=== PATIENT | female | born 1940 | race Caucasian/White ===

== ENCOUNTER 2017-10-21 17:52 | Inpatient (IN) | payer OTHER, SELFPAY ==
[2017-10-21 17:52] VITALS: BP 115/54; PULSE 63; RESP 18; TEMP 36.6; O2SAT 97; BMI 22.6
--- NOTE | 2017-10-21 18:05 | RAD_ITS ---
STUDY: X-RAY CHEST REASON FOR EXAM: Female, 77 years old. COUGH TECHNIQUE: Single frontal view of the chest. COMPARISON: Aug 10, 2017 FINDINGS: Chronic appearing increased interstitial lung markings. There is no demonstrated pleural abnormality. Normal heart size. Normal mediastinum and gabriela. Normal visualized pulmonary arteries. There is atherosclerotic calcification of the aortic arch with tortuosity. There are diffuse degenerative changes of the visualized thoracic spine. There is degenerative osteoarthritis of the bilateral shoulders. There is no demonstrated abnormality of the visualized soft tissue structures of the upper abdomen. RAD/Chest 1 View (Portable) IMPRESSION: There are no acute findings. Electronically Signed: Hamilton Hughes MD at 19:20 EST , Service support ,
--- NOTE | 2017-10-21 18:05 | EKG12_ITS ---
Test Reason : ABNORMAL LABS Blood Pressure : / mmHG Vent. Rate : 062 BPM Atrial Rate : 063 BPM P-R Int : 000 ms QRS Dur : 074 ms QT Int : 386 ms P-R-T Axes : 000 141 149 degrees QTc Int : 391 ms Normal sinus rhythm Old AWMI Anterolateral infarct (cited on or before 10-AUG-2017) Abnormal ECG Confirmed by ROSA PLATT ([id number]), graphics editor JOI RAHMAN ([id number]) on 10/25/2017 3:45:07 PM Referred By: MATTHEW Confirmed By:ROSA PLATT
--- NOTE | 2017-10-21 18:10 | ED.VISSUMM ---
- ER Visit Summary Date of Service: 10/21/17 Chief Complaint: Abnormal labs History of Present Illness: The patient is a 77 F history of pulmonary hypertension and recent and STEMI presents to the emergency department abnormal labs. Patient states that she has had flu. She states that she had vomiting over the past 3 days. She had outpatient labs done which demonstrated acute kidney injury. Patient states that she has been compliant with her medication. She was on Coumadin, but states she has not taken it since Tuesday because she was told not to. She has had no abdominal pain. She denies any fevers or chills. She still making urine. She has had no chest pain or dyspnea. She denies any recent travel. She denies any diarrhea. Physical Examination: Vital signs reviewed General: Well-nourished, well-developed, mucous membranes dry Head: Normocephalic, atraumatic Eyes: Pupils equal and reactive, extraocular muscles intact Neck, supple, no lymphadenopathy Heart: Regular rate and rhythm Respiratory: No distress, clear bilaterally Abdomen: Soft, nontender, nondistended, no peritoneal signs Back: Nontender Extremities: Nontender, no edema, no cords Skin: Normal color no rash Neuro: Alert and oriented, no focal or lateralizing deficits Test Results: EKG demonstrates sinus rhythm with intermittent PVCs. It was read as junctional, but does appear to be sinus with artifact. Chest x-ray unremarkable. Screening labs demonstrate acute kidney injury with a BUN of almost 150. Potassium is low at 2.6. Lipase mildly elevated at 911. Emergency Department Course and Treatment: IV was established. The patient was given a 500 cc bolus. She still had no urine output. Labs do confirm acute kidney injury. I do feel that this is likely all prerenal it is made worse with some of her nephrotoxic medication. She is given another small bolus. Based on the patient's significant kidney injury and dehydration she will need admitted. She does have an indeterminate troponin, but in light of her significant coronary vascular disease and acute kidney injury, I do not feel that this is cardiac in nature. The patient's potassium will be replaced gently. She will be gently hydrated and her urine output will be monitored. She will be admitted at this time. Treatment Plan: [] Disposition: Admission Impression: 1. Supratherapeutic INR 2. Acute kidney injury 3. Hypokalemia 4. Dehydration This note was generated with Dragon dictation software. It may contain incorrect words, spelling, and punctuation that were not noted in review of the chart prior to signing ED Disposition - Plan for ED Patient: Chief Complaint: Abn Labs
[2017-10-21 19:02] LABS: Absolute Lymphocyte Count 1.22 X10^3/ul (0.83-4.51); Absolute Neutrophil Count 6.8 X10^3/uL (2.0-7.7); Basophil# 0.02 X10^3/uL; Basophil% 0.2 % (0-1); Eosinophil# 0.18 X10^3/uL; Hematocrit 35.5 % (37-47); Hemoglobin 12.5 g/dl (12.0-15.0); Lymphocyte # 1.22 X10^3/ul (4.0); Lymphocyte % 13.7 % (19-41); Mean Corp Hgb Conc 35.2 g/gl (32-36); Mean Corpuscular Hgb 29.9 pg (27.0-32.0); Mean Corpuscular Volume 84.9 fL (81-99); Mean Platelet Vol. 12.1 fl (6.2-12.0); Monocyte# 0.69 X10^3/uL; Monocyte% 7.8 % (0-10); Neutrophil # 6.78 X10^3/uL (2.7-7.7); Neutrophil % 76.2 % (47-70); Platelet Count 124 K/mm3 (150-450); RBC Distribution Width CV 12.6 % (11.6-14.6); RBC Distribution Width SD 38.8 fl (35.1-43.9); Red Blood Count 4.18 M/mm3 (4.2-5.4); White Blood Count 8.9 K/mm3 (4.4-11.0)
[2017-10-21 19:08] LABS: POSITIVE COUNT NO; POSITIVE DIFFERENTIAL NO; POSITIVE MORPHOLOGY NO
[2017-10-21 19:13] LABS: Prothrombin Time (Protime)PT. 55.3 SECONDS (11.7-14.9)
[2017-10-21 19:14] LABS: International Normalized Ratio 6.6
--- NOTE | 2017-10-21 19:16 | ED.RN ---
inr 6.6 called from the lab. jordy sharpe aware
[2017-10-21 19:45] LABS: Lactic Acid 1.5 mmol/L (0.4-2.0)
[2017-10-21 19:56] LABS: ALB/GLOB Ratio 0.8 RATIO (0.9-2.4); AST(SGOT) 58 U/L (15-37); Alanine Aminotransfer ALT/SGPT 30 U/L (12-78); Albumin, Serum 3.5 g/dL (3.4-5.0); Alkaline Phosphatase 66 U/L (45-117); Anion Gap 15 (5-15); BUN 148 mg/dL (7-18); BUN/Creat Ratio 26.5 RATIO (10-20); Calcium,Total 8.9 mg/dL (8.5-10.1); Chloride 96 mmol/L (98-107); Creatinine, Serum 5.59 mg/dL (0.55-1.02); EST Glomerular Filtration Rate 8 mL/min (>60); Est Glom Filt Rate - Afr Amer 10 mL/min (>60); Estimated Creatinine Clearance 6.36 ml/min; Globulin 4.2 g/dL (2.2-4.2); Glucose 126 mg/dL (70-110); Lipase 911 U/L (73-393); Potassium 2.6 mmol/L (3.5-5.1); Protein, Total 7.7 g/dL (6.4-8.2); Sodium Level 137 mmol/L (136-145)
--- NOTE | 2017-10-21 19:56 | ED.RN ---
Dr. Machuca aware of critical labs K 2.6 and BUN 148.
--- NOTE | 2017-10-21 20:15 | ED.RN ---
PCU ABBY IMDEBRA
[2017-10-21 20:28] LABS: Mucous, Urine 0 SEEN /hpf (<or=2+); Red Blood Cells-Urine 0 SEEN /hpf (0-5); Squamous Epithelial Cells - UA 0 SEEN /hpf (5-10)
[2017-10-21 20:31] VITALS: BP 122/69; PULSE 62; PULSE 65; RESP 11; RESP 17; O2SAT 94; O2SAT 97
[2017-10-21 20:35] LABS: Color, Urine Yellow (Yellow); Glucose, Dipstick Normal (Normal); Ketone-Dipstick Negative (Negative); Leukocyte Esterase-Dipstick 500 /ul (Negative); Nitrite-Dipstick Negative (Negative); Occult Blood-Urine 250 /ul (Negative); Protein-Dipstick 30 mg/dl (Negative); Urine Bilirubin Dipstick Negative (Negative); Urine Clarity Cloudy (Clear); Urine Urobilinogen Normal (Normal)
[2017-10-21 21:17] VITALS: BMI 24.6
[2017-10-21 21:18] VITALS: BP 134/60; PULSE 65; RESP 18; TEMP 36.7; O2SAT 95
[2017-10-21 21:20] LABS: Coarse Granular Cast 0-5 SEEN /lpf (0-5 /lpf)
[2017-10-21 21:21] LABS: Fine Granular Cast- Urine 0-5 SEEN /lpf (0-5)
[2017-10-21 21:24] LABS: Hyaline Cast 0-5 SEEN /lpf (0-5); Waxy Cast-Urine 0-5 SEEN /lpf (None Seen)
[2017-10-21 21:26] LABS: Bacteria 1+ /hpf (None Seen); Renal Epithelial Cells 0-5 SEEN /hpf (0-5); White Blood Cells >100 SEEN /hpf (0-5)
[2017-10-21 21:27] LABS: Transitional Epithelial - Ur 0-5 SEEN /hpf (0-5)
--- NOTE | 2017-10-21 21:27 | PCM.HP.STD ---
Problem List (1) ABBY (acute kidney injury) Status: Acute (2) Hypokalemia Status: Acute (3) Warfarin-induced coagulopathy Status: Acute (4) Ischemic cardiomyopathy Status: Chronic (5) Arteriosclerotic heart disease (ASHD) Status: Chronic (6) custodial (current) use of anticoagulants Status: Chronic History of Present Illness Date of Admission: 10/21/17 Chief Complaint: Abnormal lab results. Patient is a 77 years old female who was sent to ED after she had abnormal lab results. She was feeling fair, but had flu for past few days with non-specific complains of malaise, some cough, and nausea and vomiting. She had NSTEMI in August 2017, there was addition of furosemide for severe systolic dysfunction. Her creatinine was 5.59, with BUN 148. Potassium was 2.6. INR was 6.6, but she has no symptoms of bleeding. She was urinating normally until this morning. Furosemide was stopped yesterday for dehydration. In ED, IVF bolus given. She was not voiding initially, but had some urine output later. Past Medical History Past Medical History (Chronic Problems): Chronic Problems (Last Updated 10/21/17 @ 08:56 by Mars Rayo) Ischemic cardiomyopathy (Chronic) Arteriosclerotic heart disease (ASHD) (Chronic) CVA (cerebral vascular accident) (Chronic) Peripheral vascular disease (Chronic) Renal artery stenosis (Chronic) custodial (current) use of anticoagulants (Chronic) Cerebrovascular disease (Chronic) Dyslipidemia (Chronic) HTN (hypertension) (Chronic) Noncompliance with medication regimen (Chronic) PVD (peripheral vascular disease) (Chronic) Abdominal aortic artery stent (Chronic) Non-STEMI (Chronic) Hypertensive urgency (Chronic) Allergies No Known Allergies Allergy (Verified 10/21/17 17:55) Home Medications: Ambulatory Orders Medication Instructions Recorded Aspirin [Aspirin, Baby] 81 mg PO DAILY@0800 10/21/17 Carvedilol [Coreg] 12.5 mg PO BID 10/21/17 Losartan Potassium [Cozaar] 25 mg PO DAILY 10/21/17 Potassium Chloride [Klor-Con M10] 20 meq PO DAILY 10/21/17 Rosuvastatin Calcium [Crestor] 40 mg PO DAILY 10/21/17 Smoking Status: Never smoker - *Family History Paternal Family History: Family History (Last Updated 10/21/17 @ 08:53 by Mars Rayo) Brother Hypertension History Items: No pertinent history Review of Systems Comment: ROS: In general: Malaise. No fever, chills. Decreased apptetite. HEENT: Unremarkable. Patient denied of any dizziness, chronic headache, blurred vision, double vision, dry mouth, or nasal congestion. CV/respiratory: There is no exertional shortness of breath, chest pain, palpitation, wheezing, cough, claudication, cold feet, or peripheral edema. GI: Nausea and vomiting. No hematemesis or melena. No abdominal pain. : Patient denied any significant urinary symptoms. Neurology: Unremarkable. There is no history of seizure as an adult. Psychological: Unremarkable. ?. Endocrine: Unremarkable. Musculoskeletal: Unremarkable. VTE Information - Inpt Only VTE Present on Admission: No VTE Mechan Device Prophylaxis: SCD's VTE Pharm Prophylaxis ordered?: No Reason prophylaxis not ordered:: Medical Contraindication - Supratherapeutic INR Patient Problems: Active and Suspected Problems (Last Updated 10/21/17 @ 08:56 by Mars Rayo) ABBY (acute kidney injury) (Acute) Hypokalemia (Acute) Warfarin-induced coagulopathy (Acute) Objective: In general, patient is a well-nourished and developed adult. HEENT: Head is atraumatic, and normocephalic. Pupils are equal, round, and reactive to light and accommodations. Neck is supple. There is no lymphadenopathy, or thyromegaly. Oral mucosa is pink, and moist. There are no lesions. Heart: Auscultation is normal with regular rhythm and rate. There is no extra heart sounds, or murmurs. S1 and S2 are present. Point of maximal impulse is not displaced. Lungs: Lungs are clear to auscultation bilaterally. There is no wheezing, or crackles. Abdomen: Abdominal wall is non-tender, and non-distended. There is no palpable mass or organomegaly. Normoactive bowel sounds are present. Extremities: There is no cyanosis or clubbing. Peripheral pulses are palpable. There is no edema. Skin: There are no any skin discoloration or lesions. Neurological: CN II - XII are intact. Sensory and motor functions are grossly normal with no obvious deficit. Cerebellar functions are within normal range. Gait was not tested. - Physical Exam Vital Signs Temp Pulse Resp BP Pulse Ox 98.1 F 65 18 134/60 H 95 10/21/17 21:18 10/21/17 21:18 10/21/17 21:18 10/21/17 21:18 10/21/17 21:18 Oxygen Delivery Method Room Air Weight: 130 lb 4.691 oz Body Mass Index (BMI) 24.6 Laboratory Tests Past 24 Hrs 10/21/17 20:20 Urine Color Yellow Urine Clarity Cloudy Urine pH 5.0 Ur Specific Dawson 1.010 Urine Protein 30 H Urine Glucose (UA) Normal Urine Ketones Negative Urine Occult Blood 250 H Urine Nitrite Negative Urine Bilirubin Negative Urine Urobilinogen Normal Ur Leukocyte Esterase 500 H Urine RBC Pending Urine WBC Pending Ur Squamous Epith Cells Pending Urine Bacteria Pending Urine Mucus Pending Diagnostic Data Chest X-Ray 10/21/17 18:05 IMPRESSION: There are no acute findings. Electronically Signed: Hamilton Hughes MD at 19:20 EST , Service support , Assessment/Plan Active and Suspected Problems (Last Updated 10/21/17 @ 08:56 by Mars Rayo) ABBY (acute kidney injury) (Acute) Hypokalemia (Acute) Warfarin-induced coagulopathy (Acute) Patient is a 77 years old female who was sent to ED after she had abnormal lab results. She was feeling fair, but had flu for past few days with non-specific complains of malaise, some cough, and nausea and vomiting. She had NSTEMI in August 2017, there was addition of furosemide for severe systolic dysfunction. Her creatinine was 5.59, with BUN 148. Potassium was 2.6. INR was 6.6, but she has no symptoms of bleeding. She was urinating normally until this morning. Furosemide was stopped yesterday for dehydration. In ED, IVF bolus given. She was not voiding initially, but had some urine output later. #1 ABBY. Likely due to dehydration from diuretics. Hold Lasix and HCTZ. Gentle hydration with IVF, 100 ml/hr. Monitor BMP. Consider renal consult if renal function does not improve with fluid. #2 Supratherapeutic INR. Hold warfarin. INR daily. #3 CHF with systolic dysfunction, chronic. EF 15-20% per cardiology note. IVF as above. Losartan, K-CL, and diuretics on hold. #4 Coronary artery disease. With recent NSTEMI in 08/2017. #5 Hypokalemia. KCL IVPB 20 meq x 1 given. Repeat BMP in AM. VTE prophylaxis: INR supratherapeutic. GI prophylaxis: ppi po. Patient is full code. Disposition: Home in 3 to 4 days. PT/OT evaluation. Code Visit Inpatient E&M: 22715 Init Hosp L3
--- NOTE | 2017-10-21 21:40 | HP.PCM_ITS ---
Problem List (1) ABBY (acute kidney injury) Status: Acute (2) Hypokalemia Status: Acute (3) Warfarin-induced coagulopathy Status: Acute (4) Ischemic cardiomyopathy Status: Chronic (5) Arteriosclerotic heart disease (ASHD) Status: Chronic (6) FPC (current) use of anticoagulants Status: Chronic History of Present Illness Date of Admission: 10/21/17 Chief Complaint: Abnormal lab results. Patient is a 77 years old female who was sent to ED after she had abnormal lab results. She was feeling fair, but had ?flu? for past few days with non-specific complains of malaise, some cough, and nausea and vomiting. She had NSTEMI in August 2017, there was addition of furosemide for severe systolic dysfunction. Her creatinine was 5.59, with BUN 148. Potassium was 2.6. INR was 6.6, but she has no symptoms of bleeding. She was urinating normally until this morning. Furosemide was stopped yesterday for dehydration. In ED, IVF bolus given. She was not voiding initially, but had some urine output later. Past Medical History Past Medical History (Chronic Problems): Chronic Problems (Last Updated 10/21/17 @ 08:56 by Mars Rayo) Ischemic cardiomyopathy (Chronic) Arteriosclerotic heart disease (ASHD) (Chronic) CVA (cerebral vascular accident) (Chronic) Peripheral vascular disease (Chronic) Renal artery stenosis (Chronic) FPC (current) use of anticoagulants (Chronic) Cerebrovascular disease (Chronic) Dyslipidemia (Chronic) HTN (hypertension) (Chronic) Noncompliance with medication regimen (Chronic) PVD (peripheral vascular disease) (Chronic) Abdominal aortic artery stent (Chronic) Non-STEMI (Chronic) Hypertensive urgency (Chronic) Allergies No Known Allergies Allergy (Verified 10/21/17 17:55) Home Medications: Ambulatory Orders Medication Instructions Recorded Aspirin [Aspirin, Baby] 81 mg PO DAILY@0800 10/21/17 Carvedilol [Coreg] 12.5 mg PO BID 10/21/17 Losartan Potassium [Cozaar] 25 mg PO DAILY 10/21/17 Potassium Chloride [Klor-Con M10] 20 meq PO DAILY 10/21/17 Rosuvastatin Calcium [Crestor] 40 mg PO DAILY 10/21/17 Smoking Status: Never smoker - *Family History Paternal Family History: Family History (Last Updated 10/21/17 @ 08:53 by Mars Rayo) Brother Hypertension History Items: No pertinent history Review of Systems Comment: ROS: In general: Malaise. No fever, chills. Decreased apptetite. HEENT: Unremarkable. Patient denied of any dizziness, chronic headache, blurred vision, double vision, dry mouth, or nasal congestion. CV/respiratory: There is no exertional shortness of breath, chest pain, palpitation, wheezing, cough, claudication, cold feet, or peripheral edema. GI: Nausea and vomiting. No hematemesis or melena. No abdominal pain. : Patient denied any significant urinary symptoms. Neurology: Unremarkable. There is no history of seizure as an adult. Psychological: Unremarkable. ?. Endocrine: Unremarkable. Musculoskeletal: Unremarkable. VTE Information - Inpt Only VTE Present on Admission: No VTE Mechan Device Prophylaxis: SCD's VTE Pharm Prophylaxis ordered?: No Reason prophylaxis not ordered:: Medical Contraindication - Supratherapeutic INR Patient Problems: Active and Suspected Problems (Last Updated 10/21/17 @ 08:56 by Mars Rayo) ABBY (acute kidney injury) (Acute) Hypokalemia (Acute) Warfarin-induced coagulopathy (Acute) Objective: In general, patient is a well-nourished and developed adult. HEENT: Head is atraumatic, and normocephalic. Pupils are equal, round, and reactive to light and accommodations. Neck is supple. There is no lymphadenopathy, or thyromegaly. Oral mucosa is pink, and moist. There are no lesions. Heart: Auscultation is normal with regular rhythm and rate. There is no extra heart sounds, or murmurs. S1 and S2 are present. Point of maximal impulse is not displaced. Lungs: Lungs are clear to auscultation bilaterally. There is no wheezing, or crackles. Abdomen: Abdominal wall is non-tender, and non-distended. There is no palpable mass or organomegaly. Normoactive bowel sounds are present. Extremities: There is no cyanosis or clubbing. Peripheral pulses are palpable. There is no edema. Skin: There are no any skin discoloration or lesions. Neurological: CN II - XII are intact. Sensory and motor functions are grossly normal with no obvious deficit. Cerebellar functions are within normal range. Gait was not tested. - Physical Exam Vital Signs Temp Pulse Resp BP Pulse Ox 98.1 F 65 18 134/60 H 95 10/21/17 21:18 10/21/17 21:18 10/21/17 21:18 10/21/17 21:18 10/21/17 21:18 Oxygen Delivery Method Room Air Weight: 130 lb 4.691 oz Body Mass Index (BMI) 24.6 Laboratory Tests Past 24 Hrs 10/21/17 20:20 Urine Color Yellow Urine Clarity Cloudy Urine pH 5.0 Ur Specific [place] 1.010 Urine Protein 30 H Urine Glucose (UA) Normal Urine Ketones Negative Urine Occult Blood 250 H Urine Nitrite Negative Urine Bilirubin Negative Urine Urobilinogen Normal Ur Leukocyte Esterase 500 H Urine RBC Pending Urine WBC Pending Ur Squamous Epith Cells Pending Urine Bacteria Pending Urine Mucus Pending Diagnostic Data Chest X-Ray 10/21/17 18:05 IMPRESSION: There are no acute findings. Electronically Signed: Hamilton Hughes MD at 19:20 EST , Service support , Assessment/Plan Active and Suspected Problems (Last Updated 10/21/17 @ 08:56 by Mars Rayo) ABBY (acute kidney injury) (Acute) Hypokalemia (Acute) Warfarin-induced coagulopathy (Acute) Patient is a 77 years old female who was sent to ED after she had abnormal lab results. She was feeling fair, but had ?flu? for past few days with non-specific complains of malaise, some cough, and nausea and vomiting. She had NSTEMI in August 2017, there was addition of furosemide for severe systolic dysfunction. Her creatinine was 5.59, with BUN 148. Potassium was 2.6. INR was 6.6, but she has no symptoms of bleeding. She was urinating normally until this morning. Furosemide was stopped yesterday for dehydration. In ED, IVF bolus given. She was not voiding initially, but had some urine output later. #1 ABBY. Likely due to dehydration from diuretics. Hold Lasix and HCTZ. Gentle hydration with IVF, 100 ml/hr. Monitor BMP. Consider renal consult if renal function does not improve with fluid. #2 Supratherapeutic INR. Hold warfarin. INR daily. #3 CHF with systolic dysfunction, chronic. EF 15-20% per cardiology note. IVF as above. Losartan, K-CL, and diuretics on hold. #4 Coronary artery disease. With recent NSTEMI in 08/2017. #5 Hypokalemia. KCL IVPB 20 meq x 1 given. Repeat BMP in AM. VTE prophylaxis: INR supratherapeutic. GI prophylaxis: ppi po. Patient is full code. Disposition: Home in 3 to 4 days. PT/OT evaluation. Code Visit Inpatient E&M: 49034 Init Hosp L3
[2017-10-21 21:46] VITALS: PULSE 101
[2017-10-21 23:15] VITALS: PULSE 126
[2017-10-21] MEDS: Carvedilol 12.5 MG Tablet PO (23:49)
[2017-10-21] MEDS: Atorvastatin Calcium 80 MG Tablet PO (23:49)
[2017-10-22] VITALS (11 sets, daily range): BP systolic 82–98; BP diastolic 43–62; PULSE 69–118; RESP 16–18; TEMP 36.4–37; O2SAT 95–97
[2017-10-22] MEDS: 0.9% Normal Saline 1,000 ML 100 ML IV ×2 (00:23→10:03)
--- NOTE | 2017-10-22 02:18 | ECHOCS_ITS ---
Reason For Study: Arrhythmia Procedure This was a 2D Doppler, Color Flow transthoracic echocardiogram. Patient would not maintain proper positioning for testing. The study was technically difficult. Contrast injection was performed. Exam performed portable in patient room. Left Ventricle Normal LV size. Sigmoid septum. Severe segmental systolic dysfunction (see wall motion). The estimated ejection fraction is 15 %. Mid-Anterior : Akinetic. Mid-Lateral : Hypokinetic. Mid- Posterior: Hypokinetic. Mid-Inferior: Hypokinetic. Mid-inferoseptal : Akinetic. Mid-anteroseptal : Akinetic. Randolph : Akinetic. Right Ventricle Normal RV size. Normal systolic function. Atria The left atrium is severely enlarged. Normal right atrium. No doppler evidence for ASD. Mitral Valve There is moderate to severe mitral annular calcification. Extension of the mitral annular calcicification onto the posterior mitral valve leaflet. Mild focal mitral valve calcification of the anterior leaflet. Mild (1+) mitral valve insufficiency. Tricuspid Valve Normal tricuspid valve. Moderate (2+) tricuspid valve insufficiency. Right ventricular systolic pressure estimated to be 46 mmHg. Aortic Valve Trisinus/trileaflet aortic valve. Normal aortic valve. Pulmonic Valve The pulmonic valve is not well visualized. Great Vessels Normal sized aortic root. Pericardium/Pleural No pericardial effusion. Medication Diluted definity 5ml given slow IV push to enhance endocardial definition. MMode/2D Measurements & Calculations LVIDd: 3.5 cm IVSd: 1.6 cm Ao root diam: 2.6 cm RVDd: 2.7 cm LVPWd: 1.0 cm LAV(MOD-sp4): 72.3 ml LA A4 area: 22.8 cm2 RA A4 area: 12.3 cm2 Time Measurements MV dec time: 0.15 sec Doppler Measurements & Calculations MV E max suresh: 135.8 cm/sec Ao V2 max: 89.1 cm/sec LV V1 max: 61.7 cm/sec MV A max suresh: 58.1 cm/sec Ao max P.2 mmHg LV V1 max P.5 mmHg MV E/A: 2.3 Ao V2 mean: 50.2 cm/sec LV V1 mean P.72 mmHg Ao mean P.2 mmHg LV V1 mean: 38.9 cm/sec Ao V2 VTI: 10.8 cm LV V1 VTI: 10.5 cm PA V2 max: 87.6 cm/sec TR max suresh: 326.6 cm/sec TR max P.7 mmHg Interpretation Summary The study was technically difficult. Contrast injection was performed. Severe segmental systolic dysfunction (see wall motion). The estimated ejection fraction is 15 %. Sigmoid septum. The left atrium is severely enlarged. There is moderate to severe mitral annular calcification. Extension of the mitral annular calcicification onto the posterior mitral valve leaflet. Mild focal mitral valve calcification of the anterior leaflet. Mild (1+) mitral valve insufficiency. Moderate (2+) tricuspid valve insufficiency. Right ventricular systolic pressure estimated to be 46 mmHg. Transmitral diastolic flow velocities suggest diastolic dysfunction (pseudonormal pattern). Ordering Physician: Marci Garzon Referring Physician: Chon Solis Performed By: Víctor Massey RCS
[2017-10-22 02:36] LABS: Magnesium 1.8 mg/dL (1.6-2.6)
[2017-10-22 05:29] LABS: Hematocrit 32.8 % (37-47); Hemoglobin 11.7 g/dl (12.0-15.0); Mean Corp Hgb Conc 35.7 g/gl (32-36); Mean Corpuscular Hgb 30.1 pg (27.0-32.0); Mean Corpuscular Volume 84.3 fL (81-99); Mean Platelet Vol. 12.2 fl (6.2-12.0); Platelet Count 114 K/mm3 (150-450); RBC Distribution Width CV 12.2 % (11.6-14.6); RBC Distribution Width SD 36.7 fl (35.1-43.9); Red Blood Count 3.89 M/mm3 (4.2-5.4); White Blood Count 8.1 K/mm3 (4.4-11.0)
[2017-10-22 05:37] LABS: Scan Indicated on CBC? Y/N NO
[2017-10-22 05:40] LABS: Prothrombin Time (Protime)PT. 58.6 SECONDS (11.7-14.9)
[2017-10-22 05:43] LABS: International Normalized Ratio 7.1
[2017-10-22 05:51] LABS: Anion Gap 13 (5-15); BUN 114 mg/dL (7-18); BUN/Creat Ratio 28.1 RATIO (10-20); Calcium,Total 7.9 mg/dL (8.5-10.1); Chloride 106 mmol/L (98-107); Creatinine, Serum 4.06 mg/dL (0.55-1.02); EST Glomerular Filtration Rate 11 mL/min (>60); Est Glom Filt Rate - Afr Amer 14 mL/min (>60); Estimated Creatinine Clearance 8.76 ml/min; Glucose 118 mg/dL (70-110); Sodium Level 144 mmol/L (136-145)
--- NOTE | 2017-10-22 05:55 | EKG12_ITS ---
Test Reason : AM EKG Blood Pressure : / mmHG Vent. Rate : 103 BPM Atrial Rate : 079 BPM P-R Int : 000 ms QRS Dur : 080 ms QT Int : 350 ms P-R-T Axes : 000 090 110 degrees QTc Int : 458 ms Atrial fibrillation Anterolateral infarct , age undetermined Abnormal ECG When compared with ECG of 21-OCT-2017 18:15, MANUAL COMPARISON REQUIRED, DATA IS UNCONFIRMED Confirmed by ROSA PLATT ([id number]), news editor JOI RAHMAN ([id number]) on 10/27/2017 1:52:14 PM Referred By: Confirmed By:ROSA PLATT
[2017-10-22 06:05] LABS: Cholesterol 90 mg/dL (200); High Density Lipoprotein 31 mg/dL; Triglycerides 169 mg/dL; Very Low Density Lipoprotein 34 mg/dL (5-40)
[2017-10-22] MEDS: Phytonadione (Vit K) 10 MG/ML Ampul 5 MG PO (07:25)
[2017-10-22] MEDS: Aspirin 81 MG TAB.CHEW PO (08:09)
[2017-10-22] MEDS: Pantoprazole Sodium 20 MG Tablet PO (10:03)
--- NOTE | 2017-10-22 10:51 | PCM.PROGNOTE ---
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 She denied any blood in her stool. Outpatient labs revealed acute kidney injury. Vital signs at presentation to the emergency room are temperature 98, pulse rate 63, blood pressure 115/54, respiratory rate 18 and she was 95-97% saturated on room air. Admitting labs showed a normal hemoglobin at 12.5, normal WBC at 8.9 and an unremarkable differential. Platelets were low at 124,000. INR was high at 6.6. Potassium was low at 2.6 and the BUN was 148 with a creatinine of 5.59. Lactic acid was normal. Troponin was elevated at 0.18. Urine had greater than 100 WBCs and was nitrite negative. There was no urine sent for culture. Chest x-ray showed blunting of the right costophrenic angle and some hyperinflation. She has been on an ARB and Lasix as an outpatient. Her medications also include warfarin, carvedilol, potassium and Crestor. She was admitted to the hospital with a diagnosis of acute kidney injury and started on normal saline at 100 cc/h. She was given vitamin K 5 mg p.o. Potassium was supplemented with 40 mEq p.o. ?1 and 20 mEq IV. Echocardiogram done in August 2017 showed an ejection fraction of 15-20% with stage I diastolic dysfunction. Left atrium was severely enlarged and the right ventricular systolic pressure was 45. Heart catheterization in August showed double vessel coronary artery disease. She had PCI to the mid and distal OM1 which was successful. Troponin is continuing to increase and today is 4.32. White blood cell count remains normal at 8.1. Platelets are 114,000. Rate is currently 87 bpm. Telemetry shows atrial fibrillation with rapid ventricular response, PVCs and one single run of 4 beats of nonsustained V. tach. Heart rate is improving and is less than 100 now. She denies lightheadedness currently sitting in a chair. She also denies chest pain, shortness of breath and states her legs have not been swollen. EKG shows Q waves in all precordial leads consistent with old anterolateral OK. There are nonspecific ST and T-wave changes with no evidence of ST segment elevation or significant depression. - Physical Exam General: Alert, Cooperative, No apparent distress HEENT: Atraumatic, PERRLA, EOMI, - - Palpebral conjunctiva is pale. Oral: No Gingival or Mucosal Lesions/ Ulcerations, Dry Mucosa Neck: Supple, No JVD, Trachea Midline Lungs: Clear to auscultation, No rhonchi, No wheeze, No rales Cardiovascular: Normal S1, Normal S2, Irregular Rate, No rub noted, No Gallop, - - Heart sounds are distant but no murmur appreciated. Abdomen: Bowel Sounds Present, Soft, Non Tender, Non-Distended Extremities: No cyanosis, No edema, No Calf Tenderness, Cool - Hands and feet Skin: No rashes, No breakdown Neurological: Cranial nerves II-XII grossly intact, Neuro grossly intact Psych/Mental Status: Normal Affect, Appropriate Vital Signs Temp Pulse Resp BP Pulse Ox 97.6 F L 87 18 96/62 97 10/22/17 09:15 10/22/17 09:15 10/22/17 09:15 10/22/17 09:15 10/22/17 09:15 Oxygen Delivery Method Room Air Weight: 130 lb 4.691 oz Body Mass Index (BMI) 24.6 Intake and Output for Last 24 Hours 10/20/17 10/21/17 10/22/17 23:59 23:59 23:59 Intake Total 482 / 482 480 / 480 Output Total 200 / 200 Balance 482 / 482 280 / 280 Laboratory Tests Past 24 Hrs 10/21/17 10/22/17 10/22/17 20:20 01:05 01:05 WBC RBC Hgb Hct MCV MCH MCHC RDW RDW Differential Plt Count MPV PT INR Sodium Potassium Chloride Carbon Dioxide Anion Gap BUN Creatinine Estim Creat Clear Calc Est GFR (MDRD) Af Amer Est GFR (MDRD) Non-Af BUN/Creatinine Ratio Glucose Calcium Magnesium 1.8 Troponin I 0.83 H* Triglycerides Cholesterol LDL Cholesterol VLDL Cholesterol HDL Cholesterol Urine Color Yellow Urine Clarity Cloudy Urine pH 5.0 Ur Specific [place] 1.010 Urine Protein 30 H Urine Glucose (UA) Normal Urine Ketones Negative Urine Occult Blood 250 H Urine Nitrite Negative Urine Bilirubin Negative Urine Urobilinogen Normal Ur Leukocyte Esterase 500 H Urine RBC 0 SEEN Urine WBC >100 SEEN Ur Squamous Epith Cells 0 SEEN Ur Transition Epith Cell 0-5 SEEN Ur Renal Epithelial Cell 0-5 SEEN Urine Bacteria 1+ Hyaline Casts 0-5 SEEN Fine Granular Casts 0-5 SEEN Coarse Granular Casts 0-5 SEEN Waxy Casts 0-5 SEEN H Urine Mucus 0 SEEN 10/22/17 10/22/17 10/22/17 05:13 05:13 05:13 WBC 8.1 RBC 3.89 L Hgb 11.7 L Hct 32.8 L MCV 84.3 MCH 30.1 MCHC 35.7 RDW 12.2 RDW Differential 36.7 Plt Count 114 L MPV 12.2 H PT 58.6 H INR 7.1 H* Sodium 144 Potassium 3.0 L Chloride 106 Carbon Dioxide 25.0 Anion Gap 13 BUN 114 H* Creatinine 4.06 H Estim Creat Clear Calc 8.76 Est GFR (MDRD) Af Amer 14 L Est GFR (MDRD) Non-Af 11 L BUN/Creatinine Ratio 28.1 H Glucose 118 H Calcium 7.9 L Magnesium Troponin I 2.66 H* Triglycerides Cholesterol LDL Cholesterol VLDL Cholesterol HDL Cholesterol Urine Color Urine Clarity Urine pH Ur Specific [place] Urine Protein Urine Glucose (UA) Urine Ketones Urine Occult Blood Urine Nitrite Urine Bilirubin Urine Urobilinogen Ur Leukocyte Esterase Urine RBC Urine WBC Ur Squamous Epith Cells Ur Transition Epith Cell Ur Renal Epithelial Cell Urine Bacteria Hyaline Casts Fine Granular Casts Coarse Granular Casts Waxy Casts Urine Mucus 10/22/17 10/22/17 05:13 09:27 WBC RBC Hgb Hct MCV MCH MCHC RDW RDW Differential Plt Count MPV PT INR Sodium Potassium Chloride Carbon Dioxide Anion Gap BUN Creatinine Estim Creat Clear Calc Est GFR (MDRD) Af Amer Est GFR (MDRD) Non-Af BUN/Creatinine Ratio Glucose Calcium Magnesium Troponin I 4.32 H* Triglycerides 169 Cholesterol 90 LDL Cholesterol 25 VLDL Cholesterol 34 HDL Cholesterol 31 L Urine Color Urine Clarity Urine pH Ur Specific [place] Urine Protein Urine Glucose (UA) Urine Ketones Urine Occult Blood Urine Nitrite Urine Bilirubin Urine Urobilinogen Ur Leukocyte Esterase Urine RBC Urine WBC Ur Squamous Epith Cells Ur Transition Epith Cell Ur Renal Epithelial Cell Urine Bacteria Hyaline Casts Fine Granular Casts Coarse Granular Casts Waxy Casts Urine Mucus Assessment/Plan Active and Suspected Problems (Last Updated 10/21/17 @ 08:56 by Mars Rayo) ABBY (acute kidney injury) (Acute) Hypokalemia (Acute) Warfarin-induced coagulopathy (Acute) Impressions 1. ABBY on CRF stage III due to severe dehydration 2. Elevated troponin at 4.23 - pt is asymptomatic - suspect due to demand ischemia/NSTEMI type II due to severe dehydration with poor coronary blood flow and AF with RVR. 3. supratherapeutic INR 4. Chronic anticoagulation with Coumadin 5. Thrombocytopenia-acute 6. Normochromic normocytic anemia with a hemoglobin of 11.7 today. Suspect this is falsely elevated due to hemoconcentration related to severe dehydration. 7. Severe dehydration 8. Hypokalemia 9. PVCs and one episode of nonsustained ventricular tachycardia 10. Coronary artery disease 11. Ischemic cardiomyopathy with 15-20% ejection fraction in August 2017 12. Pulmonary hypertension-moderate 13. Peripheral vascular disease 14. 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 [id number] 16. Hypertension 17. History of abdominal aortic artery stent Continue to gently hydrate and very close monitoring for any sign CHF Type and screen for PRBC's Vitamin K today Recheck the lab in the AM Consult Dr. Howard due to increased Tropo - cath at this point is not advisable due to the ABBY. Would only do if emergent due to severe CP, ST elevation. Hold antihypertensives for now due to low BP Hold all diuretics Daily weights accurate I&O Continue Protonix for GI prophylaxis Potassium was supplemented by the night hospitalist. Will repeat a BMP at 1600 and magnesium. 2 GM Mag IV today Code Visit Inpatient E&M: 69105 Subs Hosp L3
[2017-10-22] MEDS: 0.9% Normal Saline 1,000 ML 80 ML IV (12:49)
--- NOTE | 2017-10-22 13:08 | CASEMGMT ---
Face to Face with patient for initial transition planning/care coordination assessment. RN MIREILLE introduced self and role at [facility], pt voices understanding and consents to assessment at this time. Care providers, pharmacy, and demographics verified. See attached link. Advised pt to ask for CM if questions/concerns/needs arise, voices understanding. PLAN: Patient states she would like to return home, with her spouse, upon discharge from the hospital. CM notes that PT eval documents patient stating she has not walked since August. Patient did inform me that her uses a wheelchair to help her get to/from the bathroom. Patient states she has a walker, but does not use it. Patient states she has never used home health services. CM will followup with any home-going needs that may arise. Eduardo POLLOCK, RN MIREILLE
[2017-10-22] MEDS: Carvedilol 3.125 MG TABLET PO (13:32)
[2017-10-22] MEDS: Phytonadione (Vit K) 10 MG/ML Ampul SC (13:33)
[2017-10-22 16:19] LABS: Hematocrit 32.1 % (37-47); Hemoglobin 11.2 g/dl (12.0-15.0)
--- NOTE | 2017-10-22 16:25 | PCM.CONS.C ---
Problem List (1) Non-STEMI Status: Chronic (2) Arteriosclerotic heart disease (ASHD) Status: Chronic (3) Ischemic cardiomyopathy Status: Chronic (4) Systolic CHF, chronic Status: Chronic (5) Atrial fibrillation Status: Chronic (6) Peripheral vascular disease Status: Chronic (7) Dyslipidemia Status: Chronic (8) HTN (hypertension) Status: Chronic Qualifiers: Hypertension type: essential hypertension Qualified Code(s): I10 - Essential (primary) hypertension (9) ABBY (acute kidney injury) Status: Acute (10) Noncompliance with medication regimen Status: Chronic Reason for Consult Date of Consultation: 10/22/17 History of Present Illness: The patient is a 77 year old white female with a complex cardiovascular history which is included underlying CAD, ischemic mediated cardiomyopathy, chronic systolic CHF, atrial fibrillation, superimposed upon a history of hyperlipidemia, hypertension, peripheral vascular disease (with a report of renal artery stenosis and an abdominal aortic stent), now with concerns of acute renal insufficiency and medication noncompliance. The patient has undergone extensive cardiovascular evaluation in the past both noninvasively and invasively. She has been followed as an outpatient. She presented for outpatient cardiovascular follow-up yesterday based upon concerns, since the end of September 2017 and beginning of October 2017, of not feeling well, decreased appetite, decreased oral intake, dizziness and off-balance sensation upon standing, fatigue and lethargy, and feeling weak. There is also been reports of nausea and emesis. She denies any diarrhea type events. She has denied ongoing fevers, chills, or night sweats. There has been no report of acute orthopnea or PND or worsening peripheral pitting edema. She has denied syncope. There has been a question as to whether or not she has been taking her medication appropriately at home. She was evaluated in the outpatient setting and found to have on laboratory follow-up laboratory abnormalities which demonstrated increased INR levels and increased BUN and creatinine levels. She was recommended to present to the hospital for further evaluation and care. She was evaluated in the [facility] emergency department. She was subsequently placed in the PCU for further evaluation and care. It appears there were concerns of dehydration and thus she has been receiving gentle IV fluids. She is been noted to have improvement in her creatinine level. She has also remained without her anticoagulant therapy. Her INR has remained elevated. She has been noted to have abnormal bone and eye levels. They have increased. Her ECG demonstrated atrial fibrillation with PVCs with low voltage QRS especially in the limb leads with an anterolateral OR pattern of indeterminate age and nonspecific ST and T-wave changes. She has undergone evaluation with a transthoracic echocardiogram. Her left ventricle noted left ventricular regional wall motion abnormalities with an estimated LVEF of 15% which is similar to her previous echocardiographic findings. She did undergo evaluation with a diagnostic cardiac catheterization on 08/10/2017. At that time according the report the left ventricle was noted to have an LVEF of 15-20%, the left main coronary artery was normal, the LAD had proximal 85% stenosis and was subsequently occluded, the LCx OM1 was occluded, the RCA had mild luminal irregularities, an attempt was made to perform PCI on the OM system however this was unsuccessful secondary to not being able to cross the lesion with the guidewire. [] Past Medical History Allergies/Adverse Reactions: Allergies No Known Allergies Allergy (Verified 10/21/17 17:55) Home Medications: Ambulatory Orders Medication Instructions Recorded Aspirin [Aspirin, Baby] 81 mg PO DAILY@0800 10/21/17 Carvedilol [Coreg] 12.5 mg PO BID 10/21/17 Escitalopram Oxalate [Lexapro] 10 mg PO DAILY 10/21/17 Furosemide [Lasix] 40 mg PO DAILY 10/21/17 Losartan Potassium [Cozaar] 25 mg PO DAILY 10/21/17 Potassium Chloride [Klor-Con M10] 20 meq PO DAILY 10/21/17 Rosuvastatin Calcium [Crestor] 40 mg PO DAILY 10/21/17 Warfarin [Coumadin (PBKC)] 2 mg PO DAILY 10/21/17 Past Medical History (Chronic Problems): Chronic Problems (Last Updated 10/21/17 @ 08:56 by Mars Rayo) Systolic CHF, chronic (Chronic) Atrial fibrillation (Chronic) Ischemic cardiomyopathy (Chronic) Arteriosclerotic heart disease (ASHD) (Chronic) CVA (cerebral vascular accident) (Chronic) Peripheral vascular disease (Chronic) Renal artery stenosis (Chronic) 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 (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) Cerebrovascular disease (Chronic) Dyslipidemia (Chronic) HTN (hypertension) (Chronic) Noncompliance with medication regimen (Chronic) PVD (peripheral vascular disease) (Chronic) Abdominal aortic artery stent (Chronic) Non-STEMI (Chronic) Hypertensive urgency (Chronic) - *Family History Paternal Family History: Family History (Last Updated 10/21/17 @ 08:53 by Mars Rayo) Brother Hypertension History Items: No pertinent history Lives: Spouse/ Significant Other Smoking Status: Never smoker Alcohol: None Drugs: None Review of Systems - Review of Systems General: Reports: Fatigue, Weakness, Decreased Appetite. Denies: Fever, Night Sweats Cardiovascular: Reports: Shortness of Breath, Shortness of Breath with Exertion, Lightheadedness, Orthostatic Symptoms. Denies: Chest Discomfort, Orthopnea, PND, Peripheral Edema, Palpitations, Dizziness, Near Syncope, Syncope Respiratory: Reports: Shortness of Breath. Denies: Cough, Sputum Production, Hemoptysis Gastrointestinal: Reports: Nausea, Emesis. Denies: Hematemesis, Hematochezia, Melena Genitourinary: Denies: Dysuria, Hematuria Skin: Denies: Rash Subjectve: Is a 77-year-old frail-appearing white female who appears to be resting comfortably in bed at this time in no acute distress. Objective: Vital Signs Temp Pulse Resp BP Pulse Ox 97.9 F 82 18 82/46 L 97 10/22/17 15:15 10/22/17 15:15 10/22/17 15:15 10/22/17 15:15 10/22/17 15:15 Oxygen Delivery Method Room Air Weight: 130 lb 4.691 oz Body Mass Index (BMI) 24.6 Intake and Output for Last 24 Hours 10/20/17 10/21/17 10/22/17 23:59 23:59 23:59 Intake Total 482 / 482 1504 / 1504 Output Total 200 / 200 Balance 482 / 482 1304 / 1304 General: Awake, Alert, Oriented x 3, Cooperative, No Acute Distress, Ill Appearing Neck: No JVD Lungs: Clear to auscultation Cardiovascular: Irregular Rhythm, Normal S1, Normal S2 Vascular: No Carotid Bruits Abdomen: Bowel Sounds Present, Soft, Non Tender Extremities: No edema 10/21/17 20:20: Urine Color Yellow, Urine Clarity Cloudy, Urine pH 5.0, Ur Specific [place] 1.010, Urine Protein 30 H, Urine Glucose (UA) Normal, Urine Ketones Negative, Urine Occult Blood 250 H, Urine Nitrite Negative, Urine Bilirubin Negative, Urine Urobilinogen Normal, Ur Leukocyte Esterase 500 H, Urine RBC 0 SEEN, Urine WBC >100 SEEN 10/22/17 01:05: Troponin I 0.83 H* 10/22/17 01:05: Magnesium 1.8 10/22/17 05:13: WBC 8.1, RBC 3.89 L, Hgb 11.7 L, Hct 32.8 L, MCV 84.3, MCH 30.1, MCHC 35.7, RDW 12.2, RDW Differential 36.7, Plt Count 114 L, MPV 12.2 H 10/22/17 05:13: PT 58.6 H, INR 7.1 H* 10/22/17 05:13: Sodium 144, Potassium 3.0 L, Chloride 106, Carbon Dioxide 25.0, Anion Gap 13, BUN 114 H*, Creatinine 4.06 H, Est GFR (MDRD) Af Amer 14 L, Est GFR (MDRD) Non-Af 11 L, BUN/Creatinine Ratio 28.1 H, Glucose 118 H, Calcium 7.9 L, Troponin I 2.66 H* 10/22/17 05:13: Triglycerides 169, Cholesterol 90, LDL Cholesterol 25, VLDL Cholesterol 34, HDL Cholesterol 31 L 10/22/17 09:27: Troponin I 4.32 H* 10/22/17 16:00: Hgb 11.2 L, Hct 32.1 L Rhythm: Atrial fibrillation EKG: As noted above ECHO: As noted above Cardiac Cath: As noted above CXR: Preliminary evaluation: Chronic atherosclerotic changes of the thoracic aorta; no acute cardiopulmonary disease process appreciated; please see official report Assessment/Plan 1. Non-ST segment elevation OR The patient does have abnormal cardiac enzymes. It is unclear as to whether this represents a primary acute coronary syndrome event versus a type II event secondary to supply demand mismatch brought out by her noncardiovascular issues. There may also be contribution from her marked renal insufficiency. At the present time she is being monitored. She will continue to have laboratory studies and ECG follow-up as deemed appropriate. Her echocardiogram has already been performed. She has undergone invasive evaluation as noted above with unsuccessful attempt at PCI to the LCx/OM system. She will continue medical management. This includes a combination of aspirin, nitrates as needed, beta-blockers, lipid-lowering agents, and antiplatelet/anticoagulant agents as deemed appropriate. However, her medications are being adjusted at this time secondary to her vital sign findings, laboratory findings, etc. She does not appear to be an ideal candidate, at this time, for further invasive evaluation or care. 2. CAD Patient does have a history of CAD as previously described above. Again it is unclear whether her current cardiac enzymes represent a new acute type I event versus a type II event. In the interim she will continue to be followed. She will continue medical management as tolerated. There is no immediate plans for further invasive evaluation at this time. 3. Ischemic mediated cardiomyopathy The patient has significantly diminished LV systolic function/LVEF. This appears relatively unchanged from her previous noninvasive and invasive studies. At the moment she does not appear to demonstrate evidence of volume overload. There is concern she may be somewhat volume depleted. Thus she is receiving IV fluids. This will need to be performed gently and she will need to be monitored for any obvious evidence of volume overload that could bring out CHF/pulmonary edema. When she is able with respect to her vital signs, laboratory studies, etc. her medications should be adjusted as needed to include additional agents, which she has been on in the past, of her nitrates, diuretics, afterload reducing agents, etc. 4. Chronic systolic CHF At the moment she is without acute systolic CHF. She will need to continue medical therapy when she is able based on vital signs and renal function. In the meantime she will need to be monitored as she receives IV fluids for any evidence of acute on chronic CHF symptoms. 5. Atrial fibrillation She appears to be remaining in atrial fibrillation at this time. She can continue rate control therapy. She has been on anticoagulant therapy. Her INR is markedly elevated at this time. Thus her anticoagulant therapy is being held and her INR is being monitored. 6. Peripheral vascular disease She does have a history of peripheral vascular disease with concerns of reports of renal artery stenosis and abdominal aortic stent. She will need to be reassessed for this as needed. 7. Hyperlipidemia She can continue risk factor evaluation care as deemed appropriate. 8. Hypertension She reportedly has a history of hypertension. However at the present time she is noted to have low blood pressures. This may be secondary to her diminished intravascular volume. Thus her volume status and medications are being adjusted. Her blood pressure will need to be followed. 9. Acute renal insufficiency There is concern that she has developed acute renal insufficiency. Is unclear whether this is related to her underlying primary cardiovascular disease and a cardiorenal syndrome versus a separate underlying renal related event being brought out by decreased intravascular volume. At the present time she is being treated with gentle IV hydration. Her renal function has improved somewhat with respect to her creatinine level. She will continue this course of action with follow-up. 10. Medication noncompliance There appears to be some concern as to whether or not she has been noncompliant with medication. This is the case this may be contributing to her current situation. Comment: The above was discussed with the patient, her family members present, and . This note was generated with [employer] Dictation software. Every effort was made to ensure accuracy, however, computerized solderer assembly repair mistakes may persist.
--- NOTE | 2017-10-22 16:36 | CON.PCM_ITS ---
Problem List (1) Non-STEMI Status: Chronic (2) Arteriosclerotic heart disease (ASHD) Status: Chronic (3) Ischemic cardiomyopathy Status: Chronic (4) Systolic CHF, chronic Status: Chronic (5) Atrial fibrillation Status: Chronic (6) Peripheral vascular disease Status: Chronic (7) Dyslipidemia Status: Chronic (8) HTN (hypertension) Status: Chronic Qualifiers: Hypertension type: essential hypertension Qualified Code(s): I10 - Essential (primary) hypertension (9) ABBY (acute kidney injury) Status: Acute (10) Noncompliance with medication regimen Status: Chronic Reason for Consult Date of Consultation: 10/22/17 History of Present Illness: The patient is a 77 year old white female with a complex cardiovascular history which is included underlying CAD, ischemic mediated cardiomyopathy, chronic systolic CHF, atrial fibrillation, superimposed upon a history of hyperlipidemia , hypertension, peripheral vascular disease (with a report of renal artery stenosis and an abdominal aortic stent), now with concerns of acute renal insufficiency and medication noncompliance. The patient has undergone extensive cardiovascular evaluation in the past both noninvasively and invasively. She has been followed as an outpatient. She presented for outpatient cardiovascular follow-up yesterday based upon concerns, since the end of September 2017 and beginning of October 2017, of not feeling well, decreased appetite, decreased oral intake, dizziness and off-balance sensation upon standing, fatigue and lethargy, and feeling weak. There is also been reports of nausea and emesis. She denies any diarrhea type events. She has denied ongoing fevers, chills, or night sweats. There has been no report of acute orthopnea or PND or worsening peripheral pitting edema. She has denied syncope. There has been a question as to whether or not she has been taking her medication appropriately at home. She was evaluated in the outpatient setting and found to have on laboratory follow-up laboratory abnormalities which demonstrated increased INR levels and increased BUN and creatinine levels. She was recommended to present to the hospital for further evaluation and care. She was evaluated in the [facility] emergency department. She was subsequently placed in the PCU for further evaluation and care. It appears there were concerns of dehydration and thus she has been receiving gentle IV fluids. She is been noted to have improvement in her creatinine level. She has also remained without her anticoagulant therapy. Her INR has remained elevated. She has been noted to have abnormal bone and eye levels. They have increased. Her ECG demonstrated atrial fibrillation with PVCs with low voltage QRS especially in the limb leads with an anterolateral WI pattern of indeterminate age and nonspecific ST and T-wave changes. She has undergone evaluation with a transthoracic echocardiogram. Her left ventricle noted left ventricular regional wall motion abnormalities with an estimated LVEF of 15% which is similar to her previous echocardiographic findings. She did undergo evaluation with a diagnostic cardiac catheterization on 2016. At that time according the report the left ventricle was noted to have an LVEF of 15-20%, the left main coronary artery was normal, the LAD had proximal 85% stenosis and was subsequently occluded, the LCx OM1 was occluded, the RCA had mild luminal irregularities, an attempt was made to perform PCI on the OM system however this was unsuccessful secondary to not being able to cross the lesion with the guidewire. [] Past Medical History Allergies/Adverse Reactions: Allergies No Known Allergies Allergy (Verified 10/21/17 17:55) Home Medications: Ambulatory Orders Medication Instructions Recorded Aspirin [Aspirin, Baby] 81 mg PO DAILY@0800 10/21/17 Carvedilol [Coreg] 12.5 mg PO BID 10/21/17 Escitalopram Oxalate [Lexapro] 10 mg PO DAILY 10/21/17 Furosemide [Lasix] 40 mg PO DAILY 10/21/17 Losartan Potassium [Cozaar] 25 mg PO DAILY 10/21/17 Potassium Chloride [Klor-Con M10] 20 meq PO DAILY 10/21/17 Rosuvastatin Calcium [Crestor] 40 mg PO DAILY 10/21/17 Warfarin [Coumadin (PBKC)] 2 mg PO DAILY 10/21/17 Past Medical History (Chronic Problems): Chronic Problems (Last Updated 10/21/17 @ 08:56 by Mars Rayo) Systolic CHF, chronic (Chronic) Atrial fibrillation (Chronic) Ischemic cardiomyopathy (Chronic) Arteriosclerotic heart disease (ASHD) (Chronic) CVA (cerebral vascular accident) (Chronic) Peripheral vascular disease (Chronic) Renal artery stenosis (Chronic) retirement (current) use of anticoagulants (Chronic) Cerebrovascular disease (Chronic) Dyslipidemia (Chronic) HTN (hypertension) (Chronic) Noncompliance with medication regimen (Chronic) PVD (peripheral vascular disease) (Chronic) Abdominal aortic artery stent (Chronic) Non-STEMI (Chronic) Hypertensive urgency (Chronic) - *Family History Paternal Family History: Family History (Last Updated 10/21/17 @ 08:53 by Mars Rayo) Brother Hypertension History Items: No pertinent history Lives: Spouse/ Significant Other Smoking Status: Never smoker Alcohol: None Drugs: None Review of Systems - Review of Systems General: Reports: Fatigue, Weakness, Decreased Appetite. Denies: Fever, Night Sweats Cardiovascular: Reports: Shortness of Breath, Shortness of Breath with Exertion , Lightheadedness, Orthostatic Symptoms. Denies: Chest Discomfort, Orthopnea, PND, Peripheral Edema, Palpitations, Dizziness, Near Syncope, Syncope Respiratory: Reports: Shortness of Breath. Denies: Cough, Sputum Production, Hemoptysis Gastrointestinal: Reports: Nausea, Emesis. Denies: Hematemesis, Hematochezia, Melena Genitourinary: Denies: Dysuria, Hematuria Skin: Denies: Rash Subjectve: Is a 77-year-old frail-appearing white female who appears to be resting comfortably in bed at this time in no acute distress. Objective: Vital Signs Temp Pulse Resp BP Pulse Ox 97.9 F 82 18 82/46 L 97 10/22/17 15:15 10/22/17 15:15 10/22/17 15:15 10/22/17 15:15 10/22/17 15:15 Oxygen Delivery Method Room Air Weight: 130 lb 4.691 oz Body Mass Index (BMI) 24.6 Intake and Output for Last 24 Hours 10/20/17 10/21/17 10/22/17 23:59 23:59 23:59 Intake Total 482 / 482 1504 / 1504 Output Total 200 / 200 Balance 482 / 482 1304 / 1304 General: Awake, Alert, Oriented x 3, Cooperative, No Acute Distress, Ill Appearing Neck: No JVD Lungs: Clear to auscultation Cardiovascular: Irregular Rhythm, Normal S1, Normal S2 Vascular: No Carotid Bruits Abdomen: Bowel Sounds Present, Soft, Non Tender Extremities: No edema 10/21/17 20:20: Urine Color Yellow, Urine Clarity Cloudy, Urine pH 5.0, Ur Specific Gary 1.010, Urine Protein 30 H, Urine Glucose (UA) Normal, Urine Ketones Negative, Urine Occult Blood 250 H, Urine Nitrite Negative, Urine Bilirubin Negative, Urine Urobilinogen Normal, Ur Leukocyte Esterase 500 H, Urine RBC 0 SEEN, Urine WBC >100 SEEN 10/22/17 01:05: Troponin I 0.83 H* 10/22/17 01:05: Magnesium 1.8 10/22/17 05:13: WBC 8.1, RBC 3.89 L, Hgb 11.7 L, Hct 32.8 L, MCV 84.3, MCH 30.1 , MCHC 35.7, RDW 12.2, RDW Differential 36.7, Plt Count 114 L, MPV 12.2 H 10/22/17 05:13: PT 58.6 H, INR 7.1 H* 10/22/17 05:13: Sodium 144, Potassium 3.0 L, Chloride 106, Carbon Dioxide 25.0, Anion Gap 13, BUN 114 H*, Creatinine 4.06 H, Est GFR (MDRD) Af Amer 14 L, Est GFR (MDRD) Non-Af 11 L, BUN/Creatinine Ratio 28.1 H, Glucose 118 H, Calcium 7.9 L, Troponin I 2.66 H* 10/22/17 05:13: Triglycerides 169, Cholesterol 90, LDL Cholesterol 25, VLDL Cholesterol 34, HDL Cholesterol 31 L 10/22/17 09:27: Troponin I 4.32 H* 10/22/17 16:00: Hgb 11.2 L, Hct 32.1 L Rhythm: Atrial fibrillation EKG: As noted above ECHO: As noted above Cardiac Cath: As noted above CXR: Preliminary evaluation: Chronic atherosclerotic changes of the thoracic aorta; no acute cardiopulmonary disease process appreciated; please see official report Assessment/Plan 1. Non-ST segment elevation WI The patient does have abnormal cardiac enzymes. It is unclear as to whether this represents a primary acute coronary syndrome event versus a type II event secondary to supply demand mismatch brought out by her noncardiovascular issues. There may also be contribution from her marked renal insufficiency. At the present time she is being monitored. She will continue to have laboratory studies and ECG follow-up as deemed appropriate. Her echocardiogram has already been performed. She has undergone invasive evaluation as noted above with unsuccessful attempt at PCI to the LCx/OM system. She will continue medical management. This includes a combination of aspirin, nitrates as needed, beta-blockers, lipid-lowering agents, and antiplatelet/ anticoagulant agents as deemed appropriate. However, her medications are being adjusted at this time secondary to her vital sign findings, laboratory findings , etc. She does not appear to be an ideal candidate, at this time, for further invasive evaluation or care. 2. CAD Patient does have a history of CAD as previously described above. Again it is unclear whether her current cardiac enzymes represent a new acute type I event versus a type II event. In the interim she will continue to be followed. She will continue medical management as tolerated. There is no immediate plans for further invasive evaluation at this time. 3. Ischemic mediated cardiomyopathy The patient has significantly diminished LV systolic function/LVEF. This appears relatively unchanged from her previous noninvasive and invasive studies. At the moment she does not appear to demonstrate evidence of volume overload. There is concern she may be somewhat volume depleted. Thus she is receiving IV fluids. This will need to be performed gently and she will need to be monitored for any obvious evidence of volume overload that could bring out CHF/ pulmonary edema. When she is able with respect to her vital signs, laboratory studies, etc. her medications should be adjusted as needed to include additional agents, which she has been on in the past, of her nitrates, diuretics, afterload reducing agents, etc. 4. Chronic systolic CHF At the moment she is without acute systolic CHF. She will need to continue medical therapy when she is able based on vital signs and renal function. In the meantime she will need to be monitored as she receives IV fluids for any evidence of acute on chronic CHF symptoms. 5. Atrial fibrillation She appears to be remaining in atrial fibrillation at this time. She can continue rate control therapy. She has been on anticoagulant therapy. Her INR is markedly elevated at this time. Thus her anticoagulant therapy is being held and her INR is being monitored. 6. Peripheral vascular disease She does have a history of peripheral vascular disease with concerns of reports of renal artery stenosis and abdominal aortic stent. She will need to be reassessed for this as needed. 7. Hyperlipidemia She can continue risk factor evaluation care as deemed appropriate. 8. Hypertension She reportedly has a history of hypertension. However at the present time she is noted to have low blood pressures. This may be secondary to her diminished intravascular volume. Thus her volume status and medications are being adjusted. Her blood pressure will need to be followed. 9. Acute renal insufficiency There is concern that she has developed acute renal insufficiency. Is unclear whether this is related to her underlying primary cardiovascular disease and a cardiorenal syndrome versus a separate underlying renal related event being brought out by decreased intravascular volume. At the present time she is being treated with gentle IV hydration. Her renal function has improved somewhat with respect to her creatinine level. She will continue this course of action with follow-up. 10. Medication noncompliance There appears to be some concern as to whether or not she has been noncompliant with medication. This is the case this may be contributing to her current situation. Comment: The above was discussed with the patient, her family members present, and . This note was generated with [employer] Dictation software. Every effort was made to ensure accuracy, however, computerized contract serviceman mistakes may persist.
[2017-10-22 16:56] LABS: Anion Gap 10 (5-15); BUN 102 mg/dL (7-18); BUN/Creat Ratio 28.5 RATIO (10-20); Calcium,Total 8.1 mg/dL (8.5-10.1); Chloride 110 mmol/L (98-107); Creatinine, Serum 3.58 mg/dL (0.55-1.02); EST Glomerular Filtration Rate 13 mL/min (>60); Est Glom Filt Rate - Afr Amer 16 mL/min (>60); Estimated Creatinine Clearance 9.93 ml/min; Glucose 281 mg/dL (70-110); Magnesium 3.4 mg/dL (1.6-2.6); Potassium 3.1 mmol/L (3.5-5.1); Sodium Level 144 mmol/L (136-145)
[2017-10-22] MEDS: Atorvastatin Calcium 80 MG Tablet PO (22:41)
[2017-10-23] VITALS (12 sets, daily range): BP systolic 94–122; BP diastolic 49–58; PULSE 71–140; RESP 16–18; TEMP 36.3–36.9; O2SAT 97–99
[2017-10-23] MEDS: 0.9% Normal Saline 1,000 ML 60 ML IV (01:04)
--- NOTE | 2017-10-23 05:55 | EKG12_ITS ---
Test Reason : AM EKG Blood Pressure : / mmHG Vent. Rate : 083 BPM Atrial Rate : 277 BPM P-R Int : 000 ms QRS Dur : 098 ms QT Int : 384 ms P-R-T Axes : 000 063 087 degrees QTc Int : 451 ms Atrial fibrillation Anterolateral infarct , age undetermined Abnormal ECG When compared with ECG of 22-OCT-2017 05:22, MANUAL COMPARISON REQUIRED, DATA IS UNCONFIRMED Confirmed by ROSA PLATT ([id number]), offline editor JOI RAHMAN ([id number]) on 10/27/2017 1:56:00 PM Referred By: SERENA Confirmed By:ROSA PLATT
[2017-10-23 06:32] LABS: Hemoglobin 11.4 g/dl (12.0-15.0); Mean Corp Hgb Conc 35.6 g/gl (32-36); Mean Corpuscular Hgb 30.8 pg (27.0-32.0); Mean Corpuscular Volume 86.5 fL (81-99); Mean Platelet Vol. 12.5 fl (6.2-12.0); Platelet Count 113 K/mm3 (150-450); RBC Distribution Width CV 12.6 % (11.6-14.6); RBC Distribution Width SD 38.6 fl (35.1-43.9); Scan Indicated on CBC? Y/N NO; White Blood Count 6.6 K/mm3 (4.4-11.0)
[2017-10-23 06:47] LABS: International Normalized Ratio 1.9; Prothrombin Time (Protime)PT. 20.6 SECONDS (11.7-14.9)
[2017-10-23 07:32] LABS: Anion Gap 11 (5-15); BUN 85 mg/dL (7-18); BUN/Creat Ratio 29.5 RATIO (10-20); Calcium,Total 8.1 mg/dL (8.5-10.1); Chloride 110 mmol/L (98-107); Creatinine, Serum 2.88 mg/dL (0.55-1.02); EST Glomerular Filtration Rate 17 mL/min (>60); Est Glom Filt Rate - Afr Amer 20 mL/min (>60); Estimated Creatinine Clearance 12.34 ml/min; Glucose 124 mg/dL (70-110); Potassium 2.9 mmol/L (3.5-5.1); Sodium Level 145 mmol/L (136-145)
[2017-10-23] MEDS: Aspirin 81 MG TAB.CHEW PO (07:50)
[2017-10-23] MEDS: Pantoprazole Sodium 20 MG Tablet PO (10:13)
--- NOTE | 2017-10-23 13:17 | PN_ITS ---
Patient Problems: Active and Suspected Problems (Last Updated 10/21/17 @ 08:56 by Mars Rayo) ABBY (acute kidney injury) (Acute) Hypokalemia (Acute) Warfarin-induced coagulopathy (Acute) Subjective: 77 year old [place] female with a PMH of severe ischemic CM with a 15-20% EF on chronic diuretic therapy admitted to the hospital with ABBY on CRF stage III and a supratherapeutic INR of 6.6. Has received 15 mng of vitamin K and the INR on 10/23 was 1.9. Troponin was 0.83 at admission and peaked at 4.32. she is being followed by Dr. Howard. She is being gently hydrated. Denied CP or SOB. She is afebrile. Tachycardia has resolved. Current blood pressure is 94/49. She is 99% saturated on room air. She denies lightheadedness, chest pain, shortness of breath, swelling in her legs. Hemoglobin is stable at 11.4. Platelets are 113,000. White blood cell count is within normal limits. Sodium is 145 and the potassium is 2.9 today. BUN is 85, down from 148 at admission. Creatinine is 2.88, down from 5.59 at admission. Creatinine at discharge from the hospital in August 2017 was 1.35. - Physical Exam General: Alert, Oriented x3, Cooperative, No apparent distress HEENT: Atraumatic, PERRLA, EOMI Oral: Dry Mucosa - but more moist than yesterday Neck: Supple, Trachea Midline Lungs: Clear to auscultation, Normal air movement, No rhonchi, No wheeze, No rales Cardiovascular: Normal S1, Normal S2, Irregular Rate, - - distant heart sounds. Telemetry shows AF with controlled VR. No sifnidicant pauses and occasional PVC 's. Abdomen: Bowel Sounds Present, Soft, Non Tender, Non-Distended Extremities: Edema Neurological: Cranial nerves II-XII grossly intact, Neuro grossly intact Vital Signs Temp Pulse Resp BP Pulse Ox 98.1 F 84 18 94/49 L 99 10/23/17 10:10 10/23/17 11:12 10/23/17 10:10 10/23/17 10:10 10/23/17 10:10 Oxygen Delivery Method Room Air Weight: 134 lb 11.239 oz Body Mass Index (BMI) 24.6 Intake and Output for Last 24 Hours 10/21/17 10/22/17 10/23/17 23:59 23:59 23:59 Intake Total 482 / 482 2565 / 2565 528 / 528 Output Total 200 / 200 Balance 482 / 482 2365 / 2365 528 / 528 Laboratory Tests Past 24 Hrs 10/22/17 10/22/17 10/22/17 12:15 16:00 16:00 WBC RBC Hgb 11.2 L Hct 32.1 L MCV MCH MCHC RDW RDW Differential Plt Count MPV PT INR Sodium 144 Potassium 3.1 L Chloride 110 H Carbon Dioxide 24.0 Anion Gap 10 BUN 102 H* Creatinine 3.58 H Estim Creat Clear Calc 9.93 Est GFR (MDRD) Af Amer 16 L Est GFR (MDRD) Non-Af 13 L BUN/Creatinine Ratio 28.5 H Glucose 281 H Calcium 8.1 L Magnesium 3.4 H Troponin I 4.14 H* Blood Type A POSITIVE Antibody Screen NEGATIVE 10/23/17 10/23/17 10/23/17 05:20 05:20 05:20 WBC 6.6 RBC 3.70 L Hgb 11.4 L Hct 32.0 L MCV 86.5 MCH 30.8 MCHC 35.6 RDW 12.6 RDW Differential 38.6 Plt Count 113 L MPV 12.5 H PT 20.6 H INR 1.9 Sodium 145 Potassium 2.9 L Chloride 110 H Carbon Dioxide 24.0 Anion Gap 11 BUN 85 H Creatinine 2.88 H Estim Creat Clear Calc 12.34 Est GFR (MDRD) Af Amer 20 L Est GFR (MDRD) Non-Af 17 L BUN/Creatinine Ratio 29.5 H Glucose 124 H Calcium 8.1 L Magnesium Troponin I Blood Type Antibody Screen Assessment/Plan Active and Suspected Problems (Last Updated 10/21/17 @ 08:56 by Mars Rayo) ABBY (acute kidney injury) (Acute) Hypokalemia (Acute) Warfarin-induced coagulopathy (Acute) Impressions 1. ABBY on CRF stage III due to severe dehydration 2. Elevated troponin at 4.23 - pt is asymptomatic - suspect due to demand ischemia/NSTEMI type II due to severe dehydration with poor coronary blood flow and AF with RVR. 3. supratherapeutic INR 4. Chronic anticoagulation with Coumadin 5. Thrombocytopenia-acute 6. Normochromic normocytic anemia with a hemoglobin of 11.7 today. Suspect this is falsely elevated due to hemoconcentration related to severe dehydration. 7. Severe dehydration 8. Hypokalemia 9. PVCs and one episode of nonsustained ventricular tachycardia 10. Coronary artery disease 11. Ischemic cardiomyopathy with 15-20% ejection fraction in August 2017 12. Pulmonary hypertension-moderate 13. Peripheral vascular disease 14. 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 [id number] 16. Hypertension 17. History of abdominal aortic artery stent Continue to gently hydrate with very close monitoring for any sign CHF Change the IV fluid to 0.45% saline since the sodium is climbing Recheck the lab in the AM Continue to hold the diuretics. I think she would be safer on Eliquis and I discussed this with her son and dtr- in-law. they would like to talk to SW tomorrow to find out the cost of Eliquis 2.5 mg BID and if the [employer] fund would help cover the cost of this medication discussed with Dr. Howard Although the troponin is increased she is not a candidate for repeat cardiac cath at this time due to the ABBY. The dye used for cath may put her into ESRD and with an EF of 15% she would not be able to tolerate HD. Code Visit Inpatient E&M: 15620 Subs Hosp L2
[2017-10-23] MEDS: 0.45% Normal Saline 1,000 ML 60 ML IV (14:27)
--- NOTE | 2017-10-23 14:44 | PCM.PN.CARD ---
Subjectve: The patient seems to be somewhat more awake and alert today. She is not complaining of chest discomfort or difficulty breathing. She does state that she feels weak. Objective: Vital Signs Temp Pulse Resp BP Pulse Ox 98.1 F 84 18 94/49 L 99 10/23/17 10:10 10/23/17 11:12 10/23/17 10:10 10/23/17 10:10 10/23/17 10:10 Oxygen Delivery Method Room Air Weight: 134 lb 11.239 oz Body Mass Index (BMI) 24.6 Intake and Output for Last 24 Hours 10/21/17 10/22/17 10/23/17 23:59 23:59 23:59 Intake Total 482 / 482 2565 / 2565 1176 / 1176 Output Total 200 / 200 Balance 482 / 482 2365 / 2365 1176 / 1176 General: Awake, Alert, Oriented x 3, Cooperative, No Acute Distress Neck: No JVD Lungs: Clear to auscultation Cardiovascular: Regular Rhythm, Normal S1, Normal S2 Abdomen: Bowel Sounds Present, Soft, Non Tender Extremities: No edema 10/22/17 16:00: Sodium 144, Potassium 3.1 L, Chloride 110 H, Carbon Dioxide 24.0, Anion Gap 10, BUN 102 H*, Creatinine 3.58 H, Est GFR (MDRD) Af Amer 16 L, Est GFR (MDRD) Non-Af 13 L, BUN/Creatinine Ratio 28.5 H, Glucose 281 H, Calcium 8.1 L, Magnesium 3.4 H, Troponin I 4.14 H* 10/22/17 16:00: Hgb 11.2 L, Hct 32.1 L 10/23/17 05:20: WBC 6.6, RBC 3.70 L, Hgb 11.4 L, Hct 32.0 L, MCV 86.5, MCH 30.8, MCHC 35.6, RDW 12.6, RDW Differential 38.6, Plt Count 113 L, MPV 12.5 H 10/23/17 05:20: Sodium 145, Potassium 2.9 L, Chloride 110 H, Carbon Dioxide 24.0, Anion Gap 11, BUN 85 H, Creatinine 2.88 H, Est GFR (MDRD) Af Amer 20 L, Est GFR (MDRD) Non-Af 17 L, BUN/Creatinine Ratio 29.5 H, Glucose 124 H, Calcium 8.1 L 10/23/17 05:20: PT 20.6 H, INR 1.9 Rhythm: Atrial fibrillation Assessment/Plan 1. Non-ST segment elevation [place] The patient does have abnormal cardiac enzymes. It is unclear as to whether this represents a primary acute coronary syndrome event versus a type II event secondary to supply demand mismatch brought out by her noncardiovascular issues. There may also be contribution from her marked renal insufficiency. At the present time she is being monitored. She will continue to have laboratory studies and ECG follow-up as deemed appropriate. Her echocardiogram has already been performed. Her estimated LVF remains low at approximately 15%. She has undergone invasive evaluation as noted above with unsuccessful attempt at PCI to the LCx/OM system. She will continue medical management. This includes a combination of aspirin, nitrates as needed, beta-blockers, lipid-lowering agents, and antiplatelet/anticoagulant agents as deemed appropriate. However, her medications are being adjusted at this time secondary to her vital sign findings, laboratory findings, etc. She does not appear to be an ideal candidate, at this time, for further invasive evaluation or care. 2. CAD Patient does have a history of CAD as previously described above. Again it is unclear whether her current cardiac enzymes represent a new acute type I event versus a type II event. Her troponin I levels are decreasing. In the interim she will continue to be followed. She will continue medical management as tolerated. There is no immediate plans for further invasive evaluation at this time. 3. Ischemic mediated cardiomyopathy The patient has significantly diminished LV systolic function/LVEF. This appears relatively unchanged from her previous noninvasive and invasive studies. At the moment she does not appear to demonstrate evidence of volume overload. There is concern she may be somewhat volume depleted. Thus she is receiving IV fluids. Her IV fluid rate has been decreased. She is being monitored for any obvious evidence of volume overload.. When she is able with respect to her vital signs, laboratory studies, etc. her medications should be adjusted as needed to include additional agents, which she has been on in the past, of her nitrates, diuretics, afterload reducing agents, etc. 4. Chronic systolic CHF At the moment she is without acute systolic CHF. She will need to continue medical therapy when she is able based on vital signs and renal function. In the meantime she will need to be monitored as she receives IV fluids for any evidence of acute on chronic CHF symptoms. 5. Atrial fibrillation She appears to be remaining in atrial fibrillation at this time. She can continue rate control therapy. She has been on anticoagulant therapy. Her INR is markedly elevated at this time. Her INR level has now decreased. Over time she will need to be considered for being a candidate or no longer a candidate for anticoagulant therapy. 6. Peripheral vascular disease She does have a history of peripheral vascular disease with concerns of reports of renal artery stenosis and abdominal aortic stent. She will need to be reassessed for this as needed. 7. Hyperlipidemia She can continue risk factor evaluation care as deemed appropriate. 8. Hypertension She reportedly has a history of hypertension. However at the present time she is noted to have low blood pressures. This may be secondary to her diminished intravascular volume. Thus her volume status and medications are being adjusted. Her blood pressure will need to be followed. 9. Acute renal insufficiency There is concern that she has developed acute renal insufficiency. Is unclear whether this is related to her underlying primary cardiovascular disease and a cardiorenal syndrome versus a separate underlying renal related event being brought out by decreased intravascular volume. At the present time she is being treated with gentle IV hydration. Her renal function does appear to be improved. It will be followed. 10. Medication noncompliance There appears to be some concern as to whether or not she has been noncompliant with medication. This is the case this may be contributing to her current situation. Comment: The above was discussed with the patient, her family members present, and . This note was generated with [employer]ict[employer] software. Every effort was made to ensure accuracy, however, computerized director staffing mistakes may persist.
--- NOTE | 2017-10-23 14:48 | PN.CARD_ITS ---
Subjectve: The patient seems to be somewhat more awake and alert today. She is not complaining of chest discomfort or difficulty breathing. She does state that she feels weak. Objective: Vital Signs Temp Pulse Resp BP Pulse Ox 98.1 F 84 18 94/49 L 99 10/23/17 10:10 10/23/17 11:12 10/23/17 10:10 10/23/17 10:10 10/23/17 10:10 Oxygen Delivery Method Room Air Weight: 134 lb 11.239 oz Body Mass Index (BMI) 24.6 Intake and Output for Last 24 Hours 10/21/17 10/22/17 10/23/17 23:59 23:59 23:59 Intake Total 482 / 482 2565 / 2565 1176 / 1176 Output Total 200 / 200 Balance 482 / 482 2365 / 2365 1176 / 1176 General: Awake, Alert, Oriented x 3, Cooperative, No Acute Distress Neck: No JVD Lungs: Clear to auscultation Cardiovascular: Regular Rhythm, Normal S1, Normal S2 Abdomen: Bowel Sounds Present, Soft, Non Tender Extremities: No edema 10/22/17 16:00: Sodium 144, Potassium 3.1 L, Chloride 110 H, Carbon Dioxide 24.0 , Anion Gap 10, BUN 102 H*, Creatinine 3.58 H, Est GFR (MDRD) Af Amer 16 L, Est GFR (MDRD) Non-Af 13 L, BUN/Creatinine Ratio 28.5 H, Glucose 281 H, Calcium 8.1 L, Magnesium 3.4 H, Troponin I 4.14 H* 10/22/17 16:00: Hgb 11.2 L, Hct 32.1 L 10/23/17 05:20: WBC 6.6, RBC 3.70 L, Hgb 11.4 L, Hct 32.0 L, MCV 86.5, MCH 30.8 , MCHC 35.6, RDW 12.6, RDW Differential 38.6, Plt Count 113 L, MPV 12.5 H 10/23/17 05:20: Sodium 145, Potassium 2.9 L, Chloride 110 H, Carbon Dioxide 24.0 , Anion Gap 11, BUN 85 H, Creatinine 2.88 H, Est GFR (MDRD) Af Amer 20 L, Est GFR (MDRD) Non-Af 17 L, BUN/Creatinine Ratio 29.5 H, Glucose 124 H, Calcium 8.1 L 10/23/17 05:20: PT 20.6 H, INR 1.9 Rhythm: Atrial fibrillation Assessment/Plan 1. Non-ST segment elevation IN The patient does have abnormal cardiac enzymes. It is unclear as to whether this represents a primary acute coronary syndrome event versus a type II event secondary to supply demand mismatch brought out by her noncardiovascular issues. There may also be contribution from her marked renal insufficiency. At the present time she is being monitored. She will continue to have laboratory studies and ECG follow-up as deemed appropriate. Her echocardiogram has already been performed. Her estimated LVF remains low at approximately 15% . She has undergone invasive evaluation as noted above with unsuccessful attempt at PCI to the LCx/OM system. She will continue medical management. This includes a combination of aspirin, nitrates as needed, beta-blockers, lipid-lowering agents, and antiplatelet/ anticoagulant agents as deemed appropriate. However, her medications are being adjusted at this time secondary to her vital sign findings, laboratory findings , etc. She does not appear to be an ideal candidate, at this time, for further invasive evaluation or care. 2. CAD Patient does have a history of CAD as previously described above. Again it is unclear whether her current cardiac enzymes represent a new acute type I event versus a type II event. Her troponin I levels are decreasing. In the interim she will continue to be followed. She will continue medical management as tolerated. There is no immediate plans for further invasive evaluation at this time. 3. Ischemic mediated cardiomyopathy The patient has significantly diminished LV systolic function/LVEF. This appears relatively unchanged from her previous noninvasive and invasive studies. At the moment she does not appear to demonstrate evidence of volume overload. There is concern she may be somewhat volume depleted. Thus she is receiving IV fluids. Her IV fluid rate has been decreased. She is being monitored for any obvious evidence of volume overload.. When she is able with respect to her vital signs, laboratory studies, etc. her medications should be adjusted as needed to include additional agents, which she has been on in the past, of her nitrates, diuretics, afterload reducing agents, etc. 4. Chronic systolic CHF At the moment she is without acute systolic CHF. She will need to continue medical therapy when she is able based on vital signs and renal function. In the meantime she will need to be monitored as she receives IV fluids for any evidence of acute on chronic CHF symptoms. 5. Atrial fibrillation She appears to be remaining in atrial fibrillation at this time. She can continue rate control therapy. She has been on anticoagulant therapy. Her INR is markedly elevated at this time. Her INR level has now decreased. Over time she will need to be considered for being a candidate or no longer a candidate for anticoagulant therapy. 6. Peripheral vascular disease She does have a history of peripheral vascular disease with concerns of reports of renal artery stenosis and abdominal aortic stent. She will need to be reassessed for this as needed. 7. Hyperlipidemia She can continue risk factor evaluation care as deemed appropriate. 8. Hypertension She reportedly has a history of hypertension. However at the present time she is noted to have low blood pressures. This may be secondary to her diminished intravascular volume. Thus her volume status and medications are being adjusted. Her blood pressure will need to be followed. 9. Acute renal insufficiency There is concern that she has developed acute renal insufficiency. Is unclear whether this is related to her underlying primary cardiovascular disease and a cardiorenal syndrome versus a separate underlying renal related event being brought out by decreased intravascular volume. At the present time she is being treated with gentle IV hydration. Her renal function does appear to be improved. It will be followed. 10. Medication noncompliance There appears to be some concern as to whether or not she has been noncompliant with medication. This is the case this may be contributing to her current situation. Comment: The above was discussed with the patient, her family members present, and . This note was generated with [employer] software. Every effort was made to ensure accuracy, however, computerized emergency management coordinator mistakes may persist.
[2017-10-23 21:37] LABS: Potassium 3.5 mmol/L (3.5-5.1)
[2017-10-23] MEDS: Atorvastatin Calcium 80 MG Tablet PO (22:12)
[2017-10-23] MEDS: 0.9% NaCl Peripheral Flush Adult/Peds IV (22:17)
[2017-10-24] VITALS (13 sets, daily range): BP systolic 96–135; BP diastolic 57–88; PULSE 64–128; RESP 16; TEMP 36.5–36.7; O2SAT 97–98
[2017-10-24 06:16] LABS: Hematocrit 32.4 % (37-47); Hemoglobin 10.8 g/dl (12.0-15.0); Mean Corp Hgb Conc 33.3 g/gl (32-36); Mean Corpuscular Hgb 29.4 pg (27.0-32.0); Mean Corpuscular Volume 88.3 fL (81-99); Platelet Count 117 K/mm3 (150-450); RBC Distribution Width CV 13.1 % (11.6-14.6); RBC Distribution Width SD 42.3 fl (35.1-43.9); Red Blood Count 3.67 M/mm3 (4.2-5.4); White Blood Count 5.8 K/mm3 (4.4-11.0)
[2017-10-24 06:18] LABS: International Normalized Ratio 1.4; Prothrombin Time (Protime)PT. 16.9 SECONDS (11.7-14.9)
[2017-10-24 06:25] LABS: Scan Indicated on CBC? Y/N NO
[2017-10-24 06:37] LABS: Anion Gap 8 (5-15); BUN 63 mg/dL (7-18); BUN/Creat Ratio 25.9 RATIO (10-20); Calcium,Total 7.6 mg/dL (8.5-10.1); Chloride 114 mmol/L (98-107); Creatinine, Serum 2.43 mg/dL (0.55-1.02); EST Glomerular Filtration Rate 21 mL/min (>60); Est Glom Filt Rate - Afr Amer 25 mL/min (>60); Estimated Creatinine Clearance 14.63 ml/min; Glucose 134 mg/dL (70-110); Magnesium 1.7 mg/dL (1.6-2.6); Potassium 3.4 mmol/L (3.5-5.1); Sodium Level 146 mmol/L (136-145)
[2017-10-24] MEDS: Aspirin 81 MG TAB.CHEW PO (08:57)
[2017-10-24] MEDS: Pantoprazole Sodium 20 MG Tablet PO (08:57)
[2017-10-24] MEDS: 0.45% Normal Saline 1,000 ML 60 ML IV (11:20)
--- NOTE | 2017-10-24 11:29 | PN.CARD_ITS ---
Subjectve: Patient continues to slowly improve. Denies any chest pain. Telemetry showed atrial fibrillation with controlled ventricular response and a 7 beat run of nonsustained ventricular tachycardia. Family at bedside states the patient really has not walked since around August and began feeling poorly around September 2017. Patient was given vitamin K to reverse her INR, and patient's mobility is home is essentially limited with a walker if that. Baseline creatinine is around 1.3-1.5. Creatinine slowly improving. Objective: Vital Signs Temp Pulse Resp BP Pulse Ox 97.9 F 100 16 98/63 97 10/24/17 09:00 10/24/17 09:00 10/24/17 09:00 10/24/17 09:00 10/24/17 09:00 Oxygen Delivery Method Room Air Weight: 138 lb 10.732 oz Body Mass Index (BMI) 24.6 Intake and Output for Last 24 Hours 10/22/17 10/23/17 10/24/17 23:59 23:59 23:59 Intake Total 2565 / 2565 1927 / 192 761 / 761 Output Total 200 / 200 Balance 2365 / 2365 192 / 192 761 / 761 General: Awake, Alert, Oriented x 3 HEENT: PERRL, EOMI, Sclera Non Icteric Neck: Supple, Good ROM, No Lymph Node Enlargement Lungs: Clear to auscultation Cardiovascular: Irregular Rhythm, Normal S1, Normal S2, No Murmurs, No Rubs, No Gallops Vascular: No Carotid Bruits, Normal Femoral Pulses, Normal Radial Pulses, Normal Dorsalis Pedal Pulse, Normal Posterior Tibial Pulses Abdomen: Bowel Sounds Present, Soft, Non Tender, No HSM, No Organomegaly Extremities: No Cyanosis, No Clubbing, No edema Neurological: No Focal Motor or Sensory Deficit 10/23/17 21:15: Potassium 3.5 10/24/17 05:40: Sodium 146 H, Potassium 3.4 L, Chloride 114 H, Carbon Dioxide 24.0, Anion Gap 8, BUN 63 H, Creatinine 2.43 H, Est GFR (MDRD) Af Amer 25 L, Est GFR (MDRD) Non-Af 21 L, BUN/Creatinine Ratio 25.9 H, Glucose 134 H, Calcium 7.6 L 10/24/17 05:40: WBC 5.8, RBC 3.67 L, Hgb 10.8 L, Hct 32.4 L, MCV 88.3, MCH 29.4 , MCHC 33.3, RDW 13.1, RDW Differential 42.3, Plt Count 117 L, MPV 12.0 10/24/17 05:40: PT 16.9 H, INR 1.4 10/24/17 05:40: Magnesium 1.7 Rhythm: EKG: ECHO: Stress Test: Cardiac Cath: PCI: CT Surgery: Holter monitor: EPS: PPM: CXR: Chest CT Scan: Assessment/Plan 1. Ischemic cardiomyopathy: The patient had a small troponin release most likely a result of a combination of acute on chronic renal failure as well as known severe LV dysfunction with 2 vessel coronary artery disease. No anginal symptoms. The patient did have a 7 beat run of nonsustained ventricular tachycardia but may be a result of lack of beta-vidal therapy. At this point I would not recommend repeat stress test or catheterization at this time. Repeat echocardiogram confirms severe LV dysfunction. At this point she is a poor candidate for an AICD as well. I recommend discontinuation of her hydrochlorothiazide and would recommend holding her Lasix for 2-3 more days until she has reached her dry weight and her creatinine has normalized into the 1.3-1.5 range. At that time I would restart her Lasix at 40 mg p.o. daily. In addition I would discontinue her losartan as she has had acute on chronic renal failure. She was on Imdur 30 mg p.o. daily and I would resume this as well once her blood pressure has stabilized. Patient would benefit from hydralazine 10 mg p.o. 3 times daily for afterload reduction however given her already severe LV dysfunction and hypotension, I would hold off on adding that at this time. At this point I would recommend obtaining orthostatic blood pressures to determine if she has symptomatic hypotension as the family had complained the patient has had gradual episodes of lightheadedness and dizziness while standing at home. I recommend using the alpha blocking agent of the Coreg as afterload reducing in place of losartan and Imdur/hydralazine. If the patient is not orthostatic, recommend starting her on Coreg 6.25 mg p.o. twice daily, and titrating up from there. 2. Hyperlipidemia: Continue rosuvastatin. 3. Atrial fibrillation: The patient was admitted with toxic INR as a result of nausea vomiting and poor p.o. intake. Given her renal insufficiency and difficulty obtaining INR is at home, recommend the patient be switched from Coumadin to Eliquis 2.5 mg p.o. twice daily. I have explained to the patient and her family that Eliquis and Xarelto do not have reversing agents, and they have reiterated the patient has had no significant falls over the last 12 months at home. Patient and family agreed to try Eliquis at this time. 4. Discussed with Dr. Aguero. Would recommend holding the patient 1 more day and to evaluate her orthostatic blood pressures and to slowly restart her antihypertensive and afterload reducing medications. Code Visit Inpatient E&M: 98567 Subs Hosp L2
--- NOTE | 2017-10-24 14:31 | CASEMGMT ---
FIDEL KENDRICK was notified by Dr. Aguero, attending for patient, that she would need assistance obtaining Eliquis. Patient is self-pay with [facility] for inpatient admission. FIDEL KENDRICK provided patient with Eliquis Free Trial card, and application for assistance through the [employer] to be completed by PCP or car changer outpatient. Per patient's spouse and DIL, Dr. Corley has given them a choice of Eliquis or Coumadin, and they need to think about it. Resources left at bedside. FIDEL KENDRICK then spoke with Dr. Aguero who reports patient has agreed to Eliquis. No further needs identified.
--- NOTE | 2017-10-24 16:25 | PCM.PROGNOTE ---
Patient Problems: Active and Suspected Problems (Last Updated 10/21/17 @ 08:56 by Mars Rayo) ABBY (acute kidney injury) (Acute) Hypokalemia (Acute) Warfarin-induced coagulopathy (Acute) Subjective: Patient was seen and examined today, her labs were reviewed, I talked with her and her [id number] as well as cardiology about her medical care. Patient's creatinine has dropped to 2.43 today. I have ordered orthostatic blood pressures on the patient and she is not orthostatic at this time, cardiology has recommended her Coreg be restarted and has recommended that she not be on an FABIAN inhibitor or an arm due to her renal artery stenosis. I talked with the family at length about the use of Eliquis and they have agreed that it is probably the best course of action as her INR was hard to keep therapeutic. I started the patient on Eliquis 2.5 mg twice daily, she will receive a card for 30 days and there was an application given to the patient's to fill out so that she may get the medication for a reduced rate or free from the drug company due to the fact he has no prescription insurance. - Physical Exam General: Alert, Oriented x3, Cooperative, No apparent distress, Well developed, Well nourished HEENT: Atraumatic, PERRLA, EOMI, Normocephalic Oral: Moist Mucosa Neck: Supple, No JVD, Negative Carotid Bruits, Trachea Midline, Thyroid Normal Size and Texture Lungs: Clear to auscultation, Normal air movement, No rhonchi, No wheeze, No rales Cardiovascular: No murmurs, PMI Normal, Irregular Rate, No rub noted Abdomen: Bowel Sounds Present, Soft, Non Tender, Non-Distended, No hernias noted Extremities: No clubbing, No cyanosis, No edema, Capillary Refill Less than 3 Seconds Skin: No rashes, No breakdown Musculoskeletal: No Tenderness to Palpation of Joints or Extremities Neurological: Cranial nerves II-XII grossly intact, Neuro grossly intact Psych/Mental Status: Appropriate, Flat Affect Vital Signs Temp Pulse Resp BP Pulse Ox 97.7 F L 64 16 105/69 97 10/24/17 15:00 10/24/17 15:00 10/24/17 15:00 10/24/17 15:00 10/24/17 15:00 Oxygen Delivery Method Room Air Weight: 62.9 kg Body Mass Index (BMI) 24.6 Orthostatic Vital Signs Start: 10/24/17 15:50 Freq: Q4H Status: Active Protocol: Activity Type Activity Date Activity User E-Sign Co-Sign Detail Recorded Client Recorded Date Recorded By Document 10/24/17 14:00 CHAD [id number] 10/24/17 15:52 ANG 10/24/17 14:00 Orthostatic Vitals Standing -Blood Pressure (90/60-120/80 mm Hg) 100/59 L -Extremity Use Right Arm -Pulse Rate (60-100 beats/min) 87 Sitting -Blood Pressure (90/60-120/80 mm Hg) 110/68 -Extremity Use Right Arm -Pulse Rate (60-100 beats/min) 85 Lying -Blood Pressure (90/60-120/80 mm Hg) 106/69 -Extremity Use Right Arm -Pulse Rate (60-100 beats/min) 64 Intake and Output for Last 24 Hours 10/22/17 10/23/17 10/24/17 23:59 23:59 23:59 Intake Total 2565 / 2565 192 / 192 1121 / 1121 Output Total 200 / 200 200 / 200 Balance 2365 / 2365 1927 / 1927 921 / 921 Laboratory Tests Past 24 Hrs 10/23/17 10/24/17 10/24/17 21:15 05:40 05:40 WBC 5.8 RBC 3.67 L Hgb 10.8 L Hct 32.4 L MCV 88.3 MCH 29.4 MCHC 33.3 RDW 13.1 RDW Differential 42.3 Plt Count 117 L MPV 12.0 PT INR Sodium 146 H Potassium 3.5 3.4 L Chloride 114 H Carbon Dioxide 24.0 Anion Gap 8 BUN 63 H Creatinine 2.43 H Estim Creat Clear Calc 14.63 Est GFR (MDRD) Af Amer 25 L Est GFR (MDRD) Non-Af 21 L BUN/Creatinine Ratio 25.9 H Glucose 134 H Calcium 7.6 L Magnesium 10/24/17 10/24/17 05:40 05:40 WBC RBC Hgb Hct MCV MCH MCHC RDW RDW Differential Plt Count MPV PT 16.9 H INR 1.4 Sodium Potassium Chloride Carbon Dioxide Anion Gap BUN Creatinine Estim Creat Clear Calc Est GFR (MDRD) Af Amer Est GFR (MDRD) Non-Af BUN/Creatinine Ratio Glucose Calcium Magnesium 1.7 Assessment/Plan Active and Suspected Problems (Last Updated 10/21/17 @ 08:56 by Masr Rayo) ABBY (acute kidney injury) (Acute) Hypokalemia (Acute) Warfarin-induced coagulopathy (Acute) #1 acute kidney injury secondary to diuretic usage-diuretics will continue to be held at this time, cardiology recommends that the diuretics be held for 48 hours after she goes home and her labs be rechecked later this week. I will continue IV fluids at a low rate #2 ischemic cardiomyopathy-EF 15%-Coreg will be restarted #3 [id number] treatment only #4 cerebrovascular disease #5 atrial fibrillation-patient is now on Eliquis #6 hypokalemia-not significant #7 supratherapeutic INR-now corrected #8 General debility-secondary to multiple medical causes, patient walks very little at home and uses a walker when she does walk, the plan is for the patient to return home after her hospitalization here Code Visit Inpatient E&M: 19830 Subs Hosp L3
[2017-10-24] MEDS: Atorvastatin Calcium 80 MG Tablet PO (22:01)
[2017-10-24] MEDS: Carvedilol 6.25 MG Tablet PO (22:01)
[2017-10-24] MEDS: APIXABAN 2.5 MG TABLET PO (22:02)
[2017-10-25] VITALS (7 sets, daily range): BP systolic 80–125; BP diastolic 49–92; PULSE 85–116; RESP 16–18; TEMP 36.6–36.8; O2SAT 96–99
[2017-10-25] MEDS: 0.45% Normal Saline 1,000 ML 60 ML IV (03:54)
[2017-10-25 06:36] LABS: Anion Gap 9 (5-15); BUN 42 mg/dL (7-18); BUN/Creat Ratio 22.7 RATIO (10-20); Calcium,Total 7.6 mg/dL (8.5-10.1); Chloride 111 mmol/L (98-107); Creatinine, Serum 1.85 mg/dL (0.55-1.02); EST Glomerular Filtration Rate 28 mL/min (>60); Est Glom Filt Rate - Afr Amer 34 mL/min (>60); Estimated Creatinine Clearance 19.22 ml/min; Glucose 120 mg/dL (70-110); Potassium 3.3 mmol/L (3.5-5.1); Sodium Level 146 mmol/L (136-145)
[2017-10-25] MEDS: Carvedilol 6.25 MG Tablet PO (09:26)
[2017-10-25] MEDS: Pantoprazole Sodium 20 MG Tablet PO (09:26)
[2017-10-25] MEDS: Aspirin 81 MG TAB.CHEW PO (09:26)
[2017-10-25] MEDS: APIXABAN 2.5 MG TABLET PO (09:26)
--- NOTE | 2017-10-25 09:46 | PCM.PN.CARD ---
Subjectve: Patient continues to improve clinically. Creatinine is normalizing and now 1.85. Patient denies any nausea, vomiting, diarrhea or chest pain. Imagery negative. Orthostatics negative. Objective: Vital Signs Temp Pulse Resp BP Pulse Ox 98.2 F 89 18 118/68 99 10/25/17 07:45 10/25/17 07:45 10/25/17 07:45 10/25/17 07:45 10/25/17 07:45 Oxygen Delivery Method Room Air Weight: 138 lb 0.15 oz Body Mass Index (BMI) 24.6 Orthostatic Vital Signs Start: 10/24/17 15:50 Freq: 4X/DAY Status: Active Protocol: Activity Type Activity Date Activity User E-Sign Co-Sign Detail Recorded Client Recorded Date Recorded By Document 10/25/17 07:45 AML [id number] 10/25/17 08:13 AML 10/25/17 07:45 Orthostatic Vitals Standing -Blood Pressure (90/60-120/80) 125/56 H -Extremity Use Right Arm -Pulse Rate (60-100) 106 H Sitting -Blood Pressure (90/60-120/80) 110/67 -Extremity Use Right Arm -Pulse Rate (60-100) 98 Lying -Blood Pressure (90/60-120/80) 118/68 -Extremity Use Right Arm -Pulse Rate (60-100) 89 Intake and Output for Last 24 Hours 10/23/17 10/24/17 10/25/17 23:59 23:59 23:59 Intake Total 1926 / 1926 2546 / 2546 327 / 327 Output Total 725 / 725 Balance 1926 1821 / 1821 327 / 327 General: Awake, Alert, Oriented x 3 HEENT: PERRL, EOMI, Sclera Non Icteric Neck: Supple, Good ROM, No Lymph Node Enlargement Lungs: Clear to auscultation Cardiovascular: Regular Rhythm, Normal S1, Normal S2, No Murmurs, No Rubs, No Gallops Vascular: No Carotid Bruits, Normal Femoral Pulses, Normal Radial Pulses, Normal Dorsalis Pedal Pulse, Normal Posterior Tibial Pulses Abdomen: Bowel Sounds Present, Soft, Non Tender, No HSM, No Organomegaly Extremities: No Cyanosis, No Clubbing, No edema Neurological: No Focal Motor or Sensory Deficit 10/25/17 05:40: Sodium 146 H, Potassium 3.3 L, Chloride 111 H, Carbon Dioxide 26.0, Anion Gap 9, BUN 42 H, Creatinine 1.85 H, Est GFR (MDRD) Af Amer 34 L, Est GFR (MDRD) Non-Af 28 L, BUN/Creatinine Ratio 22.7 H, Glucose 120 H, Calcium 7.6 L Rhythm: EKG: ECHO: Stress Test: Cardiac Cath: PCI: CT Surgery: Holter monitor: EPS: PPM: CXR: Chest CT Scan: Assessment/Plan 1. Ischemic cardiomyopathy: The patient had a small troponin release most likely a result of a combination of acute on chronic renal failure as well as known severe LV dysfunction with 2 vessel coronary artery disease. No anginal symptoms. The patient did have a 7 beat run of nonsustained ventricular tachycardia 2 nights ago, but may be a result of lack of beta-vidal therapy. At this point I would not recommend repeat stress test or catheterization at this time. Repeat echocardiogram confirms severe LV dysfunction. At this point she is a poor candidate for an AICD as well. I recommend discontinuation of her hydrochlorothiazide and would recommend holding her Lasix until , and once she has reached her dry weight and her creatinine has normalized into the 1.3-1.5 range. At that time I would restart her Lasix at 40 mg p.o. daily. In addition I would discontinue her losartan as she has had acute on chronic renal failure. She was on Imdur 30 mg p.o. daily and I would resume this as well once her blood pressure has stabilized. Patient would benefit from hydralazine 10 mg p.o. 3 times daily for afterload reduction however given her already severe LV dysfunction and hypotension, I would hold off on adding that at this time. Her orthostatics are negative, except for some mild increase in her heart rate. Recommend resuming Coreg at half dose as she was at home until her fluid balance stabilizes, at which time we can increase it back to 12.5 mg p.o. twice daily. She will follow-up in our office in 2 weeks time with 1 of our advanced practice nurses Sriram or Veronica. 2. Hyperlipidemia: Continue rosuvastatin. 3. Atrial fibrillation: The patient was admitted with toxic INR as a result of nausea vomiting and poor p.o. intake. Given her renal insufficiency and difficulty obtaining INR is at home, recommend the patient be switched from Coumadin to Eliquis 2.5 mg p.o. twice daily. I have explained to the patient and her family that Eliquis and Xarelto do not have reversing agents, and they have reiterated the patient has had no significant falls over the last 12 months at home. Patient and family agreed to try Eliquis at this time. 4. Discuss[address] with Dr. Aguero. Patient may be discharged home today if clinically appropriate. Code Visit Inpatient E&M: 48874 Subs Hosp L2
--- NOTE | 2017-10-25 10:42 | PCM.DC ---
- Discharge Diagnoses Current Active Problems: Current Active and Chronic Problems (Last Updated 10/21/17 @ 08:56 by Mars Rayo) ABBY (acute kidney injury) (Acute) Hypokalemia (Acute) Warfarin-induced coagulopathy (Acute) Systolic CHF, chronic (Chronic) Atrial fibrillation (Chronic) You will use the following diet at home:: No restrictions Your food should be the consistency of: Regular Your liquids should be the consistency of: Regular/Thin Discharge Activity: Return to Normal Activity Weight Bearing Status: Weight bearing as tolerated Allergies/Adverse Reactions: Allergies No Known Allergies Allergy (Verified 10/21/17 17:55) Medications to take at Discharge Aspirin [Aspirin, Baby] 81 mg PO DAILY@0800 10/21/17 Carvedilol [Coreg] 12.5 mg PO BID 10/21/17 Escitalopram Oxalate [Lexapro] 10 mg PO DAILY 10/21/17 Furosemide [Lasix] 40 mg PO DAILY 10/21/17 Potassium Chloride [Klor-Con M10] 20 meq PO DAILY 10/21/17 Rosuvastatin Calcium [Crestor] 40 mg PO DAILY 10/21/17 Apixaban [Eliquis] 2.5 mg PO BID #60 tab 10/25/17 The following prescriptions were given: Apixaban [Eliquis] 2.5 mg PO BID #60 tab Primary Care Physician: Chon Solis DO [Primary Care Provider] - Please follow up with your Primary Care Physician in: next week=you will need a BMP drawn Please Follow Up With: Aleksander Corley MD When: at next appointment
--- NOTE | 2017-10-27 21:23 | DS.PCM_ITS ---
Discharge Date and Diagnosis Date of Admission: 10/21/17 Date of Discharge: 10/25/17 - Primary Discharge Diagnosis #1 acute kidney injury secondary to diuretic usage #2 ischemic cardiomyopathy with EF of 15% #3 acute non-STEMI #4 supratherapeutic INR #5 hypokalemia #6 chronic atrial fibrillation #7 cerebrovascular disease #8 General debility - Secondary Discharge Diagnosis Chronic Problems (Last Updated 10/21/17 @ 08:56 by Mars Rayo) Systolic CHF, chronic (Chronic) Atrial fibrillation (Chronic) Ischemic cardiomyopathy (Chronic) Arteriosclerotic heart disease (ASHD) (Chronic) CVA (cerebral vascular accident) (Chronic) Peripheral vascular disease (Chronic) Renal artery stenosis (Chronic) retirement (current) use of anticoagulants (Chronic) Cerebrovascular disease (Chronic) Dyslipidemia (Chronic) HTN (hypertension) (Chronic) Noncompliance with medication regimen (Chronic) PVD (peripheral vascular disease) (Chronic) Abdominal aortic artery stent (Chronic) Non-STEMI (Chronic) Hypertensive urgency (Chronic) Hospital Course and Treatment Operations: None Procedures: 2-D Echocardiogram Summary of Care Provided: The patient is a 77 year old F was seen in the emergency room at [facility] after being started to go to the emergency room due to abnormal outpatient labs. Patient states that she had some vomiting and flulike symptoms over 3 days prior to this. Workup in the emergency room included an EKG which demonstrated atrial fibrillation, potassium was 2.6, BUN was 148, creatinine was 5.59, INR was 6.6, troponin was elevated at 0.18, lipase was elevated at 911, and chest x-ray showed no acute process. It was noted that the patient was taking Lasix as well as hydrochlorothiazide at home. Patient was given IV fluids in the emergency room, hospitalist service was called for admission to PCU and the patient's labs were monitored, her troponin continued to elevate and she was seen by cardiology who felt that the patient sustained a non-STEMI. Patient's electrolytes were normalized and with fluid administration, her BUN and creatinine improved. Cardiology did not feel that the patient should be subjected to a cardiac catheterization, echocardiogram was obtained and showed a severely reduced ejection fraction of 15% which was similar to previous echocardiograms. Due to the fact the patient's INR was severely elevated on admission, discussions were carried out the patient's family and it was decided the patient would be changed to [facility] for anticoagulation. Patient was seen by PT and OT, it was the patient's desire and the patient's family's desire that she be discharged to home when stable. On 10/25/17, patient was seen and examined and felt to be in stable condition for discharge home. Discharge Activity: Return to Normal Activity Weight Bearing Status: Weight bearing as tolerated Home Medications: Medications to take at Discharge Aspirin [Aspirin, Baby] 81 mg PO DAILY@0800 10/21/17 Carvedilol [Coreg] 12.5 mg PO BID 10/21/17 Escitalopram Oxalate [Lexapro] 10 mg PO DAILY 10/21/17 Furosemide [Lasix] 40 mg PO DAILY 10/21/17 Potassium Chloride [Klor-Con M10] 20 meq PO DAILY 10/21/17 Rosuvastatin Calcium [Crestor] 40 mg PO DAILY 10/21/17 Apixaban [Eliquis] 2.5 mg PO BID #60 tab 10/25/17 Following Prescrptions Were Given to Patient: Apixaban [Eliquis] 2.5 mg PO BID #60 tab Primary Care Physician: Chon Solis DO [Primary Care Provider] - Please follow up with your Primary Care Physician in: next week=you will need a BMP drawn Please Follow Up With: Aleksander Corley MD When: at next appointment Please Follow Up With: Chon Solis DO When: NEXT WEEK Disposition: Home Minutes spent on discharge:: 36 Patient Condition:: Stable Meaningful Use Info Meaningful Use Diagnoses (Choose all that apply): AMI - AMI Aspirin given w/in 24hrs of arrival?: Yes ASA at discharge?: Yes Statins at discharge?: Yes Juan/ARB at discharge?: No Reason Juan/ARB not ordered:: Drug Interaction - Patient was admitted for acute kidney failure Beta Queenie at discharge?: Yes Done w/ Acute KS measure.: Yes Code Visit Inpatient E&M: 45999 Disch Hosp
== END 2017-10-25 12:16 | disposition home or self-care (01) | DRG 682 ==
LOC: ED 20:19 → PCU 20:50
PROVIDERS: Family Medicine; Internal Medicine; Admitting Provider Hospitalist; Emergency Provider Emergency Medicine; Family Provider Student in an Organized Health Care Education/Training Program; PCP Student in an Organized Health Care Education/Training Program; Visit Provider Internal Medicine
DX: N17.9 Acute kidney failure, unspecified (principal); I21.4 Non-ST elevation (NSTEMI) myocardial infarction; I48.2 Chronic atrial fibrillation; I50.22 Chronic systolic (congestive) heart failure; I25.2 Old myocardial infarction; E87.6 Hypokalemia; I25.10 Atherosclerotic heart disease of native coronary artery without angina pectoris; I25.5 Ischemic cardiomyopathy; I67.9 Cerebrovascular disease, unspecified; Z79.01 Long term (current) use of anticoagulants; I73.9 Peripheral vascular disease, unspecified; T50.2X5A Adverse effect of carbonic-anhydrase inhibitors, benzothiadiazides and other diuretics, initial encounter; E78.5 Hyperlipidemia, unspecified; I11.0 Hypertensive heart disease with heart failure
CPT/HCPCS: 36415; 71045; 80048; 80053; 80061; 81001; 83605; 83690; 83735; 84132; 84484; 85014; 85018; 85025; 85027; 85610; 86850; 86900; 93005; 93306; 97110; 97166; 97530; 97535; 97802; 99285; J7030; J7040; J7050; P9612; Q9957; A4216; C8929

== ENCOUNTER → 2017-11-08 09:18 | Outpatient (CLI) | payer OTHER, SELFPAY ==
[2017-11-08 12:35] LABS: ALB/GLOB Ratio 0.8 RATIO (0.9-2.4); AST(SGOT) 50 U/L (15-37); Alanine Aminotransfer ALT/SGPT 71 U/L (13-56); Albumin, Serum 2.6 g/dL (3.2-5.0); Alkaline Phosphatase 65 U/L (45-117); Anion Gap 7 (5-15); BUN 32 mg/dL (7-18); BUN/Creat Ratio 21.5 RATIO (10-20); Calcium,Total 7.9 mg/dL (8.5-10.1); Chloride 101 mmol/L (98-107); Creatinine, Serum 1.49 mg/dL (0.55-1.02); EST Glomerular Filtration Rate 36 mL/min (>60); Est Glom Filt Rate - Afr Amer 44 mL/min (>60); Globulin 3.4 g/dL (2.2-4.2); Glucose 168 mg/dL (74-106); Potassium 2.8 mmol/L (3.5-5.1); Sodium Level 141 mmol/L (136-145)
[2017-11-09 05:07] LABS: HEPATITIS B SURFACE AG Negative (Negative); Hepatitis A IgM Antibody Negative (Negative); Hepatitis B Core AB IgM Negative (Negative)
[2017-11-09 14:56] LABS: Hep C Antibodies <0.1 s/co ratio (0.0-0.9)
== END ==
PROVIDERS: Family Provider Student in an Organized Health Care Education/Training Program; PCP Student in an Organized Health Care Education/Training Program; Visit Provider Nurse Practitioner Adult Health
DX: E87.6 Hypokalemia (principal); R74.8 Abnormal levels of other serum enzymes
CPT/HCPCS: 36415; 80053; 80074

== ENCOUNTER 2017-11-08 19:08 | Inpatient (IN) | payer OTHER, SELFPAY ==
[2017-11-08] VITALS (7 sets, daily range): BP systolic 145–161; BP diastolic 54–80; PULSE 68–89; RESP 16–26; TEMP 36.6–36.8; O2SAT 95–98; BMI 25.4; BMI 24.3; BMI 24.4
--- NOTE | 2017-11-08 19:32 | EKG12_ITS ---
Test Reason : ABNORMAL LABS Blood Pressure : / mmHG Vent. Rate : 067 BPM Atrial Rate : 067 BPM P-R Int : 182 ms QRS Dur : 092 ms QT Int : 430 ms P-R-T Axes : 062 044 109 degrees QTc Int : 454 ms Sinus rhythm with frequent Premature ventricular complexes Anteroseptal infarct , age undetermined T wave abnormality, consider lateral ischemia Abnormal ECG Confirmed by CHRISTO LOZANO, SHAJI ([id number]), manager editorial JOI RAMHAN ([id number]) on 11/11/2017 1:48:48 PM Referred By: BRITNEY GILLILAND Confirmed By:SHAJI VILLAFUERTE MD
--- NOTE | 2017-11-08 19:33 | CT_ITS ---
STUDY: CT ABDOMEN AND PELVIS WITH CONTRAST REASON FOR EXAM: Female, 77 years old. Pain, nausea and vomiting RADIATION DOSAGE (If Supplied By Facility): CTDIvol = ( 17.48 ) mGy, DLP = ( 548.79 ) mGycm TECHNIQUE: Transaxial images were obtained from the dome of the diaphragm to the symphysis pubis without oral contrast. 100 ml of Isovue 300 contrast was administered. Sagittal and coronal images were reconstructed. Individualized dose optimization techniques were used for this CT. COMPARISON: None. FINDINGS: Small right effusion. Heart size is mildly enlarged. Small hypodensity in the liver, otherwise within normal limits. Prominent distention of the gallbladder with questionable pericholecystic inflammation. No discrete stones. Normal spleen. Normal pancreas. Normal bilateral adrenal glands. Nonenhancing right lower pole renal cyst. Otherwise, unremarkable right kidney. Normal left kidney. There is a small hiatal hernia. Normal small intestine. There are multiple colonic diverticula consistent with diverticulosis. There is non-visualization of the appendix. There is diffuse atherosclerotic calcification of the abdominal aorta, without a demonstrated aneurysm. Normal inferior vena cava. Normal retroperitoneum. Normal urinary bladder. There is atrophy of the uterus. Normal abdominal wall. There are diffuse degenerative changes of the visualized lumbar spine. CT/Abdomen/Pelvis W IV Cont ONLY IMPRESSION: Prominent distention of the gallbladder with questionable pericholecystic inflammation. No discrete stones noted on CT. Recommend right upper quadrant ultrasound to further evaluate. Otherwise, chronic diverticulosis without evidence of acute diverticulitis. Small to moderate hiatal hernia. Electronically Signed: Hakan Johnson DO at 20:28 EST Tel , Service support ,
--- NOTE | 2017-11-08 19:33 | ED.VISSUMM ---
- ER Visit Summary Date of Service: 11/08/17 Chief Complaint: Low potassium History of Present Illness: The patient is a 77 F who presents for low potassium. Patient was hospitalized for hypokalemia a few weeks ago when she had the stomach flu. She has been having her potassium monitored since then and is now on potassium supplements. Today her lab work showed a low potassium. This afternoon she also developed nausea, vomiting and abdominal pain. She had associated mild shortness of breath. No diarrhea, no fever, no chest pain. She feels general malaise and weakness. History of myocardial infarction and stroke. She was sent in by her primary care doctor for further treatment of hypokalemia. Physical Examination: Vital signs: afebrile, hemodynamically stable, no hypoxia on room air General: well nourished, well developed, in no distress Skin: warm, dry, no rash, no pallor HEENT: normocephalic and atraumatic; PERRL, EOMI, moist mucous membranes Cardiovascular: regular rate and rhythm without murmurs, no peripheral edema, 2+ pulses all distal extremities Respiratory: No increased work of breathing, lungs are clear to auscultation bilaterally, no rales, rhonchi or wheezing Abdominal: Abdomen is soft, nontender with normoactive bowel sounds, no guarding or rebound, no masses MSK: Moves all extremities, no deformities, normal strength Neuro: Awake and alert, oriented ?4. No facial droop, sensation and motor function intact and symmetric Test Results: Abnormal Lab Results 11/08/17 11/08/17 11/08/17 18:35 18:35 20:20 WBC 9.3 RBC 3.95 L Hgb 11.9 L Hct 35.2 L MCV 89.1 MCH 30.1 MCHC 33.8 RDW 14.9 H RDW Differential 46.7 H Plt Count 209 MPV 11.0 Immature Gran % (Auto) 0.100 Neut % (Auto) 82.0 H Lymph % (Auto) 10.5 L Churchill % (Auto) 5.9 Eos % (Auto) 1.3 Baso % (Auto) 0.2 Absolute Neuts (auto) 7.6 Absolute Lymphs (auto) 0.97 Total Counted Not Reportable Sodium 141 Potassium 2.9 L Chloride 103 Carbon Dioxide 29.0 Anion Gap 9 BUN 30 H Creatinine 1.47 H Estim Creat Clear Calc 24.18 Est GFR (MDRD) Af Amer 44 L Est GFR (MDRD) Non-Af 37 L BUN/Creatinine Ratio 20.4 H Glucose 152 H Calcium 8.3 L Total Bilirubin 1.10 H AST 48 H ALT 75 H Alkaline Phosphatase 72 Troponin I 0.10 H Total Protein 6.7 Albumin 2.8 L Globulin 3.9 Albumin/Globulin Ratio 0.7 L Lipase 591 H Urine Color Yellow Urine Clarity Sl. Cloudy Urine pH 7.0 Ur Specific [place] 1.005 Urine Protein 30 H Urine Glucose (UA) Normal Urine Ketones Negative Urine Occult Blood 250 H Urine Nitrite Negative Urine Bilirubin Negative Urine Urobilinogen 1 H Ur Leukocyte Esterase Negative Urine RBC 0-5 SEEN Urine WBC 0-5 SEEN Ur Squamous Epith Cells 0 SEEN Ur Transition Epith Cell 0-5 SEEN Urine Bacteria 0 SEEN Hyaline Casts 0-5 SEEN Fine Granular Casts 0-5 SEEN Urine Mucus 0 SEEN Emergency Department Course and Treatment: Patient presents hypokalemic but is currently complaining of abdominal discomfort, nausea and episode of vomiting. She states she just does not feel well. Given her history, her age and gender, this is concerning as well for possible atypical ACS addition to abdominal pathology. Her initial EKG showed T-wave inversion and subtle ST depression in 1 and aVL. The T-wave inversion was present on an old EKG but the subtle ST depression was not. A repeat EKG 20 minutes later showed no change. Both also had ectopy. Patient was given hydration and IV potassium. She was given Zofran for nausea. Lab work showed a potassium of 2.9. She had mild transaminitis and chart review shows that she is currently receiving a workup for hepatitis. Urine negative for infection. Creatinine at baseline. Troponin elevated at 0.1, and chart review shows patient had an elevated troponin after a myocardial infarction in October. Unclear whether this is a new elevation or if this is a trending down from her prior MD. Because of patient's nausea, vomiting and abdominal pain, a CT of the abdomen and pelvis was performed and showed questionable gallbladder pathology. Right upper quadrant ultrasound was then performed that showed no convincing signs of cholecystitis. She was complaining of abdominal pain and received some IV morphine. One more EKG was repeated now without any PVCs. There is no significant ST segment and T-wave morphology from her prior EKGs. Patient will be admitted for IV repletion of her hypokalemia as well as further workup for her nausea, vomiting and abdominal discomfort, with atypical ACS on the differential. Patient discussed with Dr. Colunga. Treatment Plan: [] Disposition: admit to tele Impression: Hypokalemia, nausea and vomiting, abdominal discomfort, history of cardiomyopathy and myocardial infarction This note was generated with [employer] dictation software. It may contain incorrect words, spelling, and punctuation that were not noted in review of the chart prior to signing ED Disposition - Plan for ED Patient: Chief Complaint: Abn Labs Referrals: Chon Solis DO [Primary Care Provider] -
[2017-11-08] MEDS: Ondansetron 4 MG/2 ML Vial IV (19:49)
[2017-11-08] MEDS: 0.9% Normal Saline 1,000 ML 500 ML IV (19:49)
[2017-11-08 19:52] LABS: Absolute Lymphocyte Count 0.97 X10^3/ul (0.83-4.51); Absolute Neutrophil Count 7.6 X10^3/uL (2.0-7.7); Basophil# 0.02 X10^3/uL; Basophil% 0.2 % (0-1); Eosinophil# 0.12 X10^3/uL; Eosinophils% 1.3 % (0-5); Hematocrit 35.2 % (37-47); Hemoglobin 11.9 g/dl (12.0-15.0); Lymphocyte # 0.97 X10^3/ul (4.0); Lymphocyte % 10.5 % (19-41); Mean Corp Hgb Conc 33.8 g/gl (32-36); Mean Corpuscular Hgb 30.1 pg (27.0-32.0); Mean Corpuscular Volume 89.1 fL (81-99); Monocyte# 0.55 X10^3/uL; Monocyte% 5.9 % (0-10); Neutrophil # 7.61 X10^3/uL (2.7-7.7); POSITIVE COUNT NO; POSITIVE DIFFERENTIAL NO; POSITIVE MORPHOLOGY NO; Platelet Count 209 K/mm3 (150-450); RBC Distribution Width CV 14.9 % (11.6-14.6); RBC Distribution Width SD 46.7 fl (35.1-43.9); Red Blood Count 3.95 M/mm3 (4.2-5.4); White Blood Count 9.3 K/mm3 (4.4-11.0)
--- NOTE | 2017-11-08 20:01 | EKG12_ITS ---
Test Reason : REPEAT Blood Pressure : / mmHG Vent. Rate : 079 BPM Atrial Rate : 079 BPM P-R Int : 182 ms QRS Dur : 088 ms QT Int : 406 ms P-R-T Axes : 063 042 104 degrees QTc Int : 465 ms Sinus rhythm with Fusion complexes Eren Septal infarct , age undetermined T wave abnormality, consider lateral ischemia Abnormal ECG Confirmed by CHRISTO LOZANO, SHAJI ([id number]), multimedia editor JOI RAHMAN ([id number]) on 11/11/2017 1:49:20 PM Referred By: DARSHANA Confirmed By:SHAJI VILLAFUERTE MD
[2017-11-08 20:13] LABS: ALB/GLOB Ratio 0.7 RATIO (0.9-2.4); AST(SGOT) 48 U/L (15-37); Alanine Aminotransfer ALT/SGPT 75 U/L (13-56); Albumin, Serum 2.8 g/dL (3.2-5.0); Alkaline Phosphatase 72 U/L (45-117); Anion Gap 9 (5-15); BUN 30 mg/dL (7-18); BUN/Creat Ratio 20.4 RATIO (10-20); Calcium,Total 8.3 mg/dL (8.5-10.1); Chloride 103 mmol/L (98-107); Creatinine, Serum 1.47 mg/dL (0.55-1.02); EST Glomerular Filtration Rate 37 mL/min (>60); Est Glom Filt Rate - Afr Amer 44 mL/min (>60); Estimated Creatinine Clearance 24.18 ml/min; Globulin 3.9 g/dL (2.2-4.2); Glucose 152 mg/dL (74-106); Lipase 591 U/L (73-393); Potassium 2.9 mmol/L (3.5-5.1); Protein, Total 6.7 g/dL (6.4-8.2); Sodium Level 141 mmol/L (136-145)
[2017-11-08 20:28] LABS: Bacteria 0 SEEN /hpf (None Seen); Color, Urine Yellow (Yellow); Glucose, Dipstick Normal (Normal); Ketone-Dipstick Negative (Negative); Leukocyte Esterase-Dipstick Negative /ul (Negative); Mucous, Urine 0 SEEN /hpf (<or=2+); Nitrite-Dipstick Negative (Negative); Occult Blood-Urine 250 /ul (Negative); Protein-Dipstick 30 mg/dl (Negative); Specific Gravity, Urine 1.005 (1.002-1.030); Squamous Epithelial Cells - UA 0 SEEN /hpf (5-10); Urine Bilirubin Dipstick Negative (Negative); Urine Clarity Sl. Cloudy (Clear); Urine Urobilinogen 1 mg/dl (Normal)
--- NOTE | 2017-11-08 20:32 | US_ITS ---
STUDY: ABDOMINAL ULTRASOUND - RIGHT UPPER QUADRANT REASON FOR VISIT: Female, 77 years old. Right upper quadrant pain TECHNIQUE: Ultrasound evaluation of the right upper quadrant was performed with real-time and static anthony-scale imaging. TECHNICAL QUALITY: Limited. Examination limited by bowel gas. COMPARISON: CT abdomen and pelvis November 08, 2017 FINDINGS: Liver: The liver measures 14.2 cm. Small cyst of the dome of the liver noted. There is normal echogenicity of the liver. The bile ducts are within normal limits. There is hepatic color flow. The direction of portal flow is hepatopetal. There is no demonstrated mass lesion. Gallbladder: Normal distended gallbladder. The gallbladder wall measures 2 mm. There is a negative sonographic Santillan's sign. There appears trace pericholecystic fluid There is biliary sludge dependent within the gallbladder. Common Bile Duct (C.B.D.): The common bile duct measures 5 mm. Pancreas: Normal size of the head of the pancreas. The remainder of the pancreas was obscured due to bowel gas. Right Kidney: Normal size of the right kidney. The right kidney measures 10.1 x 4.3 x 4 cm. Normal renal cortex. The right cortex measures 1.4 cm. There is no demonstrated renal mass or cyst. There is no right hydronephrosis. US/Gallbladder IMPRESSION: Gallbladder sludge and trace pericholecystic fluid. No evidence of biliary ductal obstruction. Of the pancreas cannot be fully evaluated due to bowel gas. The visualized head of the pancreas was unremarkable. See above. Electronically Signed: Jodi Oshea MD at 22:29 EST Tel , Service support ,
[2017-11-08 20:44] LABS: Hyaline Cast 0-5 SEEN /lpf (0-5)
[2017-11-08 20:46] LABS: Fine Granular Cast- Urine 0-5 SEEN /lpf (0-5); White Blood Cells 0-5 SEEN /hpf (0-5)
[2017-11-08 20:48] LABS: Red Blood Cells-Urine 0-5 SEEN /hpf (0-5)
[2017-11-08 20:49] LABS: Transitional Epithelial - Ur 0-5 SEEN /hpf (0-5)
--- NOTE | 2017-11-08 22:43 | EKG12_ITS ---
Test Reason : HIGH TROPONINS Blood Pressure : / mmHG Vent. Rate : 081 BPM Atrial Rate : 081 BPM P-R Int : 176 ms QRS Dur : 088 ms QT Int : 396 ms P-R-T Axes : 063 043 103 degrees QTc Int : 460 ms Normal sinus rhythm with sinus arrhythmia Anteroseptal infarct , age undetermined Abnormal ECG Confirmed by CHRISTO LOZANO, SHAJI ([id number]), photographic editor JOI RAHMAN ([id number]) on 11/11/2017 1:49:37 PM Referred By: DARSHANA Confirmed By:SHAJI VILLAFUERTE MD
--- NOTE | 2017-11-08 23:17 | PCM.HP.STD ---
Problem List (1) Hypokalemia Status: Acute (2) Elevated troponin Status: Acute (3) CKD (chronic kidney disease), stage III Status: Chronic (4) Hypokalemia Status: Chronic (5) Abdominal aortic artery stent Status: Chronic (6) Atrial fibrillation Status: Chronic (7) CVA (cerebral vascular accident) Status: Chronic Qualifiers: (8) Dyslipidemia Status: Chronic (9) HTN (hypertension) Status: Chronic Qualifiers: (10) Ischemic cardiomyopathy Status: Chronic (11) Peripheral vascular disease Status: Chronic (12) Renal artery stenosis Status: Chronic (13) Systolic CHF, chronic Status: Chronic History of Present Illness Date of Admission: 11/08/17 Chief Complaint: nausea vomiting. hypokalemia. The patient is a 77 year old F presents with a one-day history of an terrible nausea and vomiting. Patient saw her primary care doctor earlier today and had lab work that showed a potassium of 2.8. Patient was directed to the emergency room. Emergency room patient again had a potassium of 2.9 and was ordered potassium replacement with 10 mEq of potassium chloride. Patient was having some abdominal pain so patient did undergo a CAT scan of her abdomen pelvis CAT scan showed prominent distention of the gallbladder with questionable jocelin-cholestatic inflammation. With those results and ultrasound was performed that showed sludge and trace pericholecystic fluid. No evidence of biliary ductal obstruction. Patient did have a troponin that was 2.1. Patient was admitted in October and had hypokalemia at that time and did had elevated lipase though higher than today. Patient was also with a non-STEMI with troponins greater than 4. Patient was seen by cardiology and given the fact that they were not able to cannulate and perform percutaneous coronary intervention to the mid distal obtuse marginal #1 in August patient was treated medically and no intervention was performed last month. She did state that she was having abdominal pain as well as left-sided chest pain today. Her abdominal pain is better and she is chest pain-free at this time. 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) Cerebrovascular disease (Chronic) Dyslipidemia (Chronic) HTN (hypertension) (Chronic) Noncompliance with medication regimen (Chronic) PVD (peripheral vascular disease) (Chronic) Abdominal aortic artery stent (Chronic) Non-STEMI (Chronic) Hypertensive urgency (Chronic) Allergies No Known Allergies Allergy (Verified 11/08/17 19:10) Home Medications: Ambulatory Orders Medication Instructions Recorded Aspirin [Aspirin, Baby] 81 mg PO DAILY@0800 10/21/17 Carvedilol [Coreg] 12.5 mg PO BID 10/21/17 Escitalopram Oxalate [Lexapro] 10 mg PO DAILY 10/21/17 Furosemide [Lasix] 20 mg PO DAILY 10/21/17 Potassium Chloride [Klor-Con M10] 20 meq PO DAILY 10/21/17 Rosuvastatin Calcium [Crestor] 40 mg PO DAILY 10/21/17 Apixaban [Eliquis] 2.5 mg PO BID #60 tab 10/25/17 Psychiatric History: No pertinent psych hx Lives: Spouse/ Significant Other Smoking Status: Never smoker Tobacco Use: Non-smoker Alcohol: None Drugs: None - *Family History Paternal History Items: No pertinent history Sibling History Items: Heart Disease - In her brother Review of Systems Constitutional: Denies: Chills, Fever, Weight Change Eyes: Denies: Blurred vision, Double vision HEENT: Denies: Head Aches, Sinus Congestion, Sinus Drainage Cardiovascular: Reports: Chest Pain. Denies: Edema Respiratory: Denies: Cough, Shortness of breath at rest, Sputum production Gastrointestinal: Reports: Abdominal Pain, Nausea, Vomiting. Denies: Diarrhea Genitourinary: Denies: Dysuria Musculoskeletal: Denies: Joint Pain, Joint Tenderness Skin: Denies: Rash, Wounds Neurological: Denies: Numbness, Tingling, Focal weakness Psychiatric: Denies: Anxiety, Depression Endocrine: Denies: Change in Body Habitus, Heat/ Cold Intolerance Hematologic/ Lymphatic: Denies: Easy Bruising, Easy Bleeding, Hx of blood clot VTE Information - Inpt Only VTE Present on Admission: No VTE Pharm Prophylaxis ordered?: Yes Patient Problems: Active and Suspected Problems (Last Updated 10/21/17 @ 08:56 by Mars Rayo) Hypokalemia (Acute) Elevated troponin (Acute) - Physical Exam General: Alert, Cooperative, No apparent distress HEENT: Atraumatic, PERRLA, Normocephalic, - - No icterus Oral: Moist Mucosa, No Gingival or Mucosal Lesions/ Ulcerations Neck: No Nodes, Thyroid Normal Size and Texture Lungs: Clear to auscultation, Normal air movement, No rhonchi, No wheeze Cardiovascular: Regular rate, Regular Rhythm, Normal S1, Normal S2, No murmurs Abdomen: Bowel Sounds Present, Soft, Tender - epiGastric Extremities: No edema, No Calf Tenderness Skin: No rashes, No breakdown Musculoskeletal: No Tenderness to Palpation of Joints or Extremities, No Muscle Wasting Neurological: Deep Tendon Reflexes 2+/4 and Symmetrical, Neuro grossly intact, Muscle tone normal, Sensory exam intact to light touch and pain Psych/Mental Status: Normal Affect, Appropriate Vital Signs Temp Pulse Resp BP Pulse Ox 36.8 C 82 22 H 153/72 H 96 11/08/17 22:48 11/08/17 22:48 11/08/17 22:48 11/08/17 22:48 11/08/17 22:48 Oxygen Flow Rate 2 Oxygen Delivery Method Nasal Cannula Weight: 61.235 kg Body Mass Index (BMI) 25.4 Laboratory Tests Past 24 Hrs 11/08/17 11/08/17 11/08/17 18:35 18:35 20:20 WBC 9.3 RBC 3.95 L Hgb 11.9 L Hct 35.2 L MCV 89.1 MCH 30.1 MCHC 33.8 RDW 14.9 H RDW Differential 46.7 H Plt Count 209 MPV 11.0 Immature Gran % (Auto) 0.100 Neut % (Auto) 82.0 H Lymph % (Auto) 10.5 L [place] % (Auto) 5.9 Eos % (Auto) 1.3 Baso % (Auto) 0.2 Absolute Neuts (auto) 7.6 Absolute Lymphs (auto) 0.97 Total Counted Not Reportable Sodium 141 Potassium 2.9 L Chloride 103 Carbon Dioxide 29.0 Anion Gap 9 BUN 30 H Creatinine 1.47 H Estim Creat Clear Calc 24.18 Est GFR (MDRD) Af Amer 44 L Est GFR (MDRD) Non-Af 37 L BUN/Creatinine Ratio 20.4 H Glucose 152 H Calcium 8.3 L Total Bilirubin 1.10 H AST 48 H ALT 75 H Alkaline Phosphatase 72 Troponin I 0.10 H Total Protein 6.7 Albumin 2.8 L Globulin 3.9 Albumin/Globulin Ratio 0.7 L Lipase 591 H Urine Color Yellow Urine Clarity Sl. Cloudy Urine pH 7.0 Ur Specific [place] 1.005 Urine Protein 30 H Urine Glucose (UA) Normal Urine Ketones Negative Urine Occult Blood 250 H Urine Nitrite Negative Urine Bilirubin Negative Urine Urobilinogen 1 H Ur Leukocyte Esterase Negative Urine RBC 0-5 SEEN Urine WBC 0-5 SEEN Ur Squamous Epith Cells 0 SEEN Ur Transition Epith Cell 0-5 SEEN Urine Bacteria 0 SEEN Hyaline Casts 0-5 SEEN Fine Granular Casts 0-5 SEEN Urine Mucus 0 SEEN Clinical Impression(s) from Imaging Studies Abdomen/Pelvis CT 11/08/17 19:33 IMPRESSION: Prominent distention of the gallbladder with questionable pericholecystic inflammation. No discrete stones noted on CT. Recommend right upper quadrant ultrasound to further evaluate. Otherwise, chronic diverticulosis without evidence of acute diverticulitis. Small to moderate hiatal hernia. Electronically Signed: Hakan Johnson DO at 20:28 EST Tel , Service support , Gallbladder Ultrasound 11/08/17 20:32 IMPRESSION: Gallbladder sludge and trace pericholecystic fluid. No evidence of biliary ductal obstruction. Of the pancreas cannot be fully evaluated due to bowel gas. The visualized head of the pancreas was unremarkable. See above. Electronically Signed: Jodi Oshea MD at 22:29 EST Tel , Service support , EKG reviewed and showed normal sinus rhythm without any acute changes. Assessment/Plan Active and Suspected Problems (Last Updated 10/21/17 @ 08:56 by Mars Rayo) Hypokalemia (Acute) Elevated troponin (Acute) 1. Hypokalemia Likely multifactorial, due to the patient's nausea and vomiting but also her concomitant use of Lasix. Patient receiving small amount of potassium replacement in the emergency room. Patient be placed on half-normal saline with 40 mg once of potassium on the floor as well as 40 mEq of K Dur. Patient will continue with her home dosing of 20 mEq daily. Check a magnesium level as well. And replace if low. 2. Elevated troponin Patient did have some chest pain. Unclear significance of this level in individual with chronic kidney disease The patient does have known history of ischemic cardiomyopathy and a known lesion that has unable to to have successful PCI with the mid/distal obtuse marginal #1. Cycle troponins. Based on the results of the troponin series trigger if they go up, may consider consulting cardiology. 3. Elevated lipase Note is lower than it was just 1 month ago. Follow-up IV fluids 4. Chronic kidney disease stage III Appears at baseline. Continue with medical management. 5. Heart failure with reduced ejection fraction Ejection fraction of 15% from echocardiogram from October 22 Is due to an ischemic cardiomyopathy Patient's Lasix is currently being held to help replete potassium Patient is on carvedilol. Oh hold off on initiating any FABIAN inhibitor or angiotensin receptor vidal at this time given the patient's chronic kidney disease. This is a known entity based on prior documentation. Patient was to follow-up with cardiology later on this month and this can certainly be addressed at that time. 6. Atrial fibrillation, paroxysmal Currently normal sinus Continue with Coreg as well as Eliquis 7. DVT prophylaxis: Patient is currently anticoagulated 8. CODE STATUS: Addressed with the patient as well as with family. Patient wishes to be DNR Comfort Care arrest. I did advise patient and her family that this could certainly be changed at a later time if felt appropriate by them. Code Visit OBSV E&M: 73364 Initial observation care L3
--- NOTE | 2017-11-08 23:29 | HP.PCM_ITS ---
Problem List (1) Hypokalemia Status: Acute (2) Elevated troponin Status: Acute (3) CKD (chronic kidney disease), stage III Status: Chronic (4) Hypokalemia Status: Chronic (5) Abdominal aortic artery stent Status: Chronic (6) Atrial fibrillation Status: Chronic (7) CVA (cerebral vascular accident) Status: Chronic Qualifiers: (8) Dyslipidemia Status: Chronic (9) HTN (hypertension) Status: Chronic Qualifiers: (10) Ischemic cardiomyopathy Status: Chronic (11) Peripheral vascular disease Status: Chronic (12) Renal artery stenosis Status: Chronic (13) Systolic CHF, chronic Status: Chronic History of Present Illness Date of Admission: 11/08/17 Chief Complaint: nausea vomiting. hypokalemia. The patient is a 77 year old F presents with a one-day history of an terrible nausea and vomiting. Patient saw her primary care doctor earlier today and had lab work that showed a potassium of 2.8. Patient was directed to the emergency room. Emergency room patient again had a potassium of 2.9 and was ordered potassium replacement with 10 mEq of potassium chloride. Patient was having some abdominal pain so patient did undergo a CAT scan of her abdomen pelvis CAT scan showed prominent distention of the gallbladder with questionable jocelin- cholestatic inflammation. With those results and ultrasound was performed that showed sludge and trace pericholecystic fluid. No evidence of biliary ductal obstruction. Patient did have a troponin that was 2.1. Patient was admitted in October and had hypokalemia at that time and did had elevated lipase though higher than today. Patient was also with a non-STEMI with troponins greater than 4. Patient was seen by cardiology and given the fact that they were not able to cannulate and perform percutaneous coronary intervention to the mid distal obtuse marginal #1 in August patient was treated medically and no intervention was performed last month. She did state that she was having abdominal pain as well as left-sided chest pain today. Her abdominal pain is better and she is chest pain-free at this time. [] Past Medical History Past Medical History (Chronic Problems): Chronic Problems (Last Updated 10/21/17 @ 08:56 by Mars Rayo) CKD (chronic kidney disease), stage III (Chronic) Atrial fibrillation (Chronic) Systolic CHF, chronic (Chronic) Hypokalemia (Chronic) Ischemic cardiomyopathy (Chronic) Arteriosclerotic heart disease (ASHD) (Chronic) CVA (cerebral vascular accident) (Chronic) Peripheral vascular disease (Chronic) Renal artery stenosis (Chronic) intermediate (current) use of anticoagulants (Chronic) Cerebrovascular disease (Chronic) Dyslipidemia (Chronic) HTN (hypertension) (Chronic) Noncompliance with medication regimen (Chronic) PVD (peripheral vascular disease) (Chronic) Abdominal aortic artery stent (Chronic) Non-STEMI (Chronic) Hypertensive urgency (Chronic) Allergies No Known Allergies Allergy (Verified 11/08/17 19:10) Home Medications: Ambulatory Orders Medication Instructions Recorded Aspirin [Aspirin, Baby] 81 mg PO DAILY@0800 10/21/17 Carvedilol [Coreg] 12.5 mg PO BID 10/21/17 Escitalopram Oxalate [Lexapro] 10 mg PO DAILY 10/21/17 Furosemide [Lasix] 20 mg PO DAILY 10/21/17 Potassium Chloride [Klor-Con M10] 20 meq PO DAILY 10/21/17 Rosuvastatin Calcium [Crestor] 40 mg PO DAILY 10/21/17 Apixaban [Eliquis] 2.5 mg PO BID #60 tab 10/25/17 Psychiatric History: No pertinent psych hx Lives: Spouse/ Significant Other Smoking Status: Never smoker Tobacco Use: Non-smoker Alcohol: None Drugs: None - *Family History Paternal History Items: No pertinent history Sibling History Items: Heart Disease - In her brother Review of Systems Constitutional: Denies: Chills, Fever, Weight Change Eyes: Denies: Blurred vision, Double vision HEENT: Denies: Head Aches, Sinus Congestion, Sinus Drainage Cardiovascular: Reports: Chest Pain. Denies: Edema Respiratory: Denies: Cough, Shortness of breath at rest, Sputum production Gastrointestinal: Reports: Abdominal Pain, Nausea, Vomiting. Denies: Diarrhea Genitourinary: Denies: Dysuria Musculoskeletal: Denies: Joint Pain, Joint Tenderness Skin: Denies: Rash, Wounds Neurological: Denies: Numbness, Tingling, Focal weakness Psychiatric: Denies: Anxiety, Depression Endocrine: Denies: Change in Body Habitus, Heat/ Cold Intolerance Hematologic/ Lymphatic: Denies: Easy Bruising, Easy Bleeding, Hx of blood clot VTE Information - Inpt Only VTE Present on Admission: No VTE Pharm Prophylaxis ordered?: Yes Patient Problems: Active and Suspected Problems (Last Updated 10/21/17 @ 08:56 by Mars Rayo) Hypokalemia (Acute) Elevated troponin (Acute) - Physical Exam General: Alert, Cooperative, No apparent distress HEENT: Atraumatic, PERRLA, Normocephalic, - - No icterus Oral: Moist Mucosa, No Gingival or Mucosal Lesions/ Ulcerations Neck: No Nodes, Thyroid Normal Size and Texture Lungs: Clear to auscultation, Normal air movement, No rhonchi, No wheeze Cardiovascular: Regular rate, Regular Rhythm, Normal S1, Normal S2, No murmurs Abdomen: Bowel Sounds Present, Soft, Tender - epiGastric Extremities: No edema, No Calf Tenderness Skin: No rashes, No breakdown Musculoskeletal: No Tenderness to Palpation of Joints or Extremities, No Muscle Wasting Neurological: Deep Tendon Reflexes 2+/4 and Symmetrical, Neuro grossly intact, Muscle tone normal, Sensory exam intact to light touch and pain Psych/Mental Status: Normal Affect, Appropriate Vital Signs Temp Pulse Resp BP Pulse Ox 36.8 C 82 22 H 153/72 H 96 11/08/17 22:48 11/08/17 22:48 11/08/17 22:48 11/08/17 22:48 11/08/17 22:48 Oxygen Flow Rate 2 Oxygen Delivery Method Nasal Cannula Weight: 61.235 kg Body Mass Index (BMI) 25.4 Laboratory Tests Past 24 Hrs 11/08/17 11/08/17 11/08/17 18:35 18:35 20:20 WBC 9.3 RBC 3.95 L Hgb 11.9 L Hct 35.2 L MCV 89.1 MCH 30.1 MCHC 33.8 RDW 14.9 H RDW Differential 46.7 H Plt Count 209 MPV 11.0 Immature Gran % (Auto) 0.100 Neut % (Auto) 82.0 H Lymph % (Auto) 10.5 L [place] % (Auto) 5.9 Eos % (Auto) 1.3 Baso % (Auto) 0.2 Absolute Neuts (auto) 7.6 Absolute Lymphs (auto) 0.97 Total Counted Not Reportable Sodium 141 Potassium 2.9 L Chloride 103 Carbon Dioxide 29.0 Anion Gap 9 BUN 30 H Creatinine 1.47 H Estim Creat Clear Calc 24.18 Est GFR (MDRD) Af Amer 44 L Est GFR (MDRD) Non-Af 37 L BUN/Creatinine Ratio 20.4 H Glucose 152 H Calcium 8.3 L Total Bilirubin 1.10 H AST 48 H ALT 75 H Alkaline Phosphatase 72 Troponin I 0.10 H Total Protein 6.7 Albumin 2.8 L Globulin 3.9 Albumin/Globulin Ratio 0.7 L Lipase 591 H Urine Color Yellow Urine Clarity Sl. Cloudy Urine pH 7.0 Ur Specific [place] 1.005 Urine Protein 30 H Urine Glucose (UA) Normal Urine Ketones Negative Urine Occult Blood 250 H Urine Nitrite Negative Urine Bilirubin Negative Urine Urobilinogen 1 H Ur Leukocyte Esterase Negative Urine RBC 0-5 SEEN Urine WBC 0-5 SEEN Ur Squamous Epith Cells 0 SEEN Ur Transition Epith Cell 0-5 SEEN Urine Bacteria 0 SEEN Hyaline Casts 0-5 SEEN Fine Granular Casts 0-5 SEEN Urine Mucus 0 SEEN Clinical Impression(s) from Imaging Studies Abdomen/Pelvis CT 11/08/17 19:33 IMPRESSION: Prominent distention of the gallbladder with questionable pericholecystic inflammation. No discrete stones noted on CT. Recommend right upper quadrant ultrasound to further evaluate. Otherwise, chronic diverticulosis without evidence of acute diverticulitis. Small to moderate hiatal hernia. Electronically Signed: Hakan Johnson DO at 20:28 EST Tel , Service support , Gallbladder Ultrasound 11/08/17 20:32 IMPRESSION: Gallbladder sludge and trace pericholecystic fluid. No evidence of biliary ductal obstruction. Of the pancreas cannot be fully evaluated due to bowel gas. The visualized head of the pancreas was unremarkable. See above. Electronically Signed: Jodi Oshea MD at 22:29 EST Tel , Service support , EKG reviewed and showed normal sinus rhythm without any acute changes. Assessment/Plan Active and Suspected Problems (Last Updated 10/21/17 @ 08:56 by Mars Rayo) Hypokalemia (Acute) Elevated troponin (Acute) 1. Hypokalemia * Likely multifactorial, due to the patient's nausea and vomiting but also her concomitant use of Lasix. * Patient receiving small amount of potassium replacement in the emergency room. Patient be placed on half-normal saline with 40 mg once of potassium on the floor as well as 40 mEq of K Dur. Patient will continue with her home dosing of 20 mEq daily. * Check a magnesium level as well. And replace if low. 2. Elevated troponin * Patient did have some chest pain. * Unclear significance of this level in individual with chronic kidney disease * The patient does have known history of ischemic cardiomyopathy and a known lesion that has unable to to have successful PCI with the mid/distal obtuse marginal #1. * Cycle troponins. Based on the results of the troponin series trigger if they go up, may consider consulting cardiology. 3. Elevated lipase * Note is lower than it was just 1 month ago. * Follow-up * IV fluids 4. Chronic kidney disease stage III * Appears at baseline. * Continue with medical management. 5. Heart failure with reduced ejection fraction * Ejection fraction of 15% from echocardiogram from October 22 * Is due to an ischemic cardiomyopathy * Patient's Lasix is currently being held to help replete potassium * Patient is on carvedilol. * Oh hold off on initiating any FABIAN inhibitor or angiotensin receptor vidal at this time given the patient's chronic kidney disease. This is a known entity based on prior documentation. Patient was to follow-up with cardiology later on this month and this can certainly be addressed at that time. 6. Atrial fibrillation, paroxysmal * Currently normal sinus * Continue with Coreg as well as Eliquis 7. DVT prophylaxis: Patient is currently anticoagulated 8. CODE STATUS: Addressed with the patient as well as with family. Patient wishes to be DNR Comfort Care arrest. I did advise patient and her family that this could certainly be changed at a later time if felt appropriate by them. Code Visit OBSV E&M: 15545 Initial observation care L3
[2017-11-09] VITALS (12 sets, daily range): BP systolic 104–122; BP diastolic 47–60; PULSE 76–105; RESP 14–18; TEMP 36.8–37.3; O2SAT 92–98
[2017-11-09] MEDS: Potassium Chloride 40 MEQ in 0.45% Normal Saline 1,000 ML 100 MEQ IV (00:49)
[2017-11-09 05:20] LABS: ALB/GLOB Ratio 0.7 RATIO (0.9-2.4); AST(SGOT) 318 U/L (15-37); Alanine Aminotransfer ALT/SGPT 235 U/L (13-56); Albumin, Serum 2.5 g/dL (3.2-5.0); Alkaline Phosphatase 119 U/L (45-117); Anion Gap 10 (5-15); BUN 27 mg/dL (7-18); Calcium,Total 7.8 mg/dL (8.5-10.1); Chloride 104 mmol/L (98-107); Creatinine, Serum 1.35 mg/dL (0.55-1.02); EST Glomerular Filtration Rate 40 mL/min (>60); Est Glom Filt Rate - Afr Amer 49 mL/min (>60); Globulin 3.4 g/dL (2.2-4.2); Glucose 148 mg/dL (74-106); Lipase 301 U/L (73-393); Magnesium 1.4 mg/dL (1.6-2.6); Potassium 3.9 mmol/L (3.5-5.1); Protein, Total 5.9 g/dL (6.4-8.2); Sodium Level 139 mmol/L (136-145)
[2017-11-09 08:50] LABS: Vitamin D,25 Hydroxy 12.5 ng/mL (19.95-100.01)
[2017-11-09] MEDS: Aspirin 81 MG TAB.CHEW PO (10:11)
[2017-11-09] MEDS: Carvedilol 12.5 MG Tablet PO ×2 (10:11→21:43)
[2017-11-09] MEDS: APIXABAN 2.5 MG TABLET PO ×2 (10:12→21:43)
[2017-11-09] MEDS: Escitalopram Oxalate 10 MG Tablet PO (10:12)
--- NOTE | 2017-11-09 13:08 | PN_ITS ---
Patient Problems: Active and Suspected Problems (Last Updated 10/21/17 @ 08:56 by Mars Rayo) Hypokalemia (Acute) Elevated troponin (Acute) Subjective: CC: Nausea and vomiting , low potassium. Presented to the emergency room with nausea and vomiting her potassium was found to be low. She now denies nausea or vomiting and is able to keep food down. Vitals/I&O's: Vital Signs Temp Pulse Resp BP Pulse Ox 98.3 F 78 14 109/60 97 11/09/17 09:57 11/09/17 12:15 11/09/17 09:57 11/09/17 09:57 11/09/17 09:57 Oxygen Flow Rate 2 Oxygen Delivery Method Nasal Cannula Weight: 60.4 kg Body Mass Index (BMI) 24.3 Intake and Output for Last 24 Hours 11/07/17 11/08/17 11/09/17 23:59 23:59 23:59 Intake Total 1784 / 1784 Balance 1784 / 1784 General: Alert, Oriented x3 HEENT: Atraumatic, EOMI Oral: Moist Mucosa Neck: Supple, No JVD Lungs: Clear to auscultation Cardiovascular: Regular rate, Normal S1 Abdomen: Bowel Sounds Present, Soft, Non Tender Extremities: No clubbing, No edema Laboratory Results 11/09/17 00:10: Troponin I 0.17 H 11/09/17 03:50: Troponin I 0.22 H 11/09/17 03:50: Sodium 139, Potassium 3.9, Chloride 104, Carbon Dioxide 25.0, Anion Gap 10, BUN 27 H, Creatinine 1.35 H, Estim Creat Clear Calc 27.60, Est GFR (MDRD) Af Amer 49 L, Est GFR (MDRD) Non-Af 40 L, BUN/Creatinine Ratio 20.0, Glucose 148 H, Calcium 7.8 L, Magnesium 1.4 L, Total Bilirubin 1.10 H, AST 318 H , ALT 235 H, Alkaline Phosphatase 119 H, Total Protein 5.9 L, Albumin 2.5 L, Globulin 3.4, Albumin/Globulin Ratio 0.7 L, Lipase 301 11/09/17 03:50: Vitamin D 25-Hydroxy 12.5 L Current Medications Acetaminophen (Tylenol) 650 mg PO Q6H PRN PRN PRN Reason: Mild Pain (1-3)/Temp > 100.7 F Apixaban (Eliquis) 2.5 mg PO BID [facility] Last Admin: 11/09/17 10:12 Dose: 2.5 mg Aspirin (Aspirin, Baby) 81 mg PO DAILY@0800 [facility] Last Admin: 11/09/17 10:11 Dose: 81 mg Atorvastatin Calcium (Lipitor) 80 mg PO QHS [facility] Carvedilol (Coreg) 12.5 mg PO BID [facility] Last Admin: 11/09/17 10:11 Dose: 12.5 mg Escitalopram Oxalate (Lexapro) 10 mg PO DAILY [facility] Last Admin: 11/09/17 10:12 Dose: 10 mg Magnesium Hydroxide (Milk Of Magnesia) 30 ml PO DAILY PRN PRN Reason: Constipation Ondansetron HCl (Zofran) 4 mg IV Q8H PRN PRN PRN Reason: NAUSEA Potassium Chloride (K-Dur) 20 meq PO DAILY [facility] Last Admin: 11/09/17 10:12 Dose: 20 meq Sodium Chloride () 5 - 30 ml IV UD PRN PRN Reason: SALINE FLUSH Assessment/Plan Active and Suspected Problems (Last Updated 10/21/17 @ 08:56 by Mars Rayo) Hypokalemia (Acute) Elevated troponin (Acute) 1. Hypokalemia; this will be replaced with KCl. 2. Hypomagnesemia; the patient was given magnesium sulfate IV, will maintain on magnesium oxide p.o. 3. Elevated troponin this represents type II NSTEMI to represent acute coronary syndrome. 4. CAD with a known obtuse marginal lesion unnameable to PCI. We will continue her cardioprotective medications. 5. Elevated lipase;this has normalized. Denies any nausea or vomiting. 6. Chronic kidney disease stage III; would avoid potential nephrotoxic medications. 7. Atrial fibrillation, paroxysmal; we will continue her Coreg and Eliquis 8. Ischemic cardiomyopathy with ejection fraction of 15%, and appropriate medical therapy but will need to follow up with cardiology to evaluate for ICD placement. 9. Debility; PT/OT. Code Visit Inpatient E&M: [id number] Subs Hosp L2
[2017-11-09] MEDS: Atorvastatin Calcium 80 MG Tablet PO (21:43)
[2017-11-10] VITALS (10 sets, daily range): BP systolic 96–125; BP diastolic 41–60; PULSE 65–77; RESP 16–18; TEMP 36.1–37.3; O2SAT 94–98
[2017-11-10] MEDS: APIXABAN 2.5 MG TABLET PO ×2 (09:14→21:49)
[2017-11-10] MEDS: Aspirin 81 MG TAB.CHEW PO (09:14)
[2017-11-10] MEDS: Carvedilol 12.5 MG Tablet PO ×2 (09:14→21:49)
[2017-11-10] MEDS: Magnesium Oxide 400 MG Tablet PO ×2 (09:14→17:19)
[2017-11-10] MEDS: Escitalopram Oxalate 10 MG Tablet PO (09:15)
--- NOTE | 2017-11-10 10:43 | PCM.PN.HOSP ---
Patient Problems: Active and Suspected Problems (Last Updated 10/21/17 @ 08:56 by Mars Rayo) Hypokalemia (Acute) Elevated troponin (Acute) Subjective: C: Nausea and vomiting , low potassium. He presented to the emergency room with nausea and vomiting her potassium was found to be low. She now denies nausea or vomiting and is able to keep food down as diminished appetite, denies any abdominal pain no chest pain shortness of breath or palpitations. Vitals/I&O's: Vital Signs Temp Pulse Resp BP Pulse Ox 97.7 F L 75 16 117/58 L 94 11/10/17 09:09 11/10/17 09:09 11/10/17 09:09 11/10/17 09:09 11/10/17 09:09 Oxygen Flow Rate 2 Oxygen Delivery Method Nasal Cannula Weight: 60.4 kg Body Mass Index (BMI) 24.3 Intake and Output for Last 24 Hours 11/08/17 11/09/17 11/10/17 23:59 23:59 23:59 Intake Total 2103 60 / 60 Output Total 400 / 400 Balance 2103 -340 / -340 General: Alert, Oriented x3 Oral: Moist Mucosa Neck: Supple, No JVD Lungs: Clear to auscultation Cardiovascular: Regular rate, Normal S1, Normal S2 Abdomen: Bowel Sounds Present, Soft Current Medications Acetaminophen (Tylenol) 650 mg PO Q6H PRN PRN PRN Reason: Mild Pain (1-3)/Temp > 100.7 F Apixaban (Eliquis) 2.5 mg PO BID [facility] Last Admin: 11/10/17 09:14 Dose: 2.5 mg Aspirin (Aspirin, Baby) 81 mg PO DAILY@0800 [facility] Last Admin: 11/10/17 09:14 Dose: 81 mg Atorvastatin Calcium (Lipitor) 80 mg PO QHS [facility] Last Admin: 11/09/17 21:43 Dose: 80 mg Carvedilol (Coreg) 12.5 mg PO BID [facility] Last Admin: 11/10/17 09:14 Dose: 12.5 mg Escitalopram Oxalate (Lexapro) 10 mg PO DAILY [facility] Last Admin: 11/10/17 09:15 Dose: 10 mg Sodium Chloride () 1,000 mls @ 50 mls/hr IV .Q20H [facility] Magnesium Hydroxide (Milk Of Magnesia) 30 ml PO DAILY PRN PRN Reason: Constipation Magnesium Oxide (Mag-Ox 400) 400 mg PO BIDCM [facility] Last Admin: 11/10/17 09:14 Dose: 400 mg Ondansetron HCl (Zofran) 4 mg IV Q8H PRN PRN PRN Reason: NAUSEA Potassium Chloride (K-Dur) 20 meq PO DAILY [facility] Last Admin: 11/10/17 09:14 Dose: 20 meq Sodium Chloride () 5 - 30 ml IV UD PRN PRN Reason: SALINE FLUSH Assessment/Plan Active and Suspected Problems (Last Updated 10/21/17 @ 08:56 by Mars Rayo) Hypokalemia (Acute) Elevated troponin (Acute) 1. Hypokalemia; this will be replaced with KCl. 2. Hypomagnesemia; the patient was given magnesium sulfate IV, will maintain on magnesium oxide p.o. magnesium level today. 3. Elevated troponin this represents type II NSTEMI and not aute coronary syndrome. 4. CAD with a known obtuse marginal lesion unnameable to PCI. We will continue her cardioprotective medications. 5. Elevated lipase;this has normalized. 6. Chronic kidney disease stage III; would avoid potential nephrotoxic medications. 7. Atrial fibrillation, paroxysmal; we will continue her Coreg and Eliquis 8. Ischemic cardiomyopathy with ejection fraction of 15%, and appropriate medical therapy but will need to follow up with cardiology to evaluate for ICD placement. 9. Malnutrition; will consult medical nutrition is. 10. Debility; PT/OT, will evaluate for ECF placement.
--- NOTE | 2017-11-10 10:48 | PN_ITS ---
Patient Problems: Active and Suspected Problems (Last Updated 10/21/17 @ 08:56 by Mars Rayo) Hypokalemia (Acute) Elevated troponin (Acute) Subjective: C: Nausea and vomiting , low potassium. He presented to the emergency room with nausea and vomiting her potassium was found to be low. She now denies nausea or vomiting and is able to keep food down as diminished appetite, denies any abdominal pain no chest pain shortness of breath or palpitations. Vitals/I&O's: Vital Signs Temp Pulse Resp BP Pulse Ox 97.7 F L 75 16 117/58 L 94 11/10/17 09:09 11/10/17 09:09 11/10/17 09:09 11/10/17 09:09 11/10/17 09:09 Oxygen Flow Rate 2 Oxygen Delivery Method Nasal Cannula Weight: 60.4 kg Body Mass Index (BMI) 24.3 Intake and Output for Last 24 Hours 11/08/17 11/09/17 11/10/17 23:59 23:59 23:59 Intake Total 2103 60 / 60 Output Total 400 / 400 Balance 2103 -340 / -340 General: Alert, Oriented x3 Oral: Moist Mucosa Neck: Supple, No JVD Lungs: Clear to auscultation Cardiovascular: Regular rate, Normal S1, Normal S2 Abdomen: Bowel Sounds Present, Soft Current Medications Acetaminophen (Tylenol) 650 mg PO Q6H PRN PRN PRN Reason: Mild Pain (1-3)/Temp > 100.7 F Apixaban (Eliquis) 2.5 mg PO BID [facility] Last Admin: 11/10/17 09:14 Dose: 2.5 mg Aspirin (Aspirin, Baby) 81 mg PO DAILY@0800 [facility] Last Admin: 11/10/17 09:14 Dose: 81 mg Atorvastatin Calcium (Lipitor) 80 mg PO QHS [facility] Last Admin: 11/09/17 21:43 Dose: 80 mg Carvedilol (Coreg) 12.5 mg PO BID [facility] Last Admin: 11/10/17 09:14 Dose: 12.5 mg Escitalopram Oxalate (Lexapro) 10 mg PO DAILY [facility] Last Admin: 11/10/17 09:15 Dose: 10 mg Sodium Chloride () 1,000 mls @ 50 mls/hr IV .Q20H [facility] Magnesium Hydroxide (Milk Of Magnesia) 30 ml PO DAILY PRN PRN Reason: Constipation Magnesium Oxide (Mag-Ox 400) 400 mg PO BIDCM [facility] Last Admin: 11/10/17 09:14 Dose: 400 mg Ondansetron HCl (Zofran) 4 mg IV Q8H PRN PRN PRN Reason: NAUSEA Potassium Chloride (K-Dur) 20 meq PO DAILY [facility] Last Admin: 11/10/17 09:14 Dose: 20 meq Sodium Chloride () 5 - 30 ml IV UD PRN PRN Reason: SALINE FLUSH Assessment/Plan Active and Suspected Problems (Last Updated 10/21/17 @ 08:56 by Mars Rayo) Hypokalemia (Acute) Elevated troponin (Acute) 1. Hypokalemia; this will be replaced with KCl. 2. Hypomagnesemia; the patient was given magnesium sulfate IV, will maintain on magnesium oxide p.o. magnesium level today. 3. Elevated troponin this represents type II NSTEMI and not aute coronary syndrome. 4. CAD with a known obtuse marginal lesion unnameable to PCI. We will continue her cardioprotective medications. 5. Elevated lipase;this has normalized. 6. Chronic kidney disease stage III; would avoid potential nephrotoxic medications. 7. Atrial fibrillation, paroxysmal; we will continue her Coreg and Eliquis 8. Ischemic cardiomyopathy with ejection fraction of 15%, and appropriate medical therapy but will need to follow up with cardiology to evaluate for ICD placement. 9. Malnutrition; will consult medical nutrition is. 10. Debility; PT/OT, will evaluate for ECF placement.
--- NOTE | 2017-11-10 10:50 | CASEMGMT ---
Face to Face with patient for initial transition planning/care coordination assessment. RN CM introduced self and role at [facility], pt voices understanding and consents to assessment at this time. Pt sitting up in bed in no distress at this time. Pt A/O x4 at this time and answers all questions appropriately at this time. Care providers, pharmacy, and demographics verified. See attached link. Pt voices no further concerns/needs at this time. Advised pt to ask for CM if any further questions/concerns/needs arise, voices understanding. CM to follow for any further discharge planning/needs. PLAN: TBD [facility] RN [place]
[2017-11-10] MEDS: 0.9% Normal Saline 1,000 ML 50 ML IV (11:47)
[2017-11-10] MEDS: 0.9% NaCl Peripheral Flush Adult/Peds IV (11:51)
[2017-11-10 12:09] LABS: Anion Gap 9 (5-15); BUN 21 mg/dL (7-18); BUN/Creat Ratio 15.8 RATIO (10-20); Calcium,Total 7.8 mg/dL (8.5-10.1); Chloride 107 mmol/L (98-107); Creatinine, Serum 1.33 mg/dL (0.55-1.02); EST Glomerular Filtration Rate 41 mL/min (>60); Est Glom Filt Rate - Afr Amer 50 mL/min (>60); Estimated Creatinine Clearance 28.02 ml/min; Glucose 150 mg/dL (74-106); Magnesium 1.6 mg/dL (1.6-2.6); Potassium 4.3 mmol/L (3.5-5.1); Sodium Level 141 mmol/L (136-145)
[2017-11-10] MEDS: Atorvastatin Calcium 80 MG Tablet PO (21:49)
[2017-11-11 01:55] VITALS: BP 101/44; PULSE 70; RESP 16; TEMP 36.9; O2SAT 94
[2017-11-11 03:13] VITALS: PULSE 70
[2017-11-11 07:12] VITALS: PULSE 67
[2017-11-11 07:54] VITALS: BP 120/52; PULSE 70; RESP 17; TEMP 36.1; O2SAT 93
[2017-11-11] MEDS: Magnesium Oxide 400 MG Tablet PO (08:04)
[2017-11-11] MEDS: Aspirin 81 MG TAB.CHEW PO (08:04)
[2017-11-11] MEDS: 0.9% Normal Saline 1,000 ML 50 ML IV (08:04)
[2017-11-11] MEDS: Escitalopram Oxalate 10 MG Tablet PO (10:22)
[2017-11-11] MEDS: Carvedilol 12.5 MG Tablet PO (10:23)
[2017-11-11] MEDS: APIXABAN 2.5 MG TABLET PO (10:23)
[2017-11-11 10:59] VITALS: PULSE 69
--- NOTE | 2017-11-11 12:27 | PCM.DC ---
- Discharge Diagnoses Current Active Problems: Current Active and Chronic Problems (Last Updated 10/21/17 @ 08:56 by Mars Rayo) Hypokalemia (Acute) Elevated troponin (Acute) CKD (chronic kidney disease), stage III (Chronic) You will use the following diet at home:: Regular Discharge Activity: Return to Normal Activity Allergies/Adverse Reactions: Allergies No Known Allergies Allergy (Verified 11/08/17 19:10) Medications to take at Discharge Aspirin [Aspirin, Baby] 81 mg PO DAILY@0800 10/21/17 Carvedilol [Coreg] 12.5 mg PO BID 10/21/17 Escitalopram Oxalate [Lexapro] 10 mg PO DAILY 10/21/17 Furosemide [Lasix] 20 mg PO DAILY 10/21/17 Potassium Chloride [Klor-Con M10] 20 meq PO DAILY 10/21/17 Rosuvastatin Calcium [Crestor] 40 mg PO DAILY 10/21/17 Apixaban [Eliquis] 2.5 mg PO BID #60 tab 10/25/17 Magnesium Oxide [Mag-Ox 400] 400 mg PO BIDCM #60 tab 11/11/17 The following prescriptions were given: Magnesium Oxide [Mag-Ox 400] 400 mg PO BIDCM #60 tab Primary Care Physician: Chon Solis DO [Primary Care Provider] - Within 2 Weeks Proposed Discharge Date: 11/11/17
--- NOTE | 2017-11-11 12:49 | CASEMGMT ---
Pt's at bedside. This RN CM to bedside to speak with pt and in regards to HHC at this time. After discussion with pt and , does agree to HHC at this time and per , pt has had [facility] in past and is agreeable to them at this time. Call placed to Veronica at [facility] and referral given at this time, voices understanding and states she is en route to see pt at this time prior to discharge. Lawanda PARRA aware of all at this time, voices understanding. Order placed in [facility] for RN/PT/OT at this time. Gordon PARRA CM
[2017-11-11 14:15] VITALS: BP 97/49; PULSE 69; RESP 18; TEMP 36.7; O2SAT 97
--- NOTE | 2017-11-11 15:00 | DS.PCM_ITS ---
Discharge Date and Diagnosis - Problem List Patient Problems: Active and Suspected Problems (Last Updated 10/21/17 @ 08:56 by Mars Rayo) Hypokalemia (Acute) Elevated troponin (Acute) Date of Admission: 11/08/17 Date of Discharge: 11/11/17 - Primary Discharge Diagnosis Active and Suspected Problems (Last Updated 10/21/17 @ 08:56 by Mars Ryao) Hypokalemia (Acute) Elevated troponin (Acute) - Secondary Discharge Diagnosis Chronic Problems (Last Updated 10/21/17 @ 08:56 by Mars Rayo) CKD (chronic kidney disease), stage III (Chronic) Atrial fibrillation (Chronic) Systolic CHF, chronic (Chronic) Hypokalemia (Chronic) Ischemic cardiomyopathy (Chronic) Arteriosclerotic heart disease (ASHD) (Chronic) CVA (cerebral vascular accident) (Chronic) Peripheral vascular disease (Chronic) Renal artery stenosis (Chronic) penitentiary (current) use of anticoagulants (Chronic) Cerebrovascular disease (Chronic) Dyslipidemia (Chronic) HTN (hypertension) (Chronic) Noncompliance with medication regimen (Chronic) PVD (peripheral vascular disease) (Chronic) Abdominal aortic artery stent (Chronic) Non-STEMI (Chronic) Hypertensive urgency (Chronic) Hospital Course and Treatment Operations: None Summary of Care Provided: This is a 77 year old F who presented with nausea and vomiting. Patient saw her primary care doctor earlier on the DOA and had labs work done and it showed a potassium of 2.8. Patient was directed to the emergency room. She was found to be dehydrated, she was started on IV fluids and electrolyte replacement and admitted to the hospital. There went physical therapy and occupational therapy for weakness and deconditioning. The patient has now improved and is being discharged home with physical therapy. 1. Hypokalemia; this was IV KCl, we would maintain on oral KCl. 2. Hypomagnesemia; the patient was given magnesium sulfate IV, will maintain on magnesium oxide p.o. 3. Elevated troponin due to type II NSTEMI t, it does not represent acute coronary syndrome. 4. CAD with a known obtuse marginal lesion unnameable to PCI. We will continue her cardioprotective medications. 5. Elevated lipase;this has normalized. She denies any nausea or vomiting. 6. Chronic kidney disease stage III; would avoid potential nephrotoxic medications. 7. Atrial fibrillation, paroxysmal; we will continue her Coreg and Eliquis 8. Ischemic cardiomyopathy with ejection fraction of 15%, , she is on appropriate medical therapy but will need to follow up with cardiology to evaluate for ICD placement. 9. Debility; PT/OT. Physical exam at the time of discharge; vital signs were stable. He was alert and oriented to time place and person. He did not appear to be any form of distress. S1 and S2 heard no murmur or gallop Lung exam was clear to auscultation with no adventitious sounds. Abdomen was soft nontender with normal bowel sounds. extremity exam did not reveal any edema, palpable pulses bilaterally. Neurologic exam was grossly intact. Discharge Diet: No Restrictions Discharge Activity: Return to Normal Activity Home Medications: Medications to take at Discharge Aspirin [Aspirin, Baby] 81 mg PO DAILY@0800 10/21/17 Carvedilol [Coreg] 12.5 mg PO BID 10/21/17 Escitalopram Oxalate [Lexapro] 10 mg PO DAILY 10/21/17 Furosemide [Lasix] 20 mg PO DAILY 10/21/17 Potassium Chloride [Klor-Con M10] 20 meq PO DAILY 10/21/17 Rosuvastatin Calcium [Crestor] 40 mg PO DAILY 10/21/17 Apixaban [Eliquis] 2.5 mg PO BID #60 tab 10/25/17 Magnesium Oxide [Mag-Ox 400] 400 mg PO BIDCM #60 tab 11/11/17 Following Prescrptions Were Given to Patient: Magnesium Oxide [Mag-Ox 400] 400 mg PO BIDCM #60 tab Primary Care Physician: Chno Solis DO [Primary Care Provider] - Within 2 Weeks Please Follow Up With: Lawanda Zhou NP-C Meaningful Use Info Meaningful Use Diagnoses (Choose all that apply): None applicable Code Visit Inpatient E&M: 77628 Disch Hosp
== END 2017-11-11 15:19 | disposition home health service (06) | DRG 640 ==
LOC: ED 20:00 → PCU 23:44
PROVIDERS: Emergency Provider Emergency Medicine; Family Provider Student in an Organized Health Care Education/Training Program; PCP Student in an Organized Health Care Education/Training Program; Visit Provider Internal Medicine
DX: E87.6 Hypokalemia (principal); I21.A1 Myocardial infarction type 2; E86.0 Dehydration; I48.0 Paroxysmal atrial fibrillation; E46 Unspecified protein-calorie malnutrition; I13.0 Hypertensive heart and chronic kidney disease with heart failure and stage 1 through stage 4 chronic kidney disease, or unspecified chronic kidney disease; I50.22 Chronic systolic (congestive) heart failure; E83.42 Hypomagnesemia; I70.1 Atherosclerosis of renal artery; E78.5 Hyperlipidemia, unspecified; I25.2 Old myocardial infarction; N18.3 Chronic kidney disease, stage 3 (moderate); Z66 Do not resuscitate; I25.5 Ischemic cardiomyopathy; I25.10 Atherosclerotic heart disease of native coronary artery without angina pectoris; I73.9 Peripheral vascular disease, unspecified; I67.9 Cerebrovascular disease, unspecified; Z79.01 Long term (current) use of anticoagulants; Z79.899 Other long term (current) drug therapy
CPT/HCPCS: 36415; 74176; 76705; 80048; 80053; 81001; 82306; 83690; 83735; 84484; 85025; 93005; 97110; 97162; 97165; 97530; 99282; J7030; Q9967; A4216; J2405

== ENCOUNTER 2018-03-20 12:14 | Emergency (ER) | payer OTHER, SELFPAY ==
[2018-03-20 12:16] VITALS: BP 155/77; PULSE 60; RESP 17; TEMP 37; O2SAT 95; BMI 26.0
--- NOTE | 2018-03-20 12:45 | EKG12_ITS ---
Test Reason : ABN LABS Blood Pressure : / mmHG Vent. Rate : 060 BPM Atrial Rate : 060 BPM P-R Int : 182 ms QRS Dur : 074 ms QT Int : 410 ms P-R-T Axes : -24 -09 107 degrees QTc Int : 410 ms Sinus rhythm with marked sinus arrhythmia with Premature ventricular complexes or Fusion complexes Anterolateral infarct , age undetermined Abnormal ECG Confirmed by KIRTI LOZANO, CELSO ([id number]), associate editor JOI RAHMAN ([id number]) on 03/22/2018 3:28:49 PM Referred By: BRITNEY Confirmed By:CELSO COTTO MD
--- NOTE | 2018-03-20 12:48 | RAD_ITS ---
STUDY: X-RAY CHEST REASON FOR EXAM: Female, 77 years old. Cough. CHF. TECHNIQUE: Single AP portable view of the chest. COMPARISON: Comparison is made with prior study dated October 21, 2017. FINDINGS: Patchy bibasilar infiltrates. Small left pleural effusion. Normal size heart. Normal mediastinum and gabriela. Normal visualized pulmonary arteries. There is atherosclerotic tortuosity of the aortic arch and descending thoracic aorta. There are diffuse degenerative changes of the visualized thoracic spine. Normal visualized ribs, clavicles, and shoulders. There is no demonstrated abnormality of the visualized soft tissue structures of the upper abdomen. RAD/Chest 1 View (Portable) IMPRESSION: Patchy bibasilar infiltrates left greater than right with small left pleural effusion. Electronically Signed: Ruddy Welsh MD at 13:19 EDT Tel [phone], Service support ,
[2018-03-20 13:03] LABS: Absolute Lymphocyte Count 1.35 X10^3/ul (0.83-4.51); Absolute Neutrophil Count 3.1 X10^3/uL (2.0-7.7); Basophil# 0.02 X10^3/uL; Basophil% 0.4 % (0-1); Eosinophil# 0.09 X10^3/uL; Eosinophils% 1.7 % (0-5); Hematocrit 36.7 % (37-47); Hemoglobin 12.3 g/dl (12.0-15.0); Lymphocyte # 1.35 X10^3/ul (4.0); Lymphocyte % 25.9 % (19-41); Mean Corp Hgb Conc 33.5 g/gl (32-36); Mean Corpuscular Hgb 29.1 pg (27.0-32.0); Mean Platelet Vol. 10.6 fl (6.2-12.0); Monocyte# 0.63 X10^3/uL; Monocyte% 12.1 % (0-10); Neutrophil # 3.12 X10^3/uL (2.7-7.7); Neutrophil % 59.9 % (47-70); Platelet Count 179 K/mm3 (150-450); RBC Distribution Width CV 14.5 % (11.6-14.6); RBC Distribution Width SD 45.1 fl (35.1-43.9); Red Blood Count 4.22 M/mm3 (4.2-5.4); White Blood Count 5.2 K/mm3 (4.4-11.0)
[2018-03-20 13:04] LABS: POSITIVE COUNT NO; POSITIVE DIFFERENTIAL NO; POSITIVE MORPHOLOGY NO
[2018-03-20 13:20] VITALS: BP 162/81; PULSE 61; RESP 15; O2SAT 94
[2018-03-20 13:23] LABS: Anion Gap 6 (5-15); BUN 20 mg/dL (7-18); BUN/Creat Ratio 17.2 RATIO (10-20); Calcium,Total 8.7 mg/dL (8.5-10.1); Chloride 107 mmol/L (98-107); Creatinine, Serum 1.16 mg/dL (0.55-1.02); EST Glomerular Filtration Rate 48 mL/min (>60); Est Glom Filt Rate - Afr Amer 58 mL/min (>60); Estimated Creatinine Clearance 30.65 ml/min; Glucose 97 mg/dL (74-106); Potassium 3.7 mmol/L (3.5-5.1); Sodium Level 139 mmol/L (136-145)
[2018-03-20 13:28] LABS: BNP,B-Type NATRIURETIC PEPTIDE 926.4 pg/mL (0-100)
--- NOTE | 2018-03-20 13:55 | ED.VISSUMM ---
- ER Visit Summary Date of Service: 03/20/18 Chief Complaint: Abnormal labs History of Present Illness: The patient is a [address] Solis and Dr. Corley. She reports that she went to her primary care physician and was seen by physician's respiratory care assistant 3 days ago for shortness of breath. Patient reports that she felt as though she was having wheezing in my throat. She denied any chest pain at that time. She reports that she has not had any shortness of breath since then. She has had a nonproductive cough for the past 2 weeks. States that she has had subjective fever and chills. She denies any other complaints. Patient reports that she was contacted by their office and sent to the emergency department because she had an elevated PT INDUSTRIAL X RAY OPERATOR at that time. Review of systems: Cardiovascular: No chest pain, palpitations. Respiratory: No dyspnea on exertion. Gastrointestinal: No abdominal pain, nausea, vomiting, diarrhea, melena, or hematochezia. Genitourinary: No dysuria, frequency, hematuria. Skin: No rash. Neuro: No headache, numbness, weakness. Physical Examination: Vitals: Stable. Afebrile. General: Well-nourished and well-developed. Head: Normocephalic atraumatic. Neck: Supple, no lymphadenopathy. No JVD. Nontender. Cardiovascular: Regular rate and rhythm. 2 out of 6 systolic murmur. Respiratory: No respiratory distress. Clear to auscultation bilaterally. No crackles. Abdominal: Soft, nontender, nondistended, normal bowel sounds. No guarding, rebound, or peritoneal signs. Back: Nontender. Extremities: Nontender, no edema. Skin: Normal color, no rash. Neurologic: Alert and oriented ?3. Cranial nerves II through XII are intact. Normal strength and sensation. Psych: Normal affect. Test Results: EKG is sinus arrhythmia at 60 with PVCs. This is unchanged from November of this year. CBC is marked for hematocrit of 36.7 monocytes 12. Chem-7 is more for BUN of 20 and creatinine 1.16. PT INDUSTRIAL X RAY OPERATOR is 926.4. Of note this was 764.8 last August. Troponin 0 0.017. Chest x-ray shows cardiomegaly and rotation. Emergency Department Course and Treatment: Patient is not hypoxic and denies any shortness of breath at this time. She is resting comfortably. Treatment Plan: Patient was discussed with Dr. Mesa. She is instructed to continue her current regimen of Lasix. Follow-up Dr. Corley in 1-2 weeks if not improving. Return to the emergency department for any worsening symptoms. Disposition: To home in improved and stable condition. Impression: 1. History of CHF. 2. Ejection fraction of approximately 15%. This note was generated with [employer] dictation software. It may contain incorrect words, spelling, and punctuation that were not noted in review of the chart prior to signing ED Disposition - Plan for ED Patient: Disposition: Home or Assisted Living Chief Complaint: Abn Labs Instructions: Discharge Instructions for Heart Failure Referrals: Aleksander Corley MD [STAFF PHYSICIAN] - 1-2 Weeks
[2018-03-20 14:07] VITALS: BP 153/69; PULSE 62; RESP 16; O2SAT 93
== END 2018-03-20 14:17 | disposition home or self-care (01) ==
LOC: ED 13:17
PROVIDERS: Emergency Provider Emergency Medicine; Family Provider Student in an Organized Health Care Education/Training Program; PCP Student in an Organized Health Care Education/Training Program
DX: I11.0 Hypertensive heart disease with heart failure (principal); I50.9 Heart failure, unspecified; I25.10 Atherosclerotic heart disease of native coronary artery without angina pectoris; E11.9 Type 2 diabetes mellitus without complications; E78.00 Pure hypercholesterolemia, unspecified; Z86.73 Personal history of transient ischemic attack (TIA), and cerebral infarction without residual deficits; Z79.01 Long term (current) use of anticoagulants; Z79.82 Long term (current) use of aspirin; Z79.899 Other long term (current) drug therapy
CPT/HCPCS: 71045; 80048; 83880; 84484; 85025; 93005; 99284; A4216

== ENCOUNTER 2018-04-07 07:45 | Inpatient (IN) | payer OTHER, SELFPAY ==
[2018-04-07] VITALS (17 sets, daily range): BP systolic 136–176; BP diastolic 68–86; PULSE 62–133; RESP 16–29; TEMP 36.6–36.9; O2SAT 91–95; BMI 25.1; BMI 24.8
--- NOTE | 2018-04-07 08:00 | EKG12_ITS ---
Test Reason : SOB Blood Pressure : / mmHG Vent. Rate : 069 BPM Atrial Rate : 069 BPM P-R Int : 162 ms QRS Dur : 076 ms QT Int : 428 ms P-R-T Axes : 022 055 062 degrees QTc Int : 458 ms Sinus rhythm with occasional Premature ventricular complexes Anteroseptal infarct , age undetermined Abnormal ECG Confirmed by KIRTI LOZANO, CELSO ([id number]), index editor JOI RAHMAN ([id number]) on 04/10/2018 3:00:37 PM Referred By: LIZETTE Confirmed By:CELSO COTTO MD
[2018-04-07] MEDS: Nitroglycerin Oint 1 INCH PACKET TRANSDERM. ×3 (08:06→17:27)
[2018-04-07 08:11] LABS: Absolute Lymphocyte Count 1.32 X10^3/ul (0.83-4.51); Absolute Neutrophil Count 5.7 X10^3/uL (2.0-7.7); Basophil# 0.04 X10^3/uL; Basophil% 0.5 % (0-1); Eosinophils% 1.3 % (0-5); Hematocrit 36.3 % (37-47); Hemoglobin 12.5 g/dl (12.0-15.0); Lymphocyte # 1.32 X10^3/ul (4.0); Lymphocyte % 17.2 % (19-41); Mean Corp Hgb Conc 34.4 g/gl (32-36); Mean Corpuscular Volume 87.3 fL (81-99); Mean Platelet Vol. 11.1 fl (6.2-12.0); Monocyte# 0.47 X10^3/uL; Monocyte% 6.1 % (0-10); Neutrophil # 5.73 X10^3/uL (2.7-7.7); Neutrophil % 74.8 % (47-70); POSITIVE COUNT NO; POSITIVE DIFFERENTIAL NO; POSITIVE MORPHOLOGY NO; Platelet Count 178 K/mm3 (150-450); RBC Distribution Width CV 14.2 % (11.6-14.6); RBC Distribution Width SD 44.3 fl (35.1-43.9); Red Blood Count 4.16 M/mm3 (4.2-5.4); White Blood Count 7.7 K/mm3 (4.4-11.0)
--- NOTE | 2018-04-07 08:15 | RAD_ITS ---
STUDY: X-RAY CHEST REASON FOR EXAM: Female, 78 years old. Shortness of breath. Difficulty breathing and chest pain. TECHNIQUE: Single AP portable view of the chest. COMPARISON: Comparison is made with prior study dated March 20, 2018. FINDINGS: EKG electrodes are seen. Mild degree of basilar congestion and the CHF. Increased markings at the lung bases slightly worse on the left side. This may represent superimposed bibasilar atelectasis. Blunting of the left costophrenic angle. There is mild cardiac enlargement. Normal mediastinum and gabriela. Normal visualized pulmonary arteries. Normal visualized aortic arch and descending thoracic aorta. Normal visualized thoracic spine. Normal visualized ribs, clavicles, and shoulders. There is no demonstrated abnormality of the visualized soft tissue structures of the upper abdomen. RAD/Chest 1 View (Portable) IMPRESSION: Findings suggestive mild degree of CHF with bibasilar atelectasis worse on the left side and blunting of the left costophrenic angle. Electronically Signed: Ruddy Welsh MD at 8:39 EDT Tel [phone], Service support ,
--- NOTE | 2018-04-07 08:26 | ED.VISSUMM ---
- ER Visit Summary Date of Service: 04/07/18 Chief Complaint: Acute shortness of breath with diaphoresis and throat tightness History of Present Illness: The patient is a 78 F who presents because of acute shortness of breath with diaphoresis and throat tightness while getting dressed this morning. She denies any chest discomfort. She denies any leg pain, swelling discoloration. She denies orthopnea PND. She denies fever, chills night sweats. She denies hematemesis, melena hematochezia. She denies any abdominal or back pain. She has no other complaints please read written document. Past medical history of CVA, paroxysmal atrial fibrillation, peripheral vascular disease, pulmonary hypertension and anticoagulant, Eliquis. There is a past history of coronary disease with non-STEMI August 2017. Patient has severe ischemic cardiomyopathy with an ejection fraction of 15-20%. There was a lesion of the LAD that was noted. The vessel was tortuous and unable to stent. There is also a history of hypertension hypercholesterolemia. Patient is status post carotid endarterectomy and stenting of her abdominal aorta. She states her termination clerk is Dr. Corley. Physical Examination: Patient appears pale tachypnic and diaphoretic. Patient's pulse ox on 4 L is 91%. Blood pressure is 166/83 and respiratory rate is 29. Head is atraumatic normocephalic. Pupils are equal round reactive. Extraocular muscles are intact. TMs are pearly white with landmarks noted. Nares patent with no drainage. Posterior pharynx without erythema or exudate. Uvula is midline. There is no dysphonia or dysphasia. Trachea is midline. There is no stridor with auscultation of the neck. Heart is regular without murmur, gallop or rub. Bilateral rales noted. There is no retractions. Abdomen is soft and nontender. There is no asymmetry, swelling, discoloration, leg vein distention, palpable cords or tenderness along the distribution of the deep venous system. She is alert oriented with a nonfocal neurologic exam Test Results: EKG reveals a sinus rhythm rate of 69 with premature ventricular beats. Decreased anterior force consistent with a prior anterior WA. There is no acute ischemic changes noted. Portable chest x-ray interpreted by ca reveals cephalization and hilar fluffiness consistent with mild CHF. Cardiac silhouette is normal. There are no abnormalities of the osseous structures noted. CBC is unremarkable. First troponin is normal, less than 0.015. Threatening is slightly elevated, 1.24. Emergency Department Course and Treatment: With abrupt onset of shortness of breath and throat tightness concerned this represents cardiac ischemia. One also needs to entertain possibility of pneumothorax, pulmonary embolus/pulmonary edema. Workup included EKG, chest x-ray and appropriate blood work. Patient received 4 aspirin by paramedics and one albuterol treatment. Since clinically patient is in heart failure and no longer experiencing throat tightness 1 inch of Nitropaste was applied. After viewing chest x-ray and confirming evidence of CHF patient was given dose of Lasix. She is presently on 40 mg of Lasix a day. Treatment Plan: Once all tests are back we will discuss case with hospitalist and termination clerk for admission and rule out myocardial infarction. Disposition: Admit PCU Impression: 1. Respiratory failure with hypoxia, acute 2. Acute exacerbation of congestive heart failure 3. Throat tightness rule out anginal equivalent 4. History of coronary disease 5. History of hypertension 6. History of dyslipidemia This note was generated with [employer] dictation software. It may contain incorrect words, spelling, and punctuation that were not noted in review of the chart prior to signing ED Disposition - Plan for ED Patient: Chief Complaint: Shortness of Breath Referrals: Chon Solis DO [Primary Care Provider] -
[2018-04-07 08:28] LABS: Anion Gap 11 (5-15); BUN 22 mg/dL (7-18); BUN/Creat Ratio 17.7 RATIO (10-20); Calcium,Total 8.2 mg/dL (8.5-10.1); Chloride 108 mmol/L (98-107); Creatinine, Serum 1.24 mg/dL (0.55-1.02); EST Glomerular Filtration Rate 45 mL/min (>60); Est Glom Filt Rate - Afr Amer 54 mL/min (>60); Estimated Creatinine Clearance 29.57 ml/min; Glucose 203 mg/dL (74-106); Potassium 4.2 mmol/L (3.5-5.1); Sodium Level 141 mmol/L (136-145)
--- NOTE | 2018-04-07 08:31 | ED.DCSUM_ITS ---
- ER Visit Summary Date of Service: 04/07/18 Chief Complaint: Acute shortness of breath with diaphoresis and throat tightness History of Present Illness: The patient is a 78 F who presents because of acute shortness of breath with diaphoresis and throat tightness while getting dressed this morning. She denies any chest discomfort. She denies any leg pain, swelling discoloration. She denies orthopnea PND. She denies fever, chills night sweats. She denies hematemesis, melena hematochezia. She denies any abdominal or back pain. She has no other complaints please read written document. Past medical history of CVA, paroxysmal atrial fibrillation, peripheral vascular disease, pulmonary hypertension and anticoagulant, Eliquis. There is a past history of coronary disease with non-STEMI August 2017. Patient has severe ischemic cardiomyopathy with an ejection fraction of 15-20%. There was a lesion of the LAD that was noted. The vessel was tortuous and unable to stent. There is also a history of hypertension hypercholesterolemia. Patient is status post carotid endarterectomy and stenting of her abdominal aorta. She states her partridge farmer is Dr. Corley. Physical Examination: Patient appears pale tachypnic and diaphoretic. Patient' s pulse ox on 4 L is 91%. Blood pressure is 166/83 and respiratory rate is 29. Head is atraumatic normocephalic. Pupils are equal round reactive. Extraocular muscles are intact. TMs are pearly white with landmarks noted. Nares patent with no drainage. Posterior pharynx without erythema or exudate. Uvula is midline. There is no dysphonia or dysphasia. Trachea is midline. There is no stridor with auscultation of the neck. Heart is regular without murmur, gallop or rub. Bilateral rales noted. There is no retractions. Abdomen is soft and nontender. There is no asymmetry, swelling, discoloration, leg vein distention, palpable cords or tenderness along the distribution of the deep venous system. She is alert oriented with a nonfocal neurologic exam Test Results: EKG reveals a sinus rhythm rate of 69 with premature ventricular beats. Decreased anterior force consistent with a prior anterior FL. There is no acute ischemic changes noted. Portable chest x-ray interpreted by pa reveals cephalization and hilar fluffiness consistent with mild CHF. Cardiac silhouette is normal. There are no abnormalities of the osseous structures noted. CBC is unremarkable. First troponin is normal, less than 0.015. Threatening is slightly elevated, 1.24. Emergency Department Course and Treatment: With abrupt onset of shortness of breath and throat tightness concerned this represents cardiac ischemia. One also needs to entertain possibility of pneumothorax, pulmonary embolus/ pulmonary edema. Workup included EKG, chest x-ray and appropriate blood work. Patient received 4 aspirin by paramedics and one albuterol treatment. Since clinically patient is in heart failure and no longer experiencing throat tightness 1 inch of Nitropaste was applied. After viewing chest x-ray and confirming evidence of CHF patient was given dose of Lasix. She is presently on 40 mg of Lasix a day. Treatment Plan: Once all tests are back we will discuss case with hospitalist and partridge farmer for admission and rule out myocardial infarction. Disposition: Admit PCU Impression: 1. Respiratory failure with hypoxia, acute 2. Acute exacerbation of congestive heart failure 3. Throat tightness rule out anginal equivalent 4. History of coronary disease 5. History of hypertension 6. History of dyslipidemia This note was generated with [employer] dictation software. It may contain incorrect words, spelling, and punctuation that were not noted in review of the chart prior to signing ED Disposition - Plan for ED Patient: Chief Complaint: Shortness of Breath Referrals: Chon Solis DO [Primary Care Provider] -
--- NOTE | 2018-04-07 08:45 | NURSING ---
DR HUSTON FOR DR LIZETTE COTTO FOR DR BAUER
--- NOTE | 2018-04-07 08:47 | HP.PCM_ITS ---
Problem List (1) Acute on chronic combined systolic and diastolic ACC/AHA stage C congestive heart failure Status: Acute (2) Anginal equivalent Status: Acute (3) Old myocardial infarction Status: Chronic (4) Chronic systolic (congestive) heart failure Status: Chronic (5) Paroxysmal atrial fibrillation Status: Chronic (6) History of left heart catheterization Status: Chronic Comment: 08/10/17: attempted but unsuccessful PCI: right to left collaterals in LAD, unable to cross OM 1 with wire (7) Atherosclerotic heart disease of [place] coronary artery without angina pectoris Status: Chronic Comment: Occluded LAD with right to left collaterals per cath and PCI 08/10/2017 ; unable to cross OM1 with wire (8) Hyperlipidemia Status: Chronic (9) History of repair of aneurysm of abdominal aorta using endovascular stent graft Status: Chronic (10) CKD (chronic kidney disease), stage III Status: Chronic (11) HTN (hypertension) Status: Chronic (12) Ischemic cardiomyopathy Status: Chronic (13) CVA (cerebral vascular accident) Status: Chronic Qualifiers: (14) Peripheral vascular disease Status: Chronic (15) Renal artery stenosis Status: Chronic (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 She felt that she could not breathe, tightness of her throat/pain but denies dizziness, lightheadedness or near fainting or syncope. She denies any abnormal sensation of dysrhythmia. Denies fever chills or URI symptoms. She had cardiac cath in August 2017 which shows two-vessel coronary artery disease with high/critical possible acute thrombosis occlusion of mid OM1 at bifurcation which was not amenable to PCI because of calcified lesion and anatomical reason. Old occlusion of LAD with [id number] collateral. LV gram EF 15-20% with severe LV dysfunction of anterior wall, anterior apical and inferior apical wall. Patient had echo in October 2017 which reported as EF 15% with diastolic dysfunction and wall motion abnormality. Severe LA enlargement normal right atrium. 2+ TR, RVSP 46 mmHg. [] In ED, patient pulse ox was 91% 4 L of oxygen although she is not on home oxygen. She was tachypneic respiratory rate 29/min and blood pressure was elevated 176/86. Currently, she does not feel short of breath and feels better. Chest x-ray suggestive of mild degree of CHF with bibasilar atelectasis worse on left side and blunting of left CP angle. EKG shows normal sinus rhythm with occasional PVCs. Past Medical History Past Medical History (Chronic Problems): Chronic Problems (Last Reviewed 02/21/18 @ 13:16 by Neeta Burns) Old myocardial infarction (Chronic) Chronic systolic (congestive) heart failure (Chronic) Paroxysmal atrial fibrillation (Chronic) History of left heart catheterization (Chronic 08/2017) 08/10/17: attempted but unsuccessful PCI: right to left collaterals in LAD, unable to cross OM 1 with wire Atherosclerotic heart disease of [place] coronary artery without angina pectoris (Chronic) Occluded LAD with right to left collaterals per cath and PCI 08/10/2017 ; unable to cross OM1 with wire Hyperlipidemia (Chronic) History of repair of aneurysm of abdominal aorta using endovascular stent graft (Chronic) CKD (chronic kidney disease), stage III (Chronic) HTN (hypertension) (Chronic) Ischemic cardiomyopathy (Chronic) CVA (cerebral vascular accident) (Chronic) Peripheral vascular disease (Chronic) Renal artery stenosis (Chronic) longterm (current) use of anticoagulants (Chronic) Dyslipidemia (Chronic) PVD (peripheral vascular disease) (Chronic) Medical History: Medical History (Last Reviewed 02/21/18 @ 13:16 by Neeta Burns) Old myocardial infarction (Chronic) I25.2 Chronic systolic (congestive) heart failure (Chronic) I50.22 Paroxysmal atrial fibrillation (Chronic) I48.0 History of left heart catheterization (Chronic) Onset Date: 08/2017 Z98.890 08/10/17: attempted but unsuccessful PCI: right to left collaterals in LAD, unable to cross OM 1 with wire Atherosclerotic heart disease of [place] coronary artery without angina pectoris (Chronic) I25.10 Occluded LAD with right to left collaterals per cath and PCI 08/10/2017 ; unable to cross OM1 with wire Hyperlipidemia (Chronic) E78.5 CKD (chronic kidney disease), stage III (Chronic) N18.3 HTN (hypertension) (Chronic) I10 Ischemic cardiomyopathy (Chronic) I25.5 CVA (cerebral vascular accident) (Chronic) I63.9 Peripheral vascular disease (Chronic) I73.9 Renal artery stenosis (Chronic) I70.1 Dyslipidemia (Chronic) E78.5 PVD (peripheral vascular disease) (Chronic) I73.9 Allergies No Known Allergies Allergy (Verified 04/07/18 07:50) Home Medications: Ambulatory Orders Medication Instructions Recorded Aspirin [Aspirin, Baby] 81 mg PO DAILY@0800 10/21/17 Carvedilol [Coreg] 12.5 mg PO BID 10/21/17 Escitalopram Oxalate [Lexapro] 10 mg PO DAILY 10/21/17 Rosuvastatin Calcium [Crestor] 40 mg PO DAILY 10/21/17 magnesium oxide 400 mg tablet 400 mg PO BID tab 02/20/18 furosemide 40 mg tablet 40 mg PO DAILY tab 02/21/18 potassium chloride ER 20 mEq 20 meq PO DAILY 02/21/18 tablet,extended release Apixaban [Eliquis] 2.5 mg PO BID 04/07/18 Surgical History: Surgical History (Last Reviewed 02/21/18 @ 13:16 by Neeta Burns) History of repair of aneurysm of abdominal aorta using endovascular stent graft (Chronic) Z95.828 Psychiatric History: No pertinent psych hx Smoking Status: Never smoker - *Family History Paternal Family History: Family History (Last Reviewed 02/21/18 @ 13:16 by Neeta Burns) Brother Hypertension History Items: No pertinent history Sibling Family History: Family History (Last Reviewed 02/21/18 @ 13:16 by Neeta Burns) Brother Hypertension History Items: Heart Disease - In her brother Review of Systems Constitutional: Denies: Chills, Fever, Weight Change HEENT: Denies: Head Aches, Sinus Congestion, Sinus Drainage Cardiovascular: Denies: Chest Pain, Palpitations Respiratory: Reports: Shortness of Breath, Shortness of breath at rest. Denies : Cough, Sputum production Gastrointestinal: Denies: Abdominal Pain, Nausea, Vomiting Genitourinary: Denies: Dysuria Musculoskeletal: Denies: Joint Pain, Joint Tenderness Skin: Denies: Rash, Wounds Neurological: Denies: Numbness, Tingling, Focal weakness Psychiatric: Denies: Anxiety, Depression, Homicidal Ideations, Suicidal Ideations Hematologic/ Lymphatic: Denies: Easy Bruising, Easy Bleeding VTE Information - Inpt Only VTE Present on Admission: No VTE Mechan Device Prophylaxis: None VTE Pharm Prophylaxis ordered?: Yes Reason prophylaxis not ordered:: Procedure Not Indicated - on eliquis Patient Problems: Active and Suspected Problems (Last Reviewed 02/21/18 @ 13:16 by Neeta Burns) Acute on chronic combined systolic and diastolic ACC/AHA stage C congestive heart failure (Acute) Anginal equivalent (Acute) - Physical Exam General: Alert, Oriented x3, Cooperative HEENT: Atraumatic, PERRLA, EOMI, Normocephalic Neck: Supple, No JVD, Negative Carotid Bruits Lungs: No rhonchi, No wheeze, No rales, Diminished - In bilateral lung bases Cardiovascular: Regular rate, Regular Rhythm, Normal S1, Normal S2, No murmurs, - - PVCs Abdomen: Bowel Sounds Present, Soft, Non Tender, Non-Distended Extremities: No edema, Capillary Refill Less than 3 Seconds Skin: No rashes, No breakdown Musculoskeletal: No Tenderness to Palpation of Joints or Extremities, Arthritic Changes Neurological: Cranial nerves II-XII grossly intact, Neuro grossly intact Psych/Mental Status: Normal Affect, Appropriate Vital Signs Temp Pulse Resp BP Pulse Ox 98.2 F 69 29 H 166/83 H 91 04/07/18 07:49 04/07/18 08:06 04/07/18 07:49 04/07/18 08:06 04/07/18 08:01 Oxygen Flow Rate (L/min) 4 Oxygen Delivery Method Room Air Weight: 137 lb 9.095 oz Body Mass Index (BMI) 25.1 Laboratory Tests Past 24 Hrs 04/07/18 04/07/18 07:55 07:55 WBC 7.7 RBC 4.16 L Hgb 12.5 Hct 36.3 L MCV 87.3 MCH 30.0 MCHC 34.4 RDW 14.2 RDW Differential 44.3 H Plt Count 178 MPV 11.1 Immature Gran % (Auto) 0.100 Neut % (Auto) 74.8 H Lymph % (Auto) 17.2 L [place] % (Auto) 6.1 Eos % (Auto) 1.3 Baso % (Auto) 0.5 Absolute Neuts (auto) 5.7 Absolute Lymphs (auto) 1.32 Total Counted Not Reportable Sodium 141 Potassium 4.2 Chloride 108 H Carbon Dioxide 22.0 Anion Gap 11 BUN 22 H Creatinine 1.24 H Estim Creat Clear Calc 29.57 Est GFR (MDRD) Af Amer 54 L Est GFR (MDRD) Non-Af 45 L BUN/Creatinine Ratio 17.7 Glucose 203 H Calcium 8.2 L Troponin I < 0.015 Assessment/Plan All Active Problems (Last Reviewed 02/21/18 @ 13:16 by Neeta Burns) Acute on chronic combined systolic and diastolic ACC/AHA stage C congestive heart failure (Acute) Anginal equivalent (Acute) ABBY (acute kidney injury) (Resolved) Elevated troponin (Resolved) Hypertensive urgency (Resolved) Hypokalemia (Resolved) Hypokalemia (Resolved) Warfarin-induced coagulopathy (Resolved) The patient is a 78 year old F with history of severe combined systolic and diastolic heart failure secondary to ischemic cardiomyopathy, EF 15% on last echo in October 2017 came to ER with sudden onset of shortness of breath and wheezing when she was trying to dress up to start her day. She felt that she could not breathe, tightness of her throat/pain but denies dizziness, lightheadedness or near fainting or syncope. She denies any abnormal sensation of dysrhythmia. Denies fever chills or URI symptoms. She had cardiac cath in August 2017 which shows two-vessel coronary artery disease with high/critical possible acute thrombosis occlusion of mid OM1 at bifurcation which was not amenable to PCI because of calcified lesion and anatomical reason. Old occlusion of LAD with [id number] collateral. LV gram EF 15-20% with severe LV dysfunction of anterior wall, anterior apical and inferior apical wall. Patient had echo in October 2017 which reported as EF 15% with diastolic dysfunction and wall motion abnormality. Severe LA enlargement normal right atrium. 2+ TR, RVSP 46 mmHg. [] In ED, patient pulse ox was 91% 4 L of oxygen although she is not on home oxygen. She was tachypneic respiratory rate 29/min and blood pressure was elevated 176/86. Currently, she does not feel short of breath and feels better. Chest x-ray suggestive of mild degree of CHF with bibasilar atelectasis worse on left side and blunting of left CP angle. EKG shows normal sinus rhythm with occasional PVCs. 1. Acute hypoxic respiratory failure secondary to acute on chronic combined systolic and diastolic heart failure: The patient is being admitted in PCU. Started on IV Lasix 40 mg twice daily, monitor I's and O's, electrolytes and kidney function, daily weight change and fluid restriction. Recent cardiac cath and echo as mentioned above. Discussed with Dr. cody and he is going to see the patient. Oxygen therapy. Incentive spirometry. Bronchodilator as needed for shortness of breath/wheezing. Patient denies history of smoking or COPD. 2. Acute on chronic combined systolic and diastolic heart failure: As mentioned above. Serial cardiac enzymes. On nitroglycerin patch to lower preload and blood pressure. Later on continues to oral nitrate. Patient is not on FABIAN/ARB , reason not clear. Consider tomorrow if her kidney function stabilizes 3. Throat tightness possible angina equivalent 4. Paroxysmal A. fib, coronary artery disease, old CA and hypertension: Patient is on Eliquis. On oral hydralazine and IV hydralazine as needed if systolic blood pressure more than 180 mmHg 5. CKD stage III: Creatinine is at baseline 1.24. Her baseline generally between 1.16-1.35. Other comorbidities include dyslipidemia, old CVA, peripheral arterial disease, renal artery stenosis: Home medication reconciliation done. DVT prophylaxis: Patient is on Eliquis. This note was generated with [employer] dictation software. Every effort was made to ensure accuracy, however computerized transcription coordinator mistakes may persist. Laboratory Results 04/07/18 07:55: WBC 7.7, RBC 4.16 L, Hgb 12.5, Hct 36.3 L, MCV 87.3, MCH 30.0, MCHC 34.4, RDW 14.2, RDW Differential 44.3 H, Plt Count 178, MPV 11.1, Immature Gran % (Auto) 0.100, Neut % (Auto) 74.8 H, Lymph % (Auto) 17.2 L, [place] % (Auto) 6.1, Eos % (Auto) 1.3, Baso % (Auto) 0.5, Absolute Neuts (auto) 5.7, Absolute Lymphs (auto) 1.32, Total Counted Not Reportable 04/07/18 07:55: Sodium 141, Potassium 4.2, Chloride 108 H, Carbon Dioxide 22.0, Anion Gap 11, BUN 22 H, Creatinine 1.24 H, Estim Creat Clear Calc 29.57, Est GFR (MDRD) Af Amer 54 L, Est GFR (MDRD) Non-Af 45 L, BUN/Creatinine Ratio 17.7, Glucose 203 H, Calcium 8.2 L, Troponin I < 0.015 Clinical Impression(s) from Imaging Studies Chest X-Ray 04/07/18 08:15 IMPRESSION: Findings suggestive mild degree of CHF with bibasilar atelectasis worse on the left side and blunting of the left costophrenic angle. Code Visit Inpatient E&M: 90072 Init Hosp L3
--- NOTE | 2018-04-07 08:47 | NURSING ---
PCU STEP DOWN ROBEL ALEXANDER FAILURE WITH HYPOXIA, CHF, THROUAT TIGHTNESS ANGINAL EQUIVALENT LIZETTE
--- NOTE | 2018-04-07 08:49 | NURSING ---
PCU CHF EXAC, ATYPICAL ANGINA ROBEL
--- NOTE | 2018-04-07 09:00 | NURSING ---
Pepper notified patient may transfer to PCU.
[2018-04-07] MEDS: Furosemide 20 MG/2 ML VIAL IV (09:06)
[2018-04-07 11:09] LABS: Magnesium 2.2 mg/dL (1.6-2.6)
[2018-04-07 12:47] LABS: BNP,B-Type NATRIURETIC PEPTIDE 1379.2 pg/mL (0-100)
[2018-04-07] MEDS: hydrALAZINE 25 MG Tablet PO ×2 (13:40→21:04)
--- NOTE | 2018-04-07 17:15 | CON.PCM_ITS ---
Reason for Consult Date of Consultation: 04/07/18 Reason for Consultation: Chest pain. 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 She felt that she could not breathe, tightness of her throat/pain but denies dizziness, lightheadedness or near fainting or syncope. She denies any abnormal sensation of dysrhythmia. Denies fever chills or URI symptoms. I was called by the emergency room physician to help evaluate her. She had cardiac cath in August 2017 which shows two-vessel coronary artery disease with high/critical possible acute thrombosis occlusion of mid OM1 at bifurcation which was not amenable to PCI because of calcified lesion and anatomical reason. Old occlusion of LAD with [id number] collateral. LV gram EF 15-20% with severe LV dysfunction of anterior wall, anterior apical and inferior apical wall. 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 Medical therapy was recommended after her last catheterization. Since then she apparently has been fairly stable. Previous noninvasive evaluation are as follows: Echocardiogram from August 2017 show an estimate ejection fraction of 15-20%, stage I diastolic dysfunction, regional wall motion abnormalities as specified, severely enlarged left atrium, mild tricuspid valve insufficiency, RVSP of 45 mmHg, and moderate pulmonary hypertension. Previous echocardiogram in August 2012 showed an estimated ejection fraction of 65%. Renal duplex ultrasound from August 2012 showed bilateral 0-59% renal stenosis , mild aortic irregularity distally, aortic diameter of 1.5 x 1.4 cm proximally , and elevated renal resistivity indices bilaterally suggested of intrinsic renal parenchymal disease. Repeat echocardiogram dated 10/22/17 confirmed severe LV dysfunction with an EF around 15%, and RVSP of 46 mmHg, 1+ mitral regurgitation, 2+ tricuspid regurgitation On evaluation by the emergency room physician she was thought to be in congestive heart failure and she was admitted for further management. Past Medical History Allergies/Adverse Reactions: Allergies No Known Allergies Allergy (Verified 04/07/18 07:50) Home Medications: Ambulatory Orders Medication Instructions Recorded Aspirin [Aspirin, Baby] 81 mg PO DAILY@0800 10/21/17 Carvedilol [Coreg] 12.5 mg PO BID 10/21/17 Escitalopram Oxalate [Lexapro] 10 mg PO DAILY 10/21/17 Rosuvastatin Calcium [Crestor] 40 mg PO DAILY 10/21/17 magnesium oxide 400 mg tablet 400 mg PO BID tab 02/20/18 furosemide 40 mg tablet 40 mg PO DAILY tab 02/21/18 potassium chloride ER 20 mEq 20 meq PO DAILY 02/21/18 tablet,extended release Apixaban [Eliquis] 2.5 mg PO BID 04/07/18 Past Medical History (Chronic Problems): Chronic Problems (Last Reviewed 02/21/18 @ 13:16 by Neeta Burns) Old myocardial infarction (Chronic) Chronic systolic (congestive) heart failure (Chronic) Paroxysmal atrial fibrillation (Chronic) History of left heart catheterization (Chronic 08/2017) 08/10/17: attempted but unsuccessful PCI: right to left collaterals in LAD, unable to cross OM 1 with wire Atherosclerotic heart disease of [place] coronary artery without angina pectoris (Chronic) Occluded LAD with right to left collaterals per cath and PCI 08/10/2017 ; unable to cross OM1 with wire Hyperlipidemia (Chronic) History of repair of aneurysm of abdominal aorta using endovascular stent graft (Chronic) CKD (chronic kidney disease), stage III (Chronic) HTN (hypertension) (Chronic) Ischemic cardiomyopathy (Chronic) CVA (cerebral vascular accident) (Chronic) Peripheral vascular disease (Chronic) Renal artery 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 (Chronic) 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) Dyslipidemia (Chronic) PVD (peripheral vascular disease) (Chronic) Psychiatric History: No pertinent psych hx - *Family History Paternal Family History: Family History (Last Reviewed 02/21/18 @ 13:16 by Neeta Burns) Brother Hypertension History Items: No pertinent history Sibling Family History: Family History (Last Reviewed 02/21/18 @ 13:16 by Neeta Burns) Brother Hypertension History Items: Heart Disease - In her brother Smoking Status: Never smoker Alcohol: None Drugs: None Review of Systems - Review of Systems General: Denies: Fever, Night Sweats, Fatigue Cardiovascular: Reports: Shortness of Breath, Shortness of Breath at Rest, Shortness of Breath with Exertion. Denies: Chest Discomfort, Orthopnea, PND, Peripheral Edema, Palpitations, Lightheadedness, Dizziness, Near Syncope, Syncope Respiratory: Denies: Cough, Sputum Production, Hemoptysis Gastrointestinal: Denies: Hematemesis, Hematochezia, Melena Genitourinary: Denies: Dysuria, Hematuria Skin: Denies: Rash Subjectve: Pleasant lady sitting in bed eating Objective: Vital Signs Temp Pulse Resp BP Pulse Ox 97.9 F 66 16 142/75 H 94 04/07/18 13:21 04/07/18 13:41 04/07/18 13:21 04/07/18 13:41 04/07/18 13:21 Oxygen Flow Rate (L/min) 2 Oxygen Delivery Method Nasal Cannula Weight: 134 lb 14.766 oz Body Mass Index (BMI) 24.8 Intake and Output for Last 24 Hours 04/05/18 04/06/18 04/07/18 23:59 23:59 23:59 Intake Total 240 / 240 Output Total 450 / 450 Balance -210 / -210 General: Awake, Alert, Oriented x 3 HEENT: PERRL, EOMI, Sclera Non Icteric Neck: Supple, Good ROM, No Lymph Node Enlargement Lungs: Clear to auscultation Cardiovascular: Regular Rhythm, Normal S1, Normal S2, No Murmurs, No Rubs, No Gallops Vascular: No Carotid Bruits, Normal Femoral Pulses, Normal Radial Pulses, Normal Dorsalis Pedal Pulse, Normal Posterior Tibial Pulses Abdomen: Bowel Sounds Present, Soft, Non Tender, No HSM, No Organomegaly Extremities: No Cyanosis, No Clubbing, No edema Neurological: No Focal Motor or Sensory Deficit 04/07/18 10:30: Magnesium 2.2 04/07/18 10:30: B-Natriuretic Peptide 1379.2 H 04/07/18 10:30: Troponin I 0.037 04/07/18 13:48: Troponin I 0.046 H Rhythm: EKG: Normal sinus rhythm with no acute changes. ECHO: Estimated ejection fraction of 15% plus minus Assessment/Plan 1. Acute congestive heart failure-systolic Patient presents with shortness of breath and noted to have signs and symptoms of congestive heart failure with an elevated natruretic peptide and chest x-ray findings consistent with the above. My recommendation would be as follows * IV Lasix * Resume beta-vidal and increased dosage * Start FABIAN inhibitor in a.m. * The etiology is likely secondary to uncontrolled hypertension. * I do not think there is a reason to repeat an echocardiogram at this particular time. * 2. Coronary artery disease * Patient has known coronary artery disease which was not amenable to revascularization as noted in the HPI. * Aggressive medical therapy should be continued. I would also recommend the addition of isosorbide to her regimen. 3. Hypertension * Her blood pressure appears to be suboptimally controlled and I suspect this may be contributing to her symptoms. I would recommend the increase in her beta -vidal and aggressive lowering of her blood pressure. Renal function should be monitored carefully. * * Thank you for allowing me to participate in the care of your patient. Please don't hesitate to call if any issues arise
[2018-04-07] MEDS: Furosemide 40 MG/4 ML Vial IV (17:27)
[2018-04-07] MEDS: APIXABAN 2.5 MG TABLET PO (21:04)
[2018-04-07] MEDS: Magnesium Oxide 400 MG Tablet PO (21:04)
[2018-04-07] MEDS: Carvedilol 25 MG Tablet PO (21:04)
[2018-04-07] MEDS: Atorvastatin Calcium 80 MG Tablet PO (21:04)
[2018-04-08] VITALS (12 sets, daily range): BP systolic 104–146; BP diastolic 47–81; PULSE 60–84; RESP 16; TEMP 36.5–36.8; O2SAT 93–95
[2018-04-08] MEDS: hydrALAZINE 25 MG Tablet PO ×2 (05:28→21:27)
[2018-04-08 08:24] LABS: Absolute Lymphocyte Count 1.22 X10^3/ul (0.83-4.51); Absolute Neutrophil Count 4.8 X10^3/uL (2.0-7.7); Basophil# 0.02 X10^3/uL; Basophil% 0.3 % (0-1); Eosinophil# 0.05 X10^3/uL; Eosinophils% 0.8 % (0-5); Hematocrit 36.7 % (37-47); Hemoglobin 12.1 g/dl (12.0-15.0); Lymphocyte # 1.22 X10^3/ul (4.0); Lymphocyte % 18.6 % (19-41); Mean Corpuscular Hgb 28.7 pg (27.0-32.0); Mean Corpuscular Volume 87.2 fL (81-99); Mean Platelet Vol. 10.7 fl (6.2-12.0); Monocyte# 0.42 X10^3/uL; Monocyte% 6.4 % (0-10); Neutrophil # 4.84 X10^3/uL (2.7-7.7); Neutrophil % 73.7 % (47-70); Platelet Count 177 K/mm3 (150-450); RBC Distribution Width CV 14.3 % (11.6-14.6); RBC Distribution Width SD 45.3 fl (35.1-43.9); Red Blood Count 4.21 M/mm3 (4.2-5.4); White Blood Count 6.6 K/mm3 (4.4-11.0)
[2018-04-08 08:26] LABS: POSITIVE COUNT NO; POSITIVE DIFFERENTIAL NO; POSITIVE MORPHOLOGY NO
--- NOTE | 2018-04-08 08:45 | RAD_ITS ---
STUDY: X-RAY CHEST REASON FOR EXAM: Female, 78 years old. Heart failure TECHNIQUE: Frontal and lateral views of the chest. COMPARISON: 04/07/2018. FINDINGS: EKG lines overlying the chest. The lungs are expanded. Left lower lung opacity. There is no demonstrated pleural abnormality. Normal size heart. Normal mediastinum and gabriela. Normal visualized pulmonary arteries. Normal visualized aortic arch and descending thoracic aorta. Normal visualized thoracic spine. Normal visualized ribs, clavicles, and shoulders. There is no demonstrated abnormality of the visualized soft tissue structures of the upper abdomen. RAD/Chest PA and Lateral IMPRESSION: Left effusion. Left lower lung atelectasis/infiltrate. Electronically Signed: Luke Logan DO at 9:23 EDT , Service support ,
[2018-04-08 08:47] LABS: Anion Gap 9 (5-15); BUN 20 mg/dL (7-18); BUN/Creat Ratio 16.3 RATIO (10-20); Calcium,Total 8.4 mg/dL (8.5-10.1); Chloride 105 mmol/L (98-107); Cholesterol 97 mg/dL (200); Creatinine, Serum 1.23 mg/dL (0.55-1.02); EST Glomerular Filtration Rate 45 mL/min (>60); Est Glom Filt Rate - Afr Amer 54 mL/min (>60); Estimated Creatinine Clearance 28.44 ml/min; Glucose 158 mg/dL (74-106); High Density Lipoprotein 37 mg/dL; Potassium 3.1 mmol/L (3.5-5.1); Sodium Level 142 mmol/L (136-145); Thyroid Stim Hormone (TSH) 1.93 uIU/mL (0.358-3.74); Triglycerides 159 mg/dL; Very Low Density Lipoprotein 32 mg/dL (5-40)
[2018-04-08] MEDS: Aspirin 81 MG TAB.CHEW PO (09:40)
[2018-04-08] MEDS: Escitalopram Oxalate 10 MG Tablet PO (09:40)
[2018-04-08] MEDS: APIXABAN 2.5 MG TABLET PO ×2 (09:40→21:28)
[2018-04-08] MEDS: Magnesium Oxide 400 MG Tablet PO ×2 (09:40→21:28)
--- NOTE | 2018-04-08 12:36 | PN.CARD_ITS ---
Subjectve: No complaints. No chest pain or shortness of breath. No orthopnea Objective: Vital Signs Temp Pulse Resp BP Pulse Ox 97.7 F L 62 16 104/47 L 93 04/08/18 09:35 04/08/18 11:03 04/08/18 09:35 04/08/18 09:35 04/08/18 09:35 Oxygen Flow Rate (L/min) 2 Oxygen Delivery Method Room Air Weight: 61.2 kg Body Mass Index (BMI) 24.8 Intake and Output for Last 24 Hours 04/06/18 04/07/18 04/08/18 23:59 23:59 23:59 Intake Total 480 / 480 60 / 60 Output Total 1000 / 1000 300 / 300 Balance -520 / -520 -240 / -240 General: Healthy Appearing, Awake, Alert, Oriented x 3, No Acute Distress HEENT: Atraumatic, Normocephalic Neck: Supple, No JVD Lungs: Clear to auscultation Cardiovascular: Regular Rhythm, Normal S1, Normal S2 Abdomen: Bowel Sounds Present, Soft Extremities: No edema 04/07/18 10:30: B-Natriuretic Peptide 1379.2 H 04/07/18 13:48: Troponin I 0.046 H 04/08/18 08:05: WBC 6.6, RBC 4.21, Hgb 12.1, Hct 36.7 L, MCV 87.2, MCH 28.7, MCHC 33.0, RDW 14.3, RDW Differential 45.3 H, Plt Count 177, MPV 10.7, Immature Gran % (Auto) 0.200, Neut % (Auto) 73.7 H, Lymph % (Auto) 18.6 L, [place] % (Auto) 6.4, Eos % (Auto) 0.8, Baso % (Auto) 0.3, Absolute Neuts (auto) 4.8, Total Counted Not Reportable 04/08/18 08:05: Sodium 142, Potassium 3.1 L, Chloride 105, Carbon Dioxide 28.0, Anion Gap 9, BUN 20 H, Creatinine 1.23 H, Est GFR (MDRD) Af Amer 54 L, Est GFR ( MDRD) Non-Af 45 L, BUN/Creatinine Ratio 16.3, Glucose 158 H, Calcium 8.4 L, Triglycerides 159, Cholesterol 97, LDL Cholesterol 28, VLDL Cholesterol 32, HDL Cholesterol 37 L Rhythm: EKG: ECHO: Stress Test: Cardiac Cath: PCI: CT Surgery: Holter monitor: EPS: PPM: CXR: Chest CT Scan: Medical Necessity - Tobacco Use Smoking Status: Never smoker Assessment/Plan 1. Congestive heart failure. History of severe LV systolic dysfunction. Clinically improved. Change Lasix to p.o. Start on low-dose FABIAN inhibitor. Monitor creatinine and potassium 2. History of coronary artery disease. Continue medical management 3. History of paroxysmal atrial fibrillation. On apixaban 4. Hypertension 5. Renal insufficiency
--- NOTE | 2018-04-08 13:06 | PCM.PN.HOSP ---
Patient Problems: Active and Suspected Problems (Last Reviewed 02/21/18 @ 13:16 by Neeta Burns) Acute on chronic combined systolic and diastolic ACC/AHA stage C congestive heart failure (Acute) Anginal equivalent (Acute) Subjective: Patient seen and examined. Feels very well. She has no complaints and was heading down for an xray. She denies any fever, chills, cough, chest pain, SOB, abdominal pain, diarrhea, vomiting. REview of systems is otherwise negative. Vitals/I&O's: Vital Signs Temp Pulse Resp BP Pulse Ox 97.7 F L 62 16 104/47 L 93 04/08/18 09:35 04/08/18 11:03 04/08/18 09:35 04/08/18 09:35 04/08/18 09:35 Oxygen Flow Rate (L/min) 2 Oxygen Delivery Method Room Air Weight: 134 lb 14.766 oz Body Mass Index (BMI) 24.8 Intake and Output for Last 24 Hours 04/06/18 04/07/18 04/08/18 23:59 23:59 23:59 Intake Total 480 / 480 300 / 300 Output Total 1000 / 1000 300 / 300 Balance -520 / -520 0 / 0 General: Alert, Oriented x3, Cooperative HEENT: Atraumatic Oral: Moist Mucosa Neck: Supple, No JVD, Negative Carotid Bruits Lungs: Clear to auscultation, Normal air movement, No rhonchi, No wheeze, No rales Cardiovascular: Regular rate, Regular Rhythm, Normal S1, Normal S2, No murmurs Abdomen: Bowel Sounds Present, Soft, Non Tender, Non-Distended, No Hepato-splenomegaly Extremities: No clubbing, No cyanosis, No edema, Capillary Refill Less than 3 Seconds Skin: No rashes, No breakdown Musculoskeletal: No Tenderness to Palpation of Joints or Extremities Lymphatic: No Cervical, Supraclavicular, or Inguinal Adenopathy Neurological: Cranial nerves II-XII grossly intact Psych/Mental Status: Normal Affect, Appropriate, Alert and oriented to time, place, person, mood and affect Laboratory Results 04/07/18 13:48: Troponin I 0.046 H 04/08/18 08:05: WBC 6.6, RBC 4.21, Hgb 12.1, Hct 36.7 L, MCV 87.2, MCH 28.7, MCHC 33.0, RDW 14.3, RDW Differential 45.3 H, Plt Count 177, MPV 10.7, Immature Gran % (Auto) 0.200, Neut % (Auto) 73.7 H, Lymph % (Auto) 18.6 L, [place] % (Auto) 6.4, Eos % (Auto) 0.8, Baso % (Auto) 0.3, Absolute Neuts (auto) 4.8, Absolute Lymphs (auto) 1.22, Total Counted Not Reportable 04/08/18 08:05: Sodium 142, Potassium 3.1 L, Chloride 105, Carbon Dioxide 28.0, Anion Gap 9, BUN 20 H, Creatinine 1.23 H, Estim Creat Clear Calc 28.44, Est GFR (MDRD) Af Amer 54 L, Est GFR (MDRD) Non-Af 45 L, BUN/Creatinine Ratio 16.3, Glucose 158 H, Calcium 8.4 L, Triglycerides 159, Cholesterol 97, LDL Cholesterol 28, VLDL Cholesterol 32, HDL Cholesterol 37 L, TSH 1.93 Current Medications Acetaminophen (Tylenol) 650 mg PO Q6H PRN PRN PRN Reason: Mild Pain (scale 0-3)/T>100.7 Al Hydroxide/Mg Hydroxide (Mylanta Ii) 30 ml PO Q6H PRN PRN PRN Reason: Gastric Burning Apixaban (Eliquis) 2.5 mg PO BID [facility] Last Admin: 04/08/18 09:40 Dose: 2.5 mg Aspirin (Aspirin, Baby) 81 mg PO DAILY@0800 [facility] Last Admin: 04/08/18 09:40 Dose: 81 mg Atorvastatin Calcium (Lipitor) 80 mg PO QHS [facility] Last Admin: 04/07/18 21:04 Dose: 80 mg Bisacodyl (Dulcolax) 10 mg RECTAL DAILY PRN PRN PRN Reason: Constipation Carvedilol (Coreg) 25 mg PO BID [facility] Last Admin: 04/07/18 21:04 Dose: 25 mg Docusate Sodium (Colace) 200 mg PO BID PRN PRN PRN Reason: Constipation Escitalopram Oxalate (Lexapro) 10 mg PO DAILY [facility] Last Admin: 04/08/18 09:40 Dose: 10 mg Furosemide (Lasix) 40 mg PO DAILY [facility] Hydralazine HCl (Apresoline) 25 mg PO TID [facility] Last Admin: 04/08/18 05:28 Dose: 25 mg Hydralazine HCl (Apresoline Iv) 10 mg IV Q4H PRN PRN PRN Reason: SBP more than 180 mmHg Isosorbide Mononitrate (Imdur) 30 mg PO DAILY [facility] Lisinopril (Zestril) 2.5 mg PO DAILY [facility] Magnesium Oxide (Mag-Ox 400) 400 mg PO BID [facility] Last Admin: 04/08/18 09:40 Dose: 400 mg Morphine Sulfate () 1 - 2 mg IV Q4H PRN PRN PRN Reason: SEVERE PAIN (6-10/10) Ondansetron HCl (Zofran) 4 mg IV Q8H PRN PRN PRN Reason: Nausea Oxycodone HCl (Oxyir) 5 mg PO Q4H PRN PRN PRN Reason: Moderate Pain (pain scale 4-5) Sodium Chloride () 5 - 30 ml IV UD PRN PRN Reason: SALINE FLUSH Sodium Chloride () 5 - 30 ml IV UD PRN PRN Reason: SALINE FLUSH Zolpidem Tartrate (Ambien (Generic)) 5 mg PO QHS PRN PRN PRN Reason: INSOMNIA Medical Necessity - Tobacco Use Smoking Status: Never smoker Assessment/Plan All Active Problems (Last Reviewed 02/21/18 @ 13:16 by Neeta Burns) Acute on chronic combined systolic and diastolic ACC/AHA stage C congestive heart failure (Acute) Anginal equivalent (Acute) ABBY (acute kidney injury) (Resolved) Elevated troponin (Resolved) Hypertensive urgency (Resolved) Hypokalemia (Resolved) Hypokalemia (Resolved) Warfarin-induced coagulopathy (Resolved) 78 y/o female with a history of severe combined systolic and diastolic heart failure due to ischemic cardiomyopathy with EF of 15 per last echo in April 2018. Admitted with a complaint of sudden onset shortness of breath and wheezing. She was admitted and is being managed for CHF exacerbation. 1. Acute CHF exacerbation doing well. Denied any shortness of breath today Past 1 L of urine yesterday and is in negative balance by 520 mils of the last 24 hours. was on IV Lasix 40 mg twice daily; now on p.o. Lasix 40 mg daily. Chest x-ray done today showed left pleural effusion with left lower lung atelectasis versus infiltrate. On carvedilol 25 mg twice daily; also on Imdur and hydralazine She had cardiac cath in August 2017 which shows two-vessel coronary artery disease with high/critical possible acute thrombosis occlusion of mid OM1 at bifurcation which was not amenable to PCI because of calcified lesion and anatomical reason. Old occlusion of LAD with [id number] collateral. LV gram EF 15-20% with severe LV dysfunction of anterior wall, anterior apical and inferior apical wall. Patient had echo in October 2017 which reported as EF 15% with diastolic dysfunction and wall motion abnormality. Severe LA enlargement normal right atrium. 2+ TR, RVSP 46 mmHg. Cardiology on board advocate medical management for now. Started on low-dose of FABIAN inhibitor. 2. Acute hypoxic respiratory failure due to CHF exacerbation on adMission, she was saturating at 91% on 4 L of oxygen though she does have a history of home oxygen use. Is now off oxygen and saturating 93% on room air. Will monitor. 4. Paroxysmal Afib: on eliquis. 5. CKD 3: Cr is 1.2 toay, which is around her baseline of 1.16-1.35 6. Hypertension: stable. On carvedilol, and hydralazine. Started on low dose lisinopril 2.5mg today. 7. Hyperlipidemia:on atorvastatin DVT prophylaxis: heparin This note was generated with [employer] dictation software. It may contain incorrect words, spelling, and punctuation that were not noted in checking the note before signing. T Code Visit Inpatient E&M: 62878 [facility] L[facility]
--- NOTE | 2018-04-08 13:13 | PN_ITS ---
Patient Problems: Active and Suspected Problems (Last Reviewed 02/21/18 @ 13:16 by Neeat Burns) Acute on chronic combined systolic and diastolic ACC/AHA stage C congestive heart failure (Acute) Anginal equivalent (Acute) Subjective: Patient seen and examined. Feels very well. She has no complaints and was heading down for an xray. She denies any fever, chills, cough, chest pain, SOB, abdominal pain, diarrhea, vomiting. REview of systems is otherwise negative. Vitals/I&O's: Vital Signs Temp Pulse Resp BP Pulse Ox 97.7 F L 62 16 104/47 L 93 04/08/18 09:35 04/08/18 11:03 04/08/18 09:35 04/08/18 09:35 04/08/18 09:35 Oxygen Flow Rate (L/min) 2 Oxygen Delivery Method Room Air Weight: 134 lb 14.766 oz Body Mass Index (BMI) 24.8 Intake and Output for Last 24 Hours 04/06/18 04/07/18 04/08/18 23:59 23:59 23:59 Intake Total 480 / 480 300 / 300 Output Total 1000 / 1000 300 / 300 Balance -520 / -520 0 / 0 General: Alert, Oriented x3, Cooperative HEENT: Atraumatic Oral: Moist Mucosa Neck: Supple, No JVD, Negative Carotid Bruits Lungs: Clear to auscultation, Normal air movement, No rhonchi, No wheeze, No rales Cardiovascular: Regular rate, Regular Rhythm, Normal S1, Normal S2, No murmurs Abdomen: Bowel Sounds Present, Soft, Non Tender, Non-Distended, No Hepato- splenomegaly Extremities: No clubbing, No cyanosis, No edema, Capillary Refill Less than 3 Seconds Skin: No rashes, No breakdown Musculoskeletal: No Tenderness to Palpation of Joints or Extremities Lymphatic: No Cervical, Supraclavicular, or Inguinal Adenopathy Neurological: Cranial nerves II-XII grossly intact Psych/Mental Status: Normal Affect, Appropriate, Alert and oriented to time, place, person, mood and affect Laboratory Results 04/07/18 13:48: Troponin I 0.046 H 04/08/18 08:05: WBC 6.6, RBC 4.21, Hgb 12.1, Hct 36.7 L, MCV 87.2, MCH 28.7, MCHC 33.0, RDW 14.3, RDW Differential 45.3 H, Plt Count 177, MPV 10.7, Immature Gran % (Auto) 0.200, Neut % (Auto) 73.7 H, Lymph % (Auto) 18.6 L, [place] % (Auto) 6.4, Eos % (Auto) 0.8, Baso % (Auto) 0.3, Absolute Neuts (auto) 4.8, Absolute Lymphs (auto) 1.22, Total Counted Not Reportable 04/08/18 08:05: Sodium 142, Potassium 3.1 L, Chloride 105, Carbon Dioxide 28.0, Anion Gap 9, BUN 20 H, Creatinine 1.23 H, Estim Creat Clear Calc 28.44, Est GFR (MDRD) Af Amer 54 L, Est GFR (MDRD) Non-Af 45 L, BUN/Creatinine Ratio 16.3, Glucose 158 H, Calcium 8.4 L, Triglycerides 159, Cholesterol 97, LDL Cholesterol 28, VLDL Cholesterol 32, HDL Cholesterol 37 L, TSH 1.93 Current Medications Acetaminophen (Tylenol) 650 mg PO Q6H PRN PRN PRN Reason: Mild Pain (scale 0-3)/T>100.7 Al Hydroxide/Mg Hydroxide (Mylanta Ii) 30 ml PO Q6H PRN PRN PRN Reason: Gastric Burning Apixaban (Eliquis) 2.5 mg PO BID [facility] Last Admin: 04/08/18 09:40 Dose: 2.5 mg Aspirin (Aspirin, Baby) 81 mg PO DAILY@0800 [facility] Last Admin: 04/08/18 09:40 Dose: 81 mg Atorvastatin Calcium (Lipitor) 80 mg PO QHS [facility] Last Admin: 04/07/18 21:04 Dose: 80 mg Bisacodyl (Dulcolax) 10 mg RECTAL DAILY PRN PRN PRN Reason: Constipation Carvedilol (Coreg) 25 mg PO BID [facility] Last Admin: 04/07/18 21:04 Dose: 25 mg Docusate Sodium (Colace) 200 mg PO BID PRN PRN PRN Reason: Constipation Escitalopram Oxalate (Lexapro) 10 mg PO DAILY [facility] Last Admin: 04/08/18 09:40 Dose: 10 mg Furosemide (Lasix) 40 mg PO DAILY [facility] Hydralazine HCl (Apresoline) 25 mg PO TID [facility] Last Admin: 04/08/18 05:28 Dose: 25 mg Hydralazine HCl (Apresoline Iv) 10 mg IV Q4H PRN PRN PRN Reason: SBP more than 180 mmHg Isosorbide Mononitrate (Imdur) 30 mg PO DAILY [facility] Lisinopril (Zestril) 2.5 mg PO DAILY [facility] Magnesium Oxide (Mag-Ox 400) 400 mg PO BID [facility] Last Admin: 04/08/18 09:40 Dose: 400 mg Morphine Sulfate () 1 - 2 mg IV Q4H PRN PRN PRN Reason: SEVERE PAIN (6-10/10) Ondansetron HCl (Zofran) 4 mg IV Q8H PRN PRN PRN Reason: Nausea Oxycodone HCl (Oxyir) 5 mg PO Q4H PRN PRN PRN Reason: Moderate Pain (pain scale 4-5) Sodium Chloride () 5 - 30 ml IV UD PRN PRN Reason: SALINE FLUSH Sodium Chloride () 5 - 30 ml IV UD PRN PRN Reason: SALINE FLUSH Zolpidem Tartrate (Ambien (Generic)) 5 mg PO QHS PRN PRN PRN Reason: INSOMNIA Medical Necessity - Tobacco Use Smoking Status: Never smoker Assessment/Plan All Active Problems (Last Reviewed 02/21/18 @ 13:16 by Neeta Burns) Acute on chronic combined systolic and diastolic ACC/AHA stage C congestive heart failure (Acute) Anginal equivalent (Acute) ABBY (acute kidney injury) (Resolved) Elevated troponin (Resolved) Hypertensive urgency (Resolved) Hypokalemia (Resolved) Hypokalemia (Resolved) Warfarin-induced coagulopathy (Resolved) 78 y/o female with a history of severe combined systolic and diastolic heart failure due to ischemic cardiomyopathy with EF of 15 per last echo in April 2018. Admitted with a complaint of sudden onset shortness of breath and wheezing. She was admitted and is being managed for CHF exacerbation. 1. Acute CHF exacerbation * doing well. Denied any shortness of breath today * Past 1 L of urine yesterday and is in negative balance by 520 mils of the last 24 hours. * was on IV Lasix 40 mg twice daily; now on p.o. Lasix 40 mg daily. * Chest x-ray done today showed left pleural effusion with left lower lung atelectasis versus infiltrate. * On carvedilol 25 mg twice daily; also on Imdur and hydralazine * She had cardiac cath in August 2017 which shows two-vessel coronary artery disease with high/critical possible acute thrombosis occlusion of mid OM1 at bifurcation which was not amenable to PCI because of calcified lesion and anatomical reason. Old occlusion of LAD with [id number] collateral. LV gram EF 15-20% with severe LV dysfunction of anterior wall, anterior apical and inferior apical wall. * Patient had echo in October 2017 which reported as EF 15% with diastolic dysfunction and wall motion abnormality. Severe LA enlargement normal right atrium. 2+ TR, RVSP 46 mmHg. * Cardiology on board [facility] medical management for now. * Started on low-dose of FABIAN inhibitor. * 2. Acute hypoxic respiratory failure due to CHF exacerbation * on adMission, she was saturating at 91% on 4 L of oxygen though she does have a history of home oxygen use. * Is now off oxygen and saturating 93% on room air. * Will monitor. * 4. Paroxysmal Afib: on eliquis. 5. CKD 3: Cr is 1.2 toay, which is around her baseline of 1.16-1.35 6. Hypertension: stable. On carvedilol, and hydralazine. Started on low dose lisinopril 2.5mg today. 7. Hyperlipidemia:on atorvastatin DVT prophylaxis: heparin This note was generated with [employer] dictation software. It may contain incorrect words, spelling, and punctuation that were not noted in checking the note before signing. T Code Visit Inpatient E&M: 77236 [facility] Hosp L3
--- NOTE | 2018-04-08 14:49 | CM.UR ---
Met face to face with patient. Patient has hx of heart disease and stroke. In November the patient was unable to ambulate and was lifting as needed. The patient states she is now able to walk short diseases. States she walks to bathroom and does most self care however needs frequent rest periods. Anticipating no needs upon discharge. Retail Worker: Ofori. Shivani Murillo RN, CCM.
[2018-04-08] MEDS: Lisinopril 2.5 MG Tablet PO (14:59)
[2018-04-08] MEDS: Carvedilol 25 MG Tablet PO (21:27)
[2018-04-08] MEDS: Atorvastatin Calcium 80 MG Tablet PO (21:28)
[2018-04-09 03:00] VITALS: PULSE 61
[2018-04-09 03:25] VITALS: BP 131/55; PULSE 65; RESP 16; TEMP 36.6; O2SAT 95
[2018-04-09 04:35] VITALS: BP 131/55; PULSE 73
[2018-04-09] MEDS: hydrALAZINE 25 MG Tablet PO (04:35)
[2018-04-09 05:50] LABS: Absolute Lymphocyte Count 1.44 X10^3/ul (0.83-4.51); Absolute Neutrophil Count 3.6 X10^3/uL (2.0-7.7); Basophil# 0.02 X10^3/uL; Basophil% 0.3 % (0-1); Eosinophil# 0.11 X10^3/uL; Eosinophils% 1.9 % (0-5); Hematocrit 33.1 % (37-47); Hemoglobin 11.3 g/dl (12.0-15.0); Lymphocyte # 1.44 X10^3/ul (4.0); Lymphocyte % 24.4 % (19-41); Mean Corp Hgb Conc 34.1 g/gl (32-36); Mean Corpuscular Hgb 29.9 pg (27.0-32.0); Mean Corpuscular Volume 87.6 fL (81-99); Mean Platelet Vol. 11.4 fl (6.2-12.0); Monocyte% 11.9 % (0-10); Neutrophil # 3.61 X10^3/uL (2.7-7.7); Neutrophil % 61.3 % (47-70); POSITIVE COUNT NO; POSITIVE DIFFERENTIAL NO; POSITIVE MORPHOLOGY NO; Platelet Count 166 K/mm3 (150-450); RBC Distribution Width CV 14.3 % (11.6-14.6); Red Blood Count 3.78 M/mm3 (4.2-5.4); White Blood Count 5.9 K/mm3 (4.4-11.0)
[2018-04-09 06:11] LABS: Anion Gap 9 (5-15); BUN 27 mg/dL (7-18); BUN/Creat Ratio 22.7 RATIO (10-20); Calcium,Total 8.2 mg/dL (8.5-10.1); Chloride 107 mmol/L (98-107); Creatinine, Serum 1.19 mg/dL (0.55-1.02); EST Glomerular Filtration Rate 47 mL/min (>60); Est Glom Filt Rate - Afr Amer 56 mL/min (>60); Glucose 103 mg/dL (74-106); Potassium 3.2 mmol/L (3.5-5.1); Sodium Level 143 mmol/L (136-145)
[2018-04-09 06:53] VITALS: PULSE 61
[2018-04-09 09:25] VITALS: BP 103/55; PULSE 67; RESP 16; TEMP 36.9; O2SAT 95
[2018-04-09] MEDS: Escitalopram Oxalate 10 MG Tablet PO (09:51)
[2018-04-09] MEDS: Furosemide 40 MG Tablet PO (09:51)
[2018-04-09] MEDS: Aspirin 81 MG TAB.CHEW PO (09:51)
[2018-04-09] MEDS: Magnesium Oxide 400 MG Tablet PO (09:51)
[2018-04-09] MEDS: APIXABAN 2.5 MG TABLET PO (09:51)
[2018-04-09] MEDS: Lisinopril 2.5 MG Tablet PO (10:02)
[2018-04-09] MEDS: Isosorbide Mononitrate 30 MG Tablet PO (10:02)
[2018-04-09 11:05] VITALS: PULSE 73
--- NOTE | 2018-04-09 11:56 | DCINST_ITS ---
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 failure (Acute) Anginal equivalent (Acute) You will use the following diet at home:: Cardiac Your food should be the consistency of: Regular Your liquids should be the consistency of: Regular/Thin Discharge Activity: Return to Normal Activity Weight Bearing Status: Weight bearing as tolerated Call your doctor if you observe: Shortness of breath, Swelling in the ankles Allergies/Adverse Reactions: Allergies No Known Allergies Allergy (Verified 04/07/18 07:50) Medications to take at Discharge Aspirin [Aspirin, Baby] 81 mg PO DAILY@0800 10/21/17 Carvedilol [Coreg] 12.5 mg PO BID 10/21/17 Escitalopram Oxalate [Lexapro] 10 mg PO DAILY 10/21/17 Rosuvastatin Calcium [Crestor] 40 mg PO DAILY 10/21/17 magnesium oxide 400 mg tablet 400 mg PO BID tab 02/20/18 furosemide 40 mg tablet 40 mg PO DAILY tab 02/21/18 Apixaban [Eliquis] 2.5 mg PO BID 04/07/18 Lisinopril [Zestril] 2.5 mg PO DAILY #30 tab 04/09/18 Potassium Chloride [K-Tab ER] 20 meq PO DAILY #30 tablet.er 04/09/18 The following prescriptions were given: Lisinopril [Zestril] 2.5 mg PO DAILY #30 tab Potassium Chloride [K-Tab ER] 20 meq PO DAILY #30 tablet.er Primary Care Physician: Chon Solis DO [Primary Care Provider] - Please follow up with your Primary Care Physician in: one week Test Results: Test results from this visit will be discussed in further detail at your follow- up appointment, if applicable. Please Follow Up With: Jhonatan Mesa MD When: one week Proposed Discharge Date: 04/09/18 Cardiac Rehab Referral Please Follow Up with Cardiac Rehabilitation:: 2 Weeks Cardiac Rehabilitation was informed of this Referral:: Yes - Notifies Card Rehab
--- NOTE | 2018-04-09 11:59 | PCM.DC.SUM ---
Discharge Date and Diagnosis - Problem List Patient Problems: Active and Suspected Problems (Last Reviewed 02/21/18 @ 13:16 by Neeta Burns) Acute on chronic combined systolic and diastolic ACC/AHA stage C congestive heart failure (Acute) Anginal equivalent (Acute) Date of Admission: 04/07/18 Date of Discharge: 04/09/18 - Primary Discharge Diagnosis Active and Suspected Problems (Last Reviewed 02/21/18 @ 13:16 by Neeta Burns) Acute on chronic combined systolic and diastolic ACC/AHA stage C congestive heart failure (Acute) Anginal equivalent (Acute) - Secondary Discharge Diagnosis Chronic Problems (Last Reviewed 02/21/18 @ 13:16 by Neeta Burns) Old myocardial infarction (Chronic) Chronic systolic (congestive) heart failure (Chronic) Paroxysmal atrial fibrillation (Chronic) History of left heart catheterization (Chronic 08/2017) 08/10/17: attempted but unsuccessful PCI: right to left collaterals in LAD, unable to cross OM 1 with wire Atherosclerotic heart disease of [place] coronary artery without angina pectoris (Chronic) Occluded LAD with right to left collaterals per cath and PCI 08/10/2017 ; unable to cross OM1 with wire Hyperlipidemia (Chronic) History of repair of aneurysm of abdominal aorta using endovascular stent graft (Chronic) CKD (chronic kidney disease), stage III (Chronic) HTN (hypertension) (Chronic) Ischemic cardiomyopathy (Chronic) CVA (cerebral vascular accident) (Chronic) Peripheral vascular disease (Chronic) Renal artery stenosis (Chronic) 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 Patient was admitted on 04/07/2018 with a complaint of sudden onset shortness of breath was was trying to dress up at the start of her day. She denied any dizziness, lightheadedness, near fainting or syncope. She also denied any abnormal sensation or dysrhythmia. On admission in the ED pulse was 91% on 4 L of oxygen though she is not on home oxygen and she was tachypneic with respiratory rate of 29 [place] [id number]. Chest x-ray suggestive of mild CHF with bibasilar atelectasis worse on the left side and blunting of the costophrenic angle. EKG showed normal sinus rhythm with occasional PVCs. Beta natruretic peptide was elevated at around 1300. She was admitted and managed for acute CHF exacerbation and hypoxic respiratory failure due to CHF exacerbation. She was diuresed with IV Lasix. Patient seen and examined today. She had no complaints and felt very well. Shortness of breath had resolved. She denies any fever or chills, any shortness of breath, any chest pain, any abdominal pain, any diarrhea vomiting. Patient states she is ready to go home. Review of systems otherwise negative. Also labs reviewed. In negative balance about 200 mils today. O/E; elderly woman, pleasant, AO x 3 HEENT: EOMI, PERRLA, not pale or jaundiced Neck: supple, good ROM, no lymph node enlargement. Lungs: clear to auscultation. no wheezes or crackles; treating at 95% on room air. CVS: heart rate slightly irregular, rate controlled. Normal S1 and S2 with no murmurs Abdomen: Soft nontender no organomegaly Extremities: no edema, no tenderness or swelling Neuro: CN II -XII intact, normal power and tone in all extremities MSK: no tenderness or swelling Skin: no rash or ulcerations Patient being discharged to be managed for CHF exacerbation. Was started on low-dose FABIAN inhibitor 2.5 mg of lisinopril daily; will continue and give a prescription for that. Also started on Imdur 30 mg daily. Will continue give a prescription for that. Continue Coreg 12.5 mg twice daily. Continue p.o. Lasix 40 mg daily. 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 Discharge Diet: - - cardiac diet Discharge Activity: Return to Normal Activity Weight Bearing Status: Weight bearing as tolerated Call your doctor if you observe: Shortness of breath, Swelling in the ankles Home Medications: Medications to take at Discharge Aspirin [Aspirin, Baby] 81 mg PO DAILY@0800 10/21/17 Carvedilol [Coreg] 12.5 mg PO BID 10/21/17 Escitalopram Oxalate [Lexapro] 10 mg PO DAILY 10/21/17 Rosuvastatin Calcium [Crestor] 40 mg PO DAILY 10/21/17 magnesium oxide 400 mg tablet 400 mg PO BID tab 02/20/18 furosemide 40 mg tablet 40 mg PO DAILY tab 02/21/18 Apixaban [Eliquis] 2.5 mg PO BID 04/07/18 Lisinopril [Zestril] 2.5 mg PO DAILY #30 tab 04/09/18 Potassium Chloride [K-Tab ER] 20 meq PO DAILY #30 tablet.er 04/09/18 Following Prescrptions Were Given to Patient: Lisinopril [Zestril] 2.5 mg PO DAILY #30 tab Potassium Chloride [K-Tab ER] 20 meq PO DAILY #30 tablet.er Primary Care Physician: Chon Solis DO [Primary Care Provider] - Please follow up with your Primary Care Physician in: one week Please Follow Up With: Jhonatan Mesa MD When: one week Disposition: Home Minutes spent on discharge:: 40 Patient Condition:: Good Medical Necessity - Tobacco Use Smoking Status: Never smoker Meaningful Use Info Meaningful Use Diagnoses (Choose all that apply): CHF - CHF FABIAN/ARB ordered at discharge?: Yes Documented LVEF (%): 15 Code Visit Inpatient E&M: 66317 [facility] Hosp
--- NOTE | 2018-04-13 16:18 | CASEMGMT ---
FIDEL KENDRICK Discharge Follow-up Phone Call: VIRGILIO: Marianne Strata: 4 Call Date: 04/13/2018 Discharge Date: 04/09/2018 Time of Call: 1613 Duration: 5 minutes ~ Admitting Diagnosis: Acute on chronic systolic CHF FIDEL KENDRICK spoke with Soraya Grimes re: post-discharge. Pt reports feeling real good and denied any difficulty with breathing. Pt report she obtained her prescriptions without difficulty. She has obtained a scale and has been weighing herself. Pt denies any weight gain since discharge. Pt has a follow-up appointment scheduled with Sriram Taylor NP (cardiology) for Tuesday, April 19. Pt denies any questions regarding her discharge instructions or concerns since returning home. Jaswant Quintana RN
== END 2018-04-09 15:52 | disposition home or self-care (01) | DRG 291 ==
LOC: ED 08:14 → PCU 09:01
PROVIDERS: Admitting Provider Internal Medicine; Emergency Provider Emergency Medicine; Family Provider Student in an Organized Health Care Education/Training Program; PCP Student in an Organized Health Care Education/Training Program; Visit Provider Student in an Organized Health Care Education/Training Program
DX: I13.0 Hypertensive heart and chronic kidney disease with heart failure and stage 1 through stage 4 chronic kidney disease, or unspecified chronic kidney disease (principal); I50.43 Acute on chronic combined systolic (congestive) and diastolic (congestive) heart failure; J96.01 Acute respiratory failure with hypoxia; N18.3 Chronic kidney disease, stage 3 (moderate); I48.0 Paroxysmal atrial fibrillation; I25.5 Ischemic cardiomyopathy; I73.9 Peripheral vascular disease, unspecified; Z79.01 Long term (current) use of anticoagulants; I25.118 Atherosclerotic heart disease of native coronary artery with other forms of angina pectoris; I25.2 Old myocardial infarction; E78.5 Hyperlipidemia, unspecified; Z86.73 Personal history of transient ischemic attack (TIA), and cerebral infarction without residual deficits; I70.1 Atherosclerosis of renal artery
CPT/HCPCS: 36415; 71045; 71046; 80048; 80061; 83735; 83880; 84443; 84484; 85025; 93005; 99283; A4216; J1940

== ENCOUNTER 2019-04-02 11:21 | Inpatient (IN) | payer OTHER, SELFPAY ==
[2018-10-10 10:51] VITALS: BMI 25.4
[2019-04-02] VITALS (10 sets, daily range): BP systolic 119–140; BP diastolic 62–96; PULSE 70–109; RESP 16–20; TEMP 35.9–36.6; O2SAT 88–95; BMI 26.4; BMI 26.0
--- NOTE | 2019-04-02 11:32 | EKG12_ITS ---
Test Reason : SOB Blood Pressure : / mmHG Vent. Rate : 107 BPM Atrial Rate : 326 BPM P-R Int : 000 ms QRS Dur : 068 ms QT Int : 364 ms P-R-T Axes : 000 059 090 degrees QTc Int : 485 ms Atrial fibrillation with rapid ventricular response with premature ventricular or aberrantly conducte d complexes Cannot rule out Anteroseptal infarct (cited on or before 10-AUG-2017) Abnormal ECG Confirmed by CHRISTO LOZANO, SHAJI ([id number]), slot editor TAY MALIK ([id number]) on 04/04/2019 12:09:40 PM Referred By: [facility] Confirmed By:SHAJI VILLAFUERTE MD
--- NOTE | 2019-04-02 11:35 | RAD_ITS ---
STUDY: X-RAY CHEST REASON FOR EXAM: Female, 78 years old. Chest pain. TECHNIQUE: Single AP portable view of the chest. COMPARISON: Comparison is made with prior study dated April 08, 2018. FINDINGS: EKG electrodes are seen. Atelectasis and/or infiltrates in the lower lobes slightly more prominent on the right side. Blunting of both costophrenic angles. Normal size heart. Normal mediastinum and gabriela. Normal visualized pulmonary arteries. There is atherosclerotic calcification of the aortic arch with tortuosity. Normal visualized thoracic spine. Normal visualized ribs, clavicles, and shoulders. There is no demonstrated abnormality of the visualized soft tissue structures of the upper abdomen. RAD/Chest 1 View (Portable) IMPRESSION: Bibasilar atelectasis and/or infiltrates with small bilateral effusions. Follow-up is recommended. Electronically Signed: Ruddy Welsh, at 12:32 EDT , Service support ,
[2019-04-02 11:46] LABS: Absolute Lymphocyte Count 1.01 X10^3/ul (0.83-4.51); Absolute Neutrophil Count 7.4 X10^3/uL (2.0-7.7); Basophil# 0.01 X10^3/uL; Basophil% 0.1 % (0-1); Eosinophil# 0.02 X10^3/uL; Eosinophils% 0.2 % (0-5); Hematocrit 41.9 % (37-47); Hemoglobin 14.3 g/dl (12.0-15.0); Lymphocyte # 1.01 X10^3/ul (4.0); Lymphocyte % 11.2 % (19-41); Mean Corp Hgb Conc 34.1 g/gl (32-36); Mean Corpuscular Hgb 30.7 pg (27.0-32.0); Mean Corpuscular Volume 89.9 fL (81-99); Mean Platelet Vol. 11.4 fl (6.2-12.0); Monocyte# 0.54 X10^3/uL; Neutrophil % 82.4 % (47-70); POSITIVE COUNT NO; POSITIVE DIFFERENTIAL NO; POSITIVE MORPHOLOGY NO; Platelet Count 181 K/mm3 (150-450); RBC Distribution Width SD 48.6 fl (35.1-43.9); Red Blood Count 4.66 M/mm3 (4.2-5.4)
[2019-04-02] MEDS: Aspirin 81 MG TAB.CHEW 324 MG PO (11:48)
--- NOTE | 2019-04-02 11:53 | ED.DCSUM_ITS ---
- ER Visit Summary Date of Service: 04/02/19 Chief Complaint: Shortness of breath History of Present Illness: The patient is a 78 F presents to the emergency department with rather sudden onset shortness of breath. Patient states she was in her normal state of health. States this morning, she was trying to get dressed. She states that she became acutely dyspneic and felt like she could not breathe. She felt that she was wheezing. She denies any chest pain. Patient does have a history of cardiomyopathy and prior NSTEMI. She does not think that she had stents. She does follow with Dr. Corley. They had called Dr. Corley's office because she is actually scheduled to be seen tomorrow just in follow-up. He was referred into the emergency department. Physical Examination: Vital signs reviewed General: Well-nourished, well-developed Head: Normocephalic, atraumatic Eyes: Pupils equal and reactive, extraocular muscles intact Neck, supple, no lymphadenopathy Heart: Regular rate and rhythm Respiratory: No distress, diminished in the bases, left greater than right Abdomen: Soft, nontender, nondistended, no peritoneal signs Back: Nontender Extremities: Nontender, no edema, no cords Skin: Normal color no rash Neuro: Alert and oriented, no focal or lateralizing deficits Test Results: [] Emergency Department Course and Treatment: EKG was obtained patient arrival. Demonstrated atrial fibrillation at a rate of 107. The patient does have a history of paroxysmal A. fib and is anticoagulated. She does have crackles in the bases. X-ray shows atelectasis and small effusions. There is no focal infiltrative process. Screening labs are relatively unremarkable. Patient was requiring supplemental oxygen. My suspicion is that based on her significant cardiomyopathy, She had atrial fibrillation with rapid ventricular response and then went in acute heart failure. she is now more comfortable. I did discuss the patient with Dr. Corley. She is going to be started on amiodarone orally. She will be admitted for diuresis and rhythm control. Treatment Plan: [] Disposition: Admission Impression: 1. A. fib with RVR 2. Acute CHF exacerbation 3. Dyspnea This note was generated with [employer] software. It may contain incorrect words, spelling, and punctuation that were not noted in review of the chart prior to signing ED Disposition - Plan for ED Patient: Referrals: Chon Solis, DO [Primary Care Provider] -
[2019-04-02 12:02] LABS: Anion Gap 7 (5-15); BUN 21 mg/dL (7-18); Calcium,Total 8.7 mg/dL (8.5-10.1); Chloride 105 mmol/L (98-107); EST Glomerular Filtration Rate 36 mL/min (>60); Est Glom Filt Rate - Afr Amer 43 mL/min (>60); Estimated Creatinine Clearance 23.32 ml/min; Glucose 136 mg/dL (74-106); Potassium 4.2 mmol/L (3.5-5.1); Sodium Level 136 mmol/L (136-145)
[2019-04-02 12:12] LABS: BNP,B-Type NATRIURETIC PEPTIDE 685.2 pg/mL (0-100)
--- NOTE | 2019-04-02 13:12 | NURSING ---
107 sementi afib rvr
[2019-04-02] MEDS: Furosemide 40 MG/4 ML Vial IV ×2 (13:16→18:38)
[2019-04-02] MEDS: Amiodarone 200 MG Tablet 400 MG PO (13:23)
--- NOTE | 2019-04-02 13:23 | PCM.HP.STD ---
Problem List (1) Acute CHF (congestive heart failure) Status: Acute (2) Atrial fibrillation with RVR Status: Acute (3) Chronic systolic (congestive) heart failure Status: Chronic (4) Paroxysmal atrial fibrillation Status: Chronic (5) Hyperlipidemia Status: Chronic (6) History of repair of aneurysm of abdominal aorta using endovascular stent graft Status: Chronic (7) CKD (chronic kidney disease), stage III Status: Chronic (8) HTN (hypertension) Status: Chronic Qualifiers: (9) Ischemic cardiomyopathy Status: Chronic (10) CVA (cerebral vascular accident) Status: Chronic Qualifiers: (11) Peripheral vascular disease Status: Chronic (12) Renal artery stenosis Status: Chronic (13) Dyslipidemia Status: Chronic (14) PVD (peripheral vascular disease) Status: Chronic History of Present Illness Date of Admission: 04/02/19 Chief Complaint: SOB The patient is a 78 year old F with pmhx of paroxysmal afib, pt of Dr. Corley, on eliquis, ischemic CM, systolic CHF EF 15%, CAD with prior unsuccessful stent attempt, BL renal artery stenosis, hx CVA with residual left sided weakness, CKDIII, PAD, HTN, HLD, who presents to the ER with SOB. The patient states that she was in her normal state of health until this morning. She was trying to put clothes on and became SOB. She continued to have SOB with mild exertion in the house, relieved at rest. She denies orthopnea and PND. She has no LE edema. She has no CP, dizziness, LH, palpitations, pressure/tightness. She came to the ER and found to have EKG with Afib and tachycardia, CXR c/w CHF, elevated BNP, and mildly elevated Cr. Dr. Corley was called who would like consultation and recommends starting 400 mg Oral amio in the ER. [] Past Medical History Past Medical History (Chronic Problems): Chronic Problems (Last Reviewed 03/28/19 @ 14:52 by Denisse Banerjee) Old myocardial infarction (Chronic) Chronic systolic (congestive) heart failure (Chronic) Paroxysmal atrial fibrillation (Chronic) History of left heart catheterization (Chronic 08/2017) 08/10/17: attempted but unsuccessful PCI: right to left collaterals in LAD, unable to cross OM 1 with wire Atherosclerotic heart disease of [place] coronary artery without angina pectoris (Chronic) Occluded LAD with right to left collaterals per cath and PCI 08/10/2017 ; unable to cross OM1 with wire Hyperlipidemia (Chronic) History of repair of aneurysm of abdominal aorta using endovascular stent graft (Chronic) CKD (chronic kidney disease), stage III (Chronic) HTN (hypertension) (Chronic) Ischemic cardiomyopathy (Chronic) CVA (cerebral vascular accident) (Chronic) Peripheral vascular disease (Chronic) 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 artery stenosis (Chronic) 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) Dyslipidemia (Chronic) PVD (peripheral vascular disease) (Chronic) Medical History: Medical History (Last Reviewed 03/28/19 @ 14:52 by Denisse Banerjee) Old myocardial infarction (Chronic) I25.2 Chronic systolic (congestive) heart failure (Chronic) I50.22 Paroxysmal atrial fibrillation (Chronic) I48.0 History of left heart catheterization (Chronic) Onset Date: 08/2017 Z98.890 08/10/17: attempted but unsuccessful PCI: right to left collaterals in LAD, unable to cross OM 1 with wire Atherosclerotic heart disease of [place] coronary artery without angina pectoris (Chronic) I25.10 Occluded LAD with right to left collaterals per cath and PCI 08/10/2017 ; unable to cross OM1 with wire Hyperlipidemia (Chronic) E78.5 CKD (chronic kidney disease), stage III (Chronic) N18.3 HTN (hypertension) (Chronic) I10 Ischemic cardiomyopathy (Chronic) I25.5 CVA (cerebral vascular accident) (Chronic) I63.9 Peripheral vascular disease (Chronic) I73.9 Renal artery stenosis (Chronic) I70.1 Dyslipidemia (Chronic) E78.5 PVD (peripheral vascular disease) (Chronic) I73.9 Allergies No Known Allergies Allergy (Verified 04/02/19 11:26) Home Medications: Ambulatory Orders Medication Instructions Recorded Aspirin [Aspirin, Baby] 81 mg PO DAILY@0800 10/21/17 Carvedilol [Coreg] 12.5 mg PO BID 10/21/17 Escitalopram Oxalate [Lexapro] 10 mg PO DAILY 10/21/17 Rosuvastatin Calcium [Crestor] 40 mg PO DAILY 10/21/17 magnesium oxide 400 mg (241.3 mg 400 mg PO BID tab 02/20/18 magnesium) tablet furosemide 40 mg tablet 40 mg PO DAILY tab 02/21/18 Apixaban [Eliquis] 2.5 mg PO BID 04/07/18 Isosorbide Mononitrate [Imdur] 30 mg PO DAILY #30 tab 04/09/18 potassium chloride ER 10 mEq 20 meq PO DAILY tab 10/10/18 tablet,extended release Surgical History: Surgical History (Last Reviewed 03/28/19 @ 14:52 by Denisse Banerjee) History of repair of aneurysm of abdominal aorta using endovascular stent graft (Chronic) Z95.828 Surgical History: - - carotid surgery, kidney stents Psychiatric History: No pertinent psych hx 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 Lives: With Family Smoking Status: Never smoker Alcohol: None Drugs: None - *Family History Paternal Family History: Family History (Last Reviewed 03/28/19 @ 14:52 by Denisse Banerjee) Brother Hypertension History Items: Heart Disease Sibling Family History: Family History (Last Reviewed 03/28/19 @ 14:52 by Denisse Banerjee) Brother Hypertension History Items: Heart Disease - In her brother Maternal Family History: Family History (Last Reviewed 03/28/19 @ 14:52 by Denisse Banerjee) Brother Hypertension History Items: Hypertension, Stroke Review of Systems Constitutional: Denies: Chills, Fever, Weight Change HEENT: Denies: Head Aches, Sinus Congestion, Sinus Drainage Cardiovascular: Denies: Chest Pain, Palpitations Respiratory: Reports: Shortness of Breath, Shortness of breath upon exertion. Denies: Cough, Shortness of breath at rest, Sputum production Gastrointestinal: Denies: Abdominal Pain, Nausea, Vomiting Genitourinary: Denies: Dysuria Musculoskeletal: Denies: Joint Pain, Joint Tenderness Skin: Denies: Rash, Wounds Neurological: Denies: Numbness, Tingling, Focal weakness Psychiatric: Denies: Anxiety, Depression, Homicidal Ideations, Suicidal Ideations Hematologic/ Lymphatic: Denies: Easy Bruising, Easy Bleeding VTE Information - Inpt Only VTE Present on Admission: No VTE Mechan Device Prophylaxis: None VTE Pharm Prophylaxis ordered?: Yes Patient Problems: Active and Suspected Problems (Last Reviewed 03/28/19 @ 14:52 by Denisse Banerjee) Atrial fibrillation with RVR (Acute) Acute CHF (congestive heart failure) (Acute) - Physical Exam General: Alert, Oriented x3, Cooperative HEENT: Atraumatic, PERRLA, EOMI, Normocephalic Neck: Supple, No JVD, Negative Carotid Bruits Lungs: Normal air movement, Rales - BL lower cha. Cardiovascular: No murmurs, Irregular Rate, Tachycardic Abdomen: Bowel Sounds Present, Soft, Non Tender Extremities: No edema, Capillary Refill Less than 3 Seconds Skin: No rashes, No breakdown Musculoskeletal: No Tenderness to Palpation of Joints or Extremities Neurological: Cranial nerves II-XII grossly intact Psych/Mental Status: Normal Affect, Appropriate, Alert and oriented to time, place, person, mood and affect Vital Signs Temp Pulse Resp BP Pulse Ox 96.6 F L 95 20 H 136/91 H 93 04/02/19 11:23 04/02/19 13:18 04/02/19 13:18 04/02/19 13:18 04/02/19 13:18 Oxygen Flow Rate (L/min) 2 Oxygen Delivery Method Room Air Weight: 140 lb Body Mass Index (BMI) 26.4 Laboratory Tests Past 24 Hrs 04/02/19 04/02/19 04/02/19 11:36 11:36 11:36 WBC 9.0 RBC 4.66 Hgb 14.3 Hct 41.9 MCV 89.9 MCH 30.7 MCHC 34.1 RDW 15.0 H RDW Differential 48.6 H Plt Count 181 MPV 11.4 Immature Gran % (Auto) 0.100 Neut % (Auto) 82.4 H Lymph % (Auto) 11.2 L [place] % (Auto) 6.0 Eos % (Auto) 0.2 Baso % (Auto) 0.1 Absolute Neuts (auto) 7.4 Absolute Lymphs (auto) 1.01 Total Counted Not Reportable Sodium 136 Potassium 4.2 Chloride 105 Carbon Dioxide 24.0 Anion Gap 7 BUN 21 H Creatinine 1.50 H Estim Creat Clear Calc 23.32 Est GFR (MDRD) Af Amer 43 L Est GFR (MDRD) Non-Af 36 L BUN/Creatinine Ratio 14.0 Glucose 136 H Calcium 8.7 Troponin I < 0.015 B-Natriuretic Peptide 685.2 H Assessment/Plan All Active Problems (Last Reviewed 03/28/19 @ 14:52 by Denisse Banerjee) Acute 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 Acute systolic CHF exacerbation, ischemic CM - start IV lasix, strict I/O, fluid and sodium restriction. Repeat echo - last Oct 2017 with EF 15%. Possibly triggered by going into Afib/Rvr. Trop neg. 2. PAfib with RVR - No palp. pulse up to 120s during my exam - started amio in ER, continue coreg, eliquis. Cardiology consult. 3. CAD with failed stent attempt in aug 2017. On aspirin, beta vidal, imdur, statin 4. CKDIII with hx BL SENG - trend with diuretics. hx renal artery stents. 5. Hx CVA - residual left sided weakness 6. Hx abdominal aortic aneurysm - hx of surgical repair 7. HTN/HLD - home meds. DVT ppx: [place] This patient was seen by Jaden Ley PA-C under the supervision of Dr. Shepherd.
--- NOTE | 2019-04-02 13:41 | CASEMGMT ---
Addendum entered by Kayley Villela 04/02/19 17:16: Also has a ramp to enter home. Original Note: RN CM Assessment Introduced role of RN CM to patient and patient family at bedside.? Patient is alert, oriented and able?to participate in RN CM Assessment. ?Care providers, pharmacy, and demographics verified. Presentation: SOB with exertion with audible wheezing Admit Dx: CHF Eacerbation, Afib RVR Re-Admit: No Barriers/Issues: None PCP: Chon Solis Specialists: Cardio- Dr Corley Preferred Pharmacy: [facility] Insurance: [employer] Rx Benefit:?Through [employer] LNOK: Atif Grimes LW/HPOA: Yes both on file with [facility], [place]- Atif Grimes Living Arrangements:?Lives with her in a 2 story home, Bedroom is on the upper ne. 3 steps to enter. 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 Denies questions or concerns, aware CM remains available for any emerging needs. DC PLAN: Home with possible Home O2. RAFITA Zhao
--- NOTE | 2019-04-02 14:27 | ECHOCS_ITS ---
Reason For Study: CHF Procedure This was a 2D Doppler, Color Flow transthoracic echocardiogram. The study was technically difficult. Contrast injection was performed. Exam performed portable in patient room. Left Ventricle Normal LV size. Mild concentric left ventricular hypertrophy. Severe segmental systolic dysfunction (see wall motion). The estimated ejection fraction is 20 %. Cinebar : Akinetic. Mid-anteroseptal : Akinetic. Anterio-Basal: Hypokinetic. Lateral-Basal: Normal. Posterior-Basal: Normal. Basal inferoseptal: Normal. The rest of the wall segments are hypokinetic. Right Ventricle Normal RV size. Normal systolic function. Atria The left atrium is moderately enlarged. Normal right atrium. Mitral Valve There is mild mitral annular calcification. Mild (1+) eccentric mitral valve insufficiency. Tricuspid Valve Normal tricuspid valve. Moderate (2+) tricuspid valve insufficiency. Pulmonary artery systolic pressure is 50 mmHg. Moderate pulmonary hypertension. Pulmonic Valve Normal pulmonic valve. Great Vessels Normal aortic root. Pericardium/Pleural No pericardial effusion. Medication Diluted definity 4ml given slow IV push to enhance endocardial definition. MMode/2D Measurements & Calculations LVIDd: 4.8 cm IVSd: 1.2 cm LAV(MOD-bp): 86.5 ml LVIDs: 4.3 cm LVPWd: 1.2 cm LAV(MOD-bp) Indexed: 53.4 ml/m2 FS: 12.2 % LAV(MOD-sp2): 61.8 ml LAV(MOD-sp4): 97.0 ml SV(MOD-sp4): 16.3 ml SV(sp4-el): 17.8 ml LVAd ap4: 31.8 cm2 EDV(MOD-sp4): 104.2 ml EDV(sp4-el): 108.7 ml LVAs ap4: 28.3 cm2 ESV(MOD-sp4): 87.9 ml ESV(sp4-el): 91.0 ml EF(MOD-sp4): 15.6 % EF(sp4-el): 16.3 % LA A4 area: 28.5 cm2 RA A4 area: 16.7 cm2 Doppler Measurements & Calculations MV E max suresh: 138.4 cm/sec Ao V2 max: 57.3 cm/sec LV V1 max: 55.6 cm/sec Ao max P.3 mmHg LV V1 max P.2 mmHg MR max suresh: 496.1 cm/sec PA V2 max: 45.1 cm/sec TR max suresh: 335.8 cm/sec MR max P.4 mmHg TR max P.1 mmHg MR mean suresh: 353.9 cm/sec MR mean P.0 mmHg MR VTI: 164.7 cm Interpretation Summary Normal LV size. Mild concentric left ventricular hypertrophy. Severe segmental systolic dysfunction (see wall motion). The estimated ejection fraction is 20 %. Pulmonary artery systolic pressure is 50 mmHg. Moderate pulmonary hypertension. Contrast injection was performed. Compared to prior study, there is no significant change. Ordering Physician: Jaden Ley Referring Physician: Chon Arboleda Performed By: Brodwolf, Víctor, RCS
--- NOTE | 2019-04-02 14:29 | CASEMGMT ---
Patient has a Healthcare POA and Healthcare LW on file at [facility]. Aniya FLORES SENIOR ENGINEERING TEAM LEADER
[2019-04-02 15:05] LABS: Magnesium 2.3 mg/dL (1.6-2.6); Thyroid Stim Hormone (TSH) 3.42 uIU/mL (0.358-3.74)
--- NOTE | 2019-04-02 15:49 | CON.PCM_ITS ---
Problem List (1) Acute on chronic combined systolic and diastolic ACC/AHA stage C congestive heart failure Status: Acute (2) Acute CHF (congestive heart failure) Status: Acute (3) Old myocardial infarction Status: Chronic (4) Paroxysmal atrial fibrillation Status: Chronic Reason for Consult Date of Consultation: 04/02/19 Reason for Consultation: Ischemic heart myopathy, paroxysmal atrial fibrillation, congestive heart failure, History of Present Illness: This is a 78-year-old female well-known to me with a history of hypertension, ischemic cardiomyopathy with an EF around 15%, paroxysmal atrial fibrillation, hypertension.. 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 Patient underwent heart catheterization in August 2017 which showed double vessel coronary artery disease of the old occluded LAD with right to left collaterals and possible acute occlusion of mid/distal OM #1. PCI to mid/distal OM1 was unsuccessful. Based on her history of previous CVA and decreased LV function at 15-20%,and PAF, long-term anticoagulation was recommended. Echocardiogram from August 2017 show an estimate ejection fraction of 15-20%, stage I diastolic dysfunction, regional wall motion abnormalities as specified, severely enlarged left atrium, mild tricuspid valve insufficiency, RVSP of 45 mmHg, and moderate pulmonary hypertension. Previous echocardiogram in August 2012 showed an estimated ejection fraction of 65%. Renal duplex ultrasound from August 2012 showed bilateral 0-59% renal stenosis, mild aortic irregularity distally, aortic diameter of 1.5 x 1.4 cm proximally, and elevated renal resistivity indices bilaterally suggested of intrinsic renal parenchymal disease. Repeat echocardiogram dated 10/22/17 confirmed severe LV dysfunction with an EF around 15%, and RVSP of 46 mmHg, 1+ mitral regurgitation, 2+ tricuspid regurgitation. Patient was recently admitted in April 2018 with CHF exacerbation. She was given IV Lasix, medicines were adjusted, and she was discharged home. Patient was doing well up until this past Tuesday when she noted new onset shortness of breath, and is uncertain whether she had palpitations or not. Her symptoms appeared to resolve, and then returned again this morning, this time not improving. She sought medical attention at [facility] in mid afternoon today, and was found to be in atrial flutter with rapid ventricular response, no acute changes. Her previous EKG in April 2018 showed normal sinus rhythm. Her initial troponin was negative. The patient was treated with IV Lasix, and was started on amiodarone 400 mg p.o. twice daily. Prior to this she denies any exertional chest pain, angina, presyncope or syncope. Chest x-ray on admission today demonstrates what appears to be a small right pleural effusion, not previously seen on recent chest x-rays. First troponin negative. Patient is on chronic Eliquis therapy. Past Medical History Allergies/Adverse Reactions: Allergies No Known Allergies Allergy (Verified 04/02/19 11:26) Home Medications: Ambulatory Orders Medication Instructions Recorded Aspirin [Aspirin, Baby] 81 mg PO DAILY@0800 10/21/17 Carvedilol [Coreg] 12.5 mg PO BID 10/21/17 Escitalopram Oxalate [Lexapro] 10 mg PO DAILY 10/21/17 Rosuvastatin Calcium [Crestor] 40 mg PO DAILY 10/21/17 magnesium oxide 400 mg (241.3 mg 400 mg PO BID tab 02/20/18 magnesium) tablet furosemide 40 mg tablet 40 mg PO DAILY tab 02/21/18 Apixaban [Eliquis] 2.5 mg PO BID 04/07/18 Isosorbide Mononitrate [Imdur] 30 mg PO DAILY #30 tab 04/09/18 potassium chloride ER 10 mEq 20 meq PO DAILY tab 10/10/18 tablet,extended release Past Medical History (Chronic Problems): Chronic Problems (Last Reviewed 03/28/19 @ 14:52 by Denisse Banerjee) Old myocardial infarction (Chronic) Chronic systolic (congestive) heart failure (Chronic) Paroxysmal atrial fibrillation (Chronic) History of left heart catheterization (Chronic 08/2017) 08/10/17: attempted but unsuccessful PCI: right to left collaterals in LAD, unable to cross OM 1 with wire Atherosclerotic heart disease of [place] coronary artery without angina pectoris (Chronic) Occluded LAD with right to left collaterals per cath and PCI 08/10/2017 ; unable to cross OM1 with wire Hyperlipidemia (Chronic) History of repair of aneurysm of abdominal aorta using endovascular stent graft (Chronic) CKD (chronic kidney disease), stage III (Chronic) HTN (hypertension) (Chronic) Ischemic cardiomyopathy (Chronic) CVA (cerebral vascular accident) (Chronic) Peripheral vascular disease (Chronic) Renal artery stenosis (Chronic) 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) Dyslipidemia (Chronic) PVD (peripheral vascular disease) (Chronic) Surgical History: - - carotid surgery, kidney stents Psychiatric History: No pertinent psych hx HELPDESK ADMINISTRATOR History: No pertinent HELPDESK ADMINISTRATOR history - *Family History Paternal Family History: Family History (Last Reviewed 03/28/19 @ 14:52 by Denisse Banerjee) Brother Hypertension History Items: Heart Disease Sibling Family History: Family History (Last Reviewed 03/28/19 @ 14:52 by Denisse Banerjee) Brother Hypertension History Items: Heart Disease - In her brother Maternal Family History: Family History (Last Reviewed 03/28/19 @ 14:52 by Denisse Banerjee) Brother Hypertension History Items: Hypertension, Stroke Lives: With Family Smoking Status: Never smoker Alcohol: None Drugs: None Review of Systems - Review of Systems General: Denies: Fever, Night Sweats, Fatigue Cardiovascular: Reports: Shortness of Breath, Shortness of Breath at Rest, Peripheral Edema, Palpitations. Denies: Chest Discomfort, Orthopnea, PND, Lightheadedness, Dizziness, Near Syncope, Syncope Respiratory: Denies: Cough, Sputum Production, Hemoptysis Gastrointestinal: Denies: Hematemesis, Hematochezia, Melena Genitourinary: Denies: Dysuria, Hematuria Skin: Denies: Rash Subjectve: Patient laying in bed, no acute distress, very minimal conversational dyspnea. Objective: Vital Signs Temp Pulse Resp BP Pulse Ox 97.8 F 96 16 140/96 H 94 04/02/19 14:14 04/02/19 14:14 04/02/19 14:14 04/02/19 14:14 04/02/19 14:14 Oxygen Flow Rate (L/min) 2 Oxygen Delivery Method Nasal Cannula Weight: 139 lb 15.896 oz Body Mass Index (BMI) 26.0 General: Awake, Alert, Oriented x 3 HEENT: PERRL, EOMI, Sclera Non Icteric Neck: Supple, Good ROM, No Lymph Node Enlargement Lungs: Clear to auscultation, Rales - Right Base Cardiovascular: Irregular Rhythm, Normal S1, Normal S2, No Rubs, No Gallops Murmur Murmur: Grade 2/6, Holosystolic Vascular: No Carotid Bruits, Normal Femoral Pulses, Normal Radial Pulses, Normal Dorsalis Pedal Pulse, Normal Posterior Tibial Pulses Abdomen: Bowel Sounds Present, Soft, Non Tender, No HSM, No Organomegaly Extremities: No Cyanosis, No Clubbing, No edema Neurological: No Focal Motor or Sensory Deficit 04/02/19 11:36: WBC 9.0, RBC 4.66, Hgb 14.3, Hct 41.9, MCV 89.9, MCH 30.7, MCHC 34.1, RDW 15.0 H, RDW Differential 48.6 H, Plt Count 181, MPV 11.4, Immature Gran % (Auto) 0.100, Neut % (Auto) 82.4 H, Lymph % (Auto) 11.2 L, [place] % (Auto) 6.0, Eos % (Auto) 0.2, Baso % (Auto) 0.1, Absolute Neuts (auto) 7.4, Total Counted Not Reportable 04/02/19 11:36: Sodium 136, Potassium 4.2, Chloride 105, Carbon Dioxide 24.0, Anion Gap 7, BUN 21 H, Creatinine 1.50 H, Est GFR (MDRD) Af Amer 43 L, Est GFR (MDRD) Non-Af 36 L, BUN/Creatinine Ratio 14.0, Glucose 136 H, Calcium 8.7, Troponin I < 0.015 04/02/19 11:36: B-Natriuretic Peptide 685.2 H 04/02/19 11:36: Magnesium 2.3 Rhythm: EKG: ECHO: Stress Test: Cardiac Cath: PCI: CT Surgery: Holter monitor: EPS: PPM: CXR: Chest CT Scan: Assessment/Plan 1. Ischemic cardia myopathy: The patient appears to have lost retrocardiac superimposed upon severe LV dysfunction with an EF around 15%. I recommended that we do a 1500 cc fluid restriction, IV Lasix 40 mg twice daily until she has reached her dry weight. She has no overt edema. Recommended also that she continue her anticoagulation therapy with Eliquis for both her LV dysfunction and paroxysmal atrial fibrillation. When she is achieved her dry weight, we will switch her back to p.o. Lasix which may be adjusted upward. 2. Atrial flutter: Patient has a known history of paroxysmal atrial flutter, and I recommended starting her on amiodarone 400 mg p.o. twice daily for 5 days followed by 200 mg a day for at least 3 weeks time. If she is still in atrial flutter after 3 weeks of amiodarone therapy, we will then consider DC cardioversion. Continue Eliquis therapy. Continue Coreg therapy. 3. Hyperlipidemia: Continue diabetes therapy. 4. Thank you very much for the opportunity to participate in the cardiac care of your patient. Tonsil consultation time took place between 330 and 4 PM. Code Visit Inpatient E&M: [id number] Init Hosp L2
[2019-04-02] MEDS: Carvedilol 12.5 MG Tablet PO (22:53)
[2019-04-02] MEDS: Magnesium Oxide 400 MG Tablet PO (22:53)
[2019-04-02] MEDS: Atorvastatin Calcium 80 MG Tablet PO (22:53)
[2019-04-02] MEDS: APIXABAN 2.5 MG TABLET PO (22:54)
[2019-04-03] VITALS (12 sets, daily range): BP systolic 67–128; BP diastolic 36–69; PULSE 65–96; RESP 14–18; TEMP 36.4–36.9; O2SAT 95–100
--- NOTE | 2019-04-03 05:55 | EKG12_ITS ---
Test Reason : AM EKG Blood Pressure : / mmHG Vent. Rate : 072 BPM Atrial Rate : 319 BPM P-R Int : 000 ms QRS Dur : 082 ms QT Int : 432 ms P-R-T Axes : 000 061 096 degrees QTc Int : 473 ms Atrial flutter with variable A-V block with premature ventricular or aberrantly conducted complexes Anteroseptal infarct , age undetermined Abnormal ECG Confirmed by CHRISTO LOZANO, SHAJI ([id number]), metropolitan editor TAY MALIK ([id number]) on 04/04/2019 12:31:55 PM Referred By: SERENA Confirmed By:SHAJI VILLAFUERTE MD
[2019-04-03 06:27] LABS: Anion Gap 9 (5-15); BUN 22 mg/dL (7-18); BUN/Creat Ratio 15.5 RATIO (10-20); Calcium,Total 8.6 mg/dL (8.5-10.1); Chloride 102 mmol/L (98-107); Creatinine, Serum 1.42 mg/dL (0.55-1.02); EST Glomerular Filtration Rate 38 mL/min (>60); Est Glom Filt Rate - Afr Amer 46 mL/min (>60); Estimated Creatinine Clearance 24.64 ml/min; Glucose 112 mg/dL (74-106); Potassium 3.2 mmol/L (3.5-5.1); Sodium Level 142 mmol/L (136-145)
--- NOTE | 2019-04-03 08:10 | PN.CARD_ITS ---
Subjectve: Patient doing much better today, able to lay down flat, still with some minor conversational dyspnea. Total net diuresis of around 300 cc. Telemetry atrial fibrillation with better controlled ventricular response. Objective: Vital Signs Temp Pulse Resp BP Pulse Ox 97.9 F 79 18 125/65 H 96 04/03/19 04:45 04/03/19 07:00 04/03/19 04:45 04/03/19 04:45 04/03/19 04:45 Oxygen Flow Rate (L/min) 2 Oxygen Delivery Method Nasal Cannula Weight: 136 lb 0.403 oz Body Mass Index (BMI) 26.0 Intake and Output for Last 24 Hours 04/01/19 04/02/19 04/03/19 23:59 23:59 23:59 Intake Total 220 / 220 120 / 120 Output Total 400 / 400 250 / 250 Balance -180 / -180 -130 / -130 General: Awake, Alert, Oriented x 3 HEENT: PERRL, EOMI, Sclera Non Icteric Neck: Supple, Good ROM, No Lymph Node Enlargement Lungs: Clear to auscultation, Diminished Right Base Cardiovascular: Irregular Rhythm, Normal S2, No Rubs, No Gallops Murmur Murmur: Grade 2/6, Holosystolic Vascular: No Carotid Bruits, Normal Femoral Pulses, Normal Radial Pulses, Normal Dorsalis Pedal Pulse, Normal Posterior Tibial Pulses Abdomen: Bowel Sounds Present, Soft, Non Tender, No HSM, No Organomegaly Extremities: No Cyanosis, No Clubbing, No edema Neurological: No Focal Motor or Sensory Deficit 04/02/19 11:36: WBC 9.0, RBC 4.66, Hgb 14.3, Hct 41.9, MCV 89.9, MCH 30.7, MCHC 34.1, RDW 15.0 H, RDW Differential 48.6 H, Plt Count 181, MPV 11.4, Immature Gran % (Auto) 0.100, Neut % (Auto) 82.4 H, Lymph % (Auto) 11.2 L, [place] % (Auto) 6.0, Eos % (Auto) 0.2, Baso % (Auto) 0.1, Absolute Neuts (auto) 7.4, Total Counted Not Reportable 04/02/19 11:36: Sodium 136, Potassium 4.2, Chloride 105, Carbon Dioxide 24.0, Anion Gap 7, BUN 21 H, Creatinine 1.50 H, Est GFR (MDRD) Af Amer 43 L, Est GFR (MDRD) Non-Af 36 L, BUN/Creatinine Ratio 14.0, Glucose 136 H, Calcium 8.7, Troponin I < 0.015 04/02/19 11:36: B-Natriuretic Peptide 685.2 H 04/02/19 11:36: Magnesium 2.3 04/02/19 15:35: Troponin I < 0.015 04/02/19 18:20: Troponin I < 0.015 04/03/19 05:14: Sodium 142, Potassium 3.2 L, Chloride 102, Carbon Dioxide 31.0, Anion Gap 9, BUN 22 H, Creatinine 1.42 H, Est GFR (MDRD) Af Amer 46 L, Est GFR (MDRD) Non-Af 38 L, BUN/Creatinine Ratio 15.5, Glucose 112 H, Calcium 8.6 Rhythm: EKG: ECHO: Stress Test: Cardiac Cath: PCI: CT Surgery: Holter monitor: EPS: PPM: CXR: Chest CT Scan: Medical Necessity - Tobacco Use Smoking Status: Never smoker Assessment/Plan 1. Ischemic cardiomyopathy: The patient appears to have lost her atrial kick with her paroxysmal atrial fibrillation, superimposed upon severe LV dysfunction with an EF around 15%. I recommended that we do a 1500 cc fluid restriction, IV Lasix 40 mg twice daily until she has reached her dry weight. Would recommend IV Lasix 1 more time this morning, and switching her to p.o. Lasix, but increasing it to 40 mg p.o. twice daily. She has no overt edema lower extremity edema, but chest x-ray indicates small right pleural effusion. Recommended also that she continue her anticoagulation therapy with Eliquis for both her LV dysfunction and paroxysmal atrial fibrillation. In addition she will continue her Imdur for hypertension, we will add Cozaar 25 mg p.o. daily for afterload reduction. 2. Atrial flutter: Patient has a known history of paroxysmal atrial flutter, and I recommended starting her on amiodarone 400 mg p.o. twice daily for 5 days followed by 200 mg a day for at least 3 weeks time. If she is still in atrial flutter after 3 weeks of amiodarone therapy, we will then consider DC cardioversion. Continue Eliquis therapy. Continue Coreg therapy. 3. Hyperlipidemia: Continue diabetes therapy. 4. Thank you very much for the opportunity to participate in the cardiac care of your patient. Discussed with Dr. Shepherd. Code Visit Inpatient E&M: 00884 Subs Hosp L2
--- NOTE | 2019-04-03 10:22 | CASEMGMT ---
RN CM Note: Intro role of CM to patient. Verified DME at home. Pt states she has walker, cane and wheelchair but only uses intermittently. No other needs identified. Renita MEDLEYN RN ACM
[2019-04-03] MEDS: Aspirin 81 MG TAB.CHEW PO (10:25)
[2019-04-03] MEDS: Carvedilol 12.5 MG Tablet PO ×2 (10:26→21:16)
[2019-04-03] MEDS: Isosorbide Mononitrate 30 MG Tablet PO (10:26)
[2019-04-03] MEDS: Furosemide 40 MG/4 ML Vial IV (10:26)
[2019-04-03] MEDS: Magnesium Oxide 400 MG Tablet PO ×2 (10:26→21:16)
[2019-04-03] MEDS: APIXABAN 2.5 MG TABLET PO ×2 (10:26→21:16)
[2019-04-03] MEDS: Losartan Potassium 25 MG Tablet PO (10:26)
[2019-04-03] MEDS: Escitalopram Oxalate 10 MG Tablet PO (10:26)
--- NOTE | 2019-04-03 11:43 | PN_ITS ---
Patient Problems: Active and Suspected Problems (Last Reviewed 03/28/19 @ 14:52 by Denisse Banerjee) Atrial fibrillation with RVR (Acute) Acute CHF (congestive heart failure) (Acute) Subjective: Pt has no SOB today, and no palp. No CP, pressure, heaviness, tightness. No LE edema. No cough. no fever/chills. No LH/dizziness. - Physical Exam General: Alert, Oriented x3, Cooperative HEENT: Atraumatic, PERRLA, EOMI, Normocephalic Neck: Supple, No JVD, Negative Carotid Bruits Lungs: Clear to auscultation, Normal air movement Cardiovascular: No murmurs, Irregular Rate Abdomen: Bowel Sounds Present, Soft, Non Tender Extremities: No edema, Capillary Refill Less than 3 Seconds Skin: No rashes, No breakdown Musculoskeletal: No Tenderness to Palpation of Joints or Extremities Neurological: Cranial nerves II-XII grossly intact Psych/Mental Status: Normal Affect, Appropriate, Alert and oriented to time, place, person, mood and affect Vital Signs Temp Pulse Resp BP Pulse Ox 98.4 F 82 16 128/69 H 95 04/03/19 09:31 04/03/19 09:31 04/03/19 09:31 04/03/19 09:31 04/03/19 09:31 Oxygen Flow Rate (L/min) 2 Oxygen Delivery Method Room Air Weight: 136 lb 0.403 oz Body Mass Index (BMI) 26.0 Intake and Output for Last 24 Hours 04/01/19 04/02/19 04/03/19 23:59 23:59 23:59 Intake Total 220 / 220 580 / 580 Output Total 400 / 400 250 / 250 Balance -180 / -180 330 / 330 Laboratory Tests Past 24 Hrs 04/02/19 04/02/19 04/02/19 11:36 11:36 11:36 WBC 9.0 RBC 4.66 Hgb 14.3 Hct 41.9 MCV 89.9 MCH 30.7 MCHC 34.1 RDW 15.0 H RDW Differential 48.6 H Plt Count 181 MPV 11.4 Immature Gran % (Auto) 0.100 Neut % (Auto) 82.4 H Lymph % (Auto) 11.2 L [place] % (Auto) 6.0 Eos % (Auto) 0.2 Baso % (Auto) 0.1 Absolute Neuts (auto) 7.4 Absolute Lymphs (auto) 1.01 Total Counted Not Reportable Sodium 136 Potassium 4.2 Chloride 105 Carbon Dioxide 24.0 Anion Gap 7 BUN 21 H Creatinine 1.50 H Estim Creat Clear Calc 23.32 Est GFR (MDRD) Af Amer 43 L Est GFR (MDRD) Non-Af 36 L BUN/Creatinine Ratio 14.0 Glucose 136 H Calcium 8.7 Magnesium Troponin I < 0.015 B-Natriuretic Peptide 685.2 H TSH 04/02/19 04/02/19 04/02/19 11:36 15:35 18:20 WBC RBC Hgb Hct MCV MCH MCHC RDW RDW Differential Plt Count MPV Immature Gran % (Auto) Neut % (Auto) Lymph % (Auto) [place] % (Auto) Eos % (Auto) Baso % (Auto) Absolute Neuts (auto) Absolute Lymphs (auto) Total Counted Sodium Potassium Chloride Carbon Dioxide Anion Gap BUN Creatinine Estim Creat Clear Calc Est GFR (MDRD) Af Amer Est GFR (MDRD) Non-Af BUN/Creatinine Ratio Glucose Calcium Magnesium 2.3 Troponin I < 0.015 < 0.015 B-Natriuretic Peptide TSH 3.42 04/03/19 05:14 WBC RBC Hgb Hct MCV MCH MCHC RDW RDW Differential Plt Count MPV Immature Gran % (Auto) Neut % (Auto) Lymph % (Auto) [place] % (Auto) Eos % (Auto) Baso % (Auto) Absolute Neuts (auto) Absolute Lymphs (auto) Total Counted Sodium 142 Potassium 3.2 L Chloride 102 Carbon Dioxide 31.0 Anion Gap 9 BUN 22 H Creatinine 1.42 H Estim Creat Clear Calc 24.64 Est GFR (MDRD) Af Amer 46 L Est GFR (MDRD) Non-Af 38 L BUN/Creatinine Ratio 15.5 Glucose 112 H Calcium 8.6 Magnesium Troponin I B-Natriuretic Peptide TSH Medical Necessity - Tobacco Use Smoking Status: Never smoker Assessment/Plan All Active Problems (Last Reviewed 03/28/19 @ 14:52 by Denisse Banerjee) Acute 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 Acute systolic and disatolic CHF exacerbation, ischemic CM, moderate pulmonary htn- 1 more dose IV lasix this AM, then start PO tonight. Good diuresis and good improvement in symptoms already. Replace K. Check AM BMP. - EF 20%, wall motion abnormalities, 1+ MVI, 2+ TVI, PASP 50 mmHg, severe diastolic dysfunction. 2. PAfib with RVR - no palp. Rate improved. Amio per cardiology. 3. CAD with failed stent attempt in aug 2017. On aspirin, beta vidal, imdur, statin. No CP, no EKG changes concerning for new ischemia, and no elevation in trop. 4. CKDIII with hx BL SENG - trend with diuretics. hx renal artery stents. 5. Hx CVA - residual left sided weakness 6. Hx abdominal aortic aneurysm - hx of surgical repair 7. HTN/HLD - home meds. DVT ppx: eliquis This patient was seen by Jaden Ley PA-C under the supervision of Dr. Shepherd.
--- NOTE | 2019-04-03 13:55 | CASEMGMT ---
SW spoke with patient about Palliative Care. SW explained it to her and how it could possibly help her in the future. SW left a pamphlet with her and told her if her family has questions they can always ask for SW. Aniya HERNANDEZ
[2019-04-03] MEDS: Atorvastatin Calcium 80 MG Tablet PO (21:16)
[2019-04-04] VITALS (11 sets, daily range): BP systolic 90–109; BP diastolic 42–81; PULSE 57–98; RESP 15–17; TEMP 36.3–36.7; O2SAT 93–96
[2019-04-04 05:13] LABS: Anion Gap 10 (5-15); BUN 31 mg/dL (7-18); BUN/Creat Ratio 17.2 RATIO (10-20); Calcium,Total 8.6 mg/dL (8.5-10.1); Chloride 105 mmol/L (98-107); EST Glomerular Filtration Rate 29 mL/min (>60); Est Glom Filt Rate - Afr Amer 35 mL/min (>60); Estimated Creatinine Clearance 19.44 ml/min; Glucose 117 mg/dL (74-106); Potassium 3.9 mmol/L (3.5-5.1); Sodium Level 144 mmol/L (136-145)
--- NOTE | 2019-04-04 07:54 | PN.CARD_ITS ---
Subjectve: Patient feeling better today, no 24-hour events. Telemetry showed atrial fibrillation with controlled ventricular response. Patient was up in the chair yesterday with no appreciable abnormal symptoms. She is able to lay down flat for the second day since admission. Her blood pressure was slightly low yesterday in the low 100s systolic. Her creatinine has mildly increased indicating that she is probably at her dry weight. Patient was started on losartan yesterday and had orthostatic hypotension. Objective: Vital Signs Temp Pulse Resp BP Pulse Ox 97.3 F L 89 17 106/81 H 96 04/04/19 04:00 04/04/19 07:21 04/04/19 04:00 04/04/19 04:00 04/04/19 04:00 Oxygen Flow Rate (L/min) 2 Oxygen Delivery Method Room Air Weight: 139 lb 12.369 oz Body Mass Index (BMI) 26.0 Orthostatic Vital Signs Start: 04/03/19 16:48 Freq: q24h Status: Active Protocol: Activity Type Activity Date Activity User E-Sign Co-Sign Detail Recorded Client Recorded Date Recorded By Document 04/03/19 16:48 [facility] [id number] 04/03/19 16:49 BAM 04/03/19 16:48 Orthostatic Vitals Standing -Blood Pressure (90/60-120/80 mm Hg) 77/48 L -Extremity Use Right Arm -Pulse Rate (60-100 beats/min) 93 Sitting -Blood Pressure (90/60-120/80 mm Hg) 67/46 L -Extremity Use Right Arm -Pulse Rate (60-100 beats/min) 72 Lying -Blood Pressure (90/60-120/80 mm Hg) 82/36 L -Extremity Use Right Arm -Pulse Rate (60-100 beats/min) 87 Intake and Output for Last 24 Hours 04/02/19 04/03/19 04/04/19 23:59 23:59 23:59 Intake Total 220 / 220 1060 / 1120 60 / 60 Output Total 400 / 400 250 / 250 Balance -180 / -180 810 / 870 60 / 60 General: Awake, Alert, Oriented x 3 HEENT: PERRL, EOMI, Sclera Non Icteric Neck: Supple, Good ROM, No Lymph Node Enlargement Lungs: Clear to auscultation Cardiovascular: Irregular Rhythm, Normal S1, Normal S2, No Murmurs, No Rubs, No Gallops Murmur Murmur: Grade 2/6, Holosystolic Vascular: No Carotid Bruits, Normal Femoral Pulses, Normal Radial Pulses, Normal Dorsalis Pedal Pulse, Normal Posterior Tibial Pulses Abdomen: Bowel Sounds Present, Soft, Non Tender, No HSM, No Organomegaly Extremities: No Cyanosis, No Clubbing, No edema Neurological: No Focal Motor or Sensory Deficit 04/04/19 04:50: Sodium 144, Potassium 3.9, Chloride 105, Carbon Dioxide 29.0, Anion Gap 10, BUN 31 H, Creatinine 1.80 H, Est GFR (MDRD) Af Amer 35 L, Est GFR (MDRD) Non-Af 29 L, BUN/Creatinine Ratio 17.2, Glucose 117 H, Calcium 8.6 Rhythm: EKG: ECHO: Stress Test: Cardiac Cath: PCI: CT Surgery: Holter monitor: EPS: PPM: CXR: Chest CT Scan: Medical Necessity - Tobacco Use Smoking Status: Never smoker Assessment/Plan 1. Ischemic cardiomyopathy: The patient appears to have lost her atrial kick with her paroxysmal atrial fibrillation, superimposed upon severe LV dysfunction with an EF around 15%. Patient appears to have achieved her dry weight, and symptomatic orthostatic hypotension yesterday with the addition of Cozaar. I recommend discontinuation of Cozaar as she is on Imdur, w and this combination of medicines may be too much for her given her small frame. I recommend holding her Lasix today, and attempt to equilibrate her blood pressure in order to avoid additional diuresis and worsening renal function. She has no overt edema lower extremity edema, but chest x-ray indicates small right pleural effusion. Recommended also that she continue her anticoagulation therapy with Eliquis for both her LV dysfunction and paroxysmal atrial fibrillation. In addition she will continue her Imdur for hypertension. Continue Coreg as well. 2. Atrial flutter: Patient has a known history of paroxysmal atrial flutter, and I recommended starting her on amiodarone 400 mg p.o. twice daily for 5 days followed by 200 mg a day for at least 3 weeks time. If she is still in atrial flutter after 3 weeks of amiodarone therapy, we will then consider DC cardioversion. Continue Eliquis therapy. Continue Coreg therapy. 3. Hyperlipidemia: Continue diabetes therapy. 4. Thank you very much for the opportunity to participate in the cardiac care of your patient. Would recommend keeping the patient until she demonstrates no other evidence of orthostatic hypotension. Code Visit Inpatient E&M: 23583 Subs Hosp L2
[2019-04-04] MEDS: APIXABAN 2.5 MG TABLET PO ×2 (09:28→22:00)
[2019-04-04] MEDS: Aspirin 81 MG TAB.CHEW PO (09:33)
[2019-04-04] MEDS: Escitalopram Oxalate 10 MG Tablet PO (09:33)
[2019-04-04] MEDS: Magnesium Oxide 400 MG Tablet PO ×2 (09:33→22:00)
--- NOTE | 2019-04-04 10:08 | CASEMGMT ---
Addendum entered by Mady Lockhart 04/04/19 14:06: Call received from Veronica @ [facility] and they are able to accept pt. Veronica made aware pt has received information on Palliative Care but referral has not been made. Addendum entered by Mady Lockhart 04/04/19 13:53: Spoke with in room with patient. states pt has had [facility] in the past and agreeable to having [facility] after pt is discharged. Pt is also agreeable. Discussed the possibility of pt qualifying for Home oxygen prior to discharge. is agreeable to [facility]. Call placed to Veronica @ [facility] and message left with referral. She was made aware anticipated discharge tomorrow. Order for [facility] nursing home and PT eval and treat has been received/entered. Original Note: FIDEL KENDRICK NOTE: PT/OT evals reviewed. PT is recommending further therapy. To room to talk with pt. Discussed HHC with pt and she asks for this RN MIREILLE to talk with her , stating, He is usually the one to make all of those decisions. Pt is on RA now. Will need Home oxygen qualification/walking test completed prior to discharge. Pt states she does not have electricity @ home. If pt qualifies for Home oxygen, she will need Liquid O2 tanks. [facility] provides Liquid O2 tanks. Green sheet placed on chart. Pio POLLOCK RN, CM
--- NOTE | 2019-04-04 11:01 | PCM.PN.BLA ---
Progress Note Patient is scheduled for a post hospital follow-up on May 03, 2019 at 3:00 PM with Sriram Hutchins Nurse Practitioner, at the [facility].
--- NOTE | 2019-04-04 14:58 | PCM.PROGNOTE ---
Patient Problems: Active and Suspected Problems (Last Reviewed 03/28/19 @ 14:52 by Denisse Banerjee) Atrial fibrillation with RVR (Acute) Acute CHF (congestive heart failure) (Acute) Subjective: All events of the past 24 hours of been reviewed. She is afebrile. She was started on cozaar on 04/03 and did not tolerate due to hypotension - this may have also been due to overdiuresis. Coreg was held this morning secondary to low blood pressure. Lasix has also been held. Current blood pressure is 90/45. She is sitting in a chair and she denies lightheadedness. Denies SOB and she has no leg edema. Denies nausea or diaphoresis. Telemetry shows atrial fibrillation with controlled ventricular response. Intake and output are not accurate secondary to urinary incontinence. - Physical Exam General: Alert, Oriented x3, Cooperative, No apparent distress - sitting in the bedside recliner HEENT: Atraumatic, PERRLA, EOMI Oral: Moist Mucosa Neck: Supple Lungs: Clear to auscultation, - - Not tachypneic, no accessory muscle use, no conversational dyspnea. Cardiovascular: Normal S1, Normal S2, Irregular Rate - Atrial fibrillation with controlled ventricular response, Murmur - Unchanged, No Gallop Abdomen: Bowel Sounds Present, Soft, Non Tender, Non-Distended Extremities: No edema Musculoskeletal: Arthritic Changes Neurological: Cranial nerves II-XII grossly intact, Neuro grossly intact Psych/Mental Status: Normal Affect, Appropriate Vital Signs Temp Pulse Resp BP Pulse Ox 97.9 F 78 16 92/63 96 04/04/19 13:30 04/04/19 13:30 04/04/19 13:30 04/04/19 13:30 04/04/19 13:30 Oxygen Flow Rate (L/min) 2 Oxygen Delivery Method Room Air Weight: 139 lb 12.369 oz Body Mass Index (BMI) 26.0 Orthostatic Vital Signs Start: 04/03/19 16:48 Freq: q24h Status: Active Protocol: Activity Type Activity Date Activity User E-Sign Co-Sign Detail Recorded Client Recorded Date Recorded By Document 04/03/19 16:48 BAM [id number] 04/03/19 16:49 BAM 04/03/19 16:48 Orthostatic Vitals Standing -Blood Pressure (90/60-120/80 mm Hg) 77/48 L -Extremity Use Right Arm -Pulse Rate (60-100 beats/min) 93 Sitting -Blood Pressure (90/60-120/80 mm Hg) 67/46 L -Extremity Use Right Arm -Pulse Rate (60-100 beats/min) 72 Lying -Blood Pressure (90/60-120/80 mm Hg) 82/36 L -Extremity Use Right Arm -Pulse Rate (60-100 beats/min) 87 Intake and Output for Last 24 Hours 04/02/19 04/03/19 04/04/19 23:59 23:59 23:59 Intake Total 220 / 220 1060 / 1120 560 / 560 Output Total 400 / 400 250 / 250 300 / 300 Balance -180 / -180 810 / 870 260 / 260 Laboratory Tests Past 24 Hrs 04/04/19 04:50 Sodium 144 Potassium 3.9 Chloride 105 Carbon Dioxide 29.0 Anion Gap 10 BUN 31 H Creatinine 1.80 H Estim Creat Clear Calc 19.44 Est GFR (MDRD) Af Amer 35 L Est GFR (MDRD) Non-Af 29 L BUN/Creatinine Ratio 17.2 Glucose 117 H Calcium 8.6 Medical Necessity - Tobacco Use Smoking Status: Never smoker Assessment/Plan All Active Problems (Last Reviewed 03/28/19 @ 14:52 by Denisse Banerjee) Acute on chronic combined systolic and diastolic ACC/AHA stage C congestive heart failure (Acute) Anginal equivalent (Acute) Atrial fibrillation with RVR (Acute) Acute CHF (congestive heart failure) (Acute) ABBY (acute kidney injury) (Resolved) Elevated troponin (Resolved) Hypertensive urgency (Resolved) Hypokalemia (Resolved) Hypokalemia (Resolved) Warfarin-induced coagulopathy (Resolved) Impressions 1. acute on chronic systolic CHF likely due to AF with RVR 2. severe ischemic CM with a 15% EF 3. CAD 4. Chronic renal failure stage III 5. Bilateral renal artery stenosis 6. Hypertension 7. Hyperlipidemia 8. History of repair of an abdominal aortic aneurysm using an endovascular stent 9. Peripheral vascular disease 10. Hypotension 11. Acute on chronic renal failure likely secondary to intravascular volume depletion Decrease the Coreg to 3.125 mg BID and give a dose now Hold the Lasix....she was advised to increase her water intake a bit today Recheck BMP in the a.m. Possible discharge tomorrow if the BP is stable Ambulatory pulse ox prior to discharge Code Visit Inpatient E&M: [id number] Subs Hosp L2
[2019-04-04] MEDS: Carvedilol 3.125 MG TABLET PO (17:54)
[2019-04-04] MEDS: Atorvastatin Calcium 80 MG Tablet PO (22:00)
[2019-04-05] VITALS (9 sets, daily range): BP systolic 95–133; BP diastolic 57–89; PULSE 67–88; RESP 14–17; TEMP 36.4–36.7; O2SAT 91–97
[2019-04-05] MEDS: 0.9% NaCl Peripheral Flush Adult/Peds IV (04:14)
[2019-04-05 06:57] LABS: Anion Gap 7 (5-15); BUN 32 mg/dL (7-18); BUN/Creat Ratio 19.8 RATIO (10-20); Calcium,Total 8.5 mg/dL (8.5-10.1); Chloride 107 mmol/L (98-107); Creatinine, Serum 1.62 mg/dL (0.55-1.02); EST Glomerular Filtration Rate 33 mL/min (>60); Est Glom Filt Rate - Afr Amer 39 mL/min (>60); Glucose 114 mg/dL (74-106); Magnesium 2.6 mg/dL (1.6-2.6); Potassium 4.5 mmol/L (3.5-5.1); Sodium Level 141 mmol/L (136-145)
[2019-04-05] MEDS: Aspirin 81 MG TAB.CHEW PO (08:05)
[2019-04-05] MEDS: Carvedilol 3.125 MG TABLET PO (08:05)
[2019-04-05] MEDS: APIXABAN 2.5 MG TABLET PO (09:58)
[2019-04-05] MEDS: Isosorbide Mononitrate 30 MG Tablet PO (09:58)
[2019-04-05] MEDS: Escitalopram Oxalate 10 MG Tablet PO (09:59)
[2019-04-05] MEDS: Furosemide 40 MG Tablet PO (09:59)
[2019-04-05] MEDS: Magnesium Oxide 400 MG Tablet PO (09:59)
--- NOTE | 2019-04-05 11:45 | PCM.PN.CARD ---
Subjectve: The patient is awake and alert. She states overall she is feeling much better especially with respect to her sensation of shortness of breath. She does note when she is up and ambulating that she can fatigued easily. Objective: Vital Signs Temp Pulse Resp BP Pulse Ox 97.8 F 79 16 122/57 H 95 04/05/19 09:56 04/05/19 11:00 04/05/19 09:56 04/05/19 09:56 04/05/19 09:56 Oxygen Flow Rate (L/min) 2 Oxygen Delivery Method Room Air Weight: 139 lb 12.369 oz Body Mass Index (BMI) 26.0 Orthostatic Vital Signs Start: 04/03/19 16:48 Freq: 0600 Status: Active Protocol: Activity Type Activity Date Activity User E-Sign Co-Sign Detail Recorded Client Recorded Date Recorded By Document 04/05/19 04:00 AML [id number] 04/05/19 04:37 AML 04/05/19 04:00 Orthostatic Vitals Standing -Blood Pressure (90/60-120/80 mm Hg) 105/64 -Extremity Use Right Arm -Pulse Rate (60-100 beats/min) 76 Sitting -Blood Pressure (90/60-120/80 mm Hg) 116/69 -Extremity Use Right Arm -Pulse Rate (60-100 beats/min) 88 Lying -Blood Pressure (90/60-120/80 mm Hg) 95/58 L -Extremity Use Right Arm -Pulse Rate (60-100 beats/min) 67 Intake and Output for Last 24 Hours 04/03/19 04/04/19 04/05/19 23:59 23:59 23:59 Intake Total 1060 / 1120 1135 / 1185 50 / 50 Output Total 250 / 250 300 / 300 400 / 400 Balance 810 / 870 835 / 885 -350 / -350 General: Awake, Alert, Oriented x 3, Cooperative, No Acute Distress HEENT: Atraumatic, Normocephalic Neck: Supple, Good ROM, No JVD Lungs: Clear to auscultation Cardiovascular: Irregular Rhythm, Normal S1, Normal S2 Abdomen: Bowel Sounds Present, Soft, Non Tender Extremities: No edema Psych/Mental Status: Appropriate 04/05/19 05:35: Sodium 141, Potassium 4.5, Chloride 107, Carbon Dioxide 27.0, Anion Gap 7, BUN 32 H, Creatinine 1.62 H, Est GFR (MDRD) Af Amer 39 L, Est GFR (MDRD) Non-Af 33 L, BUN/Creatinine Ratio 19.8, Glucose 114 H, Calcium 8.5, Magnesium 2.6 Rhythm: Atrial flutter; PVCs Echocardiogram: Interpretation Summary Normal LV size. Mild concentric left ventricular hypertrophy. Severe segmental systolic dysfunction (see wall motion). The estimated ejection fraction is 20 %. Pulmonary artery systolic pressure is 50 mmHg. Moderate pulmonary hypertension. Contrast injection was performed. Compared to prior study, there is no significant change. Medical Necessity - Tobacco Use Smoking Status: Never smoker Assessment/Plan 1. Atrial fibrillation/flutter At the present time she continues rate control therapy and anticoagulant therapy. 2. CAD She does have a history of CAD. She is without acute symptoms at this time. She will continue medical management. 3. Ischemic mediated cardiomyopathy She has diminished LV systolic function with diminished LVEF. She is continuing medical management. 4. Congestive heart failure: Chronic systolic She states she is symptomatically improved especially with respect to her breathing. She will continue medical management and follow-up. 5. Hyperlipidemia She will continue medical management with adjustment as needed. At the present time she is continuing conservative medical management. She will need future outpatient cardiovascular follow-up. Comment: The patient's case was discussed and reviewed with the patient and Dr. Shepherd. This note was generated using a voice recognition system and there may be incorrect words, spelling or punctuation that were not noted when reviewing the office note prior to saving.
--- NOTE | 2019-04-05 13:01 | DCINST_ITS ---
- Discharge Diagnoses Current Active Problems: Current Active and Chronic Problems (Last Reviewed 03/28/19 @ 14:52 by Denisse Banerjee) Atrial fibrillation with RVR (Acute) Acute CHF (congestive heart failure) (Acute) You will use the following diet at home:: Cardiac - Low-salt, low-fat Your food should be the consistency of: Regular Your liquids should be the consistency of: Regular/Thin Discharge Activity: Return to Normal Activity Lifting Restrictions: No more than 10 pounds Call your doctor if you observe: Fever of 101 or Higher, Shortness of breath, Dizziness, Fainting spells, Swelling in the ankles, Chest pain Instructions: What Is Atrial Flutter/Atrial Fibrillation?, Cardioversion Additional Instructions: 1. I had to decrease the dose of the Carvedilol (Coreg) from 12.5 mg twice a day to 6.5 mg twice a day because the blood pressures were low. I gave you a prescription for the 6.5 mg tablet BUT you can break the 12.5 mg tablets in 1/2 if you want and take 1/2 tab twice a day. 2. You should see Dr. Corley in 3 weeks. If your heart is still in atrial fibrillation he may want to try shocking the heart back into a regular r hythm.....you get sedated for that and probably will not even remember it. Pending Tests on Discharge: None Allergies/Adverse Reactions: Allergies No Known Allergies Allergy (Verified 04/02/19 11:26) Medications to take at Discharge Aspirin [Aspirin, Baby] 81 mg PO DAILY@0800 10/21/17 Escitalopram Oxalate [Lexapro] 10 mg PO DAILY 10/21/17 Rosuvastatin Calcium [Crestor] 40 mg PO DAILY 10/21/17 magnesium oxide 400 mg (241.3 mg magnesium) tablet 400 mg PO BID tab 02/20/18 Apixaban [Eliquis] 2.5 mg PO BID 04/07/18 Isosorbide Mononitrate [Imdur] 30 mg PO DAILY #30 tab 04/09/18 potassium chloride ER 10 mEq tablet,extended release 20 meq PO DAILY tab 10/10/18 Carvedilol 6.25 mg PO BID #60 tab 04/05/19 Furosemide [Lasix] 40 mg PO BID@1000,1800 tab 04/05/19 The following prescriptions were given: Carvedilol 6.25 mg PO BID #60 tab Prescription Printed Primary Care Physician: Chon Solis DO [Primary Care Provider] - Please follow up with your Primary Care Physician in: 5-7 days Test Results: Test results from this visit will be discussed in further detail at your follow- up appointment, if applicable. Please Follow Up With: Aleksander Corley MD When: 3 weeks Proposed Discharge Date: 04/05/19
--- NOTE | 2019-04-05 13:13 | PCM.DC.SUM ---
Discharge Date and Diagnosis Date of Admission: 04/02/19 Date of Discharge: 04/05/19 - Primary Discharge Diagnosis Active and Suspected Problems (Last Reviewed 03/28/19 @ 14:52 by Denisse aBnerjee) Atrial fibrillation with RVR (Acute) Acute on chronic systolic (congestive) heart failure (Acute) Acute renal failure superimposed on stage 3 chronic kidney disease (Acute) Orthostatic hypotension (Acute) Hypokalemia (Acute) - Secondary Discharge Diagnosis Chronic Problems (Last Reviewed 03/28/19 @ 14:52 by Denisse Banerjee) Old myocardial infarction (Chronic) Chronic systolic (congestive) heart failure (Chronic) Paroxysmal atrial fibrillation (Chronic) History of left heart catheterization (Chronic 08/2017) 08/10/17: attempted but unsuccessful PCI: right to left collaterals in LAD, unable to cross OM 1 with wire Atherosclerotic heart disease of [place] coronary artery without angina pectoris (Chronic) Occluded LAD with right to left collaterals per cath and PCI 08/10/2017 ; unable to cross OM1 with wire Hyperlipidemia (Chronic) History of repair of aneurysm of abdominal aorta using endovascular stent graft (Chronic) CKD (chronic kidney disease), stage III (Chronic) HTN (hypertension) (Chronic) Ischemic cardiomyopathy (Chronic) CVA (cerebral vascular accident) (Chronic) Peripheral vascular disease (Chronic) Renal artery stenosis (Chronic) [facility] (current) use of anticoagulants (Chronic) Dyslipidemia (Chronic) PVD (peripheral vascular disease) (Chronic) Moderate pulmonary hypertension Hospital Course and Treatment Imaging Results: Clinical Impression(s) from Imaging Studies Chest X-Ray 04/02/19 11:35 IMPRESSION: Bibasilar atelectasis and/or infiltrates with small bilateral effusions. Follow-up is recommended. Electronically Signed: Ruddy Welsh, at 12:32 EDT , Service support , Laboratory Results - last 24 hr 04/05/19 05:35 Sodium 141 Potassium 4.5 Chloride 107 Carbon Dioxide 27.0 Anion Gap 7 BUN 32 H Creatinine 1.62 H Estim Creat Clear Calc 21.60 Est GFR (MDRD) Af Amer 39 L Est GFR (MDRD) Non-Af 33 L BUN/Creatinine Ratio 19.8 Glucose 114 H Calcium 8.[address] Aleksander Corley - [facility] Operations: None Procedures: 2-D Echocardiogram - Interpretation Summary Normal LV size. Mild concentric left ventricular hypertrophy. Severe segmental systolic dysfunction (see wall motion). The estimated ejection fraction is 20 %. Pulmonary artery systolic pressure is 50 mmHg. Moderate pulmonary hypertension. Contrast injection was performed. Compared to prior study, there is no significant change. Summary of Care Provided: The patient is a 78YO female with a past medical history of hypertension, hyperlipidemia, coronary artery disease, ischemic cardiomyopathy with a 15% ejection fraction, paroxysmal atrial fibrillation, chronic anticoagulation with Eliquis, CVA in 2011 and bilateral renal artery stenosis who presented to the emergency department at [facility] on 04/02/2019 complaining of shortness of breath. She denied any recent increase in weight and she gets weighed daily. She denied any ankle edema. She c/o orthopnea and PND. EKG in the ED showed AF with RVR and old anteroseptal [place]. There were no ST or T wave changes that indicated ischemia. CXR showed pulmonary edema. The BNP was 685. She was admitted to a monitored bed on PCU and was seen in consultation by Dr. Corley. She was started on Amiodarone for rate control and IV Lasix BID. She diuresed well and SOB improved. She remained in atrial fibrillation but the amiodarone was successful in controlling her heart rate. She was started on a very low dose of losartan however became hypotensive and it was discontinued. She remained hypotensive and Lasix was held for 1 day with a little improvement in the BP's. Coreg was decreased to 3.125 BID for 1 day and the BP's improved significantly. HR remained controlled. On the day of DC the BP was 122/77 and she denied lightheadedness and SOB. She had no peripheral edema. she was discharged home on 04/05/19 on Coreg 6.25 mg BID and Lasix 40 mg BID. She will continue Eliquis 2.5 mg BID and follow up in the office with Dr. Corley in 3 weeks. If she is still in AF cardioversion will be considered. PHYSICAL EXAM: GENERAL: alert, oriented X 3, Cooperative, NAD, sitting up in the bedside chair. ORAL: moist mucosa, no mucosal lesions NECK: No JVD, supple, trachea midline LUNGS: CTA, symmetric chest expansion, no rales HEART: RRR, Normal S1 and S2, no rub, no gallop ABDOMEN: soft, NT, ND, BS present, no guarding with palpation EXTREMITIES: no edema, no cyanosis, no calf tenderness SKIN: No rashes, no breakdown NEUROLOGIC: no focal neurologic deficits PSYCH: appropriate, normal affect, pleasant This note was generated with [employer] dictation software. It may contain incorrect words, spelling, and punctuation that were not noted in checking the note before signing. - Physical Exam Vital Signs Temp Pulse Resp BP Pulse Ox 97.8 F 79 16 122/57 H 95 04/05/19 09:56 04/05/19 11:00 04/05/19 09:56 04/05/19 09:56 04/05/19 09:56 Oxygen Flow Rate (L/min) 2 Oxygen Delivery Method Room Air Weight: 139 lb 12.369 oz Body Mass Index (BMI) 26.0 Orthostatic Vital Signs Start: 04/03/19 16:48 Freq: 0600 Status: Active Protocol: Activity Type Activity Date Activity User E-Sign Co-Sign Detail Recorded Client Recorded Date Recorded By Document 04/05/19 04:00 AML [id number] 04/05/19 04:37 AML 04/05/19 04:00 Orthostatic Vitals Standing -Blood Pressure (90/60-120/80 mm Hg) 105/64 -Extremity Use Right Arm -Pulse Rate (60-100 beats/min) 76 Sitting -Blood Pressure (90/60-120/80 mm Hg) 116/69 -Extremity Use Right Arm -Pulse Rate (60-100 beats/min) 88 Lying -Blood Pressure (90/60-120/80 mm Hg) 95/58 L -Extremity Use Right Arm -Pulse Rate (60-100 beats/min) 67 Intake and Output for Last 24 Hours 04/03/19 04/04/19 04/05/19 23:59 23:59 23:59 Intake Total 1060 / 1120 1135 / 1185 540 / 540 Output Total 250 / 250 300 / 300 400 / 400 Balance 810 / 870 835 / 885 140 / 140 Laboratory Tests Past 24 Hrs 04/05/19 05:35 Sodium 141 Potassium 4.5 Chloride 107 Carbon Dioxide 27.0 Anion Gap 7 BUN 32 H Creatinine 1.62 H Estim Creat Clear Calc 21.60 Est GFR (MDRD) Af Amer 39 L Est GFR (MDRD) Non-Af 33 L BUN/Creatinine Ratio 19.8 Glucose 114 H Calcium 8.5 Magnesium 2.6 Discharge Activity: Return to Normal Activity Call your doctor if you observe: Fever of 101 or Higher, Shortness of breath, Dizziness, Fainting spells, Swelling in the ankles, Chest pain Home Medications: Medications to take at Discharge Aspirin [Aspirin, Baby] 81 mg PO DAILY@0800 10/21/17 Escitalopram Oxalate [Lexapro] 10 mg PO DAILY 10/21/17 Rosuvastatin Calcium [Crestor] 40 mg PO DAILY 10/21/17 magnesium oxide 400 mg (241.3 mg magnesium) tablet 400 mg PO BID tab 02/20/18 Apixaban [Eliquis] 2.5 mg PO BID 04/07/18 Isosorbide Mononitrate [Imdur] 30 mg PO DAILY #30 tab 04/09/18 potassium chloride ER 10 mEq tablet,extended release 20 meq PO DAILY tab 10/10/18 Amiodarone HCl [Cordarone] 200 mg PO DAILY #30 tab 04/05/19 Carvedilol 6.25 mg PO BID #60 tab 04/05/19 Furosemide [Lasix] 40 mg PO BID@1000,1800 tab 04/05/19 Following Prescrptions Were Given to Patient: Carvedilol 6.25 mg PO BID #60 tab Prescription Printed Amiodarone HCl [Cordarone] 200 mg PO DAILY #30 tab Prescription Printed Primary Care Physician: hCon Solis DO [Primary Care Provider] - Please follow up with your Primary Care Physician in: 5-7 days Please Follow Up With: Aleksander Corley MD When: 3 weeks Patient Instructions: What Is Atrial Flutter/Atrial Fibrillation?, Cardioversion Disposition: Home Minutes spent on discharge:: 30 Patient Condition:: Good Medical Necessity - Tobacco Use Smoking Status: Never smoker Tobacco Use: Non-smoker Meaningful Use Info Meaningful Use Diagnoses (Choose all that apply): CHF - CHF FABIAN/ARB ordered at discharge?: No Reason FABIAN/ARB not ordered?: Hypotension Documented LVEF (%): 15 Code Visit Inpatient E&M: [id number] Disch Hosp
--- NOTE | 2019-04-06 14:44 | CASEMGMT ---
RN CM DC PHONE CALL DC DATE: DC Disposition: Home Diagnosis on Discharge: Home with [facility] LACE/STRATA: 08/06 Call deferred. Pt dc'd with [facility] to be seen today or tomorrow. Renita MEDLEYN RN ACM
== END 2019-04-05 15:14 | disposition home health service (06) | DRG 291 ==
LOC: ED 11:57 → PCU 13:06
PROVIDERS: Physician Assistant; Admitting Provider Internal Medicine; Emergency Provider Emergency Medicine; Family Provider Student in an Organized Health Care Education/Training Program; PCP Student in an Organized Health Care Education/Training Program; Visit Provider Internal Medicine
DX: I13.0 Hypertensive heart and chronic kidney disease with heart failure and stage 1 through stage 4 chronic kidney disease, or unspecified chronic kidney disease (principal); I50.23 Acute on chronic systolic (congestive) heart failure; I69.354 Hemiplegia and hemiparesis following cerebral infarction affecting left non-dominant side; I48.92 Unspecified atrial flutter; N17.9 Acute kidney failure, unspecified; I48.0 Paroxysmal atrial fibrillation; N18.3 Chronic kidney disease, stage 3 (moderate); I25.10 Atherosclerotic heart disease of native coronary artery without angina pectoris; I27.20 Pulmonary hypertension, unspecified; I25.5 Ischemic cardiomyopathy; E78.5 Hyperlipidemia, unspecified; R32 Unspecified urinary incontinence; E87.6 Hypokalemia; I73.9 Peripheral vascular disease, unspecified; I95.1 Orthostatic hypotension; Z86.79 Personal history of other diseases of the circulatory system; Z79.01 Long term (current) use of anticoagulants; I25.2 Old myocardial infarction
CPT/HCPCS: 36415; 71045; 80048; 83735; 83880; 84443; 84484; 85025; 93005; 93306; 97162; 97166; 97530; 99283; J7040; J7050; Q9957; A4216; C8929; J1940

== ENCOUNTER → 2019-05-03 15:51 | Outpatient (CLI) | payer OTHER, SELFPAY ==
[2019-05-03 14:58] VITALS: BMI 25.4
[2019-05-03 16:37] LABS: International Normalized Ratio 1.6; Prothrombin Time (Protime)PT. 18.9 SECONDS (11.7-14.9)
[2019-05-03 16:54] LABS: Anion Gap 10 (5-15); BUN 45 mg/dL (7-18); BUN/Creat Ratio 19.2 RATIO (10-20); Chloride 103 mmol/L (98-107); Creatinine, Serum 2.34 mg/dL (0.55-1.02); EST Glomerular Filtration Rate 21 mL/min (>60); Est Glom Filt Rate - Afr Amer 26 mL/min (>60); Glucose 109 mg/dL (74-106); Potassium 3.2 mmol/L (3.5-5.1); Sodium Level 141 mmol/L (136-145)
== END ==
PROVIDERS: Family Provider Student in an Organized Health Care Education/Training Program; PCP Student in an Organized Health Care Education/Training Program; Referring Provider Nurse Practitioner Family; Visit Provider Nurse Practitioner Family
DX: I25.10 Atherosclerotic heart disease of native coronary artery without angina pectoris (principal); I25.5 Ischemic cardiomyopathy; I48.0 Paroxysmal atrial fibrillation; I10 Essential (primary) hypertension
CPT/HCPCS: 36415; 80048; 85610

== ENCOUNTER 2019-05-11 10:11 | Day surgery (SDC) | payer OTHER, SELFPAY ==
[2019-05-03 14:58] VITALS: BMI 25.4
[2019-05-11 10:38] VITALS: BMI 25.9
--- NOTE | 2019-05-11 11:35 | HP.PCM_ITS ---
Problem List (1) Acute on chronic systolic (congestive) heart failure Status: Acute (2) Atrial fibrillation with RVR Status: Acute (3) Atherosclerotic heart disease of [place] coronary artery without angina pectoris Status: Chronic Qualifiers: Comment: Occluded LAD with right to left collaterals per cath and PCI 08/10/2017 ; unable to cross OM1 with wire (4) CKD (chronic kidney disease), stage III Status: Chronic (5) CVA (cerebral vascular accident) Status: Chronic Qualifiers: History and Physical Date of Admission: 05/11/19 [facility] [address] [place] [address] OFFICE VISIT Date of Service: 05/03/19 MR#:[id number] Name: JUS RAHMAN [facility] #:[id number] : 1940 Provider: ROMEO Taylor Age/Sex: 79/F Location:[facility] Status:Signed HPI HPI History of Present Illness Surgical H&P: Yes Details: This is a 79-year-old female who presents for a cardiovascular outpatient follow-up status post recent hospitalization. 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 Patient presented to the hospital in August 2017 for shortness of breath. According to EMS report initially she was hypoxic at 50% on room air. Her ECG shows sinus rhythm without any ST changes and her troponin was elevated at 0.46. Patient underwent heart catheterization which showed double vessel coronary artery disease of the old occluded LAD with right to left collaterals and possible acute occlusion of mid/distal OM #1. PCI to mid/distal OM1 was unsuccessful. Based on her history of previous CVA and decreased LV function at 15-20%,and PAF, long-term anticoagulation was recommended. Echocardiogram from August 2017 show an estimate ejection fraction of 15-20%, stage I diastolic dysfunction, regional wall motion abnormalities as specified, severely enlarged left atrium, mild tricuspid valve insufficiency, RVSP of 45 mmHg, and moderate pulmonary hypertension. Previous echocardiogram in August 2012 showed an estimated ejection fraction of 65%. Renal duplex ultrasound from August 2012 showed bilateral 0-59% renal stenosis, mild aortic irregularity distally, aortic diameter of 1.5 x 1.4 cm proximally, and elevated renal resistivity indices bilaterally suggested of intrinsic renal parenchymal disease. Repeat echocardiogram dated 10/22/17 confirmed severe LV dysfunction with an EF around 15%, and RVSP of 46 mmHg, 1+ mitral regurgitation, 2+ tricuspid re gurgitation. Patient was admitted in April 2018 with CHF exacerbation. She was given IV Lasix, medicines were adjusted, and she was discharged home. Patient was admitted and evaluated at [facility] in April 2019 for shortness of breath and atrial fibrillation with RVR. She was diuresed and discharged on Lasix 40 mg p.o. twice daily. She was started on amiodarone therapy. Her Coreg was adjusted. The general plan was that if she remained in atrial fibrillation that an outpatient cardioversion will be considered. Pt denies chest discomfort. Her exercise tolerance is stable via a walker. Pt denies symptoms of CHF, palpitations, lightheadedness, dizziness, near syncopal or syncopal episodes. Pt denies edema or claudication issues. Pt. denies orthopnea, PND, fever, chills, blood in urine, blood in stool, myalgia, or unexplainable fatigue or falls. Intake Vital Signs 05/03/19 Height 5 ft 1 in 05/03/19 Weight: 135 lb 05/03/19 Body Mass Index (BMI) 25.4 05/03/19 Blood Pressure 106/69 05/03/19 Blood Pressure Location Lt brachial 05/03/19 Blood Pressure Position Sitting 05/03/19 Respiratory Rate 18 05/03/19 Pulse Rate 85 05/03/19 Pulse Source Monitor 05/03/19 Pulse Ox 94 Intake Visit Reasons: CHF/ A-Fib Director Of Strategic Sourcing Required: No Is patient in pain?: No Allergies No Known Allergies Allergy (Verified 05/03/19 14:58) Medications Aspirin [Aspirin, Baby] 81 mg PO DAILY@0800 10/21/17 [History Confirmed 05/03/19] Escitalopram Oxalate [Lexapro] 10 mg PO DAILY 10/21/17 [History Confirmed 05/03/19] Rosuvastatin Calcium [Crestor] 40 mg PO DAILY 10/21/17 [History Confirmed 05/03/19] magnesium oxide 400 mg (241.3 mg magnesium) tablet 400 mg PO BID tab 02/20/18 [History Confirmed 05/03/19] Isosorbide Mononitrate [Imdur] 30 mg PO DAILY #30 tab 04/09/18 [Rx Confirmed 05/03/19] Carvedilol 6.25 mg PO BID #60 tab 04/05/19 [Rx Confirmed 05/03/19] amiodarone 200 mg tablet 200 mg PO DAILY #90 tab 05/03/19 [Rx Confirmed 05/03/19] apixaban 2.5 mg tablet 2.5 mg PO BID 05/03/19 [History Confirmed 05/03/19] furosemide 40 mg tablet 40 mg PO BID@1000,1800 #180 tab 05/03/19 [Rx Confirmed 05/03/19] potassium chloride ER 10 mEq tablet,extended release 20 meq PO DAILY tab 05/03/19 [History Confirmed 05/03/19] [facility] Medical History (Updated 05/04/19 @ 10:17 by Sriram Taylor NP-C) Old myocardial infarction (Chronic) Chronic systolic (congestive) heart failure (Chronic) Paroxysmal atrial fibrillation (Chronic) History of left heart catheterization (Chronic 08/2017) Atherosclerotic heart disease of [place] coronary artery without angina pectoris (Chronic) Hyperlipidemia (Chronic) CKD (chronic kidney disease), stage III (Chronic) HTN (hypertension) (Chronic) Ischemic cardiomyopathy (Chronic) CVA (cerebral vascular accident) (Chronic) Peripheral vascular disease (Chronic) Renal artery stenosis (Chronic) Dyslipidemia (Chronic) PVD (peripheral vascular disease) (Chronic) Surgical History (Updated 04/07/18 @ 17:30 by Jhonatan Mesa MD) History of repair of aneurysm of abdominal aorta using endovascular stent graft (Chronic) Family History (Updated 10/21/17 @ 08:53 by Mars Rayo) Brother Hypertension Social History (Updated 05/04/19 @ 10:23 by Sriram Taylor NP-C) Smoking Status: Never smoker alcohol intake: never substance use type: does not use caffeine: No what type of physical activity do you participate in: none seatbelt use: always do you feel safe at home: Yes ROS Const Const: Negative for fatigue, weakness, body ache, fever(s) or chills ENT ENT: Negative for dizziness Cardio Chest Pain: No Palpitations: No Edema: None Muscle aches with walking: None Resp Respiratory: Negative for SOB with activity, SOB at rest, SOB orthopnea\SOB lying down or paroxysmal nocturnal dyspnea GI GI: Negative nausea, vomiting blood/hematemesis, bright, red blood in stools or black,tarry stools : Negative for hematuria or frequent nighttime urination/ nocturia Musc Musc: Negative for muscle aches/ myalgia Skin Skin: Negative non-healing lesions or rash Neuro Neuro: Negative for dizziness, lightheadedness, near syncope, syncope, orthostatic symptoms or weakness Endo Endo: Negative for fatigue Allergy Allergy/Immunology: Negative for rash Cardiology Exam Const Appearance: cooperative, healthy appearing, no acute distress and well developed Nutritional Appearance: average body habitus and well nourished Orientation: alert, oriented x3 and oriented to person Head Head: normal to inspection, normocephalic and atraumatic Nose: external nose normal Face and Sinus: face symmetric Mouth: oral mucosae normal Eyes General: appearance normal, both eyes and all related structures Eyelids: eyelids normal Conjunctivae: conjunctivae normal Pupils: PERRL and normal by confrontation EOM: EOM intact bilaterally Neck Neck: normal visual inspection and full ROM Carotids: normal carotid upstroke Chest Chest inspection: normal inspection of the chest, symmetric chest movement and normal respiratory effort Auscultation: Bilateral: Clear to Auscultation Cardio Palpation: normal PMI Rate: regular rate Rhythm: irregular rhythm Heart sounds: S1 normal and S2 normal; negative rub, gallop or murmur GI GI: normal to inspection, no hepatosplenomegaly and bowel sounds present Neuro General: alert, awake, oriented x3, CN's II-XI intact bilaterally and moves all extremities Skin Skin: no rashes or lesions noted Extremities Pulses: Normal: Right Femoral Pulse, Left Femoral Pulse, Right Dorsalis Pedis Pulse, Left Dorsalis Pedis Pulse, Right Posterior Tibial Pulse, Left Posterior Tibial Pulse, Right Radial Pulse, Left Radial Pulse Lower Extremity Edema: None: Bilateral Psych Psychological: normal affect Assessment & Plan 1. Paroxysmal atrial fibrillation I48.0 Plan Her EKG today in office shows atrial fibrillation/flutter at a rate of 83 bpm with a QTC of 438. Her heart rate appears to be well controlled with the addition of amiodarone during her recent hospitalization. However, due to maintaining atrial fibrillation she will proceed with cardioversion. Her most recent echocardiogram from April 2019 showed ejection fraction of 20% and moderately enlarged left atrium. Hopefully the combination of antiarrhythmic and cardioversion will help maintain sinus rhythm and thus her LVEF improves. Orders Orders: 12 Lead EKG performed by [facility] 05/03/19 Cardioversion 05/03/19 Basic Metabolic Profile (BMP) 05/03/19 Prothrombin Time w/INR 05/03/19 2. Atherosclerosis of [place] coronary artery of [place] heart without angina pectoris I25.10 Occluded LAD with right to left collaterals per cath and PCI 08/10/2017 ; unable to cross OM1 with wire Plan Patient's heart catheterization showed occluded mid/distal OM1 that was unable to undergo successful PCI. She does have a right to left and left to left collateral flow. Patient denies any chest pain, arm pain, jaw pain, neck pain, shortness of breath, or fatigue suggestive of angina at this time. We will continue to monitor this. We will not make any medication regimen changes and will continue risk factor modification. Orders Orders: Cardioversion 05/03/19 Basic Metabolic Profile (BMP) 05/03/19 Prothrombin Time w/INR 05/03/19 3. Chronic systolic (congestive) heart failure I50.22 Plan Patient has meticulously taken her blood pressure, heart rate, and weight at home on a daily basis. Her weight has appeared stable. She denies any shortness of breath, lower extremity edema, or activity intolerance. It appears that her dry weight is close to 132 pounds. At this time, she will continue current medical therapy and will continue to monitor. Her recent BMP showed an increase in creatinine level and a decrease in potassium level. Because of this trend and appearing euvolemic on exam, she was asked to decrease her Lasix to 40 mg p.o. daily. 4. Ischemic cardiomyopathy I25.5 Plan Patient has been admitted multiple times for congestive heart failure. Her most recent echocardiogram showed ejection fraction of 20%. She is currently on beta-vidal and diuretic. Given her kidney function we will hold off on FABIAN inhibitor, ARB, or Entresto. Orders Orders: Cardioversion 05/03/19 Basic Metabolic Profile (BMP) 05/03/19 Prothrombin Time w/INR 05/03/19 5. Essential hypertension I10 Plan Patient's blood pressure is well-controlled. We will continue to monitor. We will not make any medication regimen changes. Orders Orders: Cardioversion 05/03/19 Basic Metabolic Profile (BMP) 05/03/19 Prothrombin Time w/INR 05/03/19 6. Dyslipidemia E78.5 Plan She will continue current statin medication. Plan Detail Other Medications Refilled: amiodarone 200 mg PO DAILY 90 tabs 3RF furosemide 40 mg PO BID@1000,1800 180 tabs 3RF Additional Comments Thank you for allowing us to participate in the patients plan of care, if you have any questions please do not hesitate to call. This note was generated using a voice recognition system and there may be incorrect words, spelling or punctuation that were not noted when reviewing the office note prior to saving. Follow Up 6 Months (DJN) Coding Level of Care Code Off vis,est,level 3 Diagnoses Paroxysmal atrial fibrillation I48.0 Atherosclerosis of [place] coronary artery of [place] heart without angina pectoris I25.10 [place] vs. transplanted heart: [place] heart Chronic systolic (congestive) heart failure I50.22 Ischemic cardiomyopathy I25.5 Essential hypertension I10 Hypertension type: essential hypertension Dyslipidemia E78.5 Coding Level of Care Code Off vis,est,level 3 Diagnoses Paroxysmal atrial fibrillation I48.0 Atherosclerosis of [place] coronary artery of [place] heart without angina pectoris I25.10 [place] vs. transplanted heart: [place] heart Chronic systolic (congestive) heart failure I50.22 Ischemic cardiomyopathy I25.5 Essential hypertension I10 Hypertension type: essential hypertension Dyslipidemia E78.5 Supplemental Info Supplemental Information Echocardiogram from 04/02/2019: Interpretation Summary Normal LV size. Mild concentric left ventricular hypertrophy. Severe segmental systolic dysfunction (see wall motion). The estimated ejection fraction is 20 %. Pulmonary artery systolic pressure is 50 mmHg. Moderate pulmonary hypertension. Contrast injection was performed. Compared to prior study, there is no significant change. Diagnostics Electrocardiogram 05/03/19 Echocardiogram 04/02/19 Chest X-Ray 04/02/19 05/04/19 1024<Electronically signed by Sriram BELLC> Date Sriram Taylor INFRASTRUCTURE TECHNICIAN-C Addendum: Patient seen and examined the Supervisor Sample Preparation holding area, and no interim changes from previous history and physical. The risks/benefits of the procedure were thoroughly explained the patient and informed consent was obtained. Patient will proceed with amiodarone and Eliquis assisted DC cardioversion. Cosigner Signature:Date (if applicable) CC: Chon Arboleda DO ~
--- NOTE | 2019-05-11 11:37 | CARDIOVERS ---
Cardioversion Cardioversion: Patient is brought to the Sales Representative [employer]ourses in the fasting state. The risks/benefits of the procedure were thoroughly explained the patient and informed consent was obtained. Baseline EKG: Baseline EKG showed atrial fibrillation with controlled ventricular response. Cardioversion: The defibrillator pads were placed in the AP position. With the assistance of Dr. Miguel Ángel Barber the patient was given a total of 4 mg of IV etomidate. Once adequate sedation was obtained, the patient received a single 200 J biphasic synchronized shock which converted her from atrial fibrillation to normal sinus rhythm. Patient had some minor vomitus at the conclusion of the procedure was placed in the left lateral decubitus position and aggressively suction. The patient spontaneously awoke, move all 4 extremities and tolerated procedure well. No respiratory distress whatsoever. Conclusions: Successful amiodarone assisted DC cardioversion. Patient received a single 200 J biphasic synchronized shock which converted from atrial fibrillation to normal sinus rhythm. Patient spontaneously awoke and moved all 4 extremities and tolerated the procedure well. No complications.
--- NOTE | 2019-05-11 12:24 | PCM.OP.PRO ---
Problem List (1) Acute on chronic systolic (congestive) heart failure Status: Acute (2) Acute renal failure superimposed on stage 3 chronic kidney disease Status: Acute (3) Atrial fibrillation with RVR Status: Acute (4) Atherosclerotic heart disease of [place] coronary artery without angina pectoris Status: Chronic Qualifiers: Comment: Occluded LAD with right to left collaterals per cath and PCI 08/10/2017 ; unable to cross OM1 with wire (5) CVA (cerebral vascular accident) Status: Chronic Qualifiers: (6) Chronic systolic (congestive) heart failure Status: Chronic (7) Dyslipidemia Status: Chronic (8) HTN (hypertension) Status: Chronic Qualifiers: Hypertension type: essential hypertension Qualified Code(s): I10 - Essential (primary) hypertension (9) Hyperlipidemia Status: Chronic (10) Ischemic cardiomyopathy Status: Chronic (11) 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 The patient reports no PO intake since midnight. The patient does not have a history of obstructive sleep apnea. The patient reports no history of smoking and COPD. The patient denies any recent constitutional symptoms such as fevers, chills, nausea or vomiting. The patient denies previous anesthetic complications. PHYSICAL EXAMINATION: VITAL SIGNS: Reviewed and were acceptable. GENERAL: The patient is a female, in no apparent distress, speaking in full sentences. HEENT: Normocephalic, atraumatic. Mucous membranes are moist and pink. Good mouth opening noted. Trachea is midline. Good neck mobility. MP I CHEST: S1, S2 irregularly irregular. No murmurs, rubs or gallops were noted. LUNGS: Clear to auscultation bilaterally without appreciable wheezes, rales or rhonchi. ABDOMEN: Soft, nontender, nondistended. Positive bowel sounds. EXTREMITIES: There is no clubbing, cyanosis or edema. ASA Class: II DESCRIPTION OF PROCEDURE: After confirmation of informed consent, the patient's anesthesia plan was reviewed in detail. Etomidate was chosen. Risks and benefits were reviewed and the patient agreed to proceed. At 10:59 AM, the patient was given 4 mg of etomidate. The patient achieved an appropriate level of sedation and received 1 attempt synchronized cardioversion, at [address] Corley at the bedside. This was successful in achieving normal sinus rhythm. The patient was monitored until 11:12 AM, at which time the patient reached their baseline mental status and function. The patient was slow to recover from sedative medication. Patient did have some mild emesis requiring manipulation into a recovery position. No significant desaturation or change in vitals were noted. COMPLICATIONS: Slow to recover. Mild emesis without obvious aspiration ESTIMATED BLOOD LOSS: None RECOMMENDATIONS: Okay to recover in usual fashion. Code Visit [id number]: Other Procedure See Report - 54553 -13 minutes conscious sedation
== END 2019-05-11 12:40 | disposition home or self-care (01) ==
PROVIDERS: Family Provider Student in an Organized Health Care Education/Training Program; PCP Student in an Organized Health Care Education/Training Program; Referring Provider Internal Medicine Cardiovascular Disease; Visit Provider Internal Medicine Cardiovascular Disease
DX: I48.0 Paroxysmal atrial fibrillation (principal); I69.354 Hemiplegia and hemiparesis following cerebral infarction affecting left non-dominant side; I69.398 Other sequelae of cerebral infarction; M21.372 Foot drop, left foot; I13.0 Hypertensive heart and chronic kidney disease with heart failure and stage 1 through stage 4 chronic kidney disease, or unspecified chronic kidney disease; I50.23 Acute on chronic systolic (congestive) heart failure; N18.3 Chronic kidney disease, stage 3 (moderate); N17.9 Acute kidney failure, unspecified; I70.1 Atherosclerosis of renal artery; I25.10 Atherosclerotic heart disease of native coronary artery without angina pectoris; I25.5 Ischemic cardiomyopathy; I73.9 Peripheral vascular disease, unspecified; I25.2 Old myocardial infarction; E78.5 Hyperlipidemia, unspecified; Z79.82 Long term (current) use of aspirin; Z79.01 Long term (current) use of anticoagulants; Z79.899 Other long term (current) drug therapy
CPT/HCPCS: 92960; 93005; J7040

== ENCOUNTER 2019-11-25 07:27 | Inpatient (IN) | payer OTHER, SELFPAY ==
[2019-11-15 09:38] VITALS: BMI 26.4
[2019-11-25] VITALS (18 sets, daily range): BP systolic 119–178; BP diastolic 49–70; PULSE 47–64; RESP 15–27; TEMP 36.4–36.7; O2SAT 90–98; BMI 29.2; BMI 26.3
--- NOTE | 2019-11-25 07:46 | EKG12_ITS ---
Test Reason : SOB Blood Pressure : / mmHG Vent. Rate : 056 BPM Atrial Rate : 056 BPM P-R Int : 208 ms QRS Dur : 082 ms QT Int : 478 ms P-R-T Axes : 000 085 080 degrees QTc Int : 461 ms Sinus bradycardia Anteroseptal infarct , age undetermined Abnormal ECG Confirmed by CHRISTO LOZANO, SHAJI ([id number]), editor producer LUIZ HENRIQUEZ ([id number]) on 11/28/2019 1:55:03 PM Referred By: Odalys Mariscal Confirmed By:SHAJI VILLAFUERTE MD
--- NOTE | 2019-11-25 07:46 | RAD_ITS ---
STUDY: X-RAY CHEST REASON FOR EXAM: Female, 79 years old. CHEST PAIN TECHNIQUE: Single AP portable view of the chest. COMPARISON: April 02, 2019, October 21, 2017 FINDINGS: There is focal linear increased density in the right midlung zone. There is increased linear density in the right lung base. There is a suggestion of tenting of the right hemidiaphragm similar to the April 02, 2019 study but new since October 21, 2017. Normal size heart. There is a prominent appearance of the right hilum. Normal visualized pulmonary arteries. Normal visualized aortic arch and descending thoracic aorta. There are diffuse degenerative changes of the visualized thoracic spine. Normal visualized ribs, clavicles, and shoulders. There is no demonstrated abnormality of the visualized soft tissue structures of the upper abdomen. RAD/Chest 1 View (Portable) IMPRESSION: Mid lung zone atelectasis and/or infiltrate. Increasing interstitial density in the right lower lobe possible trace right effusion, developing tenting of the right hemidiaphragm over time. Prominent appearance of the right hilum consider underlying mass, lymphadenopathy and/or enlargement of the pulmonary artery which could be associated pulmonary arterial hypertension. Electronically Signed: Cammie Manzanares MD at 8:37 EST Tel , Service support ,
--- NOTE | 2019-11-25 07:48 | ED.DCSUM_ITS ---
- ER Visit Summary Date of Service: 11/25/19 Chief Complaint: Shortness of breath. Per squad the patient's pulse ox was 75% on their arrival at home. History of Present Illness: The patient is a 79 F 3 of prior CVA, prior GA, CHF and A. fib. She is on the blood thinner Eliquis. According to a prior echo from last year her EF is 20%. She is normally not on home oxygen. States that she has been intermittently short of breath worse today. No fever but chills. Nonproductive cough. Denies any chest pain. No leg pain or swelling. Physical Examination: Elderly female vital signs are stable. Except her pulse ox on 2 L is 91%. Per squad it was 75 at the home without oxygen. H EENT exam unremarkable. Neck nontender no JVD. No lymphadenopathy. Lungs clear to auscultation bilaterally. Heart regular rhythm no murmur. Abdomen soft and nontender normal bowel sounds no peritoneal signs. Extremities patient moving all 4. Neurovascular intact. Calves are nontender without edema or cords. Neurologically the patient is awake alert with no focal motor deficits. Skin un remarkable. Back nontender. Test Results: Chest x-ray shows right hilar lymphadenopathy versus mass. It may be a small effusion. EKG sinus bradycardia rate of 56 no acute signs of GA or ischemia. CBC is a white count of 9. Hemoglobin 11. Chemistries unremarkable BUN 27 creatinine 1.65. Troponin less than 0.015. BNP elevated 691 consistent with CHF. Emergency Department Course and Treatment: Older female with hypoxia and shortness of breath. Reported prior history of A. fib on Eliquis. He is hypoxic at home and will need to be admitted. Treated with IV Lasix. Treatment Plan: Repeat exam at 1027 patient is doing well. Discussed with her and family. She will be started on IV Lasix. Admitted to the hospital. MRI spoken to the hospitalist about a PCU admission. Disposition: admission Impression: Acute shortness of breath with hypoxia History of CHF Anticoagulated on Eliquis This note was generated with [employer] dictation software. It may contain incorrect words, spelling, and punctuation that were not noted in review of the chart prior to signing ED Disposition - Plan for ED Patient: Referrals: Chon Solis DO [Primary Care Provider] -
[2019-11-25 07:57] LABS: Absolute Lymphocyte Count 0.96 X10^3/uL (0.83-4.51); Absolute Neutrophil Count 7.4 X10^3/uL (2.0-7.7); Basophil# 0.05 X10^3/uL; Basophil% 0.5 % (0-1); Eosinophil# 0.14 X10^3/uL; Eosinophils% 1.5 % (0-5); Hematocrit 37.1 % (37-47); Hemoglobin 11.4 g/dL (12.0-15.0); Lymphocyte # 0.96 X10^3/ul (4.0); Lymphocyte % 10.5 % (19-41); Mean Corp Hgb Conc 30.7 g/dL (32-36); Mean Corpuscular Hgb 26.5 pg (27.0-32.0); Mean Corpuscular Volume 86.1 fL (81-99); Mean Platelet Vol. 11.4 fl (6.2-12.0); Monocyte# 0.55 X10^3/uL; NRBC Flagged by Analyzer 0 % (0-5); Neutrophil % 81.3 % (47-70); Platelet Count 216 K/mm3 (150-450); RBC Distribution Width CV 15.5 % (11.6-14.6); RBC Distribution Width SD 48.4 fl (35.1-43.9); Red Blood Count 4.31 M/mm3 (4.2-5.4); White Blood Count 9.1 K/mm3 (4.4-11.0)
[2019-11-25 08:03] LABS: International Normalized Ratio 1.6; Prothrombin Time (Protime)PT. 18.5 SECONDS (11.7-14.9)
[2019-11-25 08:16] LABS: Anion Gap 8 (5-15); BUN 27 mg/dL (7-18); BUN/Creat Ratio 16.4 RATIO (10-20); Calcium,Total 8.3 mg/dL (8.5-10.1); Chloride 108 mmol/L (98-107); Creatinine, Serum 1.65 mg/dL (0.55-1.02); EST Glomerular Filtration Rate 32 mL/min (>60); Est Glom Filt Rate - Afr Amer 39 mL/min (>60); Estimated Creatinine Clearance 19.86 ml/min; Glucose 173 mg/dL (74-106); Sodium Level 141 mmol/L (136-145)
[2019-11-25 08:25] LABS: BNP,B-Type NATRIURETIC PEPTIDE 691.1 pg/mL (0-100)
--- NOTE | 2019-11-25 10:29 | PCM.HP.STD ---
Problem List (1) Acute on chronic systolic (congestive) heart failure Status: Acute (2) Ischemic cardiomyopathy Status: Chronic (3) Peripheral vascular disease Status: Chronic (4) Dyslipidemia Status: Chronic History of Present Illness Date of Admission: 11/25/19 Chief Complaint: Progressive SOB The patient is a 79 year old F past medical history of CVA with left-sided weakness, ambulates with a walker, history of hypertension, hyperlipidemia, type II DM, history of CAD status post PCI, history of ischemic cardiomyopathy with EF of 20% numbers in with progressive shortness of breath. History was taken from the patient and examined at the bedside. Patient admits to eating canned chicken noodle soup last night. She woke up this morning with progressive shortness of breath even at rest. She denied any chest pain or dizziness or palpitations or diaphoresis. Vitals on admission was temperature 97.6 F, blood pressure 169/66, respiratory 27, SPO2 was 91% on 4 L of oxygen. White cell count was 9.1, hemoglobin 11.4, platelet count 216, INR is 1.6, BMP significant for BUN of 27, creatinine 1.65, she is about her baseline. Troponins elevated at 0.015, 0.063, 0.052. Admitting BNPep is 691.1 Chest x-ray shows a mid lung zone atelectasis/infiltrate, possible trace right effusion Past Medical History Past Medical History (Chronic Problems): Chronic Problems (Last Reviewed 11/15/19 @ 09:39 by Denisse Banerjee) Old myocardial infarction (Chronic) Chronic systolic (congestive) heart failure (Chronic) Paroxysmal atrial fibrillation (Chronic) History of left heart catheterization (Chronic 08/2017) 08/10/17: attempted but unsuccessful PCI: right to left collaterals in LAD, unable to cross OM 1 with wire Atherosclerotic heart disease of [place] coronary artery without angina pectoris (Chronic) Occluded LAD with right to left collaterals per cath and PCI 08/10/2017 ; unable to cross OM1 with wire Hyperlipidemia (Chronic) History of repair of aneurysm of abdominal aorta using endovascular stent graft (Chronic) CKD (chronic kidney disease), stage III (Chronic) HTN (hypertension) (Chronic) Ischemic cardiomyopathy (Chronic) CVA (cerebral vascular accident) (Chronic) Peripheral vascular disease (Chronic) Renal artery stenosis (Chronic) 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 of anticoagulants (Chronic) Dyslipidemia (Chronic) PVD (peripheral vascular disease) (Chronic) Medical History: Medical History (Last Reviewed 11/15/19 @ 09:39 by Denisse Banerjee) History of cardioversion (Acute) Onset Date: ~05/11/19 Z98.890 Old myocardial infarction (Chronic) I25.2 Chronic systolic (congestive) heart failure (Chronic) I50.22 Paroxysmal atrial fibrillation (Chronic) I48.0 History of left heart catheterization (Chronic) Onset Date: 08/2017 Z98.890 08/10/17: attempted but unsuccessful PCI: right to left collaterals in LAD, unable to cross OM 1 with wire Atherosclerotic heart disease of [place] coronary artery without angina pectoris (Chronic) I25.10 Occluded LAD with right to left collaterals per cath and PCI 08/10/2017 ; unable to cross OM1 with wire Hyperlipidemia (Chronic) E78.5 CKD (chronic kidney disease), stage III (Chronic) N18.3 HTN (hypertension) (Chronic) I10 Ischemic cardiomyopathy (Chronic) I25.5 CVA (cerebral vascular accident) (Chronic) I63.9 Peripheral vascular disease (Chronic) I73.9 Renal artery stenosis (Chronic) I70.1 Dyslipidemia (Chronic) E78.5 PVD (peripheral vascular disease) (Chronic) I73.9 Allergies No Known Allergies Allergy (Verified 11/25/19 07:32) Home Medications: Ambulatory Orders Medication Instructions Recorded Aspirin [Aspirin, Baby] 81 mg PO DAILY@0800 10/21/17 Escitalopram Oxalate [Lexapro] 10 mg PO DAILY 10/21/17 Rosuvastatin Calcium [Crestor] 40 mg PO DAILY 10/21/17 magnesium oxide 400 mg (241.3 mg 400 mg PO BID tab 02/20/18 magnesium) tablet Isosorbide Mononitrate [Imdur] 30 mg PO DAILY #30 tab 04/09/18 Carvedilol 6.25 mg PO BID #60 tab 04/05/19 amiodarone 200 mg tablet 200 mg PO DAILY #90 tab 05/03/19 apixaban 2.5 mg tablet 2.5 mg PO BID 05/03/19 furosemide 40 mg tablet 40 mg PO BID@1000,1800 #180 tab 05/03/19 potassium chloride 10 mEq 20 meq PO DAILY tab 05/03/19 tablet,extended release levothyroxine 50 mcg tablet 50 mcg PO DAILY 11/15/19 Surgical History: Surgical History (Last Reviewed 11/15/19 @ 09:39 by Denisse Banerjee) History of repair of aneurysm of abdominal aorta using endovascular stent graft (Chronic) Z95.828 Surgical History: - - carotid surgery, kidney stents Psychiatric History: No pertinent psych hx 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 Lives: With Family Smoking Status: Never smoker Alcohol: None Drugs: None - *Family History Paternal Family History: Family History (Last Reviewed 11/15/19 @ 09:39 by Denisse Banerjee) Brother Hypertension History Items: Heart Disease Sibling Family History: Family History (Last Reviewed 11/15/19 @ 09:39 by Denisse Banerjee) Brother Hypertension History Items: Heart Disease - In her brother Maternal Family History: Family History (Last Reviewed 11/15/19 @ 09:39 by Denisse Banerjee) Brother Hypertension History Items: Hypertension, Stroke Review of Systems Constitutional: Denies: Anorexia, Chills, Fever, Malaise, Weight Change, Fatigue Eyes: Denies: Blurred vision, Cataracts, Conjunctivae Inflammation HEENT: Denies: Difficulty Hearing, Difficulty Swallowing, Head Aches, Hearing Changes, Sinus Congestion, Sinus Drainage Cardiovascular: Denies: Chest Pain, Claudication, Orthopnea, Palpitations Respiratory: Reports: Shortness of Breath, Shortness of breath at rest, Shortness of breath upon exertion. Denies: Cough, Sputum production Gastrointestinal: Denies: Abdominal Pain, Hematemesis, Hematochezia, Nausea, Vomiting Genitourinary: Denies: Dysuria Gynecological: Denies: Breast symptoms, Excessively long or heavy periods Musculoskeletal: Denies: Joint Pain, Joint stiffness, Joint swelling, Joint Tenderness Skin: Denies: Rash, Wounds Neurological: Denies: Numbness, Tingling, Focal weakness Psychiatric: Denies: Anxiety, Depression, Homicidal Ideations, Suicidal Ideations Hematologic/ Lymphatic: Denies: Easy Bruising, Easy Bleeding VTE Information - Inpt Only VTE Present on Admission: No VTE Pharm Prophylaxis ordered?: Yes - Physical Exam Vitals/I&O's: Vital Signs Temp Pulse Resp BP Pulse Ox 97.6 F L 47 L 20 H 167/70 H 94 11/25/19 07:41 11/25/19 09:44 11/25/19 09:44 11/25/19 09:44 11/25/19 09:44 Oxygen Flow Rate (L/min) 4 Oxygen Delivery Method Nasal Cannula Weight: 68.039 kg Body Mass Index (BMI) 29.2 General: Alert, Oriented x3, Cooperative, No apparent distress, - - Comfortable on room air HEENT: Atraumatic, PERRLA, EOMI, Normocephalic Oral: Moist Mucosa Neck: Supple Lungs: Diminished - At the lung bases Cardiovascular: Regular rate, Regular Rhythm, Normal S1, Normal S2, No murmurs Abdomen: Bowel Sounds Present, Soft, Non Tender, Non-Distended, No Hepato-splenomegaly Extremities: No edema Skin: No rashes, No breakdown Musculoskeletal: No Tenderness to Palpation of Joints or Extremities Lymphatic: No Cervical, Supraclavicular, or Inguinal Adenopathy Neurological: Cranial nerves II-XII grossly intact, Neuro grossly intact Psych/Mental Status: Normal Affect, Appropriate Laboratory Results 11/25/19 07:35: WBC 9.1, RBC 4.31, Hgb 11.4 L, Hct 37.1, MCV 86.1, MCH 26.5 L, MCHC 30.7 L, RDW Std Deviation 48.4 H, RDW Coeff of [place] 15.5 H, Plt Count 216, MPV 11.4, Immature Gran % (Auto) 0.200, Neut % (Auto) 81.3 H, Lymph % (Auto) 10.5 L, [place] % (Auto) 6.0, Eos % (Auto) 1.5, Baso % (Auto) 0.5, Absolute Neuts (auto) 7.4, Absolute Lymphs (auto) 0.96, Nucleated RBC % 0 11/25/19 07:35: Sodium 141, Potassium 4.0, Chloride 108 H, Carbon Dioxide 25.0, Anion Gap 8, BUN 27 H, Creatinine 1.65 H, Estim Creat Clear Calc 19.86, Est GFR (MDRD) Af Amer 39 L, Est GFR (MDRD) Non-Af 32 L, BUN/Creatinine Ratio 16.4, Glucose 173 H, Calcium 8.3 L, Troponin I < 0.015 11/25/19 07:35: B-Natriuretic Peptide 691.1 H 11/25/19 07:35: PT 18.5 H, INR 1.6 Assessment/Plan All Active Problems (Last Reviewed 11/15/19 @ 09:39 by Denisse Banerjee) History of cardioversion (Acute ~05/11/19) Acute on chronic systolic (congestive) heart failure (Acute) Acute renal failure superimposed on stage 3 chronic kidney disease (Acute) Orthostatic hypotension (Acute) Hypokalemia (Acute) Atrial fibrillation with RVR (Acute) ABBY (acute kidney injury) (Resolved) Elevated troponin (Resolved) Hypertensive urgency (Resolved) Hypokalemia (Resolved) Hypokalemia (Resolved) Warfarin-induced coagulopathy (Resolved) 79 year old F past medical history of CVA with left-sided weakness, ambulates with a walker, history of hypertension, hyperlipidemia, type II DM, history of CAD status post PCI, history of ischemic cardiomyopathy with EF of 20% numbers in with progressive shortness of breath. 1. Acute on chronic systolic CHF/ischemic cardiomyopathy, EF 20%, admitting BNPep is 691 Continue on Lasix 40 mg daily, isosorbide, carvedilol, statin, aspirin Repeat 2D echo in a.m., continue CHF protocol Consider cardiology consult if EF is lower than 20% 2. Paroxysmal atrial fibrillation, rate controlled, on apixaban, amiodarone, Coreg 3. Hypertension, initially hypotensive, now relatively hypotensive, will continue on Coreg with holding parameters 4. Depression, on Zoloft 5. Hypothyroidism, on levothyroxine 6. DVT prophylaxis -on apixaban Code Visit Inpatient E&M: 62310 Init Hosp L3
[2019-11-25] MEDS: Furosemide 40 MG/4 ML Vial IV ×2 (10:30→17:04)
--- NOTE | 2019-11-25 10:34 | NURSING ---
PCU PAINTSIL CHF, HYPOXIA
--- NOTE | 2019-11-25 10:42 | NURSING ---
PCU 120
--- NOTE | 2019-11-25 13:02 | ECHOCS_ITS ---
Reason For Study: Dyspnea/SOB Procedure This was a 2D Doppler, Color Flow transthoracic echocardiogram. Contrast injection was performed. Exam performed portable in patient room. Left Ventricle Severely dilated left ventricle. The estimated ejection fraction is 20-25 %. Stage 1 diastolic dysfunction. Mid-Anterior : Akinetic. Mid-anteroseptal : Akinetic. Anterior Christmas : Dyskinetic. Inferior Christmas : Dyskinetic. Right Ventricle Normal size and thickness. Normal systolic function. Atria The left atrium is mildly enlarged. Normal right atrium. Normal atrial septum. Mitral Valve Mild focal mitral valve thickening. Moderate mitral annular calcification extending into the posterior leaflet. Trivial mitral valve insufficiency. Tricuspid Valve Normal tricuspid valve. Mild (1+) tricuspid valve insufficiency. Right ventricular systolic pressure estimated to be 28 mmHg. Aortic Valve Trisinus/trileaflet aortic valve. Mild diffuse aortic valve thickening. There is no aortic stenosis. Pulmonic Valve Normal pulmonic valve. Great Vessels Calcified aortic root. Moderate atherosclerosis of the aortic arch. Normal inferior vena cava. Inferior vena cava collapse with sniff. Pericardium/Pleural No pericardial effusion. Medication Diluted definity 5ml given slow IV push to enhance endocardial definition. MMode/2D Measurements & Calculations LVIDd: 5.1 cm IVSd: 0.88 cm Ao root diam: 2.6 cm LVIDs: 4.2 cm LVPWd: 1.2 cm RVDd: 3.0 cm FS: 17.0 % LAV(MOD-bp): 64.3 ml LA A4 area: 20.2 cm2 LA dimension(2D): 5.0 cm LAV(MOD-bp) Indexed: 40.1 ml/m2 LAV(MOD-sp2): 65.0 ml LAV(MOD-sp4): 62.3 ml RA A4 area: 9.5 cm2 Doppler Measurements & Calculations MV E max louis: 72.3 cm/sec Lat Peak E' [place]: 2.5 cm/sec Med Peak E' [place]: 3.0 cm/sec MV A max louis: 87.9 cm/sec E/E' lat: 29.5 E/E' med: 23.8 MV E/A: 0.82 Ao V2 max: 114.5 cm/sec LV V1 max: 71.1 cm/sec PA V2 max: 85.2 cm/sec Ao max P.2 mmHg LV V1 max P.0 mmHg Ao V2 mean: 78.2 cm/sec Ao mean P.7 mmHg Ao V2 VTI: 25.0 cm TR max lou[place]: 240.2 cm/sec TR max P.1 mmHg Interpretation Summary Severely dilated left ventricle. The estimated ejection fraction is 20-25 %. Stage 1 diastolic dysfunction. Mid-Anterior : Akinetic. Mid-anteroseptal : Akinetic. Anterior Christmas : Dyskinetic. Inferior Christmas : Dyskinetic. The left atrium is mildly enlarged. Trivial mitral valve insufficiency. Mild (1+) tricuspid valve insufficiency. Right ventricular systolic pressure estimated to be 28 mmHg. Compared to echo report dated 04/02/2019, LV function has remained the same, RVSP has improved from 50 to 28 mmHg. Patient appears to be in sinus rhythm. The study was technically difficult. Contrast injection was performed. Ordering Physician: Odalys Mariscal Referring Physician: Chon Arboleda Performed By: Sandy Taylor RDCS, RVT
[2019-11-25] MEDS: hydrALAZINE 20 MG/ML Vial 10 MG IV (16:03)
[2019-11-25] MEDS: 0.9% Saline Lock 10 ML Syringe IV ×2 (16:04→17:04)
[2019-11-25] MEDS: Magnesium Oxide 400 MG Tablet PO (17:04)
[2019-11-25 17:26] LABS: Bedside Glucose 107 mg/dL (70-110)
[2019-11-25] MEDS: Atorvastatin Calcium 80 MG Tablet PO (21:34)
[2019-11-25] MEDS: Carvedilol 6.25 MG Tablet PO (21:34)
[2019-11-25] MEDS: APIXABAN 2.5 MG TABLET PO (21:35)
[2019-11-25 21:41] LABS: Bedside Glucose 132 mg/dL (70-110)
[2019-11-26] VITALS (12 sets, daily range): BP systolic 110–150; BP diastolic 41–72; PULSE 53–59; RESP 16; TEMP 36.6–36.8; O2SAT 92–96
[2019-11-26] MEDS: Levothyroxine 50 MCG Tablet PO (06:33)
[2019-11-26 06:40] LABS: Bedside Glucose 114 mg/dL (70-110)
[2019-11-26 07:08] LABS: Absolute Lymphocyte Count 1.04 X10^3/uL (0.83-4.51); Basophil# 0.05 X10^3/uL; Basophil% 0.7 % (0-1); Eosinophil# 1.13 X10^3/uL; Eosinophils% 16.2 % (0-5); Hemoglobin 12.7 g/dL (12.0-15.0); Lymphocyte # 1.04 X10^3/ul (4.0); Lymphocyte % 14.9 % (19-41); Mean Corp Hgb Conc 31.8 g/dL (32-36); Mean Corpuscular Hgb 26.3 pg (27.0-32.0); Mean Platelet Vol. 10.6 fl (6.2-12.0); Monocyte# 0.72 X10^3/uL; Monocyte% 10.3 % (0-10); NRBC Flagged by Analyzer 0 % (0-5); Neutrophil % 57.6 % (47-70); Platelet Count 211 K/mm3 (150-450); RBC Distribution Width CV 15.7 % (11.6-14.6); RBC Distribution Width SD 47.3 fl (35.1-43.9); Red Blood Count 4.82 M/mm3 (4.2-5.4)
[2019-11-26 07:28] LABS: ALB/GLOB Ratio 0.8 RATIO (0.9-2.4); AST(SGOT) 24 U/L (15-37); Alanine Aminotransfer ALT/SGPT 34 U/L (13-56); Albumin, Serum 3.4 g/dL (3.2-5.0); Alkaline Phosphatase 64 U/L (45-117); Anion Gap 8 (5-15); BUN 32 mg/dL (7-18); BUN/Creat Ratio 18.4 RATIO (10-20); Calcium,Total 8.6 mg/dL (8.5-10.1); Chloride 104 mmol/L (98-107); Creatinine, Serum 1.74 mg/dL (0.55-1.02); EST Glomerular Filtration Rate 30 mL/min (>60); Est Glom Filt Rate - Afr Amer 36 mL/min (>60); Estimated Creatinine Clearance 19.78 ml/min; Glucose 111 mg/dL (74-106); Potassium 3.1 mmol/L (3.5-5.1); Protein, Total 7.4 g/dL (6.4-8.2); Sodium Level 139 mmol/L (136-145)
[2019-11-26] MEDS: Magnesium Oxide 400 MG Tablet PO ×2 (08:50→17:13)
[2019-11-26] MEDS: Aspirin 81 MG TAB.CHEW PO (08:51)
[2019-11-26] MEDS: Escitalopram Oxalate 10 MG Tablet PO (10:47)
[2019-11-26] MEDS: Amiodarone 200 MG Tablet PO (10:47)
[2019-11-26] MEDS: APIXABAN 2.5 MG TABLET PO ×2 (10:47→21:18)
[2019-11-26] MEDS: Furosemide 40 MG/4 ML Vial IV (10:52)
[2019-11-26] MEDS: 0.9% Saline Lock 10 ML Syringe IV (10:58)
[2019-11-26 12:01] LABS: Bedside Glucose 134 mg/dL (70-110)
--- NOTE | 2019-11-26 12:27 | CASEMGMT ---
RN CM Assessment Introduced role of RN CM to patient, patient Atif and patient Dtr Tracy.? Patient is alert, oriented and able?to participate in RN CM Assessment. ?Care providers, pharmacy, and demographics verified. Presentation: SOB Admit Dx: CHF, CAD Re-Admit: No Barriers/Issues: None. Patient does not have electricity but does have a generator PCP: Chon Solis Specialists: Cardio- Dr Corley Preferred Pharmacy: [facility] Insurance: [employer] Rx Benefit:?No ?LNOK: Atif Grimes LW/HPOA: Yes both on file at [facility], HPOA- Atif Grimes Living Arrangements:? Lives with her in a 3SH, Bedroom/first fl set up. No steps to enter, has a ramp to enter. 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 Denies any issues, concerns, needs or questions with DC planning at this time. Pending O2 testing for possible home O2 need. Discussed this with patient and family, DME list provided. States first choice would be [facility] (Aware will call to inquire if able to take [facility]/if has O2) if needing Home O2. Aware CM remains available for any emerging needs. DC PLAN: Home with possible home O2. RAFITA Zhao
--- NOTE | 2019-11-26 14:45 | CHAPLAIN ---
Type of Pastoral Visit _x__ Initial Visit ___ Follow-up Visit ___ On-call Visit ___ General Patient Visit ___ Spiritual Assessment ___ Family Conference ___ Bereavement ___ Rapid Response ___ Code Blue ___ Other (describe below) Pastoral Care Referral From _x__ Patient ___ Family ___ Nurse ___ Physician ___ Tying In Machine Operator ___ Potato Chip Packaging Machine Operator ___ Other (describe below) Sacrament/Intervention _x__ Active listening ___ Anointing ___ Sabianist ___ Bereavement ___ Communion ___ Evi exploration ___ ___ Life review ___ Prayer ___ Reconciliation ___ Sacrament of Sick _x__ Supportive presence ___ Wedding ___ Other (describe below) Pastoral Comments
--- NOTE | 2019-11-26 19:31 | PCM.PROGNOTE ---
Subjective: Patient was seen and examined today, I discussed her care with her family members who were in the room. Late this afternoon, patient's echocardiogram was not completed for review, later on it became available and it showed that the patient had ongoing poor LV function. There appeared to be confusion about the patient's Lasix dose at home, last May the patient was told to decrease her Lasix to 40 mg daily and it appears that her last cardiology office visit, Dr. Corley thought that the patient was taking 40 mg of Lasix twice a day which she was not. Currently patient is on room air here, she does not complain of any shortness of breath or chest discomfort. - Physical Exam Vitals/I&O's: Vital Signs Temp Pulse Resp BP Pulse Ox 97.9 F 59 L 16 137/50 H 94 11/26/19 18:20 11/26/19 18:20 11/26/19 18:20 11/26/19 18:20 11/26/19 18:20 Oxygen Flow Rate (L/min) 4 Oxygen Delivery Method Room Air Weight: 62 kg Body Mass Index (BMI) 26.3 Intake and Output for Last 24 Hours 11/24/19 11/25/19 11/26/19 23:59 23:59 23:59 Intake Total 300 / 540 1500 / 1500 Output Total 900 / 1300 1100 / 1100 Balance -600 / -760 400 / 400 General: Alert, Oriented x3, Cooperative, No apparent distress, Well developed, Well nourished HEENT: Atraumatic, PERRLA, EOMI, Normocephalic Oral: Moist Mucosa Neck: Supple, No JVD, Trachea Midline, Thyroid Normal Size and Texture Lungs: Clear to auscultation, No rhonchi, No wheeze, Diminished Cardiovascular: Regular rate, Regular Rhythm, Normal S1, Normal S2, No murmurs, PMI Normal, No rub noted Abdomen: Bowel Sounds Present, Soft, Non Tender, Non-Distended Extremities: No clubbing, No cyanosis, No edema, Capillary Refill Less than 3 Seconds Skin: No rashes, No breakdown Musculoskeletal: No Tenderness to Palpation of Joints or Extremities Neurological: Cranial nerves II-XII grossly intact, Neuro grossly intact, Sensory exam intact to light touch and pain, Coordination normal Psych/Mental Status: Normal Affect, Appropriate, Alert and oriented to time, place, person, mood and affect Laboratory Results 11/25/19 19:16: Troponin I 0.050 H 11/25/19 21:33: POC Glucose 132 H 11/26/19 06:28: POC Glucose 114 H 11/26/19 06:39: WBC 7.0, RBC 4.82, Hgb 12.7, Hct 40.0, MCV 83.0, MCH 26.3 L, MCHC 31.8 L, RDW Std Deviation 47.3 H, RDW Coeff of [place] 15.7 H, Plt Count 211, MPV 10.6, Immature Gran % (Auto) 0.300, Neut % (Auto) 57.6, Lymph % (Auto) 14.9 L, [place] % (Auto) 10.3 H, Eos % (Auto) 16.2 H, Baso % (Auto) 0.7, Absolute Neuts (auto) 4.0, Absolute Lymphs (auto) 1.04, Nucleated RBC % 0 11/26/19 06:39: Sodium 139, Potassium 3.1 L, Chloride 104, Carbon Dioxide 27.0, Anion Gap 8, BUN 32 H, Creatinine 1.74 H, Estim Creat Clear Calc 19.78, Est GFR (MDRD) Af Amer 36 L, Est GFR (MDRD) Non-Af 30 L, BUN/Creatinine Ratio 18.4, Glucose 111 H, Calcium 8.6, Total Bilirubin 1.40 H, AST 24, ALT 34, Alkaline Phosphatase 64, Total Protein 7.4, Albumin 3.4, Globulin 4.0, Albumin/Globulin Ratio 0.8 L 11/26/19 11:55: POC Glucose 134 H Current Medications Acetaminophen (Tylenol) 650 mg PO Q6H PRN PRN PRN Reason: Pain Score 1-10/Temp > 100.7 F Amiodarone HCl (Cordarone) 200 mg PO DAILY [facility] Last Admin: 11/26/19 10:47 Dose: 200 mg Documented by: Apixaban (Eliquis) 2.5 mg PO BID [facility] Last Admin: 11/26/19 10:47 Dose: 2.5 mg Documented by: Aspirin (Aspirin, Baby) 81 mg PO DAILY@0800 [facility] Last Admin: 11/26/19 08:51 Dose: 81 mg Documented by: Atorvastatin Calcium (Lipitor) 80 mg PO QHS [facility] Last Admin: 11/25/19 21:34 Dose: 80 mg Documented by: Carvedilol (Coreg) 6.25 mg PO BID [facility] Last Admin: 11/26/19 10:47 Dose: Not Given Documented by: Dextrose (D50w Syringe) 0 gm IV X1 PRN; Protocol PRN Reason: Hypoglycemia Escitalopram Oxalate (Lexapro) 10 mg PO DAILY [facility] Last Admin: 11/26/19 10:47 Dose: 10 mg Documented by: Furosemide (Lasix) 40 mg IV DAILY [facility] Last Admin: 11/26/19 10:52 Dose: 40 mg Documented by: Glucagon () 1 mg IM .X1 PRN PRN Reason: Hypoglycemia Insulin Human Lispro (Humalog Kwikpen (Bkc)) 0 unit [facility]; Protocol Last Admin: 11/26/19 17:11 Dose: Not Given Documented by: Isosorbide Mononitrate (Imdur) 30 mg PO DAILY [facility] Last Admin: 11/26/19 10:47 Dose: Not Given Documented by: Levothyroxine Sodium (Synthroid) 50 mcg PO DAILY@0600 [facility] Last Admin: 11/26/19 06:33 Dose: 50 mcg Documented by: [facility] ([facility]Ox 400) [facility] Last Admin: 11/26/19 17:13 Dose: 400 mg Documented by: Nitroglycerin (Nitrostat) 0.4 mg SUBLINGUAL Q5M PRN PRN Reason: CARDIAC/CHEST PAIN Ondansetron HCl (Zofran) 4 mg IV Q8H PRN PRN PRN Reason: NAUSEA/VOMITING Potassium Chloride (K-Dur) 20 meq PO SUPPER [facility] Last Admin: 11/26/19 17:13 Dose: 20 meq Documented by: Potassium Chloride (K-Dur) [facility] Last Admin: 11/26/19 08:50 Dose: 40 meq Documented by: Sodium Chloride () 10 - 40 ml IV UD PRN PRN Reason: SALINE FLUSH Last Admin: 11/26/19 10:58 Dose: 10 ml Documented by: Medical Necessity - Tobacco Use Smoking Status: Never smoker Assessment/Plan All Active Problems (Last Reviewed 11/15/19 @ 09:39 by Denisse Banerjee) History of cardioversion (Acute ~05/11/19) Acute on chronic systolic (congestive) heart failure (Acute) Acute renal failure superimposed on stage 3 chronic kidney disease (Acute) Orthostatic hypotension (Acute) Hypokalemia (Acute) Atrial fibrillation with RVR (Acute) ABBY (acute kidney injury) (Resolved) Elevated troponin (Resolved) Hypertensive urgency (Resolved) Hypokalemia (Resolved) Hypokalemia (Resolved) Warfarin-induced coagulopathy (Resolved) #1 acute on chronic systolic congestive heart failure-patient will remain on IV Lasix for now, she will need to increase her diuretic use as an outpatient, I will reevaluate her in in the morning. Patient is not a candidate for use of an FABIAN or an ARB due to history of renal artery stenosis. #2 ischemic cardiomyopathy-it appears that the patient's EF has not improved since her last echocardiogram last year, I mentioned to her and her family that she may be a candidate for an ICD, cardiology will have to discuss this with her at her next office visit. I have requested that she see Dr. Corley again in 2 weeks after she is discharged. #3 paroxysmal atrial fibrillation-currently in sinus rhythm, patient is on Eliquis #4 essential hypertension #5 chronic kidney disease stage III/stage IV Code Visit Inpatient E&M: 93666 Subs Hosp L2
[2019-11-26 20:25] LABS: Bedside Glucose 124 mg/dL (70-110)
[2019-11-26] MEDS: Carvedilol 6.25 MG Tablet PO (21:18)
[2019-11-26] MEDS: Atorvastatin Calcium 80 MG Tablet PO (21:19)
[2019-11-26 21:26] LABS: Bedside Glucose 122 mg/dL (70-110)
[2019-11-27 02:59] VITALS: PULSE 55
[2019-11-27 03:15] VITALS: BP 145/51; PULSE 57; RESP 17; TEMP 36.6; O2SAT 96
--- NOTE | 2019-11-27 05:55 | RAD_ITS ---
STUDY: X-RAY CHEST REASON FOR EXAM: Female, 79 years old. CHF TECHNIQUE: AP upright portable view. COMPARISON: 11/25/2019. FINDINGS: Improved inspiratory effort with clearing of the subsegmental atelectases in the right midlung and right lower lobe. No suspicious confluent or interstitial infiltrates. The lungs are now clear. There is no demonstrated pleural abnormality. Mild cardiomegaly. Normal mediastinum and gabriela. Normal visualized pulmonary arteries. Mild atherosclerotic calcifications along the thoracic aorta. Normal visualized thoracic spine. Normal visualized ribs, clavicles, and shoulders. There is no demonstrated abnormality of the visualized soft tissue structures of the upper abdomen. RAD/Chest 1 View (Portable) IMPRESSION: 1. No acute cardiopulmonary pathology. 2. Clearing of subsegmental atelectases in the right midlung and right lower lobe when compared to 11/25/2019. Electronically Signed: Noah Zacarias MD at 9:08 EST , Service support ,
[2019-11-27] MEDS: Levothyroxine 50 MCG Tablet PO (06:24)
[2019-11-27 06:51] LABS: Bedside Glucose 111 mg/dL (70-110)
[2019-11-27 07:00] VITALS: PULSE 54
[2019-11-27 07:47] LABS: Anion Gap 4 (5-15); BUN 37 mg/dL (7-18); BUN/Creat Ratio 20.2 RATIO (10-20); Calcium,Total 8.7 mg/dL (8.5-10.1); Chloride 108 mmol/L (98-107); Creatinine, Serum 1.83 mg/dL (0.55-1.02); EST Glomerular Filtration Rate 28 mL/min (>60); Est Glom Filt Rate - Afr Amer 34 mL/min (>60); Estimated Creatinine Clearance 18.81 ml/min; Glucose 121 mg/dL (74-106); Potassium 4.3 mmol/L (3.5-5.1); Sodium Level 140 mmol/L (136-145)
[2019-11-27 07:50] VITALS: O2SAT 95
[2019-11-27] MEDS: Magnesium Oxide 400 MG Tablet PO (08:08)
[2019-11-27] MEDS: Aspirin 81 MG TAB.CHEW PO (08:09)
[2019-11-27 09:00] VITALS: BP 121/41; PULSE 56; RESP 18; TEMP 36.9; O2SAT 95
[2019-11-27] MEDS: Carvedilol 6.25 MG Tablet PO (09:10)
[2019-11-27] MEDS: Amiodarone 200 MG Tablet PO (09:10)
[2019-11-27] MEDS: APIXABAN 2.5 MG TABLET PO (09:10)
[2019-11-27] MEDS: Escitalopram Oxalate 10 MG Tablet PO (09:10)
[2019-11-27] MEDS: Isosorbide Mononitrate 30 MG Tablet PO (09:10)
[2019-11-27] MEDS: Furosemide 40 MG/4 ML Vial IV (09:10)
[2019-11-27] MEDS: 0.9% Saline Lock 10 ML Syringe IV (09:13)
--- NOTE | 2019-11-27 10:46 | DCINST_ITS ---
You will use the following diet at home:: Regular Your food should be the consistency of: Regular Your liquids should be the consistency of: Regular/Thin Discharge Activity: Return to Normal Activity Weight Bearing Status: Full weight bearing Allergies/Adverse Reactions: Allergies No Known Allergies Allergy (Verified 11/25/19 07:32) Medications to take at Discharge Aspirin [Aspirin, Baby] 81 mg PO DAILY@0800 10/21/17 Escitalopram Oxalate [Lexapro] 10 mg PO DAILY 10/21/17 Rosuvastatin Calcium [Crestor] 40 mg PO DAILY 10/21/17 magnesium oxide 400 mg (241.3 mg magnesium) tablet 400 mg PO BID tab 02/20/18 Isosorbide Mononitrate [Imdur] 30 mg PO DAILY #30 tab 04/09/18 Carvedilol 6.25 mg PO BID #60 tab 04/05/19 amiodarone 200 mg tablet 200 mg PO DAILY #90 tab 05/03/19 apixaban 2.5 mg tablet 2.5 mg PO BID 05/03/19 furosemide 40 mg tablet 40 mg PO BID@1000,1800 #180 tab 05/03/19 levothyroxine 50 mcg tablet 50 mcg PO DAILY 11/15/19 Potassium Chloride [K-Dur] 20 meq PO SUPPER tablet 11/27/19 Potassium Chloride [K-Dur] 40 meq PO DAILYCM tablet 11/27/19 Primary Care Physician: Chon Solis DO [Primary Care Provider] - Please follow up with your Primary Care Physician in: in one week- get a BMP drawn Test Results: Test results from this visit will be discussed in further detail at your follow- up appointment, if applicable. Please Follow Up With: Aleksander Corley MD When: as directed
[2019-11-27 10:52] VITALS: BP 121/41; PULSE 56; RESP 18; TEMP 36.9; O2SAT 95
--- NOTE | 2019-11-27 11:39 | PHA.DC.MR ---
Pharmacy Service has performed discharge medication reconciliation for this patient. No new medications prescribed at time of discharge review. Medications reviewed are from previously reported home medications. The patient's discharge medication list was reviewed for discrepancies and discrepancies were resolved. Home Medications Aspirin [Aspirin, Baby] 81 mg PO DAILY@0800 10/21/17 Escitalopram Oxalate [Lexapro] 10 mg PO DAILY 10/21/17 Rosuvastatin Calcium [Crestor] 40 mg PO DAILY 10/21/17 magnesium oxide 400 mg (241.3 mg magnesium) tablet 400 mg PO BID tab 02/20/18 Isosorbide Mononitrate [Imdur] 30 mg PO DAILY #30 tab 04/09/18 Carvedilol 6.25 mg PO BID #60 tab 04/05/19 amiodarone 200 mg tablet 200 mg PO DAILY #90 tab 05/03/19 apixaban 2.5 mg tablet 2.5 mg PO BID 05/03/19 furosemide 40 mg tablet 40 mg PO BID@1000,1800 #180 tab 05/03/19 levothyroxine 50 mcg tablet 50 mcg PO DAILY 11/15/19 Potassium Chloride [K-Dur] 20 meq PO SUPPER tab 11/27/19 Potassium Chloride [K-Dur] 40 meq PO DAILYCM tab 11/27/19
--- NOTE | 2019-11-28 09:30 | PCM.DC.SUM ---
Discharge Date and Diagnosis Date of Admission: 11/25/19 Date of Discharge: 11/27/19 - Primary Discharge Diagnosis #1 acute on chronic systolic congestive heart failure #2 ischemic cardiomyopathy #3 paroxysmal atrial fibrillation-currently in sinus rhythm #4 essential hypertension #5 chronic kidney disease stage III - Secondary Discharge Diagnosis Chronic Problems (Last Reviewed 11/15/19 @ 09:39 by Denisse Banerjee) Old myocardial infarction (Chronic) Chronic systolic (congestive) heart failure (Chronic) Paroxysmal atrial fibrillation (Chronic) History of left heart catheterization (Chronic 08/2017) 08/10/17: attempted but unsuccessful PCI: right to left collaterals in LAD, unable to cross OM 1 with wire Atherosclerotic heart disease of [place] coronary artery without angina pectoris (Chronic) Occluded LAD with right to left collaterals per cath and PCI 08/10/2017 ; unable to cross OM1 with wire Hyperlipidemia (Chronic) History of repair of aneurysm of abdominal aorta using endovascular stent graft (Chronic) CKD (chronic kidney disease), stage III (Chronic) HTN (hypertension) (Chronic) Ischemic cardiomyopathy (Chronic) CVA (cerebral vascular accident) (Chronic) Peripheral vascular disease (Chronic) Renal artery stenosis (Chronic) 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 When the squad it was arrived at her house to pick her up, her pulse ox was noted to be 75%. Work-up in the emergency room included a chest x-ray which showed right hilar prominence with right mid zone atelectasis and/or infiltrate. There was trace right effusion. Patient's labs were remarkable for a potassium of 3.1, BUN of 32, and a creatinine of 1.74. Patient's pulse ox was adequate on 4 L via nasal cannula. It was felt that the patient had congestive heart failure and was admitted to PCU and placed on IV Lasix. Patient improved rapidly, she was weaned off oxygen. She had an echocardiogram performed which showed severe impairment of her left ventricular ejection fraction at 20 to 25%. Discussed this with the patient and her family members. Patient's last echo last year also showed a similar decrease in her ejection fraction. On 11/27/2019, patient was seen and examined: On examination she appeared her stated age, she was in no distress. Vital signs as documented. Skin warm and dry and without overt rashes. Neck without JVD. Lungs clear. Heart exam notable for regular rhythm, normal sounds and absence of murmurs, rubs or gallops. Abdomen unremarkable and without evidence of organomegaly, masses, or abdominal aortic enlargement. Extremities nonedematous. Neuro: Cranial nerves II through XII are grossly intact, no focal motor deficits were noted, sensation to light touch and pinprick is intact. Psych: Patient is alert and oriented x3, she does not appear anxious or depressed On 11/27/2019, patient was seen and examined and felt to be in stable condition for discharge home, she was not placed on an FABIAN or an ARB due to her chronic kidney disease and worry for worsening kidney function. Final note: I discussed the possibility the patient would need an ICD in the near future with her and her family members, I arrange for her to see her lease administrator Dr. Corley in 2 weeks after discharge. - Physical Exam Vitals/I&O's: Vital Signs Temp Pulse Resp BP Pulse Ox 98.5 F 56 L 18 121/41 H 95 11/27/19 10:52 11/27/19 10:52 11/27/19 10:52 11/27/19 10:52 11/27/19 10:52 Oxygen Flow Rate (L/min) 4 Oxygen Delivery Method Room Air Weight: 62.9 kg Body Mass Index (BMI) 26.3 Intake and Output for Last 24 Hours 11/26/19 11/27/19 11/28/19 23:59 23:59 23:59 Intake Total 1700 / 1700 120 / 120 Output Total 1100 / 1100 800 / 800 Balance 600 / 600 -680 / -680 Discharge Activity: Return to Normal Activity Weight Bearing Status: Full weight bearing Home Medications: Medications to take at Discharge Aspirin [Aspirin, Baby] 81 mg PO DAILY@0800 10/21/17 Escitalopram Oxalate [Lexapro] 10 mg PO DAILY 10/21/17 Rosuvastatin Calcium [Crestor] 40 mg PO DAILY 10/21/17 magnesium oxide 400 mg (241.3 mg magnesium) tablet 400 mg PO BID tab 02/20/18 Isosorbide Mononitrate [Imdur] 30 mg PO DAILY #30 tab 04/09/18 Carvedilol 6.25 mg PO BID #60 tab 04/05/19 amiodarone 200 mg tablet 200 mg PO DAILY #90 tab 05/03/19 apixaban 2.5 mg tablet 2.5 mg PO BID 05/03/19 furosemide 40 mg tablet 40 mg PO BID@1000,1800 #180 tab 05/03/19 levothyroxine 50 mcg tablet 50 mcg PO DAILY 11/15/19 Potassium Chloride [K-Dur] 20 meq PO SUPPER tab 11/27/19 Potassium Chloride [K-Dur] 40 meq PO DAILYCM tab 11/27/19 Primary Care Physician: Chon Solis DO [Primary Care Provider] - Please follow up with your Primary Care Physician in: in one week- get a BMP drawn Please Follow Up With: Aleksander Corley MD When: as directed Please Follow Up With: Chon Solis DO Disposition: Home Minutes spent on discharge:: 32 Patient Condition:: Stable Medical Necessity - Tobacco Use Smoking Status: Never smoker Meaningful Use Info Meaningful Use Diagnoses (Choose all that apply): CHF - CHF FABIAN/ARB ordered at discharge?: No Reason FABIAN/ARB not ordered?: Worsening renal disease Documented LVEF (%): 25 Code Visit Inpatient E&M: 10349 Disch Hosp
--- NOTE | 2019-11-28 16:52 | CASEMGMT ---
Case Management DC F/u Call: DC Date: 11/27/2019 DC Diagnosis: #1 acute on chronic systolic congestive heart failure #2 ischemic cardiomyopathy #3 paroxysmal atrial fibrillation-currently in sinus rhythm #4 essential hypertension #5 chronic kidney disease stage III DC Disposition: Home Lace/Strata: 07/05 Called patient listed cell phone on demographics, answered call, introduced self and role. Patient state she is doing fine. Confirmed picked up her DC .medications and denies any questions or concerns with [facility]CI, medications or F/u appointments. Thanked patient for choosing [facility] for her care and ended conversation. Daniel Villela RNCM
== END 2019-11-27 12:16 | disposition home or self-care (01) | DRG 291 ==
LOC: ED 07:48 → PCU 10:44
PROVIDERS: Admitting Provider Internal Medicine; Emergency Provider Emergency Medicine; PCP Student in an Organized Health Care Education/Training Program; Referring Provider Internal Medicine; Visit Provider Internal Medicine
DX: I13.0 Hypertensive heart and chronic kidney disease with heart failure and stage 1 through stage 4 chronic kidney disease, or unspecified chronic kidney disease (principal); I50.23 Acute on chronic systolic (congestive) heart failure; I69.354 Hemiplegia and hemiparesis following cerebral infarction affecting left non-dominant side; N18.3 Chronic kidney disease, stage 3 (moderate); I25.5 Ischemic cardiomyopathy; I48.0 Paroxysmal atrial fibrillation; F32.9 Major depressive disorder, single episode, unspecified; E03.9 Hypothyroidism, unspecified; I25.10 Atherosclerotic heart disease of native coronary artery without angina pectoris; E78.5 Hyperlipidemia, unspecified; R09.02 Hypoxemia; Z79.01 Long term (current) use of anticoagulants; I25.2 Old myocardial infarction
CPT/HCPCS: 36415; 71045; 80048; 80053; 82962; 83880; 84484; 85025; 85610; 93005; 93306; 97162; 97166; 97802; 99251; 99285; J7030; Q9957; A4216; C8929; G0463; J1940

== ENCOUNTER → 2020-12-30 11:41 | Outpatient (CLI) | payer OTHER, SELFPAY ==
[2020-12-30 10:56] VITALS: BMI 24.9
--- NOTE | 2020-12-30 11:50 | RAD_ITS ---
STUDY: X-RAY CHEST REASON FOR EXAM: Female, 80 years old. nursing home use of amiodarone TECHNIQUE: PA and lateral views of the chest. COMPARISON: Comparison is made with prior study dated 11/27/2019. FINDINGS: Blunting of the left clustering angle with the left basilar atelectasis and/or infiltrate. Mild degree of increased markings at the right lung base with blunting of the right cost phrenic angle. There is borderline cardiomegaly. Normal mediastinum and gabriela. Normal visualized pulmonary arteries. There is atherosclerotic calcification of the aortic arch with tortuosity. There is demineralization of the osseous structures. Increased kyphosis Normal visualized ribs, clavicles, and shoulders. Calcified splenic granulomas. RAD/Chest PA and Lateral IMPRESSION: Blunting of both prostate angles with mild increased markings at the lung bases slightly more prominent on the left side suggestive of either bibasilar atelectasis and/or infiltrates. Electronically Signed: Ruddy Welsh MD at 8:56 EDT , Service support ,
[2020-12-30 13:44] LABS: Absolute Lymphocyte Count 0.98 X10^3/uL (0.83-4.51); Basophil# 0.05 X10^3/uL; Basophil% 0.8 % (0-1); Eosinophil# 0.04 X10^3/uL; Eosinophils% 0.6 % (0-5); Hematocrit 36.7 % (37-47); Lymphocyte # 0.98 X10^3/ul (4.0); Lymphocyte % 14.8 % (19-41); Mean Corpuscular Hgb 24.7 pg (27.0-32.0); Mean Corpuscular Volume 82.5 fL (81-99); Mean Platelet Vol. 11.2 fl (6.2-12.0); Monocyte# 0.61 X10^3/uL; Monocyte% 9.2 % (0-10); NRBC Flagged by Analyzer 0 % (0-5); Neutrophil # 4.95 X10^3/uL (2.7-7.7); Neutrophil % 74.4 % (47-70); Platelet Count 272 K/mm3 (150-450); RBC Distribution Width CV 16.9 % (11.6-14.6); RBC Distribution Width SD 50.2 fl (35.1-43.9); Red Blood Count 4.45 M/mm3 (4.2-5.4); White Blood Count 6.6 K/mm3 (4.4-11.0)
[2020-12-30 14:20] LABS: ALB/GLOB Ratio 0.8 RATIO (0.9-2.4); AST(SGOT) 43 U/L (15-37); Alanine Aminotransfer ALT/SGPT 56 U/L (13-56); Albumin, Serum 3.2 g/dL (3.2-5.0); Alkaline Phosphatase 71 U/L (45-117); Anion Gap 5 (5-15); BUN 31 mg/dL (7-18); BUN/Creat Ratio 17.9 RATIO (10-20); Chloride 108 mmol/L (98-107); Creatinine, Serum 1.73 mg/dL (0.55-1.02); EST Glomerular Filtration Rate 30 mL/min (>60); Est Glom Filt Rate - Afr Amer 36 mL/min (>60); Free T3 1.3 pg/mL (2.18-3.98); Globulin 3.8 g/dL (2.2-4.2); Glucose 76 mg/dL (74-106); Potassium 3.5 mmol/L (3.5-5.1); Sodium Level 140 mmol/L (136-145); T4 Free Direct 1.56 ng/dL (0.76-1.46); Thyroid Stim Hormone (TSH) 2.39 uIU/mL (0.358-3.74)
== END ==
PROVIDERS: PCP Student in an Organized Health Care Education/Training Program; Referring Provider Physician Assistant Medical; Visit Provider Physician Assistant Medical
DX: I25.10 Atherosclerotic heart disease of native coronary artery without angina pectoris (principal); I48.0 Paroxysmal atrial fibrillation; Z79.899 Other long term (current) drug therapy
CPT/HCPCS: 36415; 71046; 80053; 84439; 84443; 84481; 85025

== ENCOUNTER 2021-07-31 12:32 | Emergency (ER) | payer OTHER, SELFPAY ==
[2021-07-31 12:34] VITALS: BP 87/34; PULSE 48; RESP 16; TEMP 35.8; O2SAT 99; BMI 23.6
--- NOTE | 2021-07-31 13:18 | CT_ITS ---
STUDY: CT ABDOMEN AND PELVIS WITHOUT CONTRAST REASON FOR EXAM: Female, 81 years old. Abdominal pain- PO Contrast. Stage III chronic kidney disease. RADIATION DOSAGE (If Supplied By Facility): CTDIvol = ( 7.04 ) mGy, DLP = ( 330.44 ) mGycm TECHNIQUE: Transaxial images were obtained from the dome of the diaphragm to the symphysis pubis without oral contrast, and without intravenous contrast. Sagittal and coronal images were reconstructed. Individualized dose optimization techniques were used for this CT. COMPARISON: Comparison is made with prior study dated 11/08/2017. FINDINGS: Small bilateral pleural effusions right greater than left with bibasilar atelectasis. Cardiomegaly. Coronary artery calcification. There is a 7.2 mm cyst in the dome of the right lobe of the liver. There are multiple gallstones. Contracted gallbladder. Gallbladder wall thickening. There are multiple benign calcified granulomata of the spleen. Normal pancreas. Normal bilateral adrenal glands. There is a 1.97 m cyst in the lower pole of the right kidney. Normal left kidney. There is a moderate-sized hiatal hernia. Normal small intestine. There are multiple colonic diverticula consistent with diverticulosis. The appendix is visualized and appears normal. There is diffuse atherosclerotic calcification of the abdominal aorta and its major visceral branches, without a demonstrated aneurysm. Stable calcified splenic artery aneurysm. Normal inferior vena cava. Normal retroperitoneum. Normal urinary bladder. Small amount of free fluid is seen in the pelvis. Calcified fibroid uterus. Normal abdominal wall. There are mild degenerative changes of the visualized lumbar spine. CT/Abdomen/Pel W ORAL Cont Only IMPRESSION: Small bilateral pleural effusions right greater than left with bibasilar atelectasis. Gallstones. Contracted gallbladder with gallbladder wall thickening. Small amount of free fluid is seen in the pelvis. Sigmoid diverticulosis. Electronically Signed: Ruddy Welsh MD at 15:33 EDT , Service support ,
--- NOTE | 2021-07-31 13:18 | EDS_ITS ---
HPI HPI - GI History of Present Illness Chief Complaint: Abd Pain Informant: patient Abdominal Pain/Flank Pain Onset: Today Context: Gradual Onset Timing: Waxes and wanes Quality: Cramping Location: Diffuse Worsened by: Food Relieved by: Nothing Nausea/Vomiting/Emesis GI Symptom: Positive for Nausea and Vomiting Quality: Negative for Coffee ground and Hematemesis Diarrhea/Melena/Hematochezia GI Symptom: Positive for Diarrhea; Negative for Melena and Hematochezia Associated Symptoms Associated Symptoms: Negative for Dysuria and Frequency Narrative Narrative: Patient presents with abdominal pain that has been getting worse over the past 2 days. Patient states it gradually has gotten worse. Patient states it has been waxing and waning. Patient states it is worse after eating. Patient describes her pain as cramping. Patient states nothing seems to help with the pain. Patient admits to some nausea and vomiting. Patient denies any hematemesis or coffee-ground emesis. Patient also admits to some diarrhea when the pain began. Patient states this has resolved. Patient denies any melena or hematochezia. Patient denies any urinary complaints. Patient also complains of pain in her left leg. [facility] Medical History (Updated 07/31/21 @ 18:[address] Lucho Rowe, DO) Atherosclerotic heart disease of [place] coronary artery without angina pectoris Chronic systolic (congestive) heart failure CKD (chronic kidney disease), stage III CVA (cerebral vascular accident) Dyslipidemia History of cardioversion (~05/11/19) History of left heart catheterization (08/2017) HTN (hypertension) Hyperlipidemia Ischemic cardiomyopathy Old myocardial infarction Paroxysmal atrial fibrillation Peripheral vascular disease PVD (peripheral vascular disease) Renal artery stenosis Home Medications aspirin 81 mg PO DAILY@0800 10/21/17 [History Last Taken 11/24/19] escitalopram oxalate 10 mg PO DAILY 10/21/17 [History Last Taken 11/24/19] rosuvastatin 40 mg PO DAILY 10/21/17 [History Last Taken 11/24/19 22:00] magnesium oxide 400 mg (241.3 mg magnesium) tablet 400 mg PO BID tab 02/20/18 [History Last Taken 11/24/19 22:00] isosorbide mononitrate 30 mg PO DAILY #30 tab 04/09/18 [Rx Last Taken 11/24/19] carvedilol 6.25 mg PO BID #60 tab 04/05/19 [Rx Last Taken 11/24/19 22:00] amiodarone 200 mg tablet 200 mg PO DAILY #90 tab 05/03/19 [Rx Last Taken 11/24/19] apixaban 2.5 mg tablet 2.5 mg PO BID 05/03/19 [History Last Taken 11/24/19 22:00] levothyroxine 50 mcg tablet 50 mcg PO DAILY 11/15/19 [History Last Taken 11/25/19] potassium chloride 10 mEq tablet,extended release 30 meq PO DAILY tablet 12/30/20 [History Last Taken Unknown] furosemide 40 mg tablet 40 mg PO DAILY #90 tab 06/29/21 [Rx Last Taken Unknown] Allergy/AdvReac Type Severity Reaction Status Date / Time No Known Allergies Allergy Verified 07/31/21 12:39 Family History Brother Hypertension Surgical History History of repair of aneurysm of abdominal aorta using endovascular stent graft Social History Smoking Status: Never smoker alcohol intake: never substance use type: does not use caffeine: No what type of physical activity do you participate in: none seatbelt use: always do you feel safe at home: Yes ROS ROS ED Constitutional Constitutional ED: Denies chills or fever(s) Eyes Eyes: Denies blurry vision or change in vision ENT ENT ED: Denies rhinorrhea or sore throat Cardiovascular Cardiovascular: Denies chest pain or palpitations Respiratory/Chest Respiratory/Chest: Denies cough or dyspnea Gastrointestinal Gastrointestinal: Reports abdominal pain, diarrhea, nausea and vomiting Genitourinary Genitourinary ED: Denies dysuria or hematuria Musculoskeletal Musculoskeletal: Denies back pain or neck pain Integumentary Denies abscess or rash Neurologic Neurologic: Denies headache(s) or weakness Allergic/Immunologic Allergic/Immunologic ED: Denies mouth swelling or urticaria EXAM Physical Exam Const Vital Signs: 07/31/21 12:34 07/31/21 16:47 Temperature 96.4 F L Temperature Source Temporal Pulse Rate 48 L 52 L Respiratory Rate 16 18 Blood Pressure 87/34 L 152/44 H Blood Pressure Mean 51 80 Pulse Ox 99 Oxygen Delivery Method Room Air Room Air Positive well nourished and well developed General Appearance ED: well developed HEENT Reports moist mucous membranes Neck supple and no JVD Resp normal respiratory effort and clear to auscultation bilaterally Cardio regular rate, regular rhythm and no murmurs GI normal to inspection, nondistended, normoactive bowel sounds Auscultation: normoactive bowel sounds Palpation: soft and tender epigastric and LUQ; Negative for guarding or rebound tenderness present Extremity normal to inspection General Extremety ED: Negative for edema or tenderness General Extremity: Negative for edema Neuro oriented x3, CN's II-XII intact bilaterally and no sensory deficits noted Sensorium / Orientation: alert Motor Exam: strength 5/5 throughout Psych mental status grossly normal Skin no rashes or lesions noted MDM MDM MDM Narrative Medical decision making narrative: Patient was given IV fluids. Patient was given 2 doses of morphine and Zofran. CBC shows a mild anemia with a hemoglobin of 10.2 and hematocrit 33.5. White blood cell count was normal. Platelets were normal. Comprehensive metabolic profile showed a BUN of 28 and creatinine of 2.45. These are similar to prior results. Lipase was normal. AST was slightly elevated at 136, ALT was 89, and alk phos was 193. Urinalysis does not show any evidence of urinary tract infection. CT scan of the abdomen and pelvis was obtained. There are gallstones with a contracted gallbladder and some gallbladder wall thickening. There is some diverticulosis noted. There is a small amount of free fluid in the pelvis. Case was discussed with Dr. Delvalle. She was in to evaluate the patient. She offered admission to the hospital. Julio Cesar sanches does not want to stay in the hospital. She will follow up with the patient as an outpatient in 3 to 5 days. Patient was instructed to eat a bland and low-fat diet. Patient was instructed to avoid spicy foods as well. Patient understood and was agreeable with the plan. All questions were answered. Lab Data Attestation: I reviewed the patient's lab results. Labs: Laboratory Results - last 24 hr 07/31/21 07/31/21 07/31/21 13:35 13:35 15:13 WBC 8.6 RBC 4.10 L Hgb 10.2 L Hct 33.5 L MCV 81.7 MCH 24.9 L MCHC 30.4 L RDW Std Deviation 56.6 H RDW Coeff of [place] 19.1 H Plt Count 178 MPV 12.0 Immature Gran % (Auto) 0.300 Neut % (Auto) 79.2 H Lymph % (Auto) 9.5 L [place] % (Auto) 10.2 H Eos % (Auto) 0.3 Baso % (Auto) 0.5 Absolute Neuts (auto) 6.8 Absolute Lymphs (auto) 0.82 L Nucleated RBC % 0 Sodium 139 Potassium 3.9 Chloride 111 H Carbon Dioxide 21.0 Anion Gap 7 BUN 28 H Creatinine 2.45 H Estim Creat Clear Calc 13.59 Est GFR (MDRD) Af Amer 24 L Est GFR (MDRD) Non-Af 20 L BUN/Creatinine Ratio 11.4 Glucose 148 H Calcium 7.8 L Total Bilirubin 0.80 AST 136 H ALT 89 H Alkaline Phosphatase 193 H Total Protein 6.2 L Albumin 2.0 L Globulin 4.2 Albumin/Globulin Ratio 0.5 L Lipase 361 Urine Color Yellow Urine Clarity Clear Urine pH 6.0 Ur Specific [place] 1.010 Urine Protein 100 H Urine Glucose (UA) Normal Urine Ketones Negative Urine Occult Blood 250 H Urine Nitrite Negative Urine Bilirubin Negative Urine Urobilinogen Normal Ur Leukocyte Esterase Negative Urine RBC 0-5 SEEN Urine WBC 0 SEEN Ur Squamous Epith Cells 0 SEEN Urine Bacteria 0 SEEN Urine Mucus 0 SEEN Radiography Diagnostic Testing: Clinical Impression(s) from Imaging Studies Abdomen CT 07/31/21 13:18 IMPRESSION: Small bilateral pleural effusions right greater than left with bibasilar atelectasis. Gallstones. Contracted gallbladder with gallbladder wall thickening. Small amount of free fluid is seen in the pelvis. Sigmoid diverticulosis. Electronically Signed: Ruddy Welsh MD at 15:33 EDT , Service support , Discharge Plan Triage Chief Complaint: Abd Pain ED Provider: Lucho Rowe Dx/Rx/DC Orders Clinical Impression: Cholelithiasis Instructions: ED Gallstones with Biliary Colic Prescriptions: No Action magnesium oxide 400 mg tablet 400 mg PO BID RF: 0 amiodarone 200 mg tablet 200 mg PO DAILY Qty: 90 RF: 3 levothyroxine 50 mcg tablet 50 mcg PO DAILY RF: 0 potassium chloride 10 mEq tablet extended release 30 meq PO DAILY RF: 0 aspirin 81 MG tablet,chewable 81 mg PO DAILY@0800 RF: 0 rosuvastatin 40 MG tablet 40 mg PO DAILY RF: 0 escitalopram oxalate 10 MG tablet 10 mg PO DAILY RF: 0 isosorbide mononitrate 30 MG tablet 30 mg PO DAILY Qty: 30 RF: 2 apixaban 2.5 mg tablet 2.5 mg PO BID RF: 0 carvedilol 6.25 MG tablet 6.25 mg PO BID Qty: 60 RF: 0 furosemide 40 mg tablet 40 mg PO DAILY Qty: 90 RF: 3 Primary Care Provider: Chon Solis Referrals: Chon Solis DO [Primary Care Provider] - Nadine Delvalle MD [STAFF PHYSICIAN] - 3-5 Days Disposition Disposition: Home, Self Care
[2021-07-31] MEDS: Morphine 4 MG/ML Syringe IV ×2 (13:34→14:56)
[2021-07-31] MEDS: 0.9% Normal Saline 1,000 ML 1000 ML IV (13:34)
[2021-07-31] MEDS: Ondansetron 4 MG/2 ML Vial IV ×2 (13:34→14:55)
[2021-07-31] MEDS: Contrast Allergy Safety Check IV (13:36)
[2021-07-31 13:48] LABS: Absolute Lymphocyte Count 0.82 X10^3/uL (0.83-4.51); Absolute Neutrophil Count 6.8 X10^3/uL (2.0-7.7); Basophil# 0.04 X10^3/uL; Basophil% 0.5 % (0-1); Eosinophil# 0.03 X10^3/uL; Eosinophils% 0.3 % (0-5); Hematocrit 33.5 % (37-47); Hemoglobin 10.2 g/dL (12.0-15.0); Lymphocyte # 0.82 X10^3/ul (0.83-4.51); Lymphocyte % 9.5 % (19-41); Mean Corp Hgb Conc 30.4 g/dL (32-36); Mean Corpuscular Hgb 24.9 pg (27.0-32.0); Mean Corpuscular Volume 81.7 fL (81-99); Monocyte# 0.88 X10^3/uL; Monocyte% 10.2 % (0-10); NRBC Flagged by Analyzer 0 % (0-5); Neutrophil # 6.79 X10^3/uL (2.7-7.7); Neutrophil % 79.2 % (47-70); Platelet Count 178 K/mm3 (150-450); RBC Distribution Width CV 19.1 % (11.6-14.6); RBC Distribution Width SD 56.6 fl (35.1-43.9); White Blood Count 8.6 K/mm3 (4.4-11.0)
[2021-07-31 14:15] LABS: ALB/GLOB Ratio 0.5 RATIO (0.9-2.4); AST(SGOT) 136 U/L (15-37); Alanine Aminotransfer ALT/SGPT 89 U/L (13-56); Alkaline Phosphatase 193 U/L (45-117); Anion Gap 7 (5-15); BUN 28 mg/dL (7-18); BUN/Creat Ratio 11.4 RATIO (10-20); Calcium,Total 7.8 mg/dL (8.5-10.1); Chloride 111 mmol/L (98-107); Creatinine, Serum 2.45 mg/dL (0.55-1.02); EST Glomerular Filtration Rate 20 mL/min (>60); Est Glom Filt Rate - Afr Amer 24 mL/min (>60); Estimated Creatinine Clearance 13.59 ml/min; Globulin 4.2 g/dL (2.2-4.2); Glucose 148 mg/dL (74-106); Lipase 361 U/L (73-393); Potassium 3.9 mmol/L (3.5-5.1); Protein, Total 6.2 g/dL (6.4-8.2); Sodium Level 139 mmol/L (136-145)
[2021-07-31 15:20] LABS: Bacteria 0 SEEN /hpf (None Seen); Mucous, Urine 0 SEEN /hpf (<or=2+); Squamous Epithelial Cells - UA 0 SEEN /hpf (5-10); White Blood Cells 0 SEEN /hpf (0-5)
[2021-07-31 15:55] LABS: Color, Urine Yellow (Yellow); Glucose, Dipstick Normal (Normal); Ketone-Dipstick Negative (Negative); Leukocyte Esterase-Dipstick Negative /ul (Negative); Nitrite-Dipstick Negative (Negative); Occult Blood-Urine 250 /ul (Negative); Protein-Dipstick 100 mg/dl (Negative); Urine Bilirubin Dipstick Negative (Negative); Urine Clarity Clear (Clear); Urine Urobilinogen Normal (Normal)
[2021-07-31 16:17] LABS: Red Blood Cells-Urine 0-5 SEEN /hpf (0-5)
[2021-07-31 16:47] VITALS: BP 152/44; PULSE 52; RESP 18
--- NOTE | 2021-07-31 18:42 | PCM.CONS.B ---
Consult Date of Consult: 07/31/21 HISTORY OF PRESENT ILLNESS: Soraya Grimes is an 81 y/o WF who presents with RUQ abdominal pain. She has had nausea and emesis and anorexia intermittently for the past two weeks. However, she presented today for worsening abdominal pain for the past two days. Pain usually occurs after eating. She also noted episodes of loose stools. Denies blood in stools or emesis. She denies fevers. She presented to [facility] ED. WBC was normal, but with slight left shift of differential. normal Tbili but elevated alkphos. Patient also with elevated BUN/creat. CT scan was obtained which stated multiple gallstones...contracted gallbladder with wall thickening...sigmoid diverticulosis. PAST MEDICAL HISTORY Essential hypertension, benign ? Hemorrhage of gastrointestinal tract, unspecified ? Impaired fasting glucose ? 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 Corley, cardiac cath, unable to stent due to tortuosity Hyperlipidemia Stroke (HCC) 10/2012 Systolic heart failure secondary to coronary artery disease (HCC) 08/2017 Unspecified vascular insufficiency of intestine CKD - stage 3? ? PAST SURGICAL HISTORY BALLN ANGIOPLASTY PERC,VISCERAL ? 11/29/06 CARDIOVERSION ? 05/11/2019 Dr. Aleksander Corley COLONOSCOP W/ OR W/O [facility] SPEC ? 03/08/2006 COLONOSCOPY W/BX ? 07/11/06 INSERT CATH,ART,PERCUT,SHORTTERM ? 08/02/06 LIGATE FALLOPIAN TUBE ? ? SIGMOIDOSCOPY FLEX DIAG ? 06/23/06 THROMBIN INJECT ? 12/09/06 PSEUDOANEURYSM RIGHT GROIN THROMBOENDARTECTMY NECK,NECK INCIS ? 08/02/06 RIGHT CEA TRANSCATH STENT INIT VESSEL,PERCUT ? 11/29/06 ? CURRENT MEDICATIONS rosuvastatin (CRESTOR) 40 mg tablet Take 1 tablet by mouth once daily. escitalopram oxalate (LEXAPRO) 10 mg tablet Take 1 tablet by mouth once daily. carvedilol (COREG) 6.25 mg tablet Take 1 tablet by mouth twice daily with meals. levothyroxine (LEVOXYL) 50 mcg tablet Take 1 tablet by mouth once daily. In the morning, Take on empty stomach. For Thyroid isosorbide mononitrate ER (IMDUR) 30 mg 24 hr tablet Take 1 tablet by mouth once daily. potassium chloride (K-TAB) 10 mEq tablet Take 30 meq a day amiodarone (PACERONE) 200 mg tablet Take 1 tablet by mouth once daily. furosemide (LASIX) 40 mg tablet Take 1 tablet by mouth once daily. magnesium oxide (MAGOX) 400 mg (241.3 mg magnesium) tablet Take 1 tablet by mouth twice daily. blood sugar diagnostic (BLOOD GLUCOSE TEST) test strip Test blood sugar(s) 2 times daily. Dx: Type 2 DM - Controlled E11.9 Insulin: No Lancets lancets Dx: DM2 controlled, Use as instructed apixaban (ELIQUIS) 2.5 mg tab tab(s) Take 1 tablet by mouth twice daily. COMPOUNDED PRESCRIPTION BLOOD PRESSURE CUFF FOR HOME USE. DX: LABILE BLOOD PRESSURE Aspirin 81 mg Tab Take 1 tablet by mouth once daily. Take with food. ? ALLERGIES Acei [Juan Inhibitor* Cough Atorvastatin GI Upset ? SOCIAL HISTORY ? Smoking status: Never Smoker ? Smokeless tobacco: Never Used Substance Use Topics ? Alcohol use: No ? Drug use: No REVIEW OF SYSTEMS: General: denies fevers HEENT - no acute infections/trauma, history of right CEA Pulmonary denies shortness of breath or coughing up blood Cardiac - denies chest pain GI - see HPI - denies blood in urine Neuro - denies seizures, history of CVA Musculoskeletal - complaint of left leg pain Psych - no major mood changes PHYSICAL EXAMINATION: BP 152/44 HR 52 RR 1812/60 Pulse 60 Temp (Src) 97.8 (Left Tympanic) Resp 20 Wt 134 lb (60.8kg) Gen: A&O, NAD, non-toxic appearing, Pleasant, cooperative HEENT: NT/AC, PERRLA,?wearing glasses,? Lungs - normal respiratory excursion, no cough noted Heart - regular on monitor Abdomen - tender in RUQ, no peritoneal signs Extremities - left leg pain Neuro - non focal Laboratory studies and radiologist studies noted and in EHR Assessment & Plan Assessment/Plan (1) Cholelithiasis: PLAN: I have discussed above with patient and her daughter Giulia who is present with her. Also with Luke, a son and patient's who were on the phone. I have recommended gallbladder surgery I have described the surgery to them. I have counseled the patient as to the risks of the procedure, including but not limited to: infection, bleeding, injury to any blood vessels/nerves, scar tissue, injury to any intrabdominal organs, injury to kidney/ureters, injury to bowel/bladder, injury to the common bile duct/biliary tree, bile leakage, intraabdominal abscess/bleeding, hernias at incisional sites, wound infections, possible open procedure, complications of anesthesia, postoperative pneumonia/cardiac problems/blood clots etc. they understand. I have also explained to them, that the patient has significant medical problems that will complicate her recovery from surgery and she would be at risk for CVA/[place]/PE/DVT/etc. I have offered the following - admission to the hospital for surgery tomorrow (a Tuesday) versus surgery to be scheduled on Tuesday or Tuesday of next week and patient to hold her aspirin and eliquis in the meantime. The patient and her family choose the latter. I have told patient and her family to return to ED if worsening signs/symptoms. I will contact patient and her family on Tuesday morning to set up procedure. I was asked by the ED physician, Dr. Rowe, to evaluate this patient in the ED. I have conveyed my recommendations via EHR.
== END 2021-07-31 18:31 | disposition home or self-care (01) ==
PROVIDERS: Emergency Provider Emergency Medicine; PCP Student in an Organized Health Care Education/Training Program
DX: K80.20 Calculus of gallbladder without cholecystitis without obstruction (principal); K57.30 Diverticulosis of large intestine without perforation or abscess without bleeding; I25.10 Atherosclerotic heart disease of native coronary artery without angina pectoris; I13.0 Hypertensive heart and chronic kidney disease with heart failure and stage 1 through stage 4 chronic kidney disease, or unspecified chronic kidney disease; I50.22 Chronic systolic (congestive) heart failure; N18.30 Chronic kidney disease, stage 3 unspecified; I25.5 Ischemic cardiomyopathy; I25.2 Old myocardial infarction; I48.0 Paroxysmal atrial fibrillation; I73.9 Peripheral vascular disease, unspecified; E78.5 Hyperlipidemia, unspecified; Z79.01 Long term (current) use of anticoagulants; Z79.82 Long term (current) use of aspirin; Z79.899 Other long term (current) drug therapy; Z86.73 Personal history of transient ischemic attack (TIA), and cerebral infarction without residual deficits
CPT/HCPCS: 74176; 80053; 81001; 83690; 85025; 96361; 96374; 96375; 96376; 99282; J7030; A4216; J2405

== ENCOUNTER 2021-08-04 15:36 | Observation (INO) | payer OTHER, SELFPAY ==
--- NOTE | 2021-08-03 13:42 | PCM.HP.BLA ---
History and Physical Date of Admission: 08/04/21 HISTORY OF PRESENT ILLNESS: Soraya Grimes is an 81 y/o WF who presents with RUQ abdominal pain. She has had nausea and emesis and anorexia intermittently for the past two weeks. However, she presented today for worsening abdominal pain for the past two days. Pain usually occurs after eating. She also noted episodes of loose stools. Denies blood in stools or emesis. She denies fevers. She presented to [facility] ED. WBC was normal, but with slight left shift of differential. normal Tbili but elevated alkphos. Patient also with elevated BUN/creat. CT scan was obtained which stated multiple gallstones...contracted gallbladder with wall thickening...sigmoid diverticulosis. 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 Corley, cardiac cath, unable to stent due to tortuosity Hyperlipidemia Stroke (HCC) 10/2012 Systolic heart failure secondary to coronary artery disease (HCC) 08/2017 Unspecified vascular insufficiency of intestine CKD - stage 3 PAST SURGICAL HISTORY BALLN ANGIOPLASTY PERC,VISCERAL 11/29/06 CARDIOVERSION 05/11/2019 Dr. Aleksander Corley COLONOSCOP W/ OR W/O [facility] SPEC 03/08/2006 COLONOSCOPY W/BX 07/11/06 INSERT CATH,ART,PERCUT,SHORTTERM 08/02/06 LIGATE FALLOPIAN TUBE SIGMOIDOSCOPY FLEX DIAG 06/23/06 THROMBIN INJECT 12/09/06 PSEUDOANEURYSM RIGHT GROIN THROMBOENDARTECTMY NECK,NECK INCIS 08/02/06 RIGHT CEA TRANSCATH STENT INIT VESSEL,PERCUT 11/29/06 CURRENT MEDICATIONS rosuvastatin (CRESTOR) 40 mg tablet Take 1 tablet by mouth once daily. escitalopram oxalate (LEXAPRO) 10 mg tablet Take 1 tablet by mouth once daily. carvedilol (COREG) 6.25 mg tablet Take 1 tablet by mouth twice daily with meals. levothyroxine (LEVOXYL) 50 mcg tablet Take 1 tablet by mouth once daily. In the morning, Take on empty stomach. For Thyroid isosorbide mononitrate ER (IMDUR) 30 mg 24 hr tablet Take 1 tablet by mouth once daily. potassium chloride (K-TAB) 10 mEq tablet Take 30 meq a day amiodarone (PACERONE) 200 mg tablet Take 1 tablet by mouth once daily. furosemide (LASIX) 40 mg tablet Take 1 tablet by mouth once daily. magnesium oxide (MAGOX) 400 mg (241.3 mg magnesium) tablet Take 1 tablet by mouth twice daily. blood sugar diagnostic (BLOOD GLUCOSE TEST) test strip Test blood sugar(s) 2 times daily. Dx: Type 2 DM - Controlled E11.9 Insulin: No Lancets lancets Dx: DM2 controlled, Use as instructed apixaban (ELIQUIS) 2.5 mg tab tab(s) Take 1 tablet by mouth twice daily. COMPOUNDED PRESCRIPTION BLOOD PRESSURE CUFF FOR HOME USE. DX: LABILE BLOOD PRESSURE Aspirin 81 mg Tab Take 1 tablet by mouth once daily. Take with food. ALLERGIES Acei [Juan Inhibitor* Cough Atorvastatin GI Upset SOCIAL HISTORY ? Smoking status: Never Smoker ? Smokeless tobacco: Never Used Substance Use Topics ? Alcohol use: No ? Drug use: No REVIEW OF SYSTEMS: General: denies fevers HEENT - no acute infections/trauma, history of right CEA Pulmonary denies shortness of breath or coughing up blood Cardiac - denies chest pain GI - see HPI - denies blood in urine Neuro - denies seizures, history of CVA Musculoskeletal - complaint of left leg pain Psych - no major mood changes PHYSICAL EXAMINATION: BP 152/44 HR 52 RR 1812/60 Pulse 60 Temp (Src) 97.8 (Left Tympanic) Resp 20 Wt 134 lb (60.8kg) Gen: A&O, NAD, non-toxic appearing, Pleasant, cooperative HEENT: NT/AC, PERRLA, wearing glasses, Lungs - normal respiratory excursion, no cough noted Heart - regular on monitor Abdomen - tender in RUQ, no peritoneal signs Extremities - left leg pain Neuro - non focal Laboratory studies and radiologist studies noted and in EHR Assessment & Plan (1) Cholelithiasis: PLAN: I have discussed above with patient and her daughter Giulia who is present with her. Also with Luke, a son and patient's who were on the phone. I have recommended gallbladder surgery I have described the surgery to them. I have counseled the patient as to the risks of the procedure, including but not limited to: infection, bleeding, injury to any blood vessels/nerves, scar tissue, injury to any intrabdominal organs, injury to kidney/ureters, injury to bowel/bladder, injury to the common bile duct/biliary tree, bile leakage, intraabdominal abscess/bleeding, hernias at incisional sites, wound infections, possible open procedure, complications of anesthesia, postoperative pneumonia/cardiac problems/blood clots etc. they understand. I have also explained to them, that the patient has significant medical problems that will complicate her recovery from surgery and she would be at risk for CVA/[place]/PE/DVT/etc. The patient agrees with surgery.
--- NOTE | 2021-08-03 14:07 | NURSING ---
PAT phone interview with pt's dgtr Giulia. Giulia encouraged at PAT interview to have pt do required PAT labs and EKG before the day of surgery; informed that testing DOS may result in abnormals that potentially may cancel surgery. Giulia verbalizes understanding and stated unable to come before DOS.
[2021-08-04] MEDS: Lactated Ringers 1,000 ML 75 ML IV (14:12)
[2021-08-04 14:13] VITALS: BP 101/76; PULSE 47; RESP 14; TEMP 36.4; O2SAT 96; BMI 23.6
[2021-08-04 14:14] LABS: Hematocrit 33.8 % (37-47); Hemoglobin 10.2 g/dL (12.0-15.0); Mean Corp Hgb Conc 30.2 g/dL (32-36); Mean Corpuscular Hgb 24.8 pg (27.0-32.0); Mean Platelet Vol. 11.8 fl (6.2-12.0); Platelet Count 239 K/mm3 (150-450); RBC Distribution Width CV 19.6 % (11.6-14.6); RBC Distribution Width SD 57.6 fl (35.1-43.9); Red Blood Count 4.12 M/mm3 (4.2-5.4); White Blood Count 9.8 K/mm3 (4.4-11.0)
[2021-08-04 14:24] LABS: International Normalized Ratio 1.3; Prothrombin Time (Protime)PT. 15.7 SECONDS (11.7-14.9)
[2021-08-04 14:44] LABS: AST(SGOT) 133 U/L (15-37); Alanine Aminotransfer ALT/SGPT 68 U/L (13-56); Albumin, Serum 1.9 g/dL (3.2-5.0); Alkaline Phosphatase 223 U/L (45-117); Anion Gap 6 (5-15); BUN 31 mg/dL (7-18); BUN/Creat Ratio 12.9 RATIO (10-20); Bilirubin, Direct 0.46 mg/dL (0.00-0.30); Calcium,Total 7.6 mg/dL (8.5-10.1); Chloride 112 mmol/L (98-107); EST Glomerular Filtration Rate 21 mL/min (>60); Est Glom Filt Rate - Afr Amer 25 mL/min (>60); Estimated Creatinine Clearance 13.87 ml/min; Globulin 4.2 g/dL (2.2-4.2); Glucose 122 mg/dL (74-106); Potassium 4.1 mmol/L (3.5-5.1); Protein, Total 6.1 g/dL (6.4-8.2); Sodium Level 139 mmol/L (136-145)
--- NOTE | 2021-08-04 16:47 | PCM.CONS.GEN ---
Documented by User: Sriram CLARK 08/04/21 17:18 Assessment & Plan Assessment/Plan (1) Chronic systolic (congestive) heart failure: (2) Atherosclerotic heart disease of [place] coronary artery without angina pectoris: QUALIFIERS: [place] vs. transplanted heart: [place] heart Qualified Code(s): I25.10 - Atherosclerotic heart disease of [place] coronary artery without angina pectoris (3) Paroxysmal atrial fibrillation: (4) CVA (cerebral vascular accident): PLAN: Patient is an 81-year-old female who presents to the hospital medicine service on consult from general surgery while awaiting transfer to [facility] for laparoscopic cholecystectomy due to multiple comorbidities and having an abnormal EKG. 1) chronic systolic congestive heart failure with ischemic cardiomyopathy Patient does not appear in acute exacerbation vital signs stable and patient is currently satting 96% on room air. Echocardiogram from October 2019 demonstrates an EF of 20 to 25% and stage I diastolic dysfunction, which at the time was seen from prior study taken in 2018. Home CHF regimen includes carvedilol and Lasix. Patient does not use oxygen at home. Plan; hold home carvedilol due to junctional bradycardia, continue Lasix with hold parameters. 2) paroxysmal atrial fibrillation Patient is on amiodarone and carvedilol for rate control, patient is anticoagulated on Eliquis, although dose is 2.5 mg p.o. twice daily. Hold amiodarone and carvedilol due to bradycardia. 3) hypothyroidism Continue Synthroid. 4) depression Hold home Lexapro due to ongoing bradycardia and interaction with Zofran. 5) CAD status post stent Patient follows with Dr. Mesa, last appointment was December 2020 in which there were no problems identified. Continue aspirin, statin and isosorbide. Hold carvedilol due to bradycardia. 6) Symptomatic cholelithiasis Patient was supposed to have surgery today, however was canceled by anesthesia over concerns of multiple patient comorbidities, namely chronic systolic CHF and low ejection fraction. Patient is awaiting bed for transfer to [facility] for tertiary level of care. DVT prophylaxis - SCD's + Home eliquis. Patient seen by Sriram Sumner PA-C, under the supervision of Dr. Garzon. HPI Consult Data Date of Consult: 08/04/21 HPI Narrative HPI Narrative: JUS RAHMAN is an 81-year-old female who presented to the ED on 07/31/2021 with a chief complaint of right upper quadrant abdominal pain with nausea, emesis and anorexia for 2 weeks. General surgery was consulted and agreed to admit patient for laparoscopic cholecystectomy. Surgery was supposed to take place today 08/04/21, however, was cancelled by anesthesia due to multiple patient comorbidities to include CAD status post stent, CHF and also having a abnormal EKG. General surgery reached out to [facility] to have patient transferred, patient was accepted however is awaiting an available bed. Currently patient has no complaints and reports feeling comfortable. [facility] Medical History Arthritis Atherosclerotic heart disease of [place] coronary artery without angina pectoris Cardiology follow-up encounter Chronic systolic (congestive) heart failure CKD (chronic kidney disease), stage III CVA (cerebral vascular accident) Depression Dyslipidemia Easy bruising History of cardioversion (~05/11/19) History of echocardiogram History of left heart catheterization (08/2017) HTN (hypertension) Hyperlipidemia Ischemic cardiomyopathy Non-smoker Old myocardial infarction Paroxysmal atrial fibrillation PVD (peripheral vascular disease) Renal artery stenosis Shortness of breath on exertion Thyroid disease Walker as ambulation aid Wears glasses Home Medications aspirin 81 mg PO DAILY@0800 10/21/17 [History Last Taken 07/31/21] escitalopram oxalate 10 mg PO DAILY 10/21/17 [History Last Taken 11/24/19] rosuvastatin 40 mg PO DAILY 10/21/17 [History Last Taken 11/24/19 22:00] magnesium oxide 400 mg (241.3 mg magnesium) tablet 400 mg PO BID tab 02/20/18 [History Last Taken 11/24/19 22:00] apixaban 2.5 mg tablet 2.5 mg PO BID 05/03/19 [History Last Taken 07/31/21] levothyroxine 50 mcg tablet 50 mcg PO DAILY 11/15/19 [History Last Taken 11/25/19] potassium chloride 10 mEq tablet,extended release 30 meq PO DAILY tablet 12/30/20 [History Last Taken Unknown] amiodarone 200 mg PO DAILY 08/03/21 [History Last Taken Unknown] carvedilol 6.25 mg PO BID 08/03/21 [History Last Taken Unknown] furosemide 40 mg PO DAILY 08/03/21 [History Last Taken Unknown] isosorbide mononitrate 30 mg PO DAILY 08/03/21 [History Last Taken Unknown] Allergy/AdvReac Type Severity Reaction Status Date / Time No Known Allergies Allergy Verified 08/03/21 13:11 Family History (Updated 08/04/21 @ 16:55 by Sriram CLARK) Brother Hypertension Father CAD (coronary artery disease) Mother , No known medical history to include DM2, HTN, HLD, CAD or CVA. No problems noted. Surgical History History of carotid endarterectomy History of colonoscopy History of repair of aneurysm of abdominal aorta using endovascular stent graft Social History Smoking Status: Never smoker alcohol intake: never substance use type: does not use caffeine: No what type of physical activity do you participate in: none seatbelt use: always do you feel safe at home: Yes ROS Constitutional Constitutional: Denies anorexia, change in weight, chills, fatigue, fever(s), malaise, night sweats, weakness or other Eyes Eyes: Denies blurry vision, change in eye color, change in vision, discharge from eye(s), double vision, erythema, eye pain, loss of vision or other ENT HEENT: Denies abnormal hearing, dysphagia, ear pain, epistaxis, headache(s), hearing loss, nasal congestion, nasal discharge, post nasal drip, sinus pressure, sore throat or other Cardiovascular Cardiovascular: Denies chest pain, claudication, dyspnea on exertion, edema, lightheadedness, orthopnea, palpitations, paroxysmal nocturnal dyspnea, rapid heart rate, syncope or other Respiratory/Chest Respiratory/Chest: Denies cough, dyspnea, excessive phlegm production, hemoptysis, productive cough, shortness of breath at rest, shortness of breath with exertion, wheezing or other Gastrointestinal Gastrointestinal: Denies abdominal pain, coffee ground emesis, constipation, diarrhea, dyspepsia, hematemesis, hematochezia, loose stools, melena, nausea, vomiting or other Genitourinary Genitourinary: Denies burning urination, difficulty urinating, dysuria, hematuria, nocturia, urinary frequency, urinary hesitancy, urinary incontinence, urinary urgency or other Musculoskeletal Musculoskeletal: Denies arthralgias, back pain, joint pain, joint stiffness, joint swelling, myalgias, neck pain or other Neurologic Neurologic: Denies abnormal gait, abnormal speech, confusion, disequilibrium, dizziness, focal weakness, headache(s), numbness, paresthesias, seizure-like activity, seizures, syncope, tingling, tremor(s) or other Psychiatric Psychiatric: Denies anxiety, depression, homicidal ideation, suicidal ideation or other Endocrine Endocrinology: Denies change in body appearance, cold intolerance, excessive sweating, heat intolerance, polydipsia, polyuria or other Hematologic/Lymphatic Hematologic/Lymphatic: Denies anemia, easy bleeding, easy bruising, lymphadenopathy or other Allergic/Immunologic Allergic/Immunologic: Denies rhinitis, hives, eczemia, asthma or other Physical Exam Const alert, oriented x3 and no apparent distress General Appearance: cooperative HEENT normocephalic, head/scalp atraumatic and hearing grossly normal bilaterally Eyes PERRL, EOMs intact bilaterally and conjunctivae normal Neck no lymphadenopathy, supple and no JVD Resp normal respiratory effort, no retractions, no use of accessory muscles and clear to auscultation bilaterally Cardio no murmurs and no JVD Rate: bradycardia Rhythm: regular rhythm Peripheral Pulses: pulses 2+ throughout GI normal to inspection, nondistended, normoactive bowel sounds, soft to palpation and non-tender Extremity normal to inspection, full ROM and no clubbing, cyanosis or edema Skin no rashes or lesions noted, no wounds, skin turgor normal and no jaundice Neuro CN's II-XII intact bilaterally Psych affect normal Lab / Micro Data Result Diagrams: 08/04/21 14:05 08/04/21 14:05 Labs: Laboratory Results - last 24 hr 08/04/21 14:05: WBC 9.8, RBC 4.12 L, Hgb 10.2 L, Hct 33.8 L, MCV 82.0, MCH 24.8 L, MCHC 30.2 L, RDW Std Deviation 57.6 H, RDW Coeff of [place] 19.6 H, Plt Count 239, MPV 11.8 08/04/21 14:05: PT 15.7 H, INR 1.3, APTT 37.0 H 08/04/21 14:05: Sodium 139, Potassium 4.1, Chloride 112 H, Carbon Dioxide 21.0, Anion Gap 6, BUN 31 H, Creatinine 2.40 H, Estim Creat Clear Calc 13.87, Est GFR (MDRD) Af Amer 25 L, Est GFR (MDRD) Non-Af 21 L, BUN/Creatinine Ratio 12.9, Glucose 122 H, Calcium 7.6 L, Total Bilirubin 0.80, Direct Bilirubin 0.46 H, AST 133 H, ALT 68 H, Alkaline Phosphatase 223 H, Total Protein 6.1 L, Albumin 1.9 L, Globulin 4.2, TSH 5.60 H Micro: Microbiology 08/04/21 13:57 Interface Orders SARS-CoV-2 Antigen (Rapid) - Final Documented by User: Dr. Marci Garzon MD 08/04/21 21:56 HPI Consult Data Date of Consult: 08/04/21 [facility] Medical History Arthritis Atherosclerotic heart disease of [place] coronary artery without angina pectoris Cardiology follow-up encounter Chronic systolic (congestive) heart failure CKD (chronic kidney disease), stage III CVA (cerebral vascular accident) Depression Dyslipidemia Easy bruising History of cardioversion (~05/11/19) History of echocardiogram History of left heart catheterization (08/2017) HTN (hypertension) Hyperlipidemia Ischemic cardiomyopathy Non-smoker Old myocardial infarction Paroxysmal atrial fibrillation PVD (peripheral vascular disease) Renal artery stenosis Shortness of breath on exertion Thyroid disease Walker as ambulation aid Wears glasses Home Medications aspirin 81 mg PO DAILY@0800 10/21/17 [History Last Taken 07/31/21] escitalopram oxalate 10 mg PO DAILY 10/21/17 [History Last Taken 11/24/19] rosuvastatin 40 mg PO DAILY 10/21/17 [History Last Taken 11/24/19 22:00] magnesium oxide 400 mg (241.3 mg magnesium) tablet 400 mg PO BID tab 02/20/18 [History Last Taken 11/24/19 22:00] apixaban 2.5 mg tablet 2.5 mg PO BID 05/03/19 [History Last Taken 07/31/21] levothyroxine 50 mcg tablet 50 mcg PO DAILY 11/15/19 [History Last Taken 11/25/19] potassium chloride 10 mEq tablet,extended release 30 meq PO DAILY tablet 12/30/20 [History Last Taken Unknown] amiodarone 200 mg PO DAILY 08/03/21 [History Last Taken Unknown] carvedilol 6.25 mg PO BID 08/03/21 [History Last Taken Unknown] furosemide 40 mg PO DAILY 08/03/21 [History Last Taken Unknown] isosorbide mononitrate 30 mg PO DAILY 08/03/21 [History Last Taken Unknown] Allergy/AdvReac Type Severity Reaction Status Date / Time No Known Allergies Allergy Verified 08/03/21 13:11 Family History (Updated 08/04/21 @ 16:55 by Sriram CLARK) Brother Hypertension Father CAD (coronary artery disease) Mother , No known medical history to include DM2, HTN, HLD, CAD or CVA. No problems noted. Surgical History History of carotid endarterectomy History of colonoscopy History of repair of aneurysm of abdominal aorta using endovascular stent graft Social History Smoking Status: Never smoker alcohol intake: never substance use type: does not use caffeine: No what type of physical activity do you participate in: none seatbelt use: always do you feel safe at home: Yes Lab / Micro Data Result Diagrams: 08/04/21 14:05 08/04/21 14:05
[2021-08-04 17:16] VITALS: BMI 23.4
[2021-08-04 17:28] VITALS: BP 125/35; PULSE 47; RESP 16; TEMP 36.6; O2SAT 95
[2021-08-04] MEDS: Atorvastatin Calcium 80 MG Tablet PO (19:59)
[2021-08-04] MEDS: APIXABAN 2.5 MG TABLET PO (19:59)
[2021-08-04 20:03] VITALS: BP 91/41; PULSE 47; RESP 18; TEMP 36.8; O2SAT 100
[2021-08-04 20:04] VITALS: BP 104/33
[2021-08-04] MEDS: 0.9% Normal Saline 1,000 ML 100 ML IV (23:04)
[2021-08-05] VITALS (7 sets, daily range): BP systolic 110–123; BP diastolic 40–55; PULSE 48–58; RESP 16–18; TEMP 36.6–36.8; O2SAT 93–98
--- NOTE | 2021-08-05 01:43 | PCS.PANDOC ---
PANDEMIC DOCUMENTATION INITIATED: Date: 08/04/2021 Time: 3709
[2021-08-05 04:44] LABS: Absolute Lymphocyte Count 0.72 X10^3/uL (0.83-4.51); Absolute Neutrophil Count 7.4 X10^3/uL (2.0-7.7); Basophil# 0.03 X10^3/uL; Basophil% 0.3 % (0-1); Eosinophil# 0.01 X10^3/uL; Eosinophils% 0.1 % (0-5); Hematocrit 29.1 % (37-47); Hemoglobin 9.1 g/dL (12.0-15.0); Lymphocyte # 0.72 X10^3/ul (0.83-4.51); Mean Corp Hgb Conc 31.3 g/dL (32-36); Mean Corpuscular Hgb 25.2 pg (27.0-32.0); Mean Corpuscular Volume 80.6 fL (81-99); Mean Platelet Vol. 11.4 fl (6.2-12.0); Monocyte# 0.77 X10^3/uL; Monocyte% 8.6 % (0-10); NRBC Flagged by Analyzer 0 % (0-5); Neutrophil % 82.7 % (47-70); Platelet Count 176 K/mm3 (150-450); RBC Distribution Width CV 19.2 % (11.6-14.6); RBC Distribution Width SD 55.5 fl (35.1-43.9); Red Blood Count 3.61 M/mm3 (4.2-5.4)
[2021-08-05 05:09] LABS: Troponin-I HS 36 pg/mL (3.0-54.0)
[2021-08-05] MEDS: Levothyroxine 50 MCG Tablet PO (05:21)
[2021-08-05 05:24] LABS: ALB/GLOB Ratio 0.4 RATIO (0.9-2.4); AST(SGOT) 114 U/L (15-37); Alanine Aminotransfer ALT/SGPT 59 U/L (13-56); Albumin, Serum 1.5 g/dL (3.2-5.0); Alkaline Phosphatase 191 U/L (45-117); Anion Gap 8 (5-15); BUN 34 mg/dL (7-18); BUN/Creat Ratio 14.8 RATIO (10-20); Calcium,Total 7.2 mg/dL (8.5-10.1); Chloride 113 mmol/L (98-107); EST Glomerular Filtration Rate 22 mL/min (>60); Est Glom Filt Rate - Afr Amer 26 mL/min (>60); Estimated Creatinine Clearance 14.48 ml/min; Globulin 3.7 g/dL (2.2-4.2); Glucose 93 mg/dL (74-106); Potassium 3.9 mmol/L (3.5-5.1); Protein, Total 5.2 g/dL (6.4-8.2); Sodium Level 140 mmol/L (136-145)
[2021-08-05 07:21] LABS: Troponin-I HS 36 pg/mL (3.0-54.0)
[2021-08-05] MEDS: Aspirin 81 MG TAB.CHEW PO (10:16)
[2021-08-05] MEDS: Isosorbide Mononitrate 30 MG Tablet PO (10:16)
[2021-08-05] MEDS: Lactated Ringers 1,000 ML 75 ML IV (10:16)
[2021-08-05 11:15] LABS: Troponin-I HS 34 pg/mL (3.0-54.0)
--- NOTE | 2021-08-05 12:09 | PCM.PN.SRG ---
Subjective Subjective family had reported that patient had failure to thrive - with complaint of severe abdominal pain, lethargy and no appetite Patient appears to be sitting up comfortably in bed and eating lunch states that she has RUQ abdominal pain Objective Data Objective Data Vital Signs: Vital Signs Temp Pulse Resp BP Pulse Ox 98.2 F 50 L 18 123/42 H 96 08/05/21 05:25 08/05/21 05:25 08/05/21 05:25 08/05/21 05:25 08/05/21 07:50 Oxygen Delivery Method Room Air Weight: 56.245 kg Body Mass Index (BMI) 23.4 Intake & Output: Intake and Output for Last 24 Hours 08/03/21 08/04/21 08/05/21 23:59 23:59 23:59 Intake Total 913.75 / 913.75 1000 / 1000 Output Total 100 / 100 Balance 813.75 / 813.75 1000 / 1000 Lab / Micro Data Result Diagrams: 08/05/21 04:26 08/05/21 04:26 Labs: Laboratory Results - last 24 hr 08/04/21 14:05: WBC 9.8, RBC 4.12 L, Hgb 10.2 L, Hct 33.8 L, MCV 82.0, MCH 24.8 L, MCHC 30.2 L, RDW Std Deviation 57.6 H, RDW Coeff of Glen 19.6 H, Plt Count 239, MPV 11.8 08/04/21 14:05: PT 15.7 H, INR 1.3, APTT 37.0 H 08/04/21 14:05: Sodium 139, Potassium 4.1, Chloride 112 H, Carbon Dioxide 21.0, Anion Gap 6, BUN 31 H, Creatinine 2.40 H, Estim Creat Clear Calc 13.87, Est GFR (MDRD) Af Amer 25 L, Est GFR (MDRD) Non-Af 21 L, BUN/Creatinine Ratio 12.9, Glucose 122 H, Calcium 7.6 L, Total Bilirubin 0.80, Direct Bilirubin 0.46 H, AST 133 H, ALT 68 H, Alkaline Phosphatase 223 H, Total Protein 6.1 L, Albumin 1.9 L, Globulin 4.2, TSH 5.60 H 08/04/21 14:05: Magnesium 3.0 H 08/05/21 04:26: WBC 9.0, RBC 3.61 L, Hgb 9.1 L, Hct 29.1 L, MCV 80.6 L, MCH 25.2 L, MCHC 31.3 L, RDW Std Deviation 55.5 H, RDW Coeff of Glen 19.2 H, Plt Count 176, MPV 11.4, Immature Gran % (Auto) 0.300, Neut % (Auto) 82.7 H, Lymph % (Auto) 8.0 L, Todd % (Auto) 8.6, Eos % (Auto) 0.1, Baso % (Auto) 0.3, Absolute Neuts (auto) 7.4, Absolute Lymphs (auto) 0.72 L, Nucleated RBC % 0 08/05/21 04:26: Sodium 140, Potassium 3.9, Chloride 113 H, Carbon Dioxide 19.0 L, Anion Gap 8, BUN 34 H, Creatinine 2.30 H, Estim Creat Clear Calc 14.48, Est GFR (MDRD) Af Amer 26 L, Est GFR (MDRD) Non-Af 22 L, BUN/Creatinine Ratio 14.8, Glucose 93, Calcium 7.2 L, Total Bilirubin 0.90, AST 114 H, ALT 59 H, Alkaline Phosphatase 191 H, Total Protein 5.2 L, Albumin 1.5 L, Globulin 3.7, Albumin/Globulin Ratio 0.4 L 08/05/21 04:26: Troponin I High Sens 36 08/05/21 06:36: Troponin I High Sens 36 08/05/21 10:39: Troponin I High Sens 34 Micro: Microbiology 08/04/21 13:57 Interface Orders SARS-CoV-2 Antigen (Rapid) - Final Physical Exam Const alert and oriented x3 General Appearance: cooperative Resp normal respiratory effort GI normal to inspection, nondistended, normoactive bowel sounds GI Narrative: no periteonal signs Assessment & Plan Assessment/Plan (1) Cholelithiasis: QUALIFIERS: Cholecystitis acuity: chronic Cholelithiasis location: gallbladder Cholecystitis presence: with cholecystitis Biliary obstruction: without biliary obstruction Qualified Code(s): K80.10 - Calculus of gallbladder with chronic cholecystitis without obstruction PLAN: had initially been scheduled for surgery yesterday, but anesthesia stated patient to high risk for procedure to be done at this [facility] awaiting transfer to [facility] yesterday, I had offered patient for her to go home and that I would call her with an appointment to [facility], however, patient wanted to be admitted to the hospital and await transfer to [facility].
--- NOTE | 2021-08-05 12:27 | PN.HOSP_ITS ---
Subjective Subjective Patient seen and examined. She was admitted to the service of general surgery for acute cholelithiasis. Surgery was cancelled here due to multiple comorbidities and an abnormal EKG which showed bradycardia. She is awaiting transfer to [facility]. She has no complaints this morning. REview of systems is otherwise negative. She has remained hemodynamically stable. Objective Data Objective Data Vital Signs: Vital Signs Temp Pulse Resp BP Pulse Ox 98.2 F 58 L 18 123/42 H 96 08/05/21 05:25 08/05/21 10:00 08/05/21 10:00 08/05/21 05:25 08/05/21 10:00 Oxygen Delivery Method Room Air Weight: 124 lb Body Mass Index (BMI) 23.4 Intake & Output: Intake and Output for Last 24 Hours 08/03/21 08/04/21 08/05/21 23:59 23:59 23:59 Intake Total 913.75 / 913.75 2049 Output Total 100 / 100 Balance 813.75 / 813.75 2049 Lab / Micro Data Result Diagrams: 08/05/21 04:26 08/05/21 04:26 Labs: Laboratory Results - last 24 hr 08/04/21 14:05: WBC 9.8, RBC 4.12 L, Hgb 10.2 L, Hct 33.8 L, MCV 82.0, MCH 24.8 L, MCHC 30.2 L, RDW Std Deviation 57.6 H, RDW Coeff of Glen 19.6 H, Plt Count 239, MPV 11.8 08/04/21 14:05: PT 15.7 H, INR 1.3, APTT 37.0 H 08/04/21 14:05: Sodium 139, Potassium 4.1, Chloride 112 H, Carbon Dioxide 21.0, Anion Gap 6, BUN 31 H, Creatinine 2.40 H, Estim Creat Clear Calc 13.87, Est GFR (MDRD) Af Amer 25 L, Est GFR (MDRD) Non-Af 21 L, BUN/Creatinine Ratio 12.9, Glucose 122 H, Calcium 7.6 L, Total Bilirubin 0.80, Direct Bilirubin 0.46 H, AST 133 H, ALT 68 H, Alkaline Phosphatase 223 H, Total Protein 6.1 L, Albumin 1.9 L, Globulin 4.2, TSH 5.60 H 11/02/21 14:05: Magnesium 3.0 H 08/05/21 04:26: WBC 9.0, RBC 3.61 L, Hgb 9.1 L, Hct 29.1 L, MCV 80.6 L, MCH 25.2 L, MCHC 31.3 L, RDW Std Deviation 55.5 H, RDW Coeff of Glen 19.2 H, Plt Count 176, MPV 11.4, Immature Gran % (Auto) 0.300, Neut % (Auto) 82.7 H, Lymph % (Auto) 8.0 L, [place] % (Auto) 8.6, Eos % (Auto) 0.1, Baso % (Auto) 0.3, Absolute Neuts (auto) 7.4, Absolute Lymphs (auto) 0.72 L, Nucleated RBC % 0 08/05/21 04:26: Sodium 140, Potassium 3.9, Chloride 113 H, Carbon Dioxide 19.0 L , Anion Gap 8, BUN 34 H, Creatinine 2.30 H, Estim Creat Clear Calc 14.48, Est GFR (MDRD) Af Amer 26 L, Est GFR (MDRD) Non-Af 22 L, BUN/Creatinine Ratio 14.8, Glucose 93, Calcium 7.2 L, Total Bilirubin 0.90, AST 114 H, ALT 59 H, Alkaline Phosphatase 191 H, Total Protein 5.2 L, Albumin 1.5 L, Globulin 3.7, Albumin/Globulin Ratio 0.4 L 08/05/21 04:26: Troponin I High Sens 36 08/05/21 06:36: Troponin I High Sens 36 08/05/21 10:39: Troponin I High Sens 34 Micro: Microbiology 08/04/21 13:57 Interface Orders SARS-CoV-2 Antigen (Rapid) - Final Physical Exam Const alert, oriented x3 and no apparent distress Constitutional Narrative: frail Exam Limitations: no limitations HEENT head/scalp atraumatic and moist oral mucous membranes Head and Scalp: normocephalic Mouth: dry mucous membranes Eyes EOMs intact bilaterally and conjunctivae normal Neck no lymphadenopathy Resp normal respiratory effort, no retractions, no use of accessory muscles and clear to auscultation bilaterally Cardio regular rate, regular rhythm, S1 normal heart sound, S2 normal heart sound and no murmurs GI GI Narrative: abdomen soft, nontender, no organomegaly. Extremity normal to inspection and full ROM Peripheral Pulses: Yes pulses 2+ throughout Skin no rashes or lesions noted Neuro oriented x3, CN's II-XII intact bilaterally and moves all extremities Sensorium / Orientation: awake and alert Psych affect normal Assessment & Plan Assessment/Plan (1) Cholelithiasis: QUALIFIERS: Cholelithiasis location: gallbladder Cholecystitis presence: with cholecystitis Cholecystitis acuity: chronic Biliary obstruction: without biliary obstruction Qualified Code(s): K80.10 - Calculus of gallbladder with chronic cholecystitis without obstruction PLAN: #Acute cholelithiasis * under the service of general surgery * surgery cancelled per anesthesia due to multiople cardiac comorbidities and an abnormal EKG * awaiting transfer to [facility] * #CRISTIANA on CKD 3 * CR is 2.4, with a baseline of ~ 1.5. Continue gentle hydration with IVF and trend. #Hypothyroidism * TSH is 5.6. Considering her advanced age, will continue current home synthroid dose. * #HfrEF * most recent echo in 2019 showed EF of 20-25% with hypokinesis * on aspirin, statin and coreg,. * lasix currently on hold due to Cristiana on CKD 3. * #CAD: on aspirin and statin as well as coreg. #Carotid artery disease * s/p carotid endarterectomy. * on aspirin and statin. * #History of abnominal aortic aneurysm * s/p repair * on aspirin. eliquis on hold * #Anxiety and depression: on escitalopram #History of afib: on amiodarone, carvedilol and eliquis. Eliquis currently on hold as she is awaiting surgery. #Hyperlipidemia: on statin #Hypertension: on coreg. IV hydralazine prn DVT prophylaxis; SCDs. eliquis on hold Disposition: awaiting transfer to [facility]. Charges/Coding Visit Charges Inpatient E&M: 24067 Subs Hosp L3
--- NOTE | 2021-08-05 14:26 | CHAPLAIN ---
Type of Pastoral Visit _x__ Initial Visit ___ Follow-up Visit ___ On-call Visit ___ General Patient Visit ___ Spiritual Assessment ___ Family Conference ___ Bereavement ___ Rapid Response ___ Code Blue ___ Other (describe below) Pastoral Care Referral From _x__ Patient ___ Family ___ Nurse ___ Physician ___ Head Chef ___ Financial Aid Counselor ___ Other (describe below) Sacrament/Intervention _x__ Active listening ___ Anointing ___ Protestant ___ Bereavement ___ Communion ___ Evi exploration ___ ___ Life review _x__ Prayer ___ Reconciliation ___ Sacrament of Sick _x__ Supportive presence ___ Wedding ___ Other (describe below) Pastoral Comments patient states that she is feeling some better but needs to be transferred to another hospital; spouse is at bedside; offer of support given as well as prayer; spouse asks for Jason Liaison although he says there are no needs at this time
[2021-08-05] MEDS: Menthol/Lanolin/Calamine/Znox 113 GM Tube 1 APPLIC TOPICAL ×2 (14:30→20:54)
--- NOTE | 2021-08-05 17:21 | NURSING ---
report called to [facility] and given to kasey nurse-family updated about transport time of 8pm
[2021-08-05] MEDS: Atorvastatin Calcium 80 MG Tablet PO (20:54)
--- NOTE | 2021-08-06 07:53 | PCM.DC.BLA ---
Discharge Summary Date of Admission: 08/04/21 Date of Discharge: 08/05/21 Summary: patient admitted for outpatient laparoscopic cholecystectomy, however anesthesia stated that patient had medical morbidities that precluded having surgery done at this hospital. patient is admitted as per her wishes, to await transfer to [facility]. Meaningful Use Info Meaningful Use Diagnoses (Choose all that apply): None applicable Discharge Plan Admission Admit Date/Time: 08/04/21 15:36 Attending Provider: Nadine Delvalle Primary Care Provider: Chon Solis Discharge Orders/Prescriptions Prescriptions: No Action magnesium oxide 400 mg tablet 400 mg PO BID RF: 0 levothyroxine 50 mcg tablet 50 mcg PO DAILY RF: 0 potassium chloride 10 mEq tablet extended release 30 meq PO DAILY RF: 0 aspirin 81 MG tablet,chewable 81 mg PO DAILY@0800 RF: 0 rosuvastatin 40 MG tablet 40 mg PO DAILY RF: 0 escitalopram oxalate 10 MG tablet 10 mg PO DAILY RF: 0 apixaban 2.5 mg tablet 2.5 mg PO BID RF: 0 isosorbide mononitrate 30 MG tablet extended release 24 hr 30 mg PO DAILY RF: 0 carvedilol 6.25 MG tablet 6.25 mg PO BID RF: 0 amiodarone 200 mg tablet 200 mg PO DAILY RF: 0 furosemide 40 mg tablet 40 mg PO DAILY RF: 0 Other Ambulatory Orders: 12 Lead EKG (Routine) Timeframe: [id number] Facility: [facility] - Location: Cardiovascular Services Ordered By: Dr. Alonzo Brice Referrals / Follow Up: Chon Solis DO [Primary Care Provider] - Disposition Disposition (needs filled in before D/C Order can be placed): Acute Care Hospital
--- NOTE | 2021-08-10 10:26 | EKG12_ITS ---
Test Reason : PRE OP Blood Pressure : / mmHG Vent. 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
== END 2021-08-05 22:14 | disposition short-term general hospital (02) ==
LOC: MS2 08-05 08:32
PROVIDERS: Anesthesiology; Family Medicine; Admitting Provider Surgery; PCP Student in an Organized Health Care Education/Training Program; Referring Provider Surgery; Visit Provider Surgery
DX: K80.10 Calculus of gallbladder with chronic cholecystitis without obstruction (principal); I13.0 Hypertensive heart and chronic kidney disease with heart failure and stage 1 through stage 4 chronic kidney disease, or unspecified chronic kidney disease; E78.5 Hyperlipidemia, unspecified; N18.30 Chronic kidney disease, stage 3 unspecified; I50.22 Chronic systolic (congestive) heart failure; I25.10 Atherosclerotic heart disease of native coronary artery without angina pectoris; I48.0 Paroxysmal atrial fibrillation; I25.5 Ischemic cardiomyopathy; I73.9 Peripheral vascular disease, unspecified; I25.2 Old myocardial infarction; M19.90 Unspecified osteoarthritis, unspecified site; F32.A Depression, unspecified; R94.31 Abnormal electrocardiogram [ECG] [EKG]; E03.9 Hypothyroidism, unspecified; R62.7 Adult failure to thrive; Z79.01 Long term (current) use of anticoagulants; Z79.899 Other long term (current) drug therapy; Z79.82 Long term (current) use of aspirin; Z68.23 Body mass index [BMI] 23.0-23.9, adult; Z86.73 Personal history of transient ischemic attack (TIA), and cerebral infarction without residual deficits; Z53.09 Procedure and treatment not carried out because of other contraindication; F41.9 Anxiety disorder, unspecified
CPT/HCPCS: 47562; 36415; 80048; 80053; 80076; 83735; 84443; 84484; 85025; 85027; 85610; 85730; 87426; 93005; 96360; 96361; 99218; J7030; J7040; J7120; G0378; G0379; J2405